=== PATIENT | female | born 1990 | race Caucasian/White ===

== ENCOUNTER 2018-02-23 01:19 | Emergency (ER) | payer BC, SELFPAY ==
[2018-02-23] VITALS (7 sets, daily range): BP systolic 128–140; BP diastolic 71–105; PULSE 86–122; RESP 16–24; TEMP 37.1; O2SAT 96–97; BMI 32.8
--- NOTE | 2018-02-23 01:57 | ED.DCSUM_ITS ---
- ER Visit Summary Date of Service: 02/23/18 Chief Complaint: suicidal ideation History of Present Illness: The patient is a 28 F Who presents for suicidal ideation after her told her tonight he is leaving her. Patient states she does have firearms in the house and does not trust herself to be alone with them. She has thought of shooting herself, and has had this thought in the past but is never acted on it. She has no one to take the guns at this time. She fell off the porch and denies any injury other than abrasions to the right lower extremity. Tetanus not up-to-date. She denies any other complaints at this time. History of anxiety disorder and depression, on trintellix. She is a smoker. Physical Examination: Vital signs: afebrile, hemodynamically stable, no hypoxia on room air General: well nourished, well developed, in no distress, crying Skin: warm, dry, no rash, no pallor, abrasions to the right lower extremity distal to the knee HEENT: normocephalic and atraumatic; PERRL, EOMI, moist mucous membranes Cardiovascular: Tachycardic rate and rhythm without murmurs, no peripheral edema , 2+ pulses all distal extremities Respiratory: No increased work of breathing, lungs are clear to auscultation bilaterally, no rales, rhonchi or wheezing Abdominal: Abdomen is soft, nontender with normoactive bowel sounds, no guarding or rebound, no masses MSK: Moves all extremities, no deformities, normal strength Neuro: Awake and alert, oriented ?4. No facial droop, sensation and motor function intact and symmetric Psych: Tearful, depressed affect, positive suicidal thoughts Test Results: Abnormal Lab Results 02/23/18 02/23/18 02/23/18 02:04 02:05 02:05 WBC 12.4 H RBC 4.59 Hgb 14.2 Hct 42.5 MCV 92.6 MCH 30.9 MCHC 33.4 RDW 12.9 RDW Differential 43.0 Plt Count 272 MPV 11.6 Immature Gran % (Auto) 0.200 Neut % (Auto) 63.9 Lymph % (Auto) 24.6 Armstrong % (Auto) 8.6 Eos % (Auto) 2.2 Baso % (Auto) 0.5 Absolute Neuts (auto) 7.9 H Absolute Lymphs (auto) 3.05 Total Counted Not Reportable Sodium 139 Potassium 3.6 Chloride 108 H Carbon Dioxide 22.0 Anion Gap 9 BUN 16 Creatinine 0.62 Estim Creat Clear Calc 122.64 Est GFR (MDRD) Af Amer 148 Est GFR (MDRD) Non-Af 123 BUN/Creatinine Ratio 25.8 H Glucose 108 H Calcium 8.7 Total Bilirubin 0.60 AST 20 ALT 33 Alkaline Phosphatase 84 Total Protein 8.1 Albumin 4.3 Globulin 3.8 Albumin/Globulin Ratio 1.1 Serum , Qual Urine Opiates Screen NEGATIVE Urine Methadone Screen NEGATIVE Ur Barbiturates Screen NEGATIVE Ur Phencyclidine Scrn NEGATIVE Ur Amphetamines Screen NEGATIVE U Methamphetamin-MDMA NEGATIVE U Benzodiazepines Scrn NEGATIVE Urine Cocaine Screen NEGATIVE U Cannabinoids Screen NEGATIVE Ur Drug Screen Comment Ethyl Alcohol 02/23/18 02/23/18 02:05 02:05 WBC RBC Hgb Hct MCV MCH MCHC RDW RDW Differential Plt Count MPV Immature Gran % (Auto) Neut % (Auto) Lymph % (Auto) Armstrong % (Auto) Eos % (Auto) Baso % (Auto) Absolute Neuts (auto) Absolute Lymphs (auto) Total Counted Sodium Potassium Chloride Carbon Dioxide Anion Gap BUN Creatinine Estim Creat Clear Calc Est GFR (MDRD) Af Amer Est GFR (MDRD) Non-Af BUN/Creatinine Ratio Glucose Calcium Total Bilirubin AST ALT Alkaline Phosphatase Total Protein Albumin Globulin Albumin/Globulin Ratio Serum , Qual NEGATIVE Urine Opiates Screen Urine Methadone Screen Ur Barbiturates Screen Ur Phencyclidine Scrn Ur Amphetamines Screen U Methamphetamin-MDMA U Benzodiazepines Scrn Urine Cocaine Screen U Cannabinoids Screen Ur Drug Screen Comment Ethyl Alcohol < 3.0 Emergency Department Course and Treatment: Medical screening was performed and patient was medically cleared for evaluation by behavioral health. Patient requested being allowed to go out to smoke but instead was prescribed a nicotine patch. She requested her dose of trintellix, however this medication is not available on the formulary. Because of her ready access to handguns and her suicidal thoughts of shooting herself, patient is most appropriate for admission to an inpatient facility. Patient's tetanus was updated due to the abrasions on her leg. She was evaluated by crisis counselor, who felt strongly that patient would benefit from inpatient admission. She is currently being placed, with [facility] accept her. Final disposition pending acceptance of patient to an inpatient psychiatric facility. Treatment Plan: [] Disposition: [] Impression: Suicidal ideation with plan This note was generated with [employer] dictation software. It may contain incorrect words, spelling, and punctuation that were not noted in review of the chart prior to signing ED Disposition - Plan for ED Patient: Chief Complaint: Suicidal Referrals: NOT,DEFINED [NON-STAFF] -
[2018-02-23 02:12] LABS: Absolute Lymphocyte Count 3.05 X10^3/ul (0.83-4.51); Absolute Neutrophil Count 7.9 X10^3/uL (2.0-7.7); Basophil# 0.06 X10^3/uL; Basophil% 0.5 % (0-1); Eosinophil# 0.27 X10^3/uL; Eosinophils% 2.2 % (0-5); Hematocrit 42.5 % (37-47); Hemoglobin 14.2 g/dl (12.0-15.0); Lymphocyte # 3.05 X10^3/ul (4.0); Lymphocyte % 24.6 % (19-41); Mean Corp Hgb Conc 33.4 g/gl (32-36); Mean Corpuscular Hgb 30.9 pg (27.0-32.0); Mean Corpuscular Volume 92.6 fL (81-99); Mean Platelet Vol. 11.6 fl (6.2-12.0); Monocyte# 1.07 X10^3/uL; Monocyte% 8.6 % (0-10); Neutrophil # 7.92 X10^3/uL (2.7-7.7); Neutrophil % 63.9 % (47-70); Platelet Count 272 K/mm3 (150-450); RBC Distribution Width CV 12.9 % (11.6-14.6); Red Blood Count 4.59 M/mm3 (4.2-5.4); White Blood Count 12.4 K/mm3 (4.4-11.0)
[2018-02-23 02:13] LABS: Differential Indicated SCAN CRITERIA MET; POSITIVE COUNT NO; POSITIVE DIFFERENTIAL NO; POSITIVE MORPHOLOGY YES
[2018-02-23 02:26] LABS: ALB/GLOB Ratio 1.1 RATIO (0.9-2.4); AST(SGOT) 20 U/L (15-37); Alanine Aminotransfer ALT/SGPT 33 U/L (13-56); Albumin, Serum 4.3 g/dL (3.2-5.0); Alkaline Phosphatase 84 U/L (45-117); Anion Gap 9 (5-15); BUN 16 mg/dL (7-18); BUN/Creat Ratio 25.8 RATIO (10-20); Calcium,Total 8.7 mg/dL (8.5-10.1); Chloride 108 mmol/L (98-107); Creatinine, Serum 0.62 mg/dL (0.55-1.02); EST Glomerular Filtration Rate 123 mL/min (>60); Est Glom Filt Rate - Afr Amer 148 mL/min (>60); Estimated Creatinine Clearance 122.64 ml/min; Globulin 3.8 g/dL (2.2-4.2); Glucose 108 mg/dL (74-106); Potassium 3.6 mmol/L (3.5-5.1); Protein, Total 8.1 g/dL (6.4-8.2); Sodium Level 139 mmol/L (136-145)
[2018-02-23 02:30] LABS: Amphetamine Urine VISTA NEGATIVE (<1000 ng/mL); Barbiturate Urine VISTA NEGATIVE (< 200 ng/mL); Benzodiazepine Urine VISTA NEGATIVE (< 200 ng/mL); Cocaine Urine VISTA NEGATIVE (< 300 ng/mL); Ecstacy Urine VISTA NEGATIVE (< 500 ng/mL); Methadone Urine VISTA NEGATIVE (< 300 ng/mL); PCP Urine VISTA NEGATIVE (< 25 ng/mL); THC Urine VISTA NEGATIVE (< 50 ng/mL); Vista UDS pH Range 6
[2018-02-23 02:32] LABS: Pregnancy, Serum, hCG Quali. NEGATIVE Negative (0-9 Nonpreg)
[2018-02-23 02:40] LABS: Alcohol, Blood (Medical)-Serum < 3.0 mg/dL
--- NOTE | 2018-02-23 02:59 | ED.RN ---
JOHN CALLED BACK @ 0300, I WILL BE IN SOON
[2018-02-23] MEDS: Ondansetron ODT 4 MG Tablet PO (05:28)
[2018-02-23] MEDS: Diphth,Pertuss(Acell),Tet Vac 0.5 ML Vial IM (06:57)
--- NOTE | 2018-02-23 08:29 | NURSING ---
SAFIA LOPEZ, CALLED ASKING IF WE HAD RECEIVED PLACEMENT FOR PATIENT. SHE WILL FOLLOWUP ON IT.
[2018-02-23] MEDS: LORazepam 1 MG Tablet PO (08:49)
--- NOTE | 2018-02-23 09:15 | NURSING ---
CALLED [facility] FOR TRANSPORT, ETA IS FROM [facility] [place]
--- NOTE | 2018-02-23 09:53 | ED.RN ---
PT REQUESTED PHONE CALL TO NOTIFYING HIM OF TRANSFER TO PSYCHIATRIC FACILITY. CALL WAS PLACED TO PERSON ON RECORD AT PHONE NUMBER LISTED. VOICE MAIL WAS LEFT TO THIS NUMBER REQUESTING CALL BACK TO ED.
== END 2018-02-23 09:53 ==
LOC: ED 02:14
PROVIDERS: Emergency Provider Emergency Medicine
DX: R45.851 Suicidal ideations (principal); F32.9 Major depressive disorder, single episode, unspecified; F17.200 Nicotine dependence, unspecified, uncomplicated; F41.9 Anxiety disorder, unspecified
CPT/HCPCS: 80053; 80307; 80320; 84703; 85025; 90715; 99285; G0480

== ENCOUNTER 2018-05-03 12:49 | Emergency (ER) | payer BC, SELFPAY ==
[2018-05-03 12:49] VITALS: BP 136/81; PULSE 102; RESP 16; TEMP 36.7; O2SAT 99; BMI 31.6
--- NOTE | 2018-05-03 13:35 | ED.VIS.GEN ---
History of Present Illness Chief Complaint: Med Refill Informant: Patient Narrative: Patient states she was on Trintellix 20 mg daily for depression, and was admitted to psychiatry in February, discharged on that medication as well as BuSpar and Seroquel. She was given a month supply, but has been unable to get refills, and has been out of these medications for 3 weeks and feels like she is having some withdrawal symptoms, feeling shaky, having severe mood swings, depressed at times but she is not suicidal. She wants to be on her medications, she called the counseling center, but they cannot give her any refills without seeing her and they do not have any availability until June. Significant other states that he got her in for a quick evaluation for medication prescriptions at the end of this month but she would like to get some medication to get her through. She is not asking for any controlled substances, only these 3 medications. - Past Medical History (1) Depression Status: Chronic Past Medical History - Allergies and Home Meds Allergies/Adverse Reactions: Allergies egg Allergy (Verified 05/03/18 12:53) Nausea/Vom/Diarrhea [facility] Allergy (Uncoded 05/03/18 12:53) NOT SURE/FELT BAD Primary Care Physician: Care Physician,No Primary [Primary Care Provider] - Lives: With Family Smoking Status: Current every day smoker Review of Systems General: Denies: Chills, Fever Cardiovascular: Denies: Chest pain, Palpitations Respiratory: Denies: Dyspnea, Cough Gastrointestinal: Denies: Abdominal pain, Nausea, Vomiting Psych: Reports: Depression, Anxiety. Denies: Suicidal thoughts, Suicidal ideations Physical Exam Vital Signs/Narrative: Vital Signs Temp Pulse Resp BP Pulse Ox 05/03/18 12:49 98.1 F 102 H 16 136/81 H 99 Inital Vital Signs reviewed: Yes General: Well nourished, Well developed, - - Well-appearing, NAD Head: Normocephalic, Atraumatic Eyes: Perrl, EOMI Skin: Normal color, No rash Neurological: Alert, Oriented x3, Cranial nerves II-XII grossly intact, Normal Strength, Normal Sensation, Normal Gait Psychological: Normal affect Diagnostic/Tx/Re-eval - Medical Decision Making I will prescribe her a 20-day supply to get her through the end of the month, which I do not have a problem with. ED Disposition - Plan for ED Patient: Disposition: Home or Assisted Living Chief Complaint: Med Refill Diagnosis: Encounter for medication refill, Depression Instructions: Med Refill Prescriptions: Quetiapine Fumarate [Seroquel] 50 mg PO QHS #20 tab Vortioxetine Hydrobromide [Trintellix] 20 mg PO . QAM #20 tab Buspirone HCl 10 mg PO TID #60 tab Referrals: Counseling,Center [GROUP OF PHYSICIANS] - Keep [facility] appointment
[2018-05-03 13:49] VITALS: RESP 16
--- NOTE | 2018-05-03 13:50 | ED.RN ---
REVIEWED D/C INSTRUCTIONS, FOLLOW UP CARE, PRESCRIPTIONS, AND S/S THAT WOULD WARRANT A RETURN TO THE ED WITH PT. PT VERBALIZED AN UNDERSTANDING AND DENIES FURTHER QUESTIONS FOR THIS RN. PT SKIN P/W/D, RESP EVEN AND UNLABORED, PT A&O X 3, NO DISTRESS NOTED. PT AMBULATED OUT OF ED, GAIT STEADY.
== END 2018-05-03 13:51 | disposition home or self-care (01) ==
PROVIDERS: Emergency Provider Emergency Medicine
DX: Z76.0 Encounter for issue of repeat prescription (principal); F32.9 Major depressive disorder, single episode, unspecified; F17.200 Nicotine dependence, unspecified, uncomplicated
CPT/HCPCS: 99282

== ENCOUNTER 2022-01-02 00:51 | Emergency (ER) | payer SELFPAY ==
[2022-01-02 00:51] VITALS: BP 145/92; PULSE 87; RESP 18; TEMP 36.2; O2SAT 98
[2022-01-02 00:52] VITALS: BP 145/92; PULSE 87; RESP 16; TEMP 36.2; O2SAT 98; BMI 30.4
--- NOTE | 2022-01-02 01:18 | EKG12_ITS ---
Test Reason : DYSRHYTHMIA Blood Pressure : / mmHG Vent. Rate : 077 BPM Atrial Rate : 077 BPM P-R Int : 156 ms QRS Dur : 082 ms QT Int : 370 ms P-R-T Axes : 059 021 027 degrees QTc Int : 418 ms Normal sinus rhythm Septal infarct , age undetermined, cannot be excluded Abnormal ECG Confirmed by AMARI WARREN, MADELYN ([id number]), avid editor JUNIOR MADDEN ([id number]) on 01/03/2022 10:46:55 AM Referred By: CODI Confirmed By:MADELYN FITZPATRICK MD
--- NOTE | 2022-01-02 02:17 | EX.ED.DYSGE1 ---
HPI History of Present Illness Chief Complaint: Chest Pain Narrative Narrative: Patient is a 31-year-old female with no significant past medical history. She states that over the past 2 to 3 weeks has been having intermittent sharp midsternal chest pain. She states that she does not have medical insurance and therefore has not been to see family doctor or to the ER secondary to it. She denies any trauma fevers chills illicit drug use or family history of cardiac disease at a young age. She also denies any recent surgery travel or history of DVT/PE. She states that this evening the pain seemed little more severe than previous and therefore she came in for evaluation. PFSH PFSH no medical history Home Medications buspirone 10 mg tablet 10 mg PO TID 05/03/18 [History Last Taken Unknown] buspirone 10 mg tablet 10 mg PO TID #60 tabs 05/03/18 [Rx Last Taken Unknown] ondansetron 4 mg disintegrating tablet 4 mg PO Q8 PRN Nausea 05/03/18 [History Last Taken Unknown] quetiapine 50 mg tablet 50 mg PO QHS #20 tabs 05/03/18 [Rx Last Taken Unknown] quetiapine 50 mg tablet (Seroquel) 50 mg PO QHS 05/03/18 [History Last Taken Unknown] vortioxetine 20 mg tablet 20 mg PO . QAM #20 tabs 05/03/18 [Rx Last Taken Unknown] vortioxetine 20 mg tablet (Trintellix) 20 mg PO DAILY 05/03/18 [History Last Taken Unknown] Allergy/AdvReac Type Severity Reaction Status Date / Time egg Allergy Nausea/Vom/ Verified 05/03/18 12:53 Diarrhea [facility] Allergy NOT Uncoded 05/03/18 12:53 SURE/FELT BAD Social History Smoking Status: Current every day smoker tobacco type: cigarettes ROS ROS ED Constitutional Constitutional ED: Denies chills or fever(s) ENT ENT ED: Denies sore throat Cardiovascular Cardiovascular: Reports chest pain; Denies palpitations or racing heartbeat Respiratory/Chest Respiratory/Chest: Denies cough or dyspnea Gastrointestinal Gastrointestinal: Denies abdominal pain, diarrhea, nausea or vomiting Genitourinary Genitourinary ED: Denies dysuria Musculoskeletal Musculoskeletal: Denies myalgias Integumentary Denies rash Neurologic Neurologic: Denies headache(s) Hematologic/Lymphatic Hematologic/Lymphatic: Denies easy bleeding or easy bruising EXAM Physical Exam Const Vital Signs: 01/02/22 00:52 01/02/22 00:51 Temperature 97.2 F L 97.2 F L Temperature Source Temporal Temporal Pulse Rate 87 87 Respiratory Rate 16 18 Blood Pressure 145/92 H 145/92 H Blood Pressure Mean 109 109 Pulse Ox 98 98 Oxygen Delivery Method Room Air Room Air Positive well nourished and well developed General Appearance ED: well developed HEENT Reports moist mucous membranes Eyes PERRL and EOMs intact bilaterally Neck supple Chest Wall Chest Narrative: Reproducible anterior chest wall with palpation that patient states is same pain she has been experiencing. There is no bony deformity or crepitance. No overlying soft tissue changes to suggest trauma or infection Resp normal respiratory effort and clear to auscultation bilaterally Cardio regular rate and regular rhythm Rate: other Other Details: Radial pulses are plus 2 out of 4 bilaterally are equal and symmetric GI non-tender and non-distended GI Narrative: No voluntary guarding or rigidity no pulsatile mass Auscultation: normoactive bowel sounds Palpation: soft Extremity normal to inspection Extremity Narrative: No asymmetric edema no pitting edema negative Homans' sign bilaterally Neuro oriented x3 and CN's II-XII intact bilaterally Sensorium / Orientation: alert Psych mental status grossly normal Skin no rashes or lesions noted MDM MDM MDM Narrative Medical decision making narrative: Patient presented to the ER mildly hypertensive but otherwise with stable vitals and in no acute distress. She is low risk for CAD as well as DVT/PE and her exam is most suggestive of a musculoskeletal chest wall pain as it is reproducible in nature. However because the pain has been present for the past 2 weeks it elected perform a basic cardiac work-up. However after arrival to the ER patient reports that her pain has resolved and she does not want to be worked up any further. Therefore she is low risk of cardiac disease I will discharge her at this time and she can return if she has any further concerns or decides upon having a work-up performed Discharge Plan Triage Chief Complaint: Chest Pain ED Provider: Hakan Tong Dx/Rx/DC Orders Clinical Impression: Acute nonspecific chest pain with low risk of coronary artery disease Instructions: ED Chest Pain, Noncardiac, ED Chest Pain, Uncertain Cause Prescriptions: No Action buspirone 10 MG tablet 10 mg PO TID ondansetron 4 MG tablet 4 mg PO Q8 PRN (Reason: Nausea) Label Comments: TAKE 1 TABLET BY MOUTH EVERY 8 HOURS NEEDED FOR NAUSEA quetiapine [Seroquel] 50 MG tablet 50 mg PO QHS vortioxetine [Trintellix] 20 MG tablet 20 mg PO DAILY vortioxetine 20 MG tablet 20 mg PO . QAM Qty: 20 0RF buspirone 10 MG tablet 10 mg PO TID Qty: 60 0RF quetiapine 50 MG tablet 50 mg PO QHS Qty: 20 0RF Primary Care Provider: Care Physician,No Primary Referrals: Carl Santos MD [STAFF PHYSICIAN] - 1 Week if not improving Care Physician,No Primary [Primary Care Provider] - Activity Restrictions/Additional Instructions: Please return to the ER for repeat evaluation if you change your mind about obtaining a work-up or have any further concerns Disposition Disposition: Home, Self Care Discharge Date/Time: 01/02/22 02:27
== END 2022-01-02 02:27 | disposition home or self-care (01) ==
PROVIDERS: Emergency Provider Emergency Medicine; Visit Provider Emergency Medicine
DX: R07.2 Precordial pain (principal); F17.210 Nicotine dependence, cigarettes, uncomplicated
CPT/HCPCS: 93005; 99285; A4216

== ENCOUNTER 2023-02-27 23:03 | Emergency (ER) | payer BC, SELFPAY ==
[2023-02-27 23:05] VITALS: BP 138/99; PULSE 115; RESP 18; TEMP 36.2; O2SAT 98; BMI 29.2
[2023-02-28 00:20] LABS: Color, Urine Yellow (Yellow); Glucose, Dipstick Normal (Normal); Ketone-Dipstick Negative (Negative); Leukocyte Esterase-Dipstick Negative /ul (Negative); Nitrite-Dipstick Negative (Negative); Occult Blood-Urine Negative /ul (Negative); Protein-Dipstick Negative (Negative); Urine Bilirubin Dipstick Negative (Negative); Urine Clarity Clear (Clear); Urine Urobilinogen Normal (Normal); Urine pH 6.5 (5.0 - 8.0)
[2023-02-28 00:21] LABS: Absolute Lymphocyte Count 3.27 X10^3/uL (0.83-4.51); Absolute Neutrophil Count 10.7 X10^3/uL (2.0-7.7); Basophil% 0.6 % (0-1); Eosinophil# 0.27 X10^3/uL; Eosinophils% 1.7 % (0-5); Hematocrit 46.3 % (37-47); Hemoglobin 15.3 g/dL (12.0-15.0); Lymphocyte # 3.27 X10^3/ul (0.83-4.51); Lymphocyte % 21.2 % (19-41); Mean Corpuscular Hgb 30.8 pg (27.0-32.0); Mean Corpuscular Volume 93.3 fL (81-99); Mean Platelet Vol. 12.6 fl (6.2-12.0); Monocyte# 1.06 X10^3/uL; Monocyte% 6.9 % (0-10); NRBC Flagged by Analyzer 0 % (0-5); Neutrophil # 10.66 X10^3/uL (2.7-7.7); Neutrophil % 69.1 % (47-70); Platelet Count 236 K/mm3 (150-450); RBC Distribution Width CV 12.6 % (11.6-14.6); RBC Distribution Width SD 43.1 fl (35.1-43.9); Red Blood Count 4.96 M/mm3 (4.2-5.4); White Blood Count 15.4 K/mm3 (4.4-11.0)
[2023-02-28 00:21] LABS: Bacteria 0 SEEN /hpf (None Seen); Mucous, Urine 0 SEEN /hpf (<or=2+); Red Blood Cells-Urine 0 SEEN /hpf (0-5); White Blood Cells 0 SEEN /hpf (0-5)
[2023-02-28] MEDS: 0.9% Normal Saline 1,000 ML 1000 ML IV (00:26)
[2023-02-28 00:27] LABS: Squamous Epithelial Cells - UA 0-5 SEEN /hpf (5-10)
[2023-02-28 00:35] LABS: Anion Gap 7 (5-15); BUN 14 mg/dL (7-18); Calcium,Total 9.4 mg/dL (8.5-10.1); Chloride 108 mmol/L (98-107); Creatinine, Serum 0.78 mg/dL (0.55-1.02); EST Glomerular Filtration Rate 91 mL/min (>60); Est Glom Filt Rate - Afr Amer 110 mL/min (>60); Estimated Creatinine Clearance 93.17 ml/min; Glucose 108 mg/dL (74-106); Potassium 3.7 mmol/L (3.5-5.1); Sodium Level 137 mmol/L (136-145)
--- NOTE | 2023-02-28 00:43 | EX.ED.DYSGE1 ---
HPI History of Present Illness Chief Complaint: Dizziness Informant: patient Onset/Context/Timing Onset: Today Context: Sudden Onset Timing: Intermittent Quality: Spinning Location: Head Worsened by: Head movements Relieved by: Remaining still Narrative Narrative: Patient presents with dizziness that began today. Patient states it came on rather suddenly. Patient states she got up to go to the bathroom and she felt like the room was spinning. Patient states it seems to be worse with movement of her head and better when she is able to keep her head still. Patient states she nearly passed out because of this. Patient denies any tinnitus or hearing changes. Patient admits to some nausea but denies any vomiting. Patient states she has been having some dark urine recently but denies any dysuria or hematuria. Patient denies any fevers or chills. PFSH PFS Medical History (Updated 02/28/23 @ 00:[address] Doug Carr DO) Anxiety Home Medications buspirone 10 mg tablet 10 mg PO TID 05/03/18 [History Last Taken Unknown] buspirone 10 mg tablet 10 mg PO TID #60 tabs 05/03/18 [Rx Last Taken Unknown] ondansetron 4 mg disintegrating tablet 4 mg PO Q8 PRN Nausea 05/03/18 [History Last Taken Unknown] quetiapine 50 mg tablet 50 mg PO QHS #20 tabs 05/03/18 [Rx Last Taken Unknown] quetiapine 50 mg tablet (Seroquel) 50 mg PO QHS 05/03/18 [History Last Taken Unknown] vortioxetine 20 mg tablet 20 mg PO . QAM #20 tabs 05/03/18 [Rx Last Taken Unknown] vortioxetine 20 mg tablet (Trintellix) 20 mg PO DAILY 05/03/18 [History Last Taken Unknown] Allergy/AdvReac Type Severity Reaction Status Date / Time chlorpheniramine Allergy PT UNSURE Verified 02/27/23 23:09 OF REACTION egg Allergy Nausea/Vom/ Verified 02/27/23 23:09 Diarrhea Surgical History (Updated 02/28/23 @ 00:[address] Doug Carr DO) Hx of tonsillectomy Social History Smoking Status: Current every day smoker tobacco type: cigarettes ROS ROS ED Constitutional Constitutional ED: Denies chills or fever(s) Eyes Eyes: Denies blurry vision or change in vision ENT ENT ED: Denies ear pain, rhinorrhea or sore throat Cardiovascular Cardiovascular: Denies chest pain or palpitations Respiratory/Chest Respiratory/Chest: Denies cough or dyspnea Gastrointestinal Gastrointestinal: Reports nausea; Denies vomiting Genitourinary Genitourinary ED: Denies dysuria or hematuria Musculoskeletal Musculoskeletal: Reports back pain; Denies neck pain Integumentary Reports rash; Denies abscess Neurologic Neurologic: Denies headache(s) or weakness Allergic/Immunologic Allergic/Immunologic ED: Denies mouth swelling or urticaria EXAM Physical Exam Const Vital Signs: 02/27/23 23:05 02/28/23 00:04 Temperature 97.1 F L Temperature Source Temporal Pulse Rate 115 H Respiratory Rate 18 Respiratory Effort Normal Non-Labored Respiratory Pattern Normal Blood Pressure 138/99 H Blood Pressure Mean 112 Pulse Ox 98 Oxygen Delivery Method Room Air Positive well nourished and well developed General Appearance ED: well developed and NAD HEENT Reports moist mucous membranes Eyes PERRL and EOMs intact bilaterally Eyes Narrative: There is mild nystagmus with right lateral gaze. Neck supple and no JVD Resp normal respiratory effort and clear to auscultation bilaterally Cardio regular rate, regular rhythm and no murmurs GI normal to inspection, nondistended, normoactive bowel sounds and non-tender Palpation: soft Extremity normal to inspection General Extremety ED: Negative for edema or tenderness General Extremity: Negative for edema Neuro oriented x3, CN's II-XII intact bilaterally and no sensory deficits noted Sensorium / Orientation: alert Motor Exam: strength 5/5 throughout Psych mental status grossly normal Skin no rashes or lesions noted MDM MDM MDM Narrative Medical decision making narrative: Differential diagnosis includes peripheral vertigo, diabetes, hyperglycemia, anemia, dehydration, and anxiety. CBC will be obtained to assess for leukocytosis and anemia. Basic metabolic profile will be obtained to assess for electrolyte abnormality and renal function. Urinalysis will be obtained to assess for urinary tract infection. Lab Data Attestation: I reviewed the patient's lab results. Lab results narrative: CBC was reviewed. There is a slight leukocytosis of 15.4. The remainder is within normal limits. Basic metabolic profile was reviewed and was essentially within normal limits. Urinalysis was reviewed. There is no evidence of urinary tract infection or hematuria. Labs: Laboratory Results - last 24 hr 02/28/23 02/28/23 00:00 00:12 WBC 15.4 H RBC 4.96 Hgb 15.3 H Hct 46.3 MCV 93.3 MCH 30.8 MCHC 33.0 RDW Std Deviation 43.1 RDW Coeff of Sunitha 12.6 Plt Count 236 MPV 12.6 H Immature Gran % (Auto) 0.500 Neut % (Auto) 69.1 Lymph % (Auto) 21.2 [place] % (Auto) 6.9 Eos % (Auto) 1.7 Baso % (Auto) 0.6 Absolute Neuts (auto) 10.7 H Absolute Lymphs (auto) 3.27 Nucleated RBC % 0 Sodium 137 Potassium 3.7 Chloride 108 H Carbon Dioxide 22.0 Anion Gap 7 BUN 14 Creatinine 0.78 Estim Creat Clear Calc 93.17 Est GFR (MDRD) Af Amer 110 Est GFR (MDRD) Non-Af 91 BUN/Creatinine Ratio 18.0 Glucose 108 H Calcium 9.4 Urine Color Yellow Urine Clarity Clear Urine pH 6.5 Ur Specific [place] 1.010 Urine Protein Negative Urine Glucose (UA) Normal Urine Ketones Negative Urine Occult Blood Negative Urine Nitrite Negative Urine Bilirubin Negative Urine Urobilinogen Normal Ur Leukocyte Esterase Negative Urine RBC 0 SEEN Urine WBC 0 SEEN Ur Squamous Epith Cells 0-5 SEEN Urine Bacteria 0 SEEN Urine Mucus 0 SEEN Treatment and Re-Evaluation :: Patient was given IV fluids. Patient states she does not want any medications at this point. Patient was advised that this does appear to be peripheral vertigo. Patient was advised that either Valium or meclizine would be beneficial for her. Currently, patient does not want to take any medications. Patient was advised of her findings. Patient is feeling better on reevaluation. Patient states her dizziness has almost completely resolved. Patient was instructed to drink plenty of fluids. Patient was instructed to follow-up with her primary care physician in 5 to 7 days. Patient understood and was agreeable with the plan. All questions were answered. Discharge Plan Triage Chief Complaint: Dizziness ED Provider: Doug Carr Dx/Rx/DC Orders Clinical Impression: Vertigo Instructions: ED Vertigo, Unspecified Prescriptions: No Action buspirone 10 MG tablet 10 mg PO TID ondansetron 4 MG tablet 4 mg PO Q8 PRN (Reason: Nausea) Patient Comments: TAKE 1 TABLET BY MOUTH EVERY 8 HOURS NEEDED FOR NAUSEA quetiapine [Seroquel] 50 MG tablet 50 mg PO QHS vortioxetine [Trintellix] 20 MG tablet 20 mg PO DAILY vortioxetine 20 MG tablet 20 mg PO . QAM Qty: 20 0RF buspirone 10 MG tablet 10 mg PO TID Qty: 60 0RF quetiapine 50 MG tablet 50 mg PO QHS Qty: 20 0RF Primary Care Provider: Foster Childress Referrals: Foster Childress MD [Primary Care Provider] - 3-5 Days Disposition Disposition: Home, Self Care
[2023-02-28 00:51] VITALS: BP 139/74; PULSE 74; RESP 18; O2SAT 98
== END 2023-02-28 01:04 | disposition home or self-care (01) ==
PROVIDERS: Emergency Provider Emergency Medicine; PCP Internal Medicine; Visit Provider Emergency Medicine
DX: R42 Dizziness and giddiness (principal); R11.0 Nausea; F17.210 Nicotine dependence, cigarettes, uncomplicated; F41.9 Anxiety disorder, unspecified; Z79.899 Other long term (current) drug therapy
CPT/HCPCS: 80048; 81001; 85025; 96360; 99285; J7030; A4216

== ENCOUNTER 2023-03-15 02:34 | Emergency (ER) | payer BC, SELFPAY ==
[2023-03-15 02:39] VITALS: BP 128/87; PULSE 99; RESP 18; TEMP 36.6; O2SAT 97; BMI 29.3
--- NOTE | 2023-03-15 03:10 | EKG12_ITS ---
Test Reason : ANXIETY Blood Pressure : / mmHG Vent. Rate : 075 BPM Atrial Rate : 075 BPM P-R Int : 154 ms QRS Dur : 078 ms QT Int : 362 ms P-R-T Axes : 065 025 031 degrees QTc Int : 404 ms Normal sinus rhythm Septal infarct (cited on or before 13-JAN-2017) Abnormal ECG Confirmed by JUANCARLOS WARREN, ANYA ([id number]), pictures editor MEG CHIU ([id number]) on 03/19/2023 11:36:03 AM Referred By: Confirmed By:CARMELITA BAUER MD
--- NOTE | 2023-03-15 03:11 | EDS_ITS ---
HPI History of Present Illness Chief Complaint: Anxiety Narrative Narrative: 33-year-old female past medical history of generalized anxiety disorder, presents to the [facility] hotline because she needs to be checked out. She states that all day she had been antsy, and then started having a panic attack. She was on the phone with the crisis counselor at 180 because she states she found out that it was not just for suicidal people. She was having anxiety and panic attacks, and started having a crying spell as well. She was complaining of pain in her chest, palpitations, and neck pain. The crisis counselor wanted her evaluated in the emergency department. Patient states she wanted a second opinion, so she called the nurse hotline who recommended that she be evaluated in the next 2 hours. She states she started feeling like she does when she has a blood pressure spike. States she has not taken any psychiatric medications since 2019. She presents because of the heart palpitations, chest pain, neck pain. Additionally, she states she feels mildly improved however. PFSH PFS Medical History Anxiety Home Medications lorazepam 0.5 mg tablet 0.5 mg PO Q8H PRN anxiety 03/15/23 [History Last Taken Unknown] Allergy/AdvReac Type Severity Reaction Status Date / Time lidocaine Allergy Intermediate Hives Verified 03/15/23 02:36 chlorpheniramine Allergy PT UNSURE Verified 03/15/23 02:36 OF REACTION egg Allergy Nausea/Vom/ Verified 03/15/23 02:36 Diarrhea Surgical History Hx of tonsillectomy Social History Smoking Status: Current every day smoker tobacco type: cigarettes ROS ROS ED ROS Narrative Constitutional: No fever, no chills. HEENT: No sore throat. No neck pain. No loss of vision. No rhinorrhea. Positive pain in sides of neck. Cardiovascular: Positive chest pain. Positive palpitations. No pedal edema. Respiratory: No cough, no shortness of breath. Abdominal: No abdominal pain. No nausea. No vomiting. Genitourinary: No dysuria. No hematuria. Musculoskeletal: No myalgias. No arthralgias. Neurologic: No headaches. No dizziness. No lightheadedness. Skin: No rash. No change in color. Psychiatric: No depression. Positive panic attacks/anxiety. EXAM Physical Exam Narrative Exam Narrative: Afebrile. Vital signs noted. HEENT: Normocephalic. Atraumatic. PERRL, EOMI. Neck soft and supple. No point tenderness or step off. Cardiovascular: Regular rate and rhythm. No murmurs, rubs, or gallops appreciated. Respiratory: No tachypnea. Lungs clear to auscultation bilaterally. Gastrointestinal: Abdomen soft, nontender, with normoactive bowel sounds. No rebound or guarding. Neurological: Awake. Alert. Nonfocal, nonlateralizing. Skin: No rash. Normal color. No pallor. Musculoskeletal: No pedal edema. Full range of motion extremities. Const Vital Signs: 03/15/23 02:39 03/15/23 03:25 Temperature 97.8 F Temperature Source Temporal Pulse Rate 99 Respiratory Rate 18 Blood Pressure 128/87 H Blood Pressure Mean 100 Pulse Ox 97 Oxygen Delivery Method Room Air Room Air MDM MDM MDM Narrative Medical decision making narrative: I reviewed the patient's prior records. She has been seen remotely in the past for anxiety where EKG was performed. I will do a chest pain work-up to help rule out coronary artery disease/ACS. It does sound like she had more of a panic attack. EKG obtained and interpreted by myself independently as normal sinus rhythm at 75 bpm without ectopy or acute ST changes. No STEMI. Currently she is not hypertensive with a blood pressure of 128/87. She is not having a tachycardia either. I reviewed her laboratory work from today and she has a slightly elevated white count of 13.1, which she stated is chronic for her, and additionally she has had leukocytosis in the past. Hemoglobin 14.3 and normal, platelet count normal at 254. Electrolyte panel is grossly unremarkable except for chloride of 110, anion gap low at 2. Glucose is appropriately elevated at 99. High-sensitivity troponin is less than 3. I reviewed her chest x-ray and interpreted it independently as no acute process. I reviewed the radiology report which confirms my independent interpretation. At this point in time, I do not necessarily feel that serial troponins are indicated. Additionally, she does not want a wait for them. I feel she can be discharged safely home with follow-up to the counseling center and to her primary care provider. Disposition is discharged home in stable condition. History & Record Review Discussion w/independent historian: Patient Additional record(s) reviewed:: Prior ED visit and Prior labs Lab Data Attestation: I reviewed the patient's lab results. Labs: Laboratory Results - last 24 hr 03/15/23 03:12 WBC 13.1 H RBC 4.73 Hgb 14.3 Hct 43.7 MCV 92.4 MCH 30.2 MCHC 32.7 RDW Std Deviation 41.3 RDW Coeff of Sunitha 12.1 Plt Count 254 MPV 11.5 Immature Gran % (Auto) 0.400 Neut % (Auto) 59.2 Lymph % (Auto) 30.7 Yell % (Auto) 7.0 Eos % (Auto) 1.9 Baso % (Auto) 0.8 Absolute Neuts (auto) 7.7 Absolute Lymphs (auto) 4.00 Nucleated RBC % 0 Sodium 138 Potassium 3.7 Chloride 110 H Carbon Dioxide 26.0 Anion Gap 2 L BUN 7 Creatinine 0.55 Estim Creat Clear Calc 132.14 Est GFR (MDRD) Af Amer 165 Est GFR (MDRD) Non-Af 136 BUN/Creatinine Ratio 12.8 Glucose 99 Calcium 9.0 Troponin I High Sens < 3 L Radiography Diagnostic Testing: Clinical Impression(s) from Imaging Studies Chest X-Ray 03/15/23 03:30 IMPRESSION: No radiographic evidence of acute cardiopulmonary disease. Electronically Signed: Virgilio Hernandez MD at 3:47 EDT , Discharge Plan Triage Chief Complaint: Anxiety ED Provider: Musa Islas Dx/Rx/DC Orders Clinical Impression: Palpitations, Anxiety, Panic attacks Instructions: ED Palpitations, ED Panic Attack Prescriptions: No Action lorazepam 0.5 mg tablet 0.5 mg PO Q8H PRN (Reason: anxiety) Patient Comments: take 1 tablet by mouth twice a day for 7 days if needed for anxiety Primary Care Provider: Foster Childress Referrals: Counseling,Center [Group of Physicians] - As soon as possible Foster Childress MD [Primary Care Provider] - As soon as possible Disposition Disposition: Home, Self Care
[2023-03-15 03:24] LABS: Absolute Neutrophil Count 7.7 X10^3/uL (2.0-7.7); Basophil% 0.8 % (0-1); Eosinophil# 0.25 X10^3/uL; Eosinophils% 1.9 % (0-5); Hematocrit 43.7 % (37-47); Hemoglobin 14.3 g/dL (12.0-15.0); Lymphocyte % 30.7 % (19-41); Mean Corp Hgb Conc 32.7 g/dL (32-36); Mean Corpuscular Hgb 30.2 pg (27.0-32.0); Mean Corpuscular Volume 92.4 fL (81-99); Mean Platelet Vol. 11.5 fl (6.2-12.0); Monocyte# 0.91 X10^3/uL; NRBC Flagged by Analyzer 0 % (0-5); Neutrophil # 7.74 X10^3/uL (2.7-7.7); Neutrophil % 59.2 % (47-70); Platelet Count 254 K/mm3 (150-450); RBC Distribution Width CV 12.1 % (11.6-14.6); RBC Distribution Width SD 41.3 fl (35.1-43.9); Red Blood Count 4.73 M/mm3 (4.2-5.4); White Blood Count 13.1 K/mm3 (4.4-11.0)
[2023-03-15] MEDS: Aspirin 81 MG TAB.CHEW 324 MG PO (03:24)
--- NOTE | 2023-03-15 03:30 | RAD_ITS ---
INDICATION: chest pain EXAMINATION/TECHNIQUE: X-RAY - XR Chest 1 View COMPARISON: Chest x-ray from 07/12/2017 FINDINGS: LINES/DEVICES: None. LUNGS: No pulmonary edema or focal airspace consolidation. No sizable pleural effusion. No pneumothorax detected. MEDIASTINUM AND CARDIOVASCULAR STRUCTURES: Heart size within normal limits. Mediastinal contours unremarkable. BONES AND SOFT TISSUES: No acute findings. RAD/Chest 1 View (Portable) IMPRESSION: No radiographic evidence of acute cardiopulmonary disease. Electronically Signed: Virgilio Hernandez MD at 3:47 EDT ,
[2023-03-15 03:41] LABS: Anion Gap 2 (5-15); BUN 7 mg/dL (7-18); BUN/Creat Ratio 12.8 RATIO (10-20); Chloride 110 mmol/L (98-107); Creatinine, Serum 0.55 mg/dL (0.55-1.02); EST Glomerular Filtration Rate 136 mL/min (>60); Est Glom Filt Rate - Afr Amer 165 mL/min (>60); Estimated Creatinine Clearance 132.14 ml/min; Glucose 99 mg/dL (74-106); Potassium 3.7 mmol/L (3.5-5.1); Sodium Level 138 mmol/L (136-145); Troponin-I HS (w/2H Reflex) < 3 pg/mL (3.0-54.0)
[2023-03-15 04:01] VITALS: PULSE 85; RESP 18; O2SAT 96
[2023-03-15 05:21] LABS: Reflex Troponin-HS? (from REC) Y
== END 2023-03-15 04:02 | disposition home or self-care (01) ==
PROVIDERS: Emergency Provider Emergency Medicine; PCP Internal Medicine; Visit Provider Emergency Medicine
DX: F41.0 Panic disorder [episodic paroxysmal anxiety] (principal); R07.9 Chest pain, unspecified; F17.210 Nicotine dependence, cigarettes, uncomplicated; Z79.899 Other long term (current) drug therapy
CPT/HCPCS: 71045; 80048; 84484; 85025; 93005; 99285; A4216

== ENCOUNTER 2023-03-15 09:03 | Emergency (ER) | payer BC, SELFPAY ==
[2023-03-15 09:04] VITALS: BP 137/100; PULSE 112; RESP 16; TEMP 36.2; O2SAT 100; BMI 29.0
--- NOTE | 2023-03-15 09:29 | EDS_ITS ---
HPI HPI - Psych History of Present Illness Chief Complaint: Anxiety Informant: patient Onset/Context/Timing Onset: Weeks Context: Gradual Onset Timing: Continuous Current Severity: Moderate Maximum Severity: Severe Associated Symptoms Associated Symptoms - Psych: Negative for Suicidal Thoughts Narrative Narrative: Female suffers from anxiety. Saw the counseling center in the past but does not been in care with them for some time. Said recently she lost 4 pads in the last 4 days. Her dog passed. Cat got hit by car. Another cat got mauled by another. Pet. Been having panic attacks and trouble sleeping. She is actually seen in this emergency department within the last 12 hours was experiencing elevated blood pressure and was evaluated from a cardiac standpoint and discharged home. She has Ativan at home from a recent evaluation at another emergency department in which she gave her 7-day prescription for Ativan. She is concerned to take it because she is scared she may stop breathing. Prior similar symptoms: Yes Recent Illness/Hospitalization: No PFSH PFSH Medical History Anxiety Home Medications lorazepam 0.5 mg tablet 0.5 mg PO Q8H PRN anxiety 03/15/23 [History Last Taken Unknown] Allergy/AdvReac Type Severity Reaction Status Date / Time lidocaine Allergy Intermediate Hives Verified 03/15/23 09:07 chlorpheniramine Allergy PT UNSURE Verified 03/15/23 09:07 OF REACTION egg Allergy Nausea/Vom/ Verified 03/15/23 09:07 Diarrhea Surgical History Hx of tonsillectomy Social History Smoking Status: Current every day smoker tobacco type: cigarettes ROS ROS ED ROS Narrative Denies. Anxiety. Review of Systems ROS Unobtainable: Denies due to encephalopathy Constitutional Constitutional ED: Denies chills or fever(s) Eyes Eyes: Denies blurry vision ENT ENT ED: Denies ear pain Cardiovascular Cardiovascular: Denies chest pain Respiratory/Chest Respiratory/Chest: Denies cough Gastrointestinal Gastrointestinal: Denies abdominal pain Genitourinary Genitourinary ED: Denies dysuria or hematuria Musculoskeletal Musculoskeletal: Denies arthralgias Integumentary Denies abscess Neurologic Neurologic: Denies headache(s) Psychiatric Psychiatric: Reports anxiety Endocrine Endocrinology: Denies polydipsia or polyphagia Hematologic/Lymphatic Hematologic/Lymphatic: Denies easy bleeding or easy bruising Allergic/Immunologic Allergic/Immunologic ED: Denies mouth swelling or tongue swelling EXAM Physical Exam Narrative Exam Narrative: -year-old female vital signs stable afebrile. Very anxious. H EENT exam normal. Neck nontender no lymphadenopathy. Lungs clear to auscultation bilateral. Heart regular rhythm no murmur. Chest wall nontender. Abdomen soft nontender. Moving all 4 extremities. Neurologically she is awake alert with no focal motor deficits. She makes eye contact. Carries on a normal conversation. Const Vital Signs: 03/15/23 09:04 Temperature 97.2 F L Temperature Source Temporal Pulse Rate 112 H Respiratory Rate 16 Blood Pressure 137/100 H Blood Pressure Mean 112 Pulse Ox 100 Oxygen Delivery Method Room Air Positive well nourished and well developed; Negative for cachectic, contractures or unkempt General Appearance ED: well developed and NAD; Negative for unkempt, cachectic, contractures or pallor Nutritional Appearance: Negative for cachectic HEENT Reports moist mucous membranes normocephalic and atraumatic; Negative for trauma or tenderness Eyes PERRL and EOMs intact bilaterally General Eye ED: Negative for pale conjunctiva, scleral icterus or other Neck no lymphadenopathy, supple and no JVD General: Negative for tenderness Resp normal respiratory effort and clear to auscultation bilaterally Effort and Inspection: Negative for retractions Auscultation: Negative for rales, rhonchi or wheezes Cardio S1 normal heart sound, S2 normal heart sound and no murmurs Palpation: Negative for other Rate: tachycardic Rhythm: regular rhythm GI Negative for non-tender, non-distended or no masses Inspection: Negative for abdominal distention Auscultation: normoactive bowel sounds Palpation: soft; Negative for tender or guarding Bladder / Kidney Exam: No other Back/Spine General Back: Negative for CVA tenderness Cervical Spine: Negative for cervical spine tenderness Thoracic Spine / Upper Back: Negative for thoracic spinal tenderness Lumbar Spine / Lower Back: Negative for lumbar spinal tenderness Coccyx: Negative for other Extremity normal to inspection General Extremety ED: Negative for edema or tenderness General Extremity: Negative for edema Neuro oriented x3 and CN's II-XII intact bilaterally Sensorium / Orientation: alert, oriented to person, oriented to place and oriented to time; Negative for orientation impaired, confused, lethargic or stuporous Motor Exam: strength 5/5 throughout Psych mental status grossly normal, thought process normal, cooperative, speech normal, denies hallucinations, denies homicidal ideation and denies suicidal ideation Appearance: Negative for unkempt Attitude: No withdrawn, No bizarre, No uncooperative, No evasive, No guarded, No belligerent, No agitated, No aggressive and No hostile Activity / Motor Behavior: appropriate eye contact Speech: normal speech Mood & Affect: euthymic mood Thought Process: normal thought process Thought Content: normal thought content Attention / Concentration: attention grossly intact Memory / Cognition: memory grossly intact Insight: insight good Judgement: judgement good Skin General Skin Exam: Negative for jaundice or pallor Lesions: no lesions Rashes: no rashes Trauma: Negative for abrasion Wounds: Negative for amputation MDM MDM MDM Narrative Medical decision making narrative: 3-year-old female with acute on chronic anxiety. She will be given a dose of Ativan. I will have her evaluated by our social work faculty member when they arrive at 10 AM. Doing well at 11:43 AM. She was evaluated by our social work faculty member who is referring her to the IOP program. Both myself and patient are comfortable with the plan. She does have Ativan at home as needed for anxiety. Discharge Plan Triage Chief Complaint: Anxiety ED Provider: Kamaljit Ngo Dx/Rx/DC Orders Clinical Impression: Anxiety, Panic attacks Instructions: ED Anxiety Reaction Prescriptions: No Action lorazepam 0.5 mg tablet 0.5 mg PO Q8H PRN (Reason: anxiety) Patient Comments: take 1 tablet by mouth twice a day for 7 days if needed for anxiety Primary Care Provider: Foster Childress Referrals: Foster hCildress MD [Primary Care Provider] - As Needed Activity Restrictions/Additional Instructions: Follow-up with the counseling center and the IOP program. Use your Ativan as needed. Disposition Disposition: Home, Self Care
[2023-03-15] MEDS: LORazepam 1 MG Tablet PO (09:33)
--- NOTE | 2023-03-15 10:20 | ED.RN ---
Social work in to see patient.
--- NOTE | 2023-03-15 11:17 | CM.ED ---
Social Work Patient here x2 this date. Patient struggling with anxiety and SW asked to speak with and provide resources. SW introduced self and role to patient. Pt reports difficulty with anxiety, especially this month. Pt reports they used to see Mala Barrientos at [facility] but stopped seeing her after doing well for approx 2 years. Pt has scheduled an appt. for intake for [facility] but could not get in until April 18 for intake and then will have to be referred for psych services. Pt reports an appt with [facility] for an Autism eval March 25. Pt reports a psychiatrist previously considered ADHD but then ruled it out and suggested ASD evaluation. Pt reports a history of trauma and loss and recent of 3 pets. Pt indicated concerns with waiting until April 18 for intake, as that is not a psychiatry appt. Pt reports not wanting to have repeat ED visits and wanting a long-term solution for her mental health. SW discussed coping skills, warning signs, and anxiety management techniques. Pt reports nothing typically helps in the moment. SW provided handouts on anxiety and coping techniques and a list of local providers. SW discussed [facility] IOP program with patient. Pt expressed interest and agreed to referral to the program. Pt also reports her is allowed to be involved in her care and talk on the phone on her behalf because sometimes places won't talk to him about appts. SW will make [facility] IOP referral. Pt reports feeling better currently due to medication given. SW provided emotional support and patient thanked SW for resources and support. Eryn Santiago [employer], COMMUNITY HEALTH DIRECTOR
== END 2023-03-15 11:49 | disposition home or self-care (01) ==
PROVIDERS: Emergency Provider Emergency Medicine; PCP Internal Medicine; Visit Provider Emergency Medicine
DX: F41.0 Panic disorder [episodic paroxysmal anxiety] (principal); F17.210 Nicotine dependence, cigarettes, uncomplicated
CPT/HCPCS: 99282

== ENCOUNTER 2023-03-21 08:47 | Emergency (ER) | payer BC, SELFPAY ==
[2023-03-21 08:48] VITALS: BP 124/84; PULSE 96; RESP 16; TEMP 35.9; O2SAT 98; BMI 28.6
--- NOTE | 2023-03-21 09:13 | CT_ITS ---
STUDY: CT ABDOMEN AND PELVIS WITHOUT CONTRAST REASON FOR EXAM: Female, 33 years old. rlq pain, nausea RADIATION DOSAGE (If Supplied By Facility): CTDIvol = ( 7.29 ) mGy, DLP = ( 371.52 ) mGycm TECHNIQUE: Transaxial images were obtained from the dome of the diaphragm to the symphysis pubis without oral contrast, and without intravenous contrast. Sagittal and coronal images were reconstructed. Individualized dose optimization techniques were used for this CT. COMPARISON: None. FINDINGS: The visualized lung bases are unremarkable. The visualized portions of the heart are within normal limits. Normal liver. Normal gallbladder and extrahepatic biliary system. Normal spleen. Normal pancreas. Normal bilateral adrenal glands. Normal right kidney. Normal left kidney. No visualized radiopaque stones or hydronephrosis or hydroureter. No visualized bladder stones. No free air or free fluid or bowel dilatation is seen. No inflammation is seen around the bowel loops. Mild gaseous distention of the proximal and right side of the rectosigmoid colon noted. Normal visualized stomach. Normal small intestine. Normal colon. The appendix is visualized and appears normal. Normal abdominal aorta. Normal inferior vena cava. Normal retroperitoneum. Normal urinary bladder. Unremarkable uterus and adnexa. A small amount of ascites is present in the pelvis/cul-de-sac. No visualized ovarian cyst. Normal abdominal wall. Normal osseous structures. CT/Abdomen/Pelvis without Cont IMPRESSION: 1. No visualized radiopaque stones or hydronephrosis or hydroureter. No visualized bladder stones. No free air or free fluid or bowel dilatation is seen. No inflammation is seen around the bowel loops. Mild gaseous distention of the proximal and right side of the rectosigmoid colon noted. Electronically Signed: Andrew Mccoy MD at 11:39 EDT ,
[2023-03-21] MEDS: Ondansetron 4 MG/2 ML Vial IV (09:22)
[2023-03-21] MEDS: 0.9% Normal Saline (1000mL) 1,000 ML 150 ML IV (09:22)
--- NOTE | 2023-03-21 09:24 | EX.ED.DYSGE1 ---
HPI History of Present Illness Chief Complaint: Abd Pain Informant: patient Onset/Context/Timing Onset: Today Narrative Narrative: Patient presents with right lower quadrant abdominal pain that started around 2 AM this morning. Patient states she was awoken from sleep with pain just around the umbilicus. She felt as if she needed to have a bowel movement. She did in fact have a mucousy loose stool, but this did not resolve the pain. Pain has persisted and moved down to the right lower quadrant. She denies urinary symptoms. She does also have a history of ovarian cyst and last menstrual cycle was 2 weeks ago. PFSH PFS Medical History Anxiety Home Medications lorazepam 0.5 mg tablet 0.5 mg PO Q8H PRN anxiety 03/15/23 [History Last Taken Unknown] Allergy/AdvReac Type Severity Reaction Status Date / Time lidocaine Allergy Intermediate Hives Verified 03/21/23 08:48 chlorpheniramine Allergy PT UNSURE Verified 03/21/23 08:48 OF REACTION egg Allergy Nausea/Vom/ Verified 03/21/23 08:48 Diarrhea Surgical History Hx of tonsillectomy Social History Smoking Status: Current every day smoker tobacco type: cigarettes ROS ROS ED Constitutional Constitutional ED: Denies chills or fever(s) Eyes Eyes: Denies change in vision or discharge from eye(s) ENT ENT ED: Denies discharge from eye(s), rhinorrhea or sore throat Cardiovascular Cardiovascular: Denies chest pain or palpitations Respiratory/Chest Respiratory/Chest: Denies cough or dyspnea Gastrointestinal Gastrointestinal: Reports abdominal pain and diarrhea; Denies nausea or vomiting Genitourinary Genitourinary ED: Denies difficulty urinating, dysuria or hematuria Musculoskeletal Musculoskeletal: Denies back pain or extremity pain Integumentary Denies Abrasions or rash Neurologic Neurologic: Denies headache(s) or weakness Psychiatric Psychiatric: Reports anxiety; Denies depression Allergic/Immunologic Allergic/Immunologic ED: Denies lip swelling or urticaria EXAM Physical Exam Const Vital Signs: 03/21/23 08:48 Temperature 96.6 F L Temperature Source Temporal Pulse Rate 96 Respiratory Rate 16 Blood Pressure 124/84 H Blood Pressure Mean 97 Pulse Ox 98 Oxygen Delivery Method Room Air Positive well nourished and well developed General Appearance ED: well developed HEENT Reports moist mucous membranes Eyes EOMs intact bilaterally Chest Wall inspection of chest normal and palpation of chest normal Resp normal respiratory effort and clear to auscultation bilaterally Cardio regular rate and regular rhythm GI GI Narrative: Tenderness to the inferior aspect of the right lower quadrant. No guarding or rebound. Auscultation: hypoactive bowel sounds Palpation: soft Back/Spine no CVA tenderness Extremity normal to inspection Neuro oriented x3 and no sensory deficits noted Motor Exam: strength 5/5 throughout Psych Mood & Affect: anxious Skin no rashes or lesions noted MDM MDM MDM Narrative Medical decision making narrative: Patient is given IV fluids along with Zofran for nausea. She declined morphine and Toradol given her anxiety. Labwork obtained to evaluate for leukocytosis, anemia, and electrolyte derangement. Urinalysis obtained to evaluate for infection/hematuria. CT flank obtained to evaluate for kidney stone versus appendicitis versus ovarian cyst. Lab Data Attestation: I reviewed the patient's lab results. Labs: Laboratory Results - last 24 hr 03/21/23 03/21/23 08:59 10:06 WBC 14.8 H RBC 4.94 Hgb 15.1 H Hct 46.3 MCV 93.7 MCH 30.6 MCHC 32.6 RDW Std Deviation 42.1 RDW Coeff of Sunitha 12.1 Plt Count 264 MPV 12.7 H Immature Gran % (Auto) 0.500 Neut % (Auto) 59.7 Lymph % (Auto) 30.4 [place] % (Auto) 6.8 Eos % (Auto) 2.0 Baso % (Auto) 0.6 Absolute Neuts (auto) 8.8 H Absolute Lymphs (auto) 4.48 Nucleated RBC % 0 Sodium 139 Potassium 3.5 Chloride 110 H Carbon Dioxide 24.0 Anion Gap 5 BUN 8 Creatinine 0.63 Estim Creat Clear Calc 115.36 Est GFR (MDRD) Af Amer 141 Est GFR (MDRD) Non-Af 117 BUN/Creatinine Ratio 12.7 Glucose 104 Calcium 9.4 Urine Color Yellow Urine Clarity Clear Urine pH 6.0 Ur Specific [place] 1.010 Urine Protein 15 H Urine Glucose (UA) Normal Urine Ketones Negative Urine Occult Blood Negative Urine Nitrite Negative Urine Bilirubin Negative Urine Urobilinogen Normal Ur Leukocyte Esterase Negative Urine RBC 0 SEEN Urine WBC 0 SEEN Ur Squamous Epith Cells 0-5 SEEN Urine Bacteria 0 SEEN Urine Mucus 0 SEEN Urine Test Negative Radiography Diagnostic Testing: Clinical Impression(s) from Imaging Studies Abdomen/Pelvis CT 03/21/23 09:13 IMPRESSION: 1. No visualized radiopaque stones or hydronephrosis or hydroureter. No visualized bladder stones. No free air or free fluid or bowel dilatation is seen. No inflammation is seen around the bowel loops. Mild gaseous distention of the proximal and right side of the rectosigmoid colon noted. Electronically Signed: Andrew Mccoy MD at 11:39 EDT , Treatment and Re-Evaluation :: CBC was an elevated white count at 14.8. Patient tends to run chronically elevated white count around 13. Hemoglobin slightly concentrated at 15.1. Differential is unremarkable. Chemistry studies are unremarkable. Urinalysis reveals no evidence of infection. No hematuria. CT scan of the flank reveals no radiopaque stones or hydronephrosis. Appendix is visualized and appears normal. There is a small moderate free fluid noted in the pelvis. There is also mild gaseous distention of the proximal and right sided rectosigmoid colon. Patient declined morphine and Toradol. She did take Zofran. At this time patient states she does feel improved. She states when she urinated she did have pain, however on 2 subsequent urinations she has not had any pain. She may have passed a small kidney stone. We also discussed the possibility of a small ruptured ovarian cyst as there is free fluid noted in the pelvis. Patient be given a dose of Ativan prior to discharge secondary to her anxiety. Discharge Plan Triage Chief Complaint: Abd Pain ED Provider: Martha Garner Dx/Rx/DC Orders Clinical Impression: Abdominal pain Instructions: ED Abdominal Pain Unkn Cause Fem Prescriptions: No Action lorazepam 0.5 mg tablet 0.5 mg PO Q8H PRN (Reason: anxiety) Patient Comments: take 1 tablet by mouth twice a day for 7 days if needed for anxiety Primary Care Provider: Foster Childress Referrals: Foster Childress MD [Primary Care Provider] - 3-5 Days if not improving Disposition Disposition: Home, Self Care
[2023-03-21 09:34] LABS: Absolute Lymphocyte Count 4.48 X10^3/uL (0.83-4.51); Absolute Neutrophil Count 8.8 X10^3/uL (2.0-7.7); Basophil# 0.09 X10^3/uL; Basophil% 0.6 % (0-1); Hematocrit 46.3 % (37-47); Hemoglobin 15.1 g/dL (12.0-15.0); Lymphocyte # 4.48 X10^3/ul (0.83-4.51); Lymphocyte % 30.4 % (19-41); Mean Corp Hgb Conc 32.6 g/dL (32-36); Mean Corpuscular Hgb 30.6 pg (27.0-32.0); Mean Corpuscular Volume 93.7 fL (81-99); Mean Platelet Vol. 12.7 fl (6.2-12.0); Monocyte# 1.01 X10^3/uL; Monocyte% 6.8 % (0-10); NRBC Flagged by Analyzer 0 % (0-5); Neutrophil % 59.7 % (47-70); Platelet Count 264 K/mm3 (150-450); RBC Distribution Width CV 12.1 % (11.6-14.6); RBC Distribution Width SD 42.1 fl (35.1-43.9); Red Blood Count 4.94 M/mm3 (4.2-5.4); White Blood Count 14.8 K/mm3 (4.4-11.0)
[2023-03-21 09:38] LABS: Anion Gap 5 (5-15); BUN 8 mg/dL (7-18); BUN/Creat Ratio 12.7 RATIO (10-20); Calcium,Total 9.4 mg/dL (8.5-10.1); Chloride 110 mmol/L (98-107); Creatinine, Serum 0.63 mg/dL (0.55-1.02); EST Glomerular Filtration Rate 117 mL/min (>60); Est Glom Filt Rate - Afr Amer 141 mL/min (>60); Estimated Creatinine Clearance 115.36 ml/min; Glucose 104 mg/dL (74-106); Potassium 3.5 mmol/L (3.5-5.1); Sodium Level 139 mmol/L (136-145)
[2023-03-21 10:17] LABS: Bacteria 0 SEEN /hpf (None Seen); Mucous, Urine 0 SEEN /hpf (<or=2+); Red Blood Cells-Urine 0 SEEN /hpf (0-5); White Blood Cells 0 SEEN /hpf (0-5)
[2023-03-21 10:20] LABS: Color, Urine Yellow (Yellow); Glucose, Dipstick Normal (Normal); Ketone-Dipstick Negative (Negative); Leukocyte Esterase-Dipstick Negative /ul (Negative); Nitrite-Dipstick Negative (Negative); Occult Blood-Urine Negative /ul (Negative); Protein-Dipstick 15 mg/dl (Negative); Urine Bilirubin Dipstick Negative (Negative); Urine Clarity Clear (Clear); Urine Urobilinogen Normal (Normal)
[2023-03-21 10:27] LABS: Squamous Epithelial Cells - UA 0-5 SEEN /hpf (5-10)
[2023-03-21 10:43] LABS: Internal QC Validated? YES +Cl - CLEAR BKGD; Pregnancy, Urine Negative Negative
[2023-03-21] MEDS: LORazepam 1 MG Tablet PO (12:49)
== END 2023-03-21 12:57 | disposition home or self-care (01) ==
PROVIDERS: Emergency Provider Emergency Medicine; PCP Internal Medicine; Visit Provider Emergency Medicine
DX: R10.9 Unspecified abdominal pain (principal); F41.9 Anxiety disorder, unspecified; R11.0 Nausea; F17.210 Nicotine dependence, cigarettes, uncomplicated; R19.7 Diarrhea, unspecified; Z79.899 Other long term (current) drug therapy
CPT/HCPCS: 74176; 80048; 81001; 81025; 85025; 96361; 96374; 99282; J7030; J2405

== ENCOUNTER 2023-05-08 20:57 | Emergency (ER) | payer BC, SELFPAY ==
[2023-05-08 20:58] VITALS: BP 130/93; PULSE 103; RESP 15; TEMP 36.6; O2SAT 97; BMI 27.6
--- NOTE | 2023-05-08 21:27 | ED.RN ---
checked pt's blood sugar per request. BGT= 108. pt decided she is feeling better and decided to leave. registration notified.
[2023-05-08 21:43] LABS: Bedside Glucose 108 mg/dL (74-106)
== END 2023-05-08 21:26 | disposition left against medical advice (07) ==
LOC: ED 21:34
PROVIDERS: PCP Internal Medicine
DX: Z53.21 Procedure and treatment not carried out due to patient leaving prior to being seen by health care provider (principal)
CPT/HCPCS: 82962; 99281

== ENCOUNTER 2023-05-09 02:53 | Emergency (ER) | payer BC, SELFPAY ==
[2023-05-09 02:55] VITALS: BP 140/88; PULSE 104; RESP 18; TEMP 36.4; O2SAT 99; BMI 27.1
--- NOTE | 2023-05-09 03:11 | EX.ED.VIS.PS ---
HPI HPI - Psych History of Present Illness Chief Complaint: Anxiety Informant: patient Onset/Context/Timing Onset: Month(s) Narrative Narrative: Patient present secondary to anxiety and panic attacks. She states her anxiety has been getting worse for the past couple of months. She is been having more frequent panic attacks. She took an Ativan around noon yesterday and was able to take a nap. She states anytime she tries to eat the past couple days she feels nauseous and anxious. She presented to the emergency room earlier tonight but due to long wait decided to leave. She called the crisis hotline and spoke with the counseling center for about 45 minutes. They recommended she take another dose of her Ativan and try to get some sleep and they would check in with her in the morning. Patient states she did take another dose of Ativan but was not able to sleep. She then called the nurse loss control consultant for her doctor who recommended she come in for evaluation. She denies suicidal or homicidal ideation. [facility] Medical History Anxiety Home Medications lorazepam 0.5 mg tablet 0.5 mg PO Q12H PRN anxiety 03/15/23 [History Last Taken Unknown] clindamycin phosphate 1 % topical gel 1 applic topical BID 05/09/23 [History Last Taken Unknown] ondansetron 4 mg disintegrating tablet 4 mg PO Q8H PRN PRN Nausea #10 tabs 05/09/23 [Rx Last Taken Unknown] ondansetron 4 mg disintegrating tablet 4 mg PO Q8H PRN nausea and vomiting 05/09/23 [History Last Taken Unknown] Allergy/AdvReac Type Severity Reaction Status Date / Time lidocaine Allergy Intermediate Hives Verified 05/09/23 02:54 chlorpheniramine Allergy PT UNSURE Verified 05/09/23 02:54 OF REACTION egg Allergy Nausea/Vom/ Verified 05/09/23 02:54 Diarrhea Surgical History Hx of tonsillectomy Social History Smoking Status: Current every day smoker tobacco type: cigarettes ROS ROS ED Constitutional Constitutional ED: Denies chills or fever(s) Eyes Eyes: Denies discharge from eye(s) ENT ENT ED: Denies discharge from eye(s), rhinorrhea or sore throat Cardiovascular Cardiovascular: Denies chest pain or palpitations Respiratory/Chest Respiratory/Chest: Denies cough or dyspnea Gastrointestinal Gastrointestinal: Denies abdominal pain, nausea or vomiting Musculoskeletal Musculoskeletal: Denies extremity pain Integumentary Denies Abrasions or rash Neurologic Neurologic: Denies headache(s) or weakness Psychiatric Psychiatric: Reports anxiety; Denies depression or suicidal ideation Allergic/Immunologic Allergic/Immunologic ED: Denies lip swelling or urticaria EXAM Physical Exam Const Vital Signs: 05/09/23 02:55 Temperature 97.5 F L Temperature Source Temporal Pulse Rate 104 H Respiratory Rate 18 Blood Pressure 140/88 H Blood Pressure Mean 105 Pulse Ox 99 Positive well nourished and well developed General Appearance ED: well developed HEENT Reports moist mucous membranes Eyes EOMs intact bilaterally Resp normal respiratory effort and clear to auscultation bilaterally Cardio Rate: regular rate Rhythm: regular rhythm GI non-tender Palpation: soft Extremity normal to inspection Neuro oriented x3 and no sensory deficits noted Motor Exam: strength 5/5 throughout Psych cooperative Attitude: calm Activity / Motor Behavior: appropriate eye contact Speech: normal speech Mood & Affect: anxious Thought Process: normal thought process Memory / Cognition: memory grossly intact MDM MDM MDM Narrative Medical decision making narrative: Patient given dose of 0.5mg Ativan and dose of Zofran. Patient is able to tolerate p.o. diet at this time. I will send a prescription for Zofran to the pharmacy for her. She has Ativan at home that she will use. She will follow-up with counseling center later today as planned. Discharge Plan Triage Chief Complaint: Anxiety ED Provider: Martha Garner Dx/Rx/DC Orders Clinical Impression: Anxiety Instructions: ED Anxiety Reaction, ED Panic Attack Prescriptions: New ondansetron 4 mg tablet,disintegrating 4 mg PO Q8H PRN PRN (Reason: Nausea) Qty: 10 0RF No Action lorazepam 0.5 mg tablet 0.5 mg PO Q12H PRN (Reason: anxiety) Patient Comments: take 1 tablet by mouth twice a day for 7 days if needed for anxiety clindamycin phosphate 1 % gel 1 applic TOPICAL BID Patient Comments: Apply to affected area twice daily. ondansetron 4 mg tablet,disintegrating 4 mg PO Q8H PRN (Reason: nausea and vomiting) Patient Comments: Dissolve 1 tablet on the tongue every 8 hours as needed for nausea/vomiting. Primary Care Provider: Foster Childress Referrals: Counseling,Center [Group of Physicians] - 1 Day Foster Childress MD [Primary Care Provider] - Disposition Disposition: Home, Self Care
[2023-05-09] MEDS: Ondansetron ODT 4 MG Tablet PO (03:15)
[2023-05-09] MEDS: LORazepam 0.5 MG Tablet PO (03:15)
[2023-05-09 04:36] VITALS: BP 124/66; PULSE 72; RESP 15; O2SAT 99
== END 2023-05-09 04:37 | disposition home or self-care (01) ==
PROVIDERS: Emergency Provider Emergency Medicine; PCP Internal Medicine; Visit Provider Emergency Medicine
DX: F41.0 Panic disorder [episodic paroxysmal anxiety] (principal); F17.210 Nicotine dependence, cigarettes, uncomplicated
CPT/HCPCS: 99285

== ENCOUNTER 2023-05-23 02:24 | Emergency (ER) | payer BC, SELFPAY ==
[2023-05-23 02:25] VITALS: BP 124/100; PULSE 117; RESP 16; TEMP 36.6; O2SAT 98; BMI 28.1
--- NOTE | 2023-05-23 02:50 | EKG12_ITS ---
Test Reason : Blood Pressure : / mmHG Vent. Rate : 084 BPM Atrial Rate : 084 BPM P-R Int : 144 ms QRS Dur : 082 ms QT Int : 342 ms P-R-T Axes : 074 026 037 degrees QTc Int : 404 ms Normal sinus rhythm Septal infarct , age undetermined Abnormal ECG Confirmed by RENU WARREN, DONNIE ([id number]), writer editor JUNIOR MADDEN ([id number]) on 05/23/2023 10:53:49 AM Referred By: Confirmed By:DONNIE SEARS MD
--- NOTE | 2023-05-23 02:50 | EX.ED.DYSGE1 ---
HPI History of Present Illness Chief Complaint: Anxiety Informant: patient and EMS Narrative Narrative: 33-year-old female presenting to the emergency room with anxiety. Patient states that since January she has been having increased amounts of anxiety attacks. She states that she has been seen by psychiatry and is prescribed half milligram tablets of Ativan. She states that over the past couple days she has had a lot of the physical features of a panic attack but not any of the mental features meaning that she has felt mentally clear and not necessarily worried. She notes shaking fast heart rate poor sleep decreased appetite. She states that she has had hypothyroidism in the past and was on Synthroid but stopped it because it was making her sick. She states that she has had symptoms of Fuentes's but has not been tested for it. She states that she has been trying to get her thyroid checked but nobody will check it. She states that her psychiatrist told her not to take any more Ativan than what is prescribed on the bottle. So tonight after half milligram trying to take a shower and get calm down she decided to come to emergency. Patient was seen earlier this month for same. She notes that she has had lumps in her right axilla that drained pus at times. She has been using a clindamycin topical cream but now its weeping again and wonders if there is something else that could be effective against it. She has not had had to have any I&D. She has not seen a surgeon. She notes that sometimes she gets this similar lumps in her inguinal region. Patient states that she is found tender lump(s) in the left breast. She has follow-up with gynecology in just a few days and a scheduled mammogram. [facility] Medical History Anxiety Home Medications lorazepam 0.5 mg tablet 0.5 mg PO Q12H PRN anxiety 03/15/23 [History Last Taken Unknown] clindamycin phosphate 1 % topical gel 1 applic topical BID 05/09/23 [History Last Taken Unknown] ondansetron 4 mg disintegrating tablet 4 mg PO Q8H PRN PRN Nausea #10 tabs 05/09/23 [Rx Last Taken Unknown] ondansetron 4 mg disintegrating tablet 4 mg PO Q8H PRN nausea and vomiting 05/09/23 [History Last Taken Unknown] sulfamethoxazole 800 mg-trimethoprim 160 mg tablet 1 tab PO BID #14 TABLETS 05/23/23 [Rx Last Taken Unknown] Allergy/AdvReac Type Severity Reaction Status Date / Time lidocaine Allergy Intermediate Hives Verified 05/23/23 02:25 chlorpheniramine Allergy PT UNSURE Verified 05/23/23 02:25 OF REACTION egg Allergy Nausea/Vom/ Verified 05/23/23 02:25 Diarrhea Surgical History Hx of tonsillectomy Social History Smoking Status: Current every day smoker tobacco type: cigarettes ROS ROS ED Constitutional Constitutional ED: Denies chills, fever(s) or weight loss Eyes Eyes: Denies change in vision or diplopia ENT ENT ED: Denies ear pain, rhinorrhea or sore throat Cardiovascular Cardiovascular: Reports palpitations and racing heartbeat; Denies chest pain or orthopnea Respiratory/Chest Respiratory/Chest: Denies cough, dyspnea or orthopnea Gastrointestinal Gastrointestinal: Reports other Details: Anorexia ; Denies abdominal pain, diarrhea, nausea or vomiting Genitourinary Genitourinary ED: Denies dysuria, hematuria or urinary frequency Musculoskeletal Musculoskeletal: Denies arthralgias or myalgias Integumentary Reports abscess; Denies rash Neurologic Neurologic: Reports other Details: Tremor ; Denies headache(s) or weakness Psychiatric Psychiatric: Reports other Details: Insomnia ; Denies anxiety, depression, suicidal ideation or suicidal thoughts Endocrine Endocrinology: Denies polydipsia, polyphagia or polyuria Allergic/Immunologic Allergic/Immunologic ED: Denies mouth swelling, tongue swelling or urticaria EXAM Physical Exam Const Vital Signs: 05/23/23 02:25 Temperature 98 F Temperature Source Temporal Pulse Rate 117 H Respiratory Rate 16 Blood Pressure 124/100 H Blood Pressure Mean 108 Pulse Ox 98 Oxygen Delivery Method Room Air Positive well nourished and well developed General Appearance ED: well developed HEENT Reports normocephalic, head/scalp atraumatic and moist mucous membranes Eyes PERRL and EOMs intact bilaterally Neck no lymphadenopathy, supple and no JVD Resp normal respiratory effort and clear to auscultation bilaterally Cardio regular rate, regular rhythm and no murmurs Rate: tachycardic GI normal to inspection, nondistended, normoactive bowel sounds and non-tender Palpation: soft Back/Spine no CVA tenderness and normal ROM Extremity Extremity Narrative: Right axilla palpates several firm nodules and slight erythema over the inferior axillary ones. These palpate like hidradenitis. General Extremety ED: Negative for edema General Extremity: Negative for edema Neuro oriented x3 and CN's II-XII intact bilaterally Neuro Narrative: Patient has a tremor in the hands. Sensorium / Orientation: alert Motor Exam: strength 5/5 throughout Psych mental status grossly normal Psych Narrative: Patient with slightly pressured speech. She has linear thinking. She is engaged in the conversation. Mood & Affect: anxious; Negative for depressed or tearful Skin no rashes or lesions noted and no wounds MDM MDM MDM Narrative Medical decision making narrative: Basic blood work showed a normal CBC hemoglobin 15.4 platelet count 223 white count 9.6. CMP was normal. TSH 1.97. EKG shows a normal sinus rhythm with a ventricular rate of 84 bpm. Down substantially from the 117 in triage. Patient has follow-up with gynecology. She follows up with primary care. She needs to see her psychiatrist. As far as the axillary abscesses and we will place her on Bactrim and she may wish to follow-up with plastic surgery regarding possible operative treatments. At this point they do not appear that they need to be drained with I&D. She was advised that this may need to happen. She states that usually they open up and drain on their own. History & Record Review Discussion w/independent historian: Patient Lab Data Attestation: I reviewed the patient's lab results. Labs: Laboratory Results - last 24 hr 05/23/23 03:00 WBC 9.6 RBC 5.03 Hgb 15.4 H Hct 46.3 MCV 92.0 MCH 30.6 MCHC 33.3 RDW Std Deviation 42.1 RDW Coeff of Sunitha 12.4 Plt Count 223 MPV 11.7 Immature Gran % (Auto) 0.200 Neut % (Auto) 65.7 Lymph % (Auto) 23.9 [place] % (Auto) 7.0 Eos % (Auto) 2.7 Baso % (Auto) 0.5 Absolute Neuts (auto) 6.3 Absolute Lymphs (auto) 2.29 Nucleated RBC % 0 Sodium 138 Potassium 4.0 Chloride 108 H Carbon Dioxide 25.0 Anion Gap 5 BUN 10 Creatinine 0.60 Estim Creat Clear Calc 121.13 Est GFR (MDRD) Af Amer 149 Est GFR (MDRD) Non-Af 123 BUN/Creatinine Ratio 16.7 Glucose 97 Calcium 9.1 Total Bilirubin 0.90 AST 6 L ALT 19 Alkaline Phosphatase 65 Total Protein 8.2 Albumin 4.4 Globulin 3.8 Albumin/Globulin Ratio 1.2 TSH 1.97 EKG Initial EKG: Attestation: I personally reviewed and interpreted this EKG as follows: Comments: Normal sinus rhythm with a ventricular rate of 84 bpm. Prior EKG tracings: available for review Prior: Unchanged Discharge Plan Triage Chief Complaint: Anxiety ED Provider: Dez Gutierrez Dx/Rx/DC Orders Clinical Impression: Anxiety, Abscess of axilla, right Instructions: Anxiety Disorders Tx, ED Hidradenitis Suppurativa, Abx Prescriptions: New sulfamethoxazole-trimethoprim [sulfamethoxazole-trimethoprim] 800-160 mg tablet 1 tab PO BID Qty: 14 0RF No Action lorazepam 0.5 mg tablet 0.5 mg PO Q12H PRN (Reason: anxiety) Patient Comments: take 1 tablet by mouth twice a day for 7 days if needed for anxiety clindamycin phosphate 1 % gel 1 applic TOPICAL BID Patient Comments: Apply to affected area twice daily. ondansetron 4 mg tablet,disintegrating 4 mg PO Q8H PRN (Reason: nausea and vomiting) Patient Comments: Dissolve 1 tablet on the tongue every 8 hours as needed for nausea/vomiting. ondansetron 4 mg tablet,disintegrating 4 mg PO Q8H PRN PRN (Reason: Nausea) Qty: 10 0RF Primary Care Provider: Foster Childress Referrals: Foster Childress MD [Primary Care Provider] - Keep [facility] appointment Activity Restrictions/Additional Instructions: Please keep your appointments with gynecology, primary care, and psychiatry. You may wish to visit with a plastic surgeon regarding operative treatment for the axillary abscesses. Disposition Disposition: Home, Self Care
[2023-05-23] MEDS: LORazepam 2 MG/ML Syringe 1 MG IV (03:00)
[2023-05-23 03:06] LABS: Absolute Lymphocyte Count 2.29 X10^3/uL (0.83-4.51); Absolute Neutrophil Count 6.3 X10^3/uL (2.0-7.7); Basophil# 0.05 X10^3/uL; Basophil% 0.5 % (0-1); Eosinophil# 0.26 X10^3/uL; Eosinophils% 2.7 % (0-5); Hematocrit 46.3 % (37-47); Hemoglobin 15.4 g/dL (12.0-15.0); Lymphocyte # 2.29 X10^3/ul (0.83-4.51); Lymphocyte % 23.9 % (19-41); Mean Corp Hgb Conc 33.3 g/dL (32-36); Mean Corpuscular Hgb 30.6 pg (27.0-32.0); Mean Platelet Vol. 11.7 fl (6.2-12.0); Monocyte# 0.67 X10^3/uL; NRBC Flagged by Analyzer 0 % (0-5); Neutrophil # 6.28 X10^3/uL (2.7-7.7); Neutrophil % 65.7 % (47-70); Platelet Count 223 K/mm3 (150-450); RBC Distribution Width CV 12.4 % (11.6-14.6); RBC Distribution Width SD 42.1 fl (35.1-43.9); Red Blood Count 5.03 M/mm3 (4.2-5.4); White Blood Count 9.6 K/mm3 (4.4-11.0)
[2023-05-23 03:09] LABS: POSITIVE COUNT NO; POSITIVE DIFFERENTIAL NO; POSITIVE MORPHOLOGY NO
[2023-05-23 03:31] LABS: ALB/GLOB Ratio 1.2 RATIO (0.9-2.4); AST(SGOT) 6 U/L (15-37); Alanine Aminotransfer ALT/SGPT 19 U/L (13-56); Albumin, Serum 4.4 g/dL (3.2-5.0); Alkaline Phosphatase 65 U/L (45-117); Anion Gap 5 (5-15); BUN 10 mg/dL (7-18); BUN/Creat Ratio 16.7 RATIO (10-20); Calcium,Total 9.1 mg/dL (8.5-10.1); Chloride 108 mmol/L (98-107); EST Glomerular Filtration Rate 123 mL/min (>60); Est Glom Filt Rate - Afr Amer 149 mL/min (>60); Estimated Creatinine Clearance 121.13 ml/min; Globulin 3.8 g/dL (2.2-4.2); Glucose 97 mg/dL (74-106); Protein, Total 8.2 g/dL (6.4-8.2); Sodium Level 138 mmol/L (136-145); Thyroid Stim Hormone (TSH) 1.97 uIU/mL (0.358-3.74)
[2023-05-23 04:32] VITALS: PULSE 93; RESP 16; O2SAT 96
== END 2023-05-23 04:35 | disposition home or self-care (01) ==
PROVIDERS: Emergency Provider Emergency Medicine; PCP Internal Medicine; Visit Provider Emergency Medicine
DX: F41.9 Anxiety disorder, unspecified (principal); L02.411 Cutaneous abscess of right axilla; F17.210 Nicotine dependence, cigarettes, uncomplicated; E03.9 Hypothyroidism, unspecified; Z79.899 Other long term (current) drug therapy
CPT/HCPCS: 80053; 84443; 85025; 93005; 96374; 99284; A4216

== ENCOUNTER 2023-06-17 19:46 | Emergency (ER) | payer BC, SELFPAY ==
[2023-06-17 19:47] VITALS: BP 130/88; PULSE 97; RESP 17; TEMP 36.6; O2SAT 100; BMI 27.1
--- NOTE | 2023-06-17 19:55 | EKG12_ITS ---
Test Reason : CP Blood Pressure : / mmHG Vent. Rate : 103 BPM Atrial Rate : 103 BPM P-R Int : 146 ms QRS Dur : 070 ms QT Int : 342 ms P-R-T Axes : 066 043 039 degrees QTc Int : 448 ms Sinus tachycardia Septal infarct (cited on or before 13-JAN-2017) Abnormal ECG Confirmed by RENU WARREN, DONNIE ([id number]), order editor MEG CHIU ([id number]) on 06/25/2023 9:26:24 AM Referred By: ALISON Confirmed By:DONNEI SEARS MD
--- NOTE | 2023-06-17 19:57 | EDS_ITS ---
HPI HPI - GI History of Present Illness Chief Complaint: Abd Pain Detail of Chief Complaint: Abdominal pain Informant: patient and spouse/S.O. Narrative Narrative: Patient presents with abdominal pain that started around 6:30 PM. Patient states that she just finished eating and had eaten some ham and sweet potatoes and some stuffing. Patient felt like there was a rock in the center of her stomach. About 20 minutes later started having pain that can radiate towards her right shoulder into her chest. She started to panic a little bit. She has had similar discomfort before a few weeks ago but then resolved with little bit of time. She had no nausea or vomiting. [facility] Medical History Anxiety Home Medications lorazepam 0.5 mg tablet 0.5 mg PO Q12H PRN anxiety 03/15/23 [History Last Taken Unknown] Allergy/AdvReac Type Severity Reaction Status Date / Time lidocaine Allergy Intermediate Hives Verified 06/17/23 19:47 chlorpheniramine Allergy PT UNSURE Verified 06/17/23 19:47 OF REACTION egg Allergy Nausea/Vom/ Verified 06/17/23 19:47 Diarrhea Surgical History Hx of tonsillectomy Social History Smoking Status: Current every day smoker tobacco type: cigarettes ROS ROS ED Review of Systems ROS Unobtainable: other Constitutional Constitutional ED: Reports lethargy; Denies chills, fever(s), sweats or weight loss Eyes Eyes: Denies blurry vision, change in vision or diplopia ENT ENT ED: Denies rhinorrhea or sore throat Cardiovascular Cardiovascular: Reports chest pain; Denies orthopnea or racing heartbeat Respiratory/Chest Respiratory/Chest: Denies cough, dyspnea, dyspnea on exertion, orthopnea or sputum Gastrointestinal Gastrointestinal: Reports abdominal pain; Denies diarrhea, nausea or vomiting Genitourinary Genitourinary ED: Denies dysuria, hematuria or urinary frequency Musculoskeletal Musculoskeletal: Denies arthralgias, back pain, myalgias or neck pain Integumentary Denies abscess, Abrasions or rash Neurologic Neurologic: Denies headache(s) or weakness Psychiatric Psychiatric: Denies anxiety, depression or suicidal thoughts Endocrine Endocrinology: Denies polydipsia, polyphagia or polyuria Hematologic/Lymphatic Hematologic/Lymphatic: Denies easy bleeding, easy bruising or lymphadenopathy Allergic/Immunologic Allergic/Immunologic ED: Denies mouth swelling, tongue swelling or urticaria EXAM Physical Exam Const Vital Signs: 06/17/23 19:47 Temperature 98 F Temperature Source Temporal Pulse Rate 97 Respiratory Rate 17 Blood Pressure 130/88 H Blood Pressure Mean 102 Pulse Ox 100 Positive well nourished and well developed General Appearance ED: well developed and NAD HEENT Reports TM's clear and moist mucous membranes normocephalic and atraumatic; Negative for trauma or tenderness Tympanic Membrane ED: Yes TM's clear Eyes PERRL and EOMs intact bilaterally General Eye ED: Negative for pale conjunctiva or scleral icterus Neck no lymphadenopathy, supple and no JVD General: Negative for tenderness Chest Wall inspection of chest normal and palpation of chest normal Chest: Negative for tenderness Resp normal respiratory effort and clear to auscultation bilaterally Effort and Inspection: Negative for respiratory distress or pain with movement Auscultation: Negative for rhonchi, wheezes or diminished lung sounds Cardio regular rate, regular rhythm, S1 normal heart sound, S2 normal heart sound and no murmurs Peripheral Pulses: pulses 2+ throughout GI normal to inspection, nondistended, normoactive bowel sounds, soft to palpation, non-distended and no masses GI Narrative: Diffuse tenderness to palpation. Negative Manjarrez sign. There is no rebound, rigidity, or renal signs. No masses palpated. Back/Spine no CVA tenderness and no thoracic nor lumbar tenderness Extremity normal to inspection General Extremety ED: Negative for edema General Extremity: Negative for edema Neuro oriented x3, CN's II-XII intact bilaterally, no sensory deficits noted and gait normal Sensorium / Orientation: awake, alert, oriented to person, oriented to place and oriented to time Motor Exam: strength 5/5 throughout and strength abnormal Psych mental status grossly normal Skin no rashes or lesions noted and no wounds MDM MDM MDM Narrative Medical decision making narrative: Patient with rapid onset of upper abdomen pain after eating. She has had some improvement in her discomfort on arrival to the emergency department. She had similar episode a few weeks ago. No history of gallbladder disease or ulcer. She states when she was younger she used to have GI issues that she cannot outgrew but used to take Bentyl on a regular basis. IV established. She was given Maalox p.o. Within 20 minutes she had significant resolution of her pain. CBC with differential obtained showed a white count of 10.5 with hemoglobin 13.7 and platelet count of 189. Chemistries unremarkable. LFTs were normal. Lipase normal. hCG was negative. On repeat examination at 2109 she is comfortable on mostly back to her baseline. At this point given normal labs and unremarkable abdominal exam I do not feel any imaging is indicated and she is comfortable with this. She will follow-up with her primary care physician. She is advised to return if worsening pain, fever, vomiting, or condition should worsen anyway. She is advised to avoid spicy and greasy foods until she follows up. She did not want a prescription for Bentyl. Lab Data Attestation: I reviewed the patient's lab results. Labs: Laboratory Results - last 24 hr 06/17/23 20:17 WBC 10.5 RBC 4.47 Hgb 13.7 Hct 41.7 MCV 93.3 MCH 30.6 MCHC 32.9 RDW Std Deviation 44.2 H RDW Coeff of Sunitha 12.8 Plt Count 189 MPV 11.8 Immature Gran % (Auto) 0.300 Neut % (Auto) 65.2 Lymph % (Auto) 25.9 [place] % (Auto) 5.8 Eos % (Auto) 2.2 Baso % (Auto) 0.6 Absolute Neuts (auto) 6.8 Absolute Lymphs (auto) 2.71 Nucleated RBC % 0 Sodium 138 Potassium 3.7 Chloride 110 H Carbon Dioxide 25.0 Anion Gap 3 L BUN 9 Creatinine 0.56 Estim Creat Clear Calc 129.78 Est GFR (MDRD) Af Amer 162 Est GFR (MDRD) Non-Af 134 BUN/Creatinine Ratio 16.1 Glucose 126 H Calcium 9.1 Total Bilirubin 0.70 AST 16 ALT 20 Alkaline Phosphatase 62 Total Protein 7.4 Albumin 4.0 Globulin 3.4 Albumin/Globulin Ratio 1.2 Lipase 30 Serum , Qual NEGATIVE Radiography Diagnostic Testing: Clinical Impression(s) from Imaging Studies Chest X-Ray 06/17/23 20:20 IMPRESSION: Normal x-ray examination of the chest. Electronically Signed: Felisha Bhandari MD at 20:39 EST , 1 view chest x-ray obtained interpreted by myself as no evidence of infiltrate or pneumothorax or acute disease process. Radiology in agreement. EKG Initial EKG: Attestation: I personally reviewed and interpreted this EKG as follows: Comments: Sinus rhythm with a rate of 103 bpm with question old septal infarct. Prior EKG tracings: not available for review Discharge Plan Triage Chief Complaint: Abd Pain ED Provider: Shima Meek Dx/Rx/DC Orders Clinical Impression: Abdominal pain Instructions: ED Abdominal Pain Unkn Cause Fem Prescriptions: No Action lorazepam 0.5 mg tablet 0.5 mg PO Q12H PRN (Reason: anxiety) Patient Comments: take 1 tablet by mouth twice a day for 7 days if needed for anxiety Primary Care Provider: Foster Childress Referrals: Foster Childress MD [Primary Care Provider] - 3-5 Days Disposition Disposition: Home, Self Care Discharge Date/Time: 06/17/23 21:23
[2023-06-17] MEDS: 0.9% Normal Saline (1000mL) 1,000 ML 125 ML IV (20:15)
[2023-06-17] MEDS: Mag Hydrox/Al Hydrox/Simeth 30 ML UDC PO (20:15)
--- NOTE | 2023-06-17 20:20 | RAD_ITS ---
STUDY: X-RAY CHEST REASON FOR EXAM: Female, 33 years old. chest pain TECHNIQUE: Single AP portable view of the chest. COMPARISON: 03/15/2023. FINDINGS: The lungs are clear and expanded. There is no demonstrated pleural abnormality. Normal size heart. Normal mediastinum and lyudmila. Normal visualized pulmonary arteries. Normal visualized aortic arch and descending thoracic aorta. Normal visualized thoracic spine. Normal visualized ribs, clavicles, and shoulders. There is no demonstrated abnormality of the visualized soft tissue structures of the upper abdomen. RAD/Chest 1 View (Portable) IMPRESSION: Normal x-ray examination of the chest. Electronically Signed: Felisha Bhandari MD at 20:39 EST ,
[2023-06-17 20:27] LABS: Absolute Lymphocyte Count 2.71 X10^3/uL (0.83-4.51); Absolute Neutrophil Count 6.8 X10^3/uL (2.0-7.7); Basophil# 0.06 X10^3/uL; Basophil% 0.6 % (0-1); Eosinophil# 0.23 X10^3/uL; Eosinophils% 2.2 % (0-5); Hematocrit 41.7 % (37-47); Hemoglobin 13.7 g/dL (12.0-15.0); Lymphocyte # 2.71 X10^3/ul (0.83-4.51); Lymphocyte % 25.9 % (19-41); Mean Corp Hgb Conc 32.9 g/dL (32-36); Mean Corpuscular Hgb 30.6 pg (27.0-32.0); Mean Corpuscular Volume 93.3 fL (81-99); Mean Platelet Vol. 11.8 fl (6.2-12.0); Monocyte# 0.61 X10^3/uL; Monocyte% 5.8 % (0-10); NRBC Flagged by Analyzer 0 % (0-5); Neutrophil # 6.82 X10^3/uL (2.7-7.7); Neutrophil % 65.2 % (47-70); Platelet Count 189 K/mm3 (150-450); RBC Distribution Width CV 12.8 % (11.6-14.6); RBC Distribution Width SD 44.2 fl (35.1-43.9); Red Blood Count 4.47 M/mm3 (4.2-5.4); White Blood Count 10.5 K/mm3 (4.4-11.0)
[2023-06-17 20:34] LABS: Internal QC Validated? YES +Cl - CLEAR BKGD; Pregnancy, Serum, hCG Quali. NEGATIVE Negative; Record Kit Lot#, Serum Preg. HCG0000667200
[2023-06-17 20:43] LABS: ALB/GLOB Ratio 1.2 RATIO (0.9-2.4); AST(SGOT) 16 U/L (15-37); Alanine Aminotransfer ALT/SGPT 20 U/L (13-56); Alkaline Phosphatase 62 U/L (45-117); Anion Gap 3 (5-15); BUN 9 mg/dL (7-18); BUN/Creat Ratio 16.1 RATIO (10-20); Calcium,Total 9.1 mg/dL (8.5-10.1); Chloride 110 mmol/L (98-107); Creatinine, Serum 0.56 mg/dL (0.55-1.02); EST Glomerular Filtration Rate 134 mL/min (>60); Est Glom Filt Rate - Afr Amer 162 mL/min (>60); Estimated Creatinine Clearance 129.78 ml/min; Globulin 3.4 g/dL (2.2-4.2); Glucose 126 mg/dL (74-106); Lipase 30 U/L (13-75); Potassium 3.7 mmol/L (3.5-5.1); Protein, Total 7.4 g/dL (6.4-8.2); Sodium Level 138 mmol/L (136-145)
== END 2023-06-17 21:23 | disposition home or self-care (01) ==
PROVIDERS: Emergency Provider Emergency Medicine; PCP Internal Medicine; Visit Provider Emergency Medicine
DX: R10.9 Unspecified abdominal pain (principal); M25.511 Pain in right shoulder; F17.210 Nicotine dependence, cigarettes, uncomplicated
CPT/HCPCS: 71045; 80053; 83690; 84703; 85025; 93005; 96360; 99283; J7030

== ENCOUNTER 2023-07-06 14:40 | Emergency (ER) | payer BC, SELFPAY ==
[2023-07-06 14:41] VITALS: BP 127/81; PULSE 98; RESP 16; TEMP 36.3; O2SAT 97; BMI 26.3
--- NOTE | 2023-07-06 15:22 | ED.VIS.GI ---
HPI HPI - GI History of Present Illness Chief Complaint: Abd Pain Informant: patient Abdominal Pain/Flank Pain Onset: Today Context: Sudden Onset Timing: Intermittent and Lasts (60-90 minutes) Quality: Cramping Location: Epigastric, RUQ and LUQ Worsened by: Food and - (Burping, passing gas) Relieved by: Nothing Nausea/Vomiting/Emesis GI Symptom: Negative for Nausea or Vomiting Diarrhea/Melena/Hematochezia GI Symptom: Negative for Diarrhea, Melena or Hematochezia Associated Symptoms Associated Symptoms: Negative for Dysuria, Frequency or Hematuria Narrative Narrative: Patient presents with abdominal pain that began today. Patient states it began rather suddenly. Patient states it started in her epigastric area and upper abdomen. Patient states it radiated into her chest and into her back. Patient states it became worse after eating. Patient states it also was worse when she would try to burp and pass gas. Patient describes her pain as cramping. Patient states it lasted approximately 60 to 90 minutes and then resolved spontaneously. Patient denies any nausea or vomiting. Patient denies any diarrhea, melena, or hematochezia. Patient denies any dysuria, frequency, or hematuria. Patient states that when she was having the pain she did feel like she could not take a deep breath because of the pain. Patient denies any other shortness of breath. Patient states that her pain resolved shortly after arriving here to the emergency department. Currently, patient denies any complaints. [facility] Medical History Anxiety Home Medications lorazepam 0.5 mg tablet 0.5 mg PO Q12H PRN anxiety 03/15/23 [History Last Taken Unknown] omeprazole 20 mg capsule,delayed release 20 mg PO DAILY #30 CAPSULES 07/06/23 [Rx Last Taken Unknown] Allergy/AdvReac Type Severity Reaction Status Date / Time lidocaine Allergy Intermediate Hives Verified 07/06/23 14:41 chlorpheniramine Allergy PT UNSURE Verified 07/06/23 14:41 OF REACTION egg Allergy Nausea/Vom/ Verified 07/06/23 14:41 Diarrhea Surgical History Hx of tonsillectomy Social History Smoking Status: Current every day smoker tobacco type: cigarettes ROS ROS ED Constitutional Constitutional ED: Denies chills or fever(s) Eyes Eyes: Denies blurry vision or change in vision ENT ENT ED: Denies rhinorrhea or sore throat Cardiovascular Cardiovascular: Reports chest pain; Denies palpitations Respiratory/Chest Respiratory/Chest: Reports dyspnea; Denies cough Gastrointestinal Gastrointestinal: Reports abdominal pain; Denies nausea or vomiting Genitourinary Genitourinary ED: Denies dysuria or hematuria Musculoskeletal Musculoskeletal: Reports back pain; Denies neck pain Integumentary Denies abscess or rash Neurologic Neurologic: Denies headache(s) or weakness Allergic/Immunologic Allergic/Immunologic ED: Denies mouth swelling or urticaria EXAM Physical Exam Const Vital Signs: 07/06/23 14:41 Temperature 97.4 F L Temperature Source Temporal Pulse Rate 98 Respiratory Rate 16 Blood Pressure 127/81 H Blood Pressure Mean 96 Pulse Ox 97 Oxygen Delivery Method Room Air Positive well nourished and well developed General Appearance ED: well developed and NAD HEENT Reports moist mucous membranes Neck supple and no JVD Resp normal respiratory effort and clear to auscultation bilaterally Cardio regular rate and regular rhythm GI non-tender and non-distended Palpation: soft Neuro CN's II-XII intact bilaterally, moves all extremities and no sensory deficits noted Sensorium / Orientation: alert Motor Exam: strength 5/5 throughout Psych mental status grossly normal MDM MDM MDM Narrative Medical decision making narrative: Differential diagnosis includes gastritis, pancreatitis, peptic ulcer disease, duodenal ulcer, bowel obstruction, perforation, cholecystitis, cholelithiasis, urinary tract infection, and pyelonephritis. CBC will be obtained to assess for leukocytosis and anemia. Comprehensive metabolic profile will be obtained to assess for hepatic function, renal function, and electrolyte abnormality. Lipase will be obtained to assess for pancreatitis. Urinalysis will be obtained to assess for urinary tract infection. Lab Data Attestation: I reviewed the patient's lab results. Lab results narrative: CBC was reviewed. There is a mild leukocytosis of 14.9. The remainder is within normal limits. Comprehensive metabolic profile was reviewed and was essentially within normal limits. Lipase was reviewed and was normal at 32. Urinalysis was reviewed. There are positive nitrites and 1+ bacteria. Leukocyte Estrace is 25. There are 0-5 white blood cells. Labs: Laboratory Results - last 24 hr 07/06/23 15:42 WBC 14.9 H RBC 4.82 Hgb 14.6 Hct 44.9 MCV 93.2 MCH 30.3 MCHC 32.5 RDW Std Deviation 43.3 RDW Coeff of Sunitha 12.5 Plt Count 212 MPV 12.6 H Immature Gran % (Auto) 0.400 Neut % (Auto) 69.7 Lymph % (Auto) 21.1 [place] % (Auto) 6.2 Eos % (Auto) 2.1 Baso % (Auto) 0.5 Absolute Neuts (auto) 10.4 H Absolute Lymphs (auto) 3.15 Nucleated RBC % 0 Sodium 140 Potassium 3.5 Chloride 107 Carbon Dioxide 27.0 Anion Gap 6 BUN 10 Creatinine 0.67 Estim Creat Clear Calc 119.74 Est GFR (MDRD) Af Amer 132 Est GFR (MDRD) Non-Af 109 BUN/Creatinine Ratio 15.0 Glucose 88 Calcium 9.5 Total Bilirubin 0.50 AST 13 L ALT 18 Alkaline Phosphatase 70 Total Protein 8.5 H Albumin 4.7 Globulin 3.8 Albumin/Globulin Ratio 1.2 Lipase 32 Urine Color Yellow Urine Clarity Clear Urine pH 6.5 Ur Specific [place] 1.025 Urine Protein 30 H Urine Glucose (UA) Normal Urine Ketones Negative Urine Occult Blood 10 H Urine Nitrite Positive H Urine Bilirubin Negative Urine Urobilinogen Normal Ur Leukocyte Esterase 25 H Urine RBC 0-5 SEEN Urine WBC 0-5 SEEN Ur Squamous Epith Cells 0-5 SEEN Urine Bacteria 1+ Urine Mucus 0 SEEN Additional Tests and Interventions Additional Tests or Interventions: Urine culture was ordered. Treatment and Re-Evaluation :: Patient was advised of her findings. Since the patient's pain has resolved, and she has normal hepatic function, I do not feel that any imaging is necessary at this time. Patient was given a prescription for omeprazole. Patient was instructed to follow-up with her primary care physician in 5 to 7 days. Patient was instructed to return if worse in any way. Patient understood and was agreeable with the plan. All questions were answered. Discharge Plan Triage Chief Complaint: Abd Pain ED Provider: Doug Carr Dx/Rx/DC Orders Clinical Impression: Abdominal pain, Depression Instructions: ED Abdominal Pain Unkn Cause Fem Prescriptions: New omeprazole [omeprazole] 20 mg capsule,delayed release(DR/EC) 20 mg PO DAILY Qty: 30 0RF No Action lorazepam 0.5 mg tablet 0.5 mg PO Q12H PRN (Reason: anxiety) Patient Comments: take 1 tablet by mouth twice a day for 7 days if needed for anxiety Primary Care Provider: Foster Childress Referrals: Foster Childress MD [Primary Care Provider] - 5-7 Days Disposition Disposition: Home, Self Care
--- OUTSIDE RECORDS SUMMARY | 2023-07-06 15:41 | XMS RPT_ITS | CCD ---
Author Name Unknown Address [id number] [place] [address] Organization [facility] Care Team Providers Care Sample Case Porter Name Role Phone CASIMIRO BAILEY Primary Care Physician [phone] Angela WARREN, Sharifa Primary Care Provider Monroe WARREN, Foster Mcnair Primary Care Provider [phone] Monroe WARREN, Foster Mcnair Primary Care Provider [phone] CASIMIRO BAILEY Primary Care Physician [phone] MONROE WARREN, DR FAUSTIN Primary Care Physician FOSTER DECKER Primary Care Unavailable MARY BARONE Attending Unavailable FOSTER DECKER Primary Care Unavailable FOSTER DECKER Primary Care Unavailable MARY BARONE Attending Unavailable FOSTER DECKER Primary Care Unavailable FOSTER DECKER Primary Care Unavailable FOSTER DECKER Attending Unavailable FOSTER DECKER Primary Care Unavailable MARY BARONE Referring Unavailable MARY BARONE Attending Unavailable FOSTER DECKER Primary Care Unavailable MARY BARONE Referring Unavailable DANIEL FERNÁNDEZ Attending Unavailable FOSTER DECKER Primary Care Unavailable MARY BARONE Attending Unavailable FOSTER DECKER Primary Care Unavailable FOSTER DECKER Primary Care Unavailable MARTHA ALVAREZ Attending Unavailable FOSTER DECKER Primary Care Unavailable FOSTER DECKER Primary Care Unavailable KIARA WARREN, DR FU Attending Unavailcelia DECKER MD, DR FAUSTIN Primary Care UnavailJINA Lopez Attending Kylie DECKER MD, DR FAUSTIN Primary Care Unavailjignesh HOWARD MD, NICOLE Harmon Attending Unavail edward DECKER MD, DR FAUSTIN Primary Care Unavailjignesh GUDINO MD, CONCHA Rosado Attending Unavailable CASIMIRO BAILEY Primary Care Unavailable RACHEL JORDAN DO Attending Kylie DECKER MD, DR FAUSTIN Primary Care Unavailjignesh DECKER MD, DR FAUSTIN Primary Care Unavaila genevieve HOWARD MD, NICOLE Harmon Attending Unavail edward HOWARD MD, NICOLE Harmon Attending Unavail edward DECKER MD, DR FAUSTIN Primary Care Unavaila ble Allergies Allergy Classification Reported Allergen(s) Allergy Type Date of Onset Reaction(s) Facility (20 sources) Chlorpheniramine / Pseudoephedrine; Translations: [chlorpheniramine-p seudoephedrine] Drug Allergy 08-01-19 10 Other: See Comments [facility] (6 sources) Egg Propensity to adverse reactions to food [facility] (20 sources) Seasonal allergy; Translations: [SEASONAL ALLERGIES] Allergy to substance 07-29-19 13 Cough [facility] (20 sources) Tetracaine; Translations: [tetracaine] Drug Allergy 04-12-20 21 Other: See Comments [facility] Work Phone: (4 sources) allerex [Other] Propensity to adverse reactions 08-01-19 10 Itching [facility] (20 sources) egg extract; Translations: [EGG] Drug Allergy 08-01-19 10 GI Upset [facility] Work Phone: (20 sources) fredo allergenic extract; Translations: [RFEDO] Drug Allergy 01-17-20 22 Swelling [facility] Work Phone: (5 sources) Acetaminophen / Chlorpheniramine / Pseudoephedrine; Translations: [APAP/chlorpheniram ine/pseudoephedrine ] Drug Allergy [facility] (20 sources) Articaine; Translations: [articaine] Drug Allergy 03-04-20 23 Swelling [facility] (20 sources) Bupivacaine; Translations: [bupivacaine] Drug Allergy 03-04-20 Swelling [facility] (5 sources) Cashew nut Food allergy [facility] (20 sources) Lidocaine; Translations: [lidocaine] Drug Allergy 03-04-20 Swelling [facility] (20 sources) Mepivacaine; Translations: [mepivacaine] Drug Allergy 03-04-20 Swelling [facility] (20 sources) Prilocaine; Translations: [prilocaine] Drug Allergy 03-04-20 Swelling [facility] (1 source) CHLORPHENIRAMINE-PS EUDOEPHED; Translations: [CHLORPHENIRAMINE-P SEUDOEPHED] Propensity to adverse reactions to drug (disorder) 08-01-19 [facility] Repository Medications Current Medications Medication Drug Class(es) Dates Sig (Normalized) Sig (Original) amoxicillin 875 mg oral tablet (7 sources) Penicillin-class Antibacterial Start: 12-08-2022 End: 12-15-2022 take 1 tablet by mouth twice daily amoxicillin (AMOXIL) 875 mg tablet Indications: Acute otitis media, right Take 1 tablet by mouth twice daily for 7 days. 14 tablet 0 12/08/2022 12/15/2022 Active Completed/Discontinued Medications Medication Drug Class(es) Dates Sig (Normalized) Sig (Original) bisacodyl 10 mg rectal suppository (1 source) Stimulant Laxative Start: 03-25-2023 End: 03-28-2023 Dulcolax Laxative 10 mg rectal suppository Dose : 10 mg = 1 supp, Rectal, Daily, X 3 day(s), # 3 supp, 0 Refill(s), 03/28/23 12:32:00 AM EDT Start Date: 03/25/23 Stop Date: 03/28/23 Status: Ordered clindamycin 0.01 mg/mg topical gel (20 sources) Lincosamide Antibacterial Start: 06-03-2023 clindamycin (CLEOCIN-T) 1 % gel Indications: Hidradenitis suppurativa Apply to affected area two times a day. 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 Conditions associated with dizziness or vertigo (2 sources) Lightheadedness; Translations: [Dizziness and giddiness] Episodic Deficiency and other anemia (6 sources) Anemia 04-20-2013 Episodic Disorders of teeth and jaw (1 source) Periapical abscess; Translations: [Periapical abscess without sinus] Onset: 1 Episodic Disorders usually diagnosed in infancy, childhood, or adolescence (1 source) Autism spectrum disorder; Translations: [Autistic disorder] Chronic Epilepsy; convulsions (6 sources) Seizure 04-20-2013 Episodic Esophageal disorders (20 sources) Gastroesophageal reflux disease; Translations: [Gastroesophageal reflux disease without esophagitis] Onset: 2 04-20-2013 Chronic Headache; including migraine (6 sources) Headache 04-20-2013 Episodic Immunizations and screening for infectious disease (2 sources) Patient encounter status; Translations: [Encounter for screening for other viral diseases] Episodic Intracranial injury (6 sources) Concussion 04-20-2013 Episodic Malaise and fatigue (1 source) Fatigue; Translations: [Chronic fatigue, unspecified] Chronic Meningitis (except that caused by tuberculosis or sexually transmitted disease) (6 sources) Meningitis 04-20-2013 Episodic Miscellaneous mental health disorders (1 source) Insomnia disorder related to another mental disorder; Translations: [Insomnia due to other mental disorder] 03-06-2023 Chronic Mood disorders (7 sources) Depressive disorder; Translations: [Depressive disorder] 04-20-2013 Chronic Mood disorders (1 source) Disturbance in mood; Translations: [Emotional lability] 03-07-2023 Episodic Other ear and sense organ disorders (6 sources) Tinnitus 04-20-2013 Episodic Other female genital disorders (20 sources) Pain in female genitalia on intercourse; Translations: [Unspecified dyspareunia] Onset: 2 Chronic Other female genital disorders (2 sources) Abnormal uterine bleeding; Translations: [Abnormal uterine and vaginal bleeding, unspecified] Onset: 3 Chronic Other gastrointestinal disorders (10 sources) Irritable bowel syndrome; Translations: [Mixed irritable bowel syndrome] Onset: 8 04-20-2013 Chronic Other gastrointestinal disorders (6 sources) Constipation 04-20-2013 Episodic Other gastrointestinal disorders (1 source) Constipation, unspecified; Translations: [Constipation, unspecified] Onset: 3 Episodic Other injuries and conditions due to external causes (6 sources) Injury of back 04-20-2013 Episodic Other liver diseases (6 sources) Jaundice 04-20-2013 Episodic Other nervous system disorders (1 source) Impaired cognition; Translations: [Other symptoms and signs involving cognitive functions and awareness] Episodic Other non-traumatic joint disorders (1 source) Multiple joint pain; Translations: [Pain in unspecified joint] Episodic Other nutritional; endocrine; and metabolic disorders (20 sources) Obese class I; Translations: [Obesity, unspecified] Onset: 2 02-12-2022 Chronic Other upper respiratory disease (6 sources) Seasonal allergy 04-20-2013 Chronic Otitis media and related conditions (2 sources) Acute right otitis media; Translations: [Otitis media, unspecified, right ear] Episodic Ovarian cyst (1 source) Cyst of ovary; Translations: [Unspecified ovarian cyst, unspecified side] Onset: 3 Episodic Residual codes; unclassified (1 source) Multiple somatic complaints; Translations: [Other general symptoms and signs] 05-27-2023 Episodic Thyroid disorders (20 sources) Hypothyroidism; Translations: [Hypothyroidism, unspecified] Onset: 1 11-04-2020 Chronic Unclassified (6 sources) Hyaline body (morphologic abnormality) 04-21-2013 Past or Other Problems Problem Classification Problem Date Documented Da te Episodic/Chronic Syncope (4 sources) Syncope; Translations: [Syncope and collapse] Onset: 09-02-2012 09-02-2012 Episodic Results Test Name Value Interpretation Reference Range Facil ity Vital Signs Date Time Vital Sign Value Performing Clinician Grant [facility]ledo 05-27-2023 12:44-0500 Body weight 73.94 kg Mary Barone APRN.CNP Work Phone: [facility] 05-27-2023 12:44-0500 Diastolic blood pressure 78 mm[Hg] Mary Lizabeth 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 Work Phone: [facility] 05-27-2023 12:44-0500 Heart rate 108 /[facility] 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 Work Phone: [facility] 05-27-2023 12:44-0500 Res[facility] rate 16 /[facility] 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 Work Phone: [facility] 05-27-2023 12:44-0500 SaO2% (BldA) [Mass fraction] 97 % [facility] Lizabeth 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 Work Phone: [facility] 05-27-2023 12:44-0500 Systolic blood pressure 126 mm[Hg] [facility] 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 Work Phone: [facility] 05-27-2023 09:56-0500 Body weight 73.94 kg Daniel Loomis MD Work Phone: [facility] 05-27-2023 09:56-0500 Diastolic blood pressure 80 mm[Hg] Daniel Loomis MD Work Phone: [facility] 05-27-2023 09:56-0500 Systolic blood pressure 122 mm[Hg] Daniel Loomis MD Work Phone: [facility] 05-19-2023 00:59-0500 Body height 165.1 cm NICOLE HOWARD MD [facility] 05-19-2023 00:59-0500 Body temperature 97.16 [degF] NICOLE HOWARD MD [facility] 05-19-2023 00:59-0500 Body weight 75 kg NICOLE HOWARD MD [facility] 05-19-2023 00:59-0500 Diastolic Blood Pressure Non-Invasive 82 mm[Hg] NICOLE HOWARD MD [facility] 05-19-2023 00:59-0500 Heart rate 103 /min NICOLE HOWARD MD [facility] 05-19-2023 00:59-0500 Respiratory rate 18 /min NICOLE HOWARD MD [facility] 05-19-2023 00:59-0500 Systolic Blood Pressure Non-Invasive 138 mm[Hg] NICOLE HOWARD MD [facility] 05-12-2023 18:15-0500 Body temperature 98.42 [degF] JINA RING MD [facility] 05-12-2023 18:15-0500 Diastolic Blood Pressure Non-Invasive 85 mm[Hg] JINA RING MD [facility] 05-12-2023 18:15-0500 Heart rate 96 /min JINA RING MD [facility] 05-12-2023 18:15-0500 Respiratory rate 12 /min JINA RING MD [facility] 05-12-2023 18:15-0500 Systolic Blood Pressure Non-Invasive 122 mm[Hg] JINA RING MD [facility] 05-05-2023 14:37-0500 Body temperature 97.81 [degF] Malick White 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 Work Phone: [facility] 05-05-2023 14:37-0500 Body weight 76.11 kg Malick White APRN.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 Work Phone: [facility] 05-05-2023 14:37-0500 Diastolic blood pressure 74 mm[Hg] Malick White APRN.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 Work Phone: [facility] 05-05-2023 14:37-0500 Heart rate 103 /min [facility] 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 Work Phone: [facility] 05-05-2023 14:37-0500 Respiratory rate 21 /min [facility] 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 Work Phone: [facility] 05-05-2023 14:37-0500 SaO2% (BldA) [Mass fraction] 98 % [facility] 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 Work Phone: [facility] 05-05-2023 14:37-0500 Systolic blood pressure 120 mm[Hg] [facility] 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 Work Phone: [facility] 03-24-2023 23:09-0400 Body temperature 98.6 [degF] DR TANK CRAIG MD [facility] 03-24-2023 23:09-0400 Diastolic Blood Pressure Non-Invasive [address] TANK CRAIG MD [facility] 03-24-2023 23:09-0400 Heart rate 95 /min DR TANK CRAIG MD [facility] 03-24-2023 23:09-0400 Respiratory rate 18 /min DR TANK CRAIG MD [facility] 03-24-2023 23:09-0400 Systolic Blood Pressure Non-Invasive [address] TANK CRAIG MD [facility] 03-12-2023 02:03-0400 Body height 165.1 cm NICOLE HOWARD MD [facility] 03-12-2023 02:03-0400 Body temperature 97.7 [degF] NICOLE HOWARD MD [facility] 03-12-2023 02:03-0400 Body weight 77.4 kg NICOLE HOWARD MD [facility] 03-12-2023 02:03-0400 Diastolic Blood Pressure Non-Invasive 76 1 NICOLE HOWARD MD [facility] 03-12-2023 02:03-0400 Heart rate 108 /min NICOLE HOWARD MD [facility] 03-12-2023 02:03-0400 Respiratory rate 20 /min NICOLE HOWARD MD [facility] 03-12-2023 02:03-0400 Systolic Blood Pressure Non-Invasive 138 1 NICOLE HOWARD MD [facility] 03-06-2023 11:07-0400 Body weight 78.02 kg Mary Older 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 Work Phone: [facility] 03-06-2023 11:07-0400 Diastolic blood pressure 84 mm[Hg] Mary Older 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 Work Phone: [facility] 03-06-2023 11:07-0400 Heart rate 94 /min Mary Older 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 Work Phone: [facility] 03-06-2023 11:07-0400 Respiratory rate 18 /min Mary Older 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 Work Phone: [facility] 03-06-2023 11:07-0400 SaO2% (BldA) [Mass fraction] 100 % Mary Older 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 Work Phone: [facility] 03-06-2023 11:07-0400 Systolic blood pressure 116 mm[Hg] Mary Older 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 Work Phone: [facility] 03-04-2023 09:11-0400 Body weight 79.83 kg Mary Older 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 Work Phone: [facility] 03-04-2023 09:11-0400 Diastolic blood pressure 77 mm[Hg] Mary Older 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 Work Phone: [facility] 03-04-2023 09:11-0400 Heart rate 89 /min Mary Older 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 Work Phone: [facility] 03-04-2023 09:11-0400 Respiratory rate 16 /min Mary Older 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 Work Phone: [facility] 03-04-2023 09:11-0400 Systolic blood pressure 120 mm[Hg] Mary Older 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 Work Phone: [facility] 12-08-2022 12:14-0400 Body temperature 98.2 [degF] Sheila Guadalupe APRN.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 Work Phone: [facility] 12-08-2022 12:14-0400 Body weight 84.82 kg Sheila Guadalupe APRN.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 Work Phone: [facility] 12-08-2022 12:14-0400 Diastolic blood pressure 70 mm[Hg] Sheila Guadalupe APRN.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 Work Phone: [facility] 12-08-2022 12:14-0400 Heart rate 106 /min Sheila Guadalupe APRN.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 Work Phone: [facility] 12-08-2022 12:14-0400 Respiratory rate 16 /min Sheila Guadalupe APRN.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 Work Phone: [facility] 12-08-2022 12:14-0400 SaO2% (BldA) [Mass fraction] 96 % Sheila Guadalupe APRN.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 Work Phone: [facility] 12-08-2022 12:14-0400 Systolic blood pressure 128 mm[Hg] Sheila Guadalupe APRN.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 Work Phone: [facility] 09-30-2022 12:43-0400 Body temperature 97.52 [degF] CONCHA GUDINO MD [facility] 09-30-2022 12:43-0400 Diastolic Blood Pressure Non-Invasive 85 1 CONCHA GUDINO MD [facility] 09-30-2022 12:43-0400 Heart rate 97 /min CONCHA GUDINO MD [facility] 09-30-2022 12:43-0400 Respiratory rate 14 /min CONCHA GUDINO MD [facility] 09-30-2022 12:43-0400 Systolic Blood Pressure Non-Invasive 126 1 CONCHA GUDINO MD [facility] 01-16-2022 11:51-0400 Diastolic blood pressure 81 mm[Hg] Foster Decker MD Work Phone: [facility] 01-16-2022 11:51-0400 Heart rate 88 /min Foster Decker MD Work Phone: [facility] 01-16-2022 11:51-0400 Systolic blood pressure 122 mm[Hg] Foster Decker MD Work Phone: [facility] 01-16-2022 11:46-0400 Body height 163.2 cm Foster Decker MD Work Phone: [facility] 01-16-2022 11:46-0400 Body temperature 97.5 [degF] Foster Decker MD Work Phone: [facility] 01-16-2022 11:46-0400 Body weight 80.38 kg Foster Decker MD Work Phone: [facility] 01-16-2022 11:46-0400 Respiratory rate 20 /min Foster Decker MD Work Phone: [facility] 09-28-2021 10:05-0400 Body weight 83.01 kg Leni Older 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 Work Phone: [facility] 09-28-2021 10:05-0400 Diastolic blood pressure 76 mm[Hg] Leni Older 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 Work Phone: [facility] 09-28-2021 10:05-0400 Heart rate 86 /min Leni Older 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 Work Phone: [facility] 09-28-2021 10:05-0400 Respiratory rate 16 /min Leni Older 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 Work Phone: [facility] 09-28-2021 10:05-0400 Systolic blood pressure 108 mm[Hg] Leni Older 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 Work Phone: [facility] 04-21-2021 17:10-0400 Body temperature 98.6 [degF] CONCHA GUDINO MD [facility] 04-21-2021 17:10-0400 Diastolic blood pressure 83 mm[Hg] CONCHA GUDINO MD [facility] 04-21-2021 17:10-0400 Heart rate 94 /min CONCHA GUDINO MD [facility] 04-21-2021 17:10-0400 Mean blood pressure 99 mm[Hg] CONCHA GUDINO MD [facility] 04-21-2021 17:10-0400 Respiratory rate 16 /min CONCHA GUDINO MD [facility] 04-21-2021 17:10-0400 Systolic blood pressure 130 mm[Hg] CONCHA GUDINO MD [facility] Encounters Encounter Date Encounter Type Care Provider Facility Start: 06-07-2023 End: 06-07-2023 [facility] Start: 06-04-2023 Telephone encounter Foster sandhu MD Work Phone: [facility] [place] Procedures Date Procedure Procedure Detail Performing Clinician Start: 01-12-2022 Adult depression scr eening assessment Foster Decker MD Work Phone: Start: 10-28-2020 Adult depression scr eening assessment Leni Barragan 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 Work Phone: Tonsillectomy and adenoidectomy CONCHA GUDINO MD Tonsillectomy and adenoidectomy CONCHA GUDINO MD Tooth extraction CONCHA CHAVEZ SA, MD Plan of Treatment Date Care Activity Detail Author Start: 02-24-2028 Urine microalbumin profile DTa P,Tdap,Td Vaccine (8 - Td or Tdap) [facility] Start: 06-03-2024 Annual PCP Team Cath Lab fe Disease Visit Annual PCP Team Chronic Disease Visit [facility] Start: 06-03-2024 Covid-19 Vaccine (#1) Covid-19 Vacci ne (#1) [facility] Payers Date Payer Category Payer Unknown [id number] 2022 Unknown [id number] 2022 Self-pay 2022 Unknown [id number] 2021 Unknown [employer] PPO OOS [id number] 2021-Present [phone] [address] [place] [address] PPO [id number] 1991 Unknown [id number] 1991 Unknown [id number] 1991 Unknown [id number] 1991 Unknown [id number] 1991 Unknown [id number] 1991 Unknown [id number] 1991 Unknown [id number] Social History Date Type Detail Facility Start: 02-12-2018 End: 02-03-2022 Smokes tobacco daily (finding) [facility] Start: 1990 Sex Assigned At Female [facility] History of tobacco use Cigarette Smoker [facility] Start: 02-12-2018 End: 02-01-2023 Cigarettes smoked current (pack per day) - Reported 1 [facility] Start: 02-12-2018 End: 02-03-2022 Tobacco use and exposure Smokeless tobacco non-user [facility] Start: 08-04-2021 End: 06-04-2023 Alcohol intake Current non-drinker of alcohol (finding) [facility] Start: 10-28-2020 End: 05-29-2022 History SDOH Alcohol Frequency 1 [facility] Start: 10-28-2020 History SDOH Alcohol Std Drinks 98 [facility] Start: 10-28-2020 End: 05-29-2022 History SDOH Social Connections Phone 5 [facility] Start: 10-28-2020 End: 05-29-2022 History SDOH Social Connections Living 3 [facility] Start: 10-28-2020 End: 05-29-2022 History SDOH Stress 2 [facility] Start: 10-28-2020 Education 15 [facility] Start: 09-18-2021 End: 01-16-2022 Exposure to SARS-CoV-2 (event) Not sure [facility] Start: 01-16-2022 End: 02-03-2022 Tobacco Comment 2015. Tried to quit several times. [facility] Start: 05-29-2022 History SDOH Alcohol Std Drinks 0 [facility] Start: 05-29-2022 History SDOH Physical Activity DPW 4 [facility] Start: 09-30-2022 Tobacco smoking status Smoker (finding) [facility] Start: 05-29-2022 End: 02-01-2023 Social connection and isolation panel [facility] Do you belong to any clubs or organizations such as jehovah's witness groups, unions, fraternal or athletic groups, or school groups? Yes [facility] Are you now , , , , never or living with a partner? [facility] How often to you hav e a drink containing alcohol? Never [facility] How many standard dr inks containing alcohol do you have on a typical day? Patient does not drink [facility] How hard is it for y ou to pay for the very basics like food, housing, medical care, and heating Hard [facility] (I/We) worried john er (my/our) food would run out before (I/we) got money to buy more. Often true [facility] At any time in the p ast 12 months, were you homeless or living in long term [including now]? No [facility] Start: 01-22-2021 Gender identity Identifies as female gender (finding) [facility] Start: 01-22-2021 Sexual orientation Heterosexual (finding) [facility] Start: 03-11-2023 Tobacco smoking status Heavy tobacco smoker (finding) [facility] Functional Status Date Assessment Result Facility 05-19-2023 Functional Status Independent [facility] 05-12-2023 Functional Status Ambulation in [facility] 03-25-2023 Functional Status Independent [facility] 03-12-2023 Functional Status Independent [facility] 09-30-2022 Functional Status Up ad helio [facility] 09-30-2022 Functional Status Standard Safet y ID band on, Call device within reach, Bed in low position, Wheels locked, Visitor at bedside, Safety level maintained [facility] Mental Status Date Assessment Result Facility 05-19-2023 Mental Status Orientation Oriented x 4 [facility] 05-19-2023 Mental Status [facility] 05-12-2023 Mental Status Orientation Oriented x 4 [facility] 03-25-2023 Mental Status Orientation Oriented x 4 [facility] 03-12-2023 Mental Status Orientation Oriented x 4 [facility] 09-30-2022 Mental Status Orientation Oriented x 4 [facility] 09-30-2022 Mental Status [facility] Clinical Notes 02-12-2018 to 06-05-2023 Telephone Encounter - Javier Frank Ma - 06/05/2023 1:21 PM ESTTelephone Encounter - Suzanne Patel LPN - 06/04/2023 1:11 PM Mary Hamilton APRN.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 - 05/27/2023 12:46 PM EST Note Date & Type Note Facility 06-05-2023 Miscellaneous Notes Referral and appropriate patient information faxed to [facility] @ [phone] # [phone] Left message, needing fax number for [facility]. Dr. Decker has put in a referral, will fax referral info for review to see if they Patient. Suzanne Patel LPN documented in this encounter [facility] 06-03-2023 Note HNO ID: [id number] Author: Foster Decker MD Service: ? Author Type: Physician Type: Progress Notes Filed: 06/04/2023 7:16 AM Note Text: This note was created using NoteWriter. Subjective Megan Leung is a 33 year old female here with spouse. [facility]. She's had recurring multiple somatic and cognitive complaints since age 17, and repeated work up for a medical cause in the clinic and in ER visits have been negative. The closest benefit perceived by patient was a transient benefit of treatment for hypothyroidism that quickly lost efficacy, and has not been duplicated or confirmed in repeated testing. She also developed palpitations on thyroid hormone, which was another reason this was discontinued. Thyroid panel last week was again normal. What they are really interested in is an evaluation for autism spectrum disorder. She had difficulty holding jobs, hyperfocusing and unable to multi task, social awkwardness, difficulty handling stress or change and seemed to lack executive function. They were frustrated about obstacles to referrals or evaluation for this. In fact, our RETAIL SALESMAN here referred her to [facility] but was not scheduled since only pediatric referrals were accepted. They indicated she had an appointment in [place] in September 2023, and a center for autism in [facility] could see her with a referral. She also had recurring issues with hidradenitis, and referrals to dermatology last year were not carried out. Review of Systems No change. Multi sytemic symptoms. ACTIVE PROBLEM LIST Chronic Anxiety Hypothyroidism Dyspareunia in Female Obesity, Class I, Bmi 30-34.9 Gastroesophageal Reflux Disease Without Esophagitis Social History Tobacco Use Smoking status: Every Day Packs/day: 1 Types: Cigarettes Smokeless tobacco: Never Tobacco comments: 2014. Tried to quit several times. Vaping Use Vaping Use: Never used Substance Use Topics Alcohol use: No Drug use: Not Currently Types: Marijuana Comment: [id number] Current Outpatient Medications Medication Sig LORazepam (ATIVAN) 0.5 mg Take 1 tablets By Oral Route 2 times per day as needed Multivitamin capsule Take 1 capsule by mouth once daily. ondansetron orally disintegrating (ZOFRAN ODT) 4 mg disintegrating tablet Take 1 tablet by mouth every 8 hours as needed for nausea/vomiting. clindamycin (CLEOCIN-T) 1 % gel Apply to affected area two times a day. No current facility-administered medications for this visit. Objective BP 116/76 (BP Site: Left Arm, BP Position: Sitting, BP Cuff Size: Large Adult) Pulse 88 Resp 16 Wt 73.9 kg (163 lb) LMP 05/09/2023 (Exact Date) BMI 27.76 kg/m? Physical Exam Constitutional: Appearance: Normal appearance. Neurological: Mental Status: She is alert. Psychiatric: Mood and Affect: Affect is not flat. Speech: Speech normal. Behavior: Behavior normal. Assessment and Plan 1. Executive function deficit - ICD9: 799.55, ICD10: R41.844 (primary diagnosis) Refer to [facility], rule out Autism Spectrum Disorder. - CONSULT TO NON-[facility] FACILITY 2. Brain fog - ICD9: 799.59, ICD10: R41.89 - CONSULT TO NON-[facility] FACILITY 3. Social discord - ICD9: V62.89, ICD10: Z65.8 - CONSULT TO NON-[facility] FACILITY 4. Hidradenitis suppurativa - ICD9: 705.83, ICD10: L73.2 - CLINDAMYCIN 1 % TOPICAL GEL - CONSULT TO DERMATOLOGY Foster Decker MD [facility] 05-27-2023 Note HNO ID: [id number] Author: Mary Barone APRN.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 Service: ? Author Type: Nurse Practitioner Type: Progress Notes Filed: 05/27/2023 1:43 PM Note Text: CC: Patient presents with: Thyroid Problem HPI Megan Leung is a 33 year old female who presents today for above. Patient reports concerns today about possible thyroid problem. She has multiple symptoms present for 10 or more years including brain fog, fatigue, mood swings, depression, anxiety, palpitations, and dizziness/lightheadedness. She was diagnosed with hypothyroidism in 2020 and started on levothyroxine. Patient recalls all of her symptoms completely resolved and she was feeling better than she had in years. Unfortunately this only lasted a few months so the decision was made to stop levothyroxine. TSH rechecked a couple months later and were normal, symptoms returned to baseline. Thyroid levels have not been checked since the discontinuation in January 2022. Symptoms have varied over the past year but most persistent is the fatigue, brain fog, anxiety and mood swings. She also reports hair loss, dry skin and weight loss currently. According to patient she has been seen several times by psychiatry and told she does not have depression, her symptoms are due to a medical reason. Last appointment with psychiatrist Dr. Rodriguez was a few months ago. She has also been to the ER multiple times in the past few months for anxiety. Review of Systems Constitutional: Positive for fatigue and unexpected weight change. HENT: Negative for trouble swallowing. Endocrine: Positive for cold intolerance. 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 esophageal stricture on UGIS, normal EGD Syncope 09/02/2012 neg. extensive testing (tilt table, EEG) PAST SURGICAL HISTORY Procedure Laterality Date DENTAL SURGERY HX 03/2021 wisdom teeth removed ESOPHAGOSCOPY FLEXIBLE TRANSORAL DIAGNOSTIC 08/01/2009 normal TONSILLECTOMY HX ALLERGIES Articaine, Bupivacaine, Lidocaine, Mepivacaine, Prilocaine, Chlorpheniramine-Pseudoephed, Eggs [Egg], [place], Seasonal Allergies, and Tetracaine MEDICATIONS LORazepam (ATIVAN) 0.5 mg Take 1 tablets By Oral Route 2 times per day as needed loratadine (CLARITIN) 10 mg tablet Take 1 tablet by mouth once daily. fluticasone (FLONASE) 50 mcg/actuation nasal spray Use 2 Sprays in each nostril once daily. Rinse mouth after use. QUEtiapine (SEROQUEL) 25 mg tablet Take 0.5-1 tablets by mouth daily at bedtime. (Patient not taking: Reported on 05/05/2023) Multivitamin capsule Take 1 capsule by mouth once daily. ondansetron orally disintegrating (ZOFRAN ODT) 4 mg disintegrating tablet Take 1 tablet by mouth every 8 hours as needed for nausea/vomiting. meclizine (ANTIVERT) 12.5 mg tab Take 1-2 tablets by mouth every 6 hours as needed (dizziness). (Patient not taking: Reported on 05/05/2023) clindamycin (CLEOCIN-T) 1 % gel Apply to affected area twice daily. FAMILY HISTORY Problem Relation Age of Onset COPD Mother Asthma Mother Psoriasis Mother Psychiatry Father Bord.Personality Disorder Lymphoma Brother 1/2 brother COPD Maternal Grandfather Social History Tobacco Use Smoking status: Every Day Packs/day: 1 Types: Cigarettes Smokeless tobacco: Never Tobacco comments: 2014. Tried to quit several times. Vaping Use Vaping Use: Never used Substance Use Topics Alcohol use: No Drug use: Not Currently Types: Marijuana Comment: BP 126/78 Pulse 108 Resp 16 Wt 73.9 kg (163 lb) LMP 05/09/2023 (Exact Date) SpO2 97% BMI 27.76 kg/m? Physical Exam Vitals reviewed. Constitutional: Appearance: She is not ill-appearing or toxic-appearing. Neck: Thyroid: No thyroid mass, thyromegaly or thyroid tenderness. Musculoskeletal: Cervical back: Neck supple. Skin: General: Skin is warm and dry. Neurological: Mental Status: She is alert. Psychiatric: Attention and Perception: Attention normal. Mood and Affect: Mood is anxious. Affect is tearful. Speech: Speech is rapid and pressured. Behavior: Behavior is hyperactive. Thought Content: Thought content normal. Judgment: Judgment normal. DATA REVIEWED: Most recent labs ASSESSMENT/PLAN: 1. Hypothyroidism, unspecified type - ICD9: 244.9, ICD10: E03.9 (primary diagnosis) Patient is certain her symptoms are due to hypothyroidism. Last TSH checked in ER a few days a (more content not included)... [facility] 05-27-2023 History of Present illness Narrative CC: Patient presents with: Thyroid Problem HPI Megan Leung is a 33 year old female who presents today for above. Patient reports concerns today about possible thyroid problem. She has multiple symptoms present for 10 or more years including brain fog, fatigue, mood swings, depression, anxiety, palpitations, and dizziness/lightheadedness. She was diagnosed with hypothyroidism in 2020 and started on levothyroxine. Patient recalls all of her symptoms completely resolved and she was feeling better than she had in years. Unfortunately this only lasted a few months so the decision was made to stop levothyroxine. TSH rechecked a couple months later and were normal, symptoms returned to baseline. Thyroid levels have not been checked since the discontinuation in January 2022. Symptoms have varied over the past year but most persistent is the fatigue, brain fog, anxiety and mood swings. She also reports hair loss, dry skin and weight loss currently. According to patient she has been seen several times by psychiatry and told she does not have depression, her symptoms are due to a medical reason. Last appointment with psychiatrist Dr. Rodriguez was a few months ago. She has also been to the ER multiple times in the past few months for anxiety. Review of Systems Constitutional: Positive for fatigue and unexpected weight change. HENT: Negative for trouble swallowing. Endocrine: Positive for cold intolerance. 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 esophageal stricture on UGIS, normal EGD Syncope 09/02/2012 neg. extensive testing (tilt table, EEG) PAST SURGICAL HISTORY Procedure Laterality Date DENTAL SURGERY HX 03/2021 wisdom teeth removed ESOPHAGOSCOPY FLEXIBLE TRANSORAL DIAGNOSTIC 08/01/2009 normal TONSILLECTOMY HX ALLERGIES Articaine, Bupivacaine, Lidocaine, Mepivacaine, Prilocaine, Chlorpheniramine-Pseudoephed, Eggs [Egg], [place], Seasonal Allergies, and Tetracaine MEDICATIONS LORazepam (ATIVAN) 0.5 mg Take 1 tablets By Oral Route 2 times per day as needed loratadine (CLARITIN) 10 mg tablet Take 1 tablet by mouth once daily. fluticasone (FLONASE) 50 mcg/actuation nasal spray Use 2 Sprays in each nostril once daily. Rinse mouth after use. QUEtiapine (SEROQUEL) 25 mg tablet Take 0.5-1 tablets by mouth daily at bedtime. (Patient not taking: Reported on 05/05/2023) Multivitamin capsule Take 1 capsule by mouth once daily. ondansetron orally disintegrating (ZOFRAN ODT) 4 mg disintegrating tablet Take 1 tablet by mouth every 8 hours as needed for nausea/vomiting. meclizine (ANTIVERT) 12.5 mg tab Take 1-2 tablets by mouth every 6 hours as needed (dizziness). (Patient not taking: Reported on 05/05/2023) clindamycin (CLEOCIN-T) 1 % gel Apply to affected area twice daily. FAMILY HISTORY Problem Relation Age of Onset COPD Mother Asthma Mother Psoriasis Mother Psychiatry Father Nick.Personality Disorder Lymphoma Brother 1/2 brother COPD Maternal Grandfather Social History Tobacco Use Smoking status: Every Day Packs/day: 1 Types: Cigarettes Smokeless tobacco: Never Tobacco comments: 2014. Tried to quit several times. Vaping Use Vaping Use: Never used Substance Use Topics Alcohol use: No Drug use: Not Currently Types: Marijuana Comment: [id number] BP 126/78 Pulse 108 Resp 16 Wt 73.9 kg (163 lb) LMP 05/09/2023 (Exact Date) SpO2 97% BMI 27.76 kg/m Physical Exam Vitals reviewed. Constitutional: Appearance: She is not ill-appearing or toxic-appearing. Neck: Thyroid: No thyroid mass, thyromegaly or thyroid tenderness. Musculoskeletal: Cervical back: Neck supple. Skin: General: Skin is warm and dry. Neurological: Mental Status: She is alert. Psychiatric: Attention and Perception: Attention normal. Mood and Affect: Mood is anxious. Affect is tearful. Speech: Speech is rapid and pressured. Behavior: Behavior is hyperactive. Thought Content: Thought content normal. Judgment: Judgment normal. DATA REVIEWED: Most recent labs ASSESSMENT/PLAN: 1. Hypothyroidism, unspecified type - ICD9: 244.9, ICD10: E03.9 (primary diagnosis) Patient is certain her symptoms are due to hypothyroidism. Last TSH checked in ER a few days ago was normal. She is requesting full panel. Check labs: - TSH BLD - T4 FREE/FREE THYROX - T3 BLD She is looking for answers to the cause of her symptoms if it is not her thyroid. She is adamant issues are not from depression or anxiety. Reportedly psychiatry is in agreement with this. [facility]. Schedule follow-up with her PCP Dr. Decker for further evaluation 2. Somatic complaints, multiple - ICD9: 780.99, ICD10: R68.89 As above Prescription instructions reviewed with patient as applicable. Potential red flag symptoms discussed with the patient. Reviewed appropriate action plan to take if red flag symptoms occur. Patient agreeable to treatment plan. During this patient visit I have spent approximately 35 minutes in counseling regarding medications, test results, and coordinating care. Mary Barone APRN.CNP documented in this encounter [facility] 05-27-2023 Note HNO ID: [id number] Author: Daniel Fernández MD Service: ? Author Type: Physician Type: Progress Notes Filed: 05/27/2023 12:54 PM Note Text: Office visit Consultation requested by Mary Barone APRN.CNP. My final recommendations will be communicated back to the requesting physician by way of shared Medical record or letter to requesting physician via US mail. Megan Leung is a 33 year old old female who c/o pelvic pain. HPI: Patient stated she is having pelvic pain, stated started around a year ago. Around that time it was thought she had an abnormal thyroid, she also started having increased anxiety which preceded the pelvic pain, increased symptoms of possible IBS with alternating constipation and diarrhea. Complain of dyspareunia, patient stated is mainly due to spasm, symptoms started also around the same time. Denies urinary symptoms. Complains of alternating constipation and diarrhea on a regular basis. Chemical Librarian History LMP: 05/09/2023 (Exact Date), Having periods Age at Menarche: Age at First : Age at Menopause: Chemical Librarian History Comments: Sexual Activity: Yes; Male Contraception: None OB History T0 L0 SAB0 IAB0 Ectopic0 Multiple0 Live Births0 PAST MEDICAL HISTORY Diagnosis Date Acute kidney failure (HCC) temporary liver and kindey failure due to reaction to antibiotic (unsure name) (was hospitalized) Anxiety 07/29/2012 Chronic anxiety 02/12/2018 Cognitive complaints 07/29/2012 MRI,MRA,MRV Concussion 2011 multiple Depression 07/29/2012 Drusen of both optic discs 07/29/2012 History of suicidal ideation 03/21/2018 inpatient Hypothyroidism 11/04/2020 Irritable bowel syndrome with both constipation and diarrhea 02/12/2018 Obesity Orthostatic dizziness 09/01/2012 Other dysphagia 08/11/2009 ? esophageal stricture on UGIS, normal EGD Syncope 09/02/2012 neg. extensive testing (tilt table, EEG) PAST SURGICAL HISTORY Procedure Laterality Date DENTAL SURGERY HX 03/2021 wisdom teeth removed ESOPHAGOSCOPY FLEXIBLE TRANSORAL DIAGNOSTIC 08/01/2009 normal TONSILLECTOMY HX FAMILY HISTORY Problem Relation Age of Onset COPD Mother Asthma Mother Psoriasis Mother Psychiatry Father Bord.Personality Disorder Lymphoma Brother 1/2 brother COPD Maternal Grandfather Social History Tobacco Use Smoking status: Every Day Packs/day: 1 Types: Cigarettes Smokeless tobacco: Never Tobacco comments: 2014. Tried to quit several times. Vaping Use Vaping Use: Never used Substance Use Topics Alcohol use: No Drug use: Not Currently Types: Marijuana Comment: Current Outpatient Medications Medication Sig LORazepam (ATIVAN) 0.5 mg Take 1 tablets By Oral Route 2 times per day as needed loratadine (CLARITIN) 10 mg tablet Take 1 tablet by mouth once daily. fluticasone (FLONASE) 50 mcg/actuation nasal spray Use 2 Sprays in each nostril once daily. Rinse mouth after use. QUEtiapine (SEROQUEL) 25 mg tablet Take 0.5-1 tablets by mouth daily at bedtime. (Patient not taking: Reported on 05/05/2023) Multivitamin capsule Take 1 capsule by mouth once daily. ondansetron orally disintegrating (ZOFRAN ODT) 4 mg disintegrating tablet Take 1 tablet by mouth every 8 hours as needed for nausea/vomiting. meclizine (ANTIVERT) 12.5 mg tab Take 1-2 tablets by mouth every 6 hours as needed (dizziness). (Patient not taking: Reported on 05/05/2023) clindamycin (CLEOCIN-T) 1 % gel Apply to affected area twice daily. No current facility-administered medications for this visit. Allergies As of Date: 05/27/2023 Allergen Noted Reaction ARTICAINE 03/04/2023 Swelling BUPIVACAINE 03/04/2023 Swelling LIDOCAINE 03/04/2023 Swelling MEPIVACAINE 03/04/2023 Swelling PRILOCAINE 03/04/2023 Swelling CHLORPHENIRAMINE-PSEUDOEPHED 08/01/2009 Other: See Comments EGGS [EGG] 08/01/2009 GI Upset FREDO 01/16/2022 Swelling SEASONAL ALLERGIES 07/29/2012 Cough TETRACAINE 04/12/2021 Other: See Comments Fully Assessed 05/27/2023 REVIEW OF SYSTEMS Expanded ROS: N/A Allergies and current medication updated:Yes EXAM: BP 122/80 Wt 163 lb (73.9kg) LMP 05/09/2023 GENERAL: pleasant, female in no apparent distress. HEENT: Normocephalic and atraumatic NECK: Supple CHEST: Normal inspiratory effort NEURO: alert and oriented x3 ABDOMEN: soft, non-tender, no masses BREAST: deferred PELVIC: Patient declined pelvic exam today, and declined Pap smear today. CT abdomen pelvis: Normal uterus and/ovaries, no ovarian cyst seen. ASSESSMENT/PLAN: 1. Pelvic pain - ICD9: [id number], ICD10: R10.2 Differential Diagnosis includes ovulation pain, IBS, and anxiety. -Patient counseled extensively about her symptoms, patient offered combined oral contraceptive pills to stop ovulation as her pain increased around ovulation time. After extensive discussion patient preferred to follow-up first with her primary care for proper managem (more content not included)... [facility] 05-27-2023 Note HNO ID: [id number] Author: Angi Land MA Service: ? Author Type: Environmental Engineering Assistant Type: Progress Notes Filed: 05/27/2023 12:54 PM Note Text: Cnc Router Operator offered: Patient accepts, visit chaperoned by angi land. [facility] 05-27-2023 History of Present illness Narrative Office visit Consultation requested by Mary Barone APRN.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. My final recommendations will be communicated back to the requesting physician by way of shared Medical record or letter to requesting physician via [place] mail. Megan Leung is a 33 year old old female who c/o pelvic pain. HPI: Patient stated she is having pelvic pain, stated started around a year ago. Around that time it was thought she had an abnormal thyroid, she also started having increased anxiety which preceded the pelvic pain, increased symptoms of possible IBS with alternating constipation and diarrhea. Complain of dyspareunia, patient stated is mainly due to spasm, symptoms started also around the same time. Denies urinary symptoms. Complains of alternating constipation and diarrhea on a regular basis. Chemical Librarian History LMP: 05/09/2023 (Exact Date), Having periods Age at Menarche: Age at First : Age at Menopause: Chemical Librarian History Comments: Sexual Activity: Yes; Male Contraception: None OB History T0 L0 SAB0 IAB0 Ectopic0 Multiple0 Live Births0 PAST MEDICAL HISTORY Diagnosis Date Acute kidney failure (HCC) temporary liver and kindey failure due to reaction to antibiotic (unsure name) (was hospitalized) Anxiety 07/29/2012 Chronic anxiety 02/12/2018 Cognitive complaints 07/29/2012 MRI,MRA,MRV Concussion 2011 multiple Depression 07/29/2012 Drusen of both optic discs 07/29/2012 History of suicidal ideation 03/21/2018 inpatient Hypothyroidism 11/04/2020 Irritable bowel syndrome with both constipation and diarrhea 02/12/2018 Obesity Orthostatic dizziness 09/01/2012 Other dysphagia 08/11/2009 ? esophageal stricture on UGIS, normal EGD Syncope 09/02/2012 neg. extensive testing (tilt table, EEG) PAST SURGICAL HISTORY Procedure Laterality Date DENTAL SURGERY HX 03/2021 wisdom teeth removed ESOPHAGOSCOPY FLEXIBLE TRANSORAL DIAGNOSTIC 08/01/2009 normal TONSILLECTOMY HX FAMILY HISTORY Problem Relation Age of Onset COPD Mother Asthma Mother Psoriasis Mother Psychiatry Father Bord.Personality Disorder Lymphoma Brother 1/2 brother COPD Maternal Grandfather Social History Tobacco Use Smoking status: Every Day Packs/day: 1 Types: Cigarettes Smokeless tobacco: Never Tobacco comments: 2014. Tried to quit several times. Vaping Use Vaping Use: Never used Substance Use Topics Alcohol use: No Drug use: Not Currently Types: Marijuana Comment: [phone] Current Outpatient Medications Medication Sig LORazepam (ATIVAN) 0.5 mg Take 1 tablets By Oral Route 2 times per day as needed loratadine (CLARITIN) 10 mg tablet Take 1 tablet by mouth once daily. fluticasone (FLONASE) 50 mcg/actuation nasal spray Use 2 Sprays in each nostril once daily. Rinse mouth after use. QUEtiapine (SEROQUEL) 25 mg tablet Take 0.5-1 tablets by mouth daily at bedtime. (Patient not taking: Reported on 05/05/2023) Multivitamin capsule Take 1 capsule by mouth once daily. ondansetron orally disintegrating (ZOFRAN ODT) 4 mg disintegrating tablet Take 1 tablet by mouth every 8 hours as needed for nausea/vomiting. meclizine (ANTIVERT) 12.5 mg tab Take 1-2 tablets by mouth every 6 hours as needed (dizziness). (Patient not taking: Reported on 05/05/2023) clindamycin (CLEOCIN-T) 1 % gel Apply to affected area twice daily. No current facility-administered medications for this visit. Allergies As of Date: 05/27/2023 Allergen Noted Reaction ARTICAINE 03/04/2023 Swelling BUPIVACAINE 03/04/2023 Swelling LIDOCAINE 03/04/2023 Swelling MEPIVACAINE 03/04/2023 Swelling PRILOCAINE 03/04/2023 Swelling CHLORPHENIRAMINE-PSEUDOEPHED 08/01/2009 Other: See Comments EGGS [EGG] 08/01/2009 GI Upset FREDO 01/16/2022 Swelling SEASONAL ALLERGIES 07/29/2012 Cough TETRACAINE 04/12/2021 Other: See Comments Fully Assessed 05/27/2023 REVIEW OF SYSTEMS Expanded ROS: N/A Allergies and current medication updated:Yes EXAM: BP 122/80 Wt 163 lb (73.9kg) LMP 05/09/2023 GENERAL: pleasant, female in no apparent distress. HEENT: Normocephalic and atraumatic NECK: Supple CHEST: Normal inspiratory effort NEURO: alert and oriented x3 ABDOMEN: soft, non-tender, no masses BREAST: deferred PELVIC: Patient declined pelvic exam today, and declined Pap smear today. CT abdomen pelvis: Normal uterus and/ovaries, no ovarian cyst seen. ASSESSMENT/PLAN: 1. Pelvic pain - ICD9: [id number], ICD10: R10.2 Differential Diagnosis includes ovulation pain, IBS, and anxiety. -Patient counseled extensively about her symptoms, patient offered combined oral contraceptive pills to stop ovulation as her pain increased around ovulation time. After extensive discussion patient preferred to follow-up first with her primary care for proper management of her increased anxiety, IBS, possible thyroid abnormality. Patient will return to clinic for further management and for Pap smear. All patient questions and concerns were answered to her satisfaction. Daniel Loomis MD I spent a total of 40 minutes on the date of the service which included preparing to see the patient, [id number] patient care, completing clinical documentation, performing a medically appropriate examination, counseling and educating the patient/family/caregiver, and communicating results to the patient/family/caregiver Cnc Router Operator offered: Patient accepts, visit chaperoned by angi land. documented in this encounter [facility] 05-20-2023 Note HNO ID: [id number] Author: Mary Barragan APRN.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 Service: ? Author Type: Nurse Practitioner Type: Progress Notes Filed: 05/20/2023 9:55 AM Note Text: CC: Patient presents with: painful spot on left breast since January HPI Megan Leung is a 33 year old female who presents today for above. Patient reports small lump in the top of her left breast that is tender and painful. First noticed in January of 2022, intermittent since then. Denies redness, swelling, increased warmth, nipple discharge, skin texture changes, rashes. Review of Systems See HPI PAST MEDICAL HISTORY Diagnosis Date Acute kidney failure (HCC) temporary liver and kindey failure due to reaction to antibiotic (unsure name) (was hospitalized) Anxiety 07/29/2012 Chronic anxiety 02/12/2018 Cognitive complaints 07/29/2012 MRI,MRA,MRV Concussion 2011 multiple Depression 07/29/2012 [place] of both optic discs 07/29/2012 History of suicidal ideation 03/21/2018 inpatient Hypothyroidism 11/04/2020 Irritable bowel syndrome with both constipation and diarrhea 02/12/2018 Obesity Orthostatic dizziness 09/01/2012 Other dysphagia 08/11/2009 ? esophageal stricture on UGIS, normal EGD Syncope 09/02/2012 neg. extensive testing (tilt table, EEG) PAST SURGICAL HISTORY Procedure Laterality Date DENTAL SURGERY HX 03/2021 wisdom teeth removed ESOPHAGOSCOPY FLEXIBLE TRANSORAL DIAGNOSTIC 08/01/2009 normal TONSILLECTOMY HX ALLERGIES Articaine, Bupivacaine, Lidocaine, Mepivacaine, Prilocaine, Chlorpheniramine-Pseudoephed, Eggs [Egg], [place], Seasonal Allergies, and Tetracaine MEDICATIONS LORazepam (ATIVAN) 0.5 mg Take 1 tablets By Oral Route 2 times per day as needed loratadine (CLARITIN) 10 mg tablet Take 1 tablet by mouth once daily. fluticasone (FLONASE) 50 mcg/actuation nasal spray Use 2 Sprays in each nostril once daily. Rinse mouth after use. QUEtiapine (SEROQUEL) 25 mg tablet Take 0.5-1 tablets by mouth daily at bedtime. (Patient not taking: Reported on 05/05/2023) Multivitamin capsule Take 1 capsule by mouth once daily. ondansetron orally disintegrating (ZOFRAN ODT) 4 mg disintegrating tablet Take 1 tablet by mouth every 8 hours as needed for nausea/vomiting. meclizine (ANTIVERT) 12.5 mg tab Take 1-2 tablets by mouth every 6 hours as needed (dizziness). (Patient not taking: Reported on 05/05/2023) clindamycin (CLEOCIN-T) 1 % gel Apply to affected area twice daily. FAMILY HISTORY Problem Relation Age of Onset COPD Mother Asthma Mother Psoriasis Mother Psychiatry Father Bord.Personality Disorder Lymphoma Brother 1/2 brother COPD Maternal Grandfather Social History Tobacco Use Smoking status: Every Day Packs/day: 1 Types: Cigarettes Smokeless tobacco: Never Tobacco comments: 2014. Tried to quit several times. Vaping Use Vaping Use: Never used Substance Use Topics Alcohol use: No Drug use: Not Currently Types: Marijuana Comment: [id number] BP 122/82 Pulse 105 Resp 14 Wt 74.4 kg (164 lb) LMP 07/05/2020 (Exact Date) SpO2 98% BMI 27.93 kg/m? Physical Exam Vitals reviewed. Constitutional: Appearance: Normal appearance. Chest: ASSESSMENT/PLAN: 1. Breast pain, left - ICD9: 611.71, ICD10: N64.4 (primary diagnosis) Evaluate further with: - [facility] LEFT - US BREAST LTD LEFT Follow-up pending results 2. Pelvic pain - ICD9: [id number], ICD10: R10.2 Patient needs referral to gynecology for pelvic pain - CONSULT TO GYNECOLOGY Prescription instructions reviewed with patient as applicable. Potential red flag symptoms discussed with the patient. Reviewed appropriate action plan to take if red flag symptoms occur. Patient agreeable to treatment plan. Mary Barragan APRN.GABRIELA [facility] 05-19-2023 Hospital Discharge instructions Patient Education 05/19/2023 02:06:41 Ovarian Cysts Ovarian Cysts A cyst is usually a fluid-filled sac, like a small water balloon. Cysts are almost always harmless, and many go away on their own. Usually they grow slowly. They can vary in size from as small as a pea to larger than a grapefruit. Many cause no symptoms at all. Often they are felt only during a pelvic exam. Ovarian cysts are usually not cancer. Functional cyst A functional cyst is the most common kind of cyst. It forms when a follicle does not release a mature egg or continues to grow after releasing the egg. Functional cysts usually occur on only one ovary at a time. They usually shrink on their own in 1 to 3 months. In rare cases, a cyst will burst (rupture), causing pain. Pain might also be caused by the twisting of an ovary that is enlarged because of the cyst growing on it. Dermoid cyst Sometimes cells that are present from will start to grow into different kinds of tissue such as skin, fat, hair, and teeth. This kind of cyst is called a dermoid cyst. Dermoid cysts can grow on one or both ovaries. Usually they cause no symptoms. But if they leak or the ovary becomes twisted, they can cause severe pain. Endometrioma Sometimes tissue similar to the lining of the uterus (endometrium) grows and becomes part of the ovary. This kind of cyst is often called a chocolate cyst because of its dark-brown color. These cysts can grow on one or both ovaries. They often cause pain, especially around menstruation or during sex. Benign cystadenoma If the capsule that surrounds the ovary grows, it can form a cystadenoma. These cysts can grow on one or both ovaries. Usually they cause no symptoms if they are small. But if they become large, they can press on organs near the ovaries, causing pain. They can also cause pain by stretching the ovarian capsule. A cyst that pushes on the bladder can cause frequent urination. Sometimes these cysts rupture and bleed. Malignant cysts These cysts can invade other tissues or spread to other parts of the body. [id number] [employer]. [address] [place] [address], [place] [address]. All rights reserved. This information is not intended as a substitute for professional medical care. Always follow your healthcare professional's instructions. Follow Up Care 05/19/2023 00:54:17 With:FOSTER DECKER MD Address: [address] [place] [phone]- When:2-4 days [facility] 05-19-2023 Note Discharge Instructions Thank you for allowing [facility] to assist you with your healthcare needs. The following is important discharge information regarding your hospital visit. Diagnosis from Today's Visit Abdominal pain Cyclic pelvic pain What to Do Next Instructions from Your Care Team No qualifying data available. Post Acute Orders No qualifying data available. You Need to Schedule the Following Appointments Follow Up with FOSTER DECKER MD When Within 2-4 days Where: [address] [place] [address]- Allergies Allerest Maximum Strength Allerest Sinus BUPivacaine Cashews Eggs Fredo articaine lidocaine mepivacaine prilocaine tetracaine Medications Please ask your primary doctor or pharmacist before taking any other medication not listed, including over the counter drugs, herbal medications, vitamins and or supplements as they may interact with your home medications. What How Much When Why Instructions Last Dose Unchanged amoxicillin (amoxicillin 500 mg oral tablet) 1 tab(s) by mouth Three (3) times a day Duration: 7 Days Unchanged clindamycin (clindamycin 150 mg oral capsule) 1 cap by mouth Every 6 hours Dental abscess Duration: 7 Days Unchanged ibuprofen (ibuprofen 600 mg oral tablet) 1 tab(s) by mouth Every 6 hours as needed for for pain Dental abscess Take with food or milk. Unchanged meclizine (Antivert 25 mg oral tablet) 1 tab(s) by mouth Three (3) times a day as needed for for dizziness Unchanged naproxen (Anaprox-DS 550 mg oral tablet) 1 tab(s) by mouth Two (2) times a day Duration: 10 Days Unchanged naproxen (naproxen 500 mg oral tablet) 1 tab(s) by mouth Two (2) times a day as needed for as needed for pain Dysfunctional uterine bleeding Please take this list to your next doctor s visit. Bring all medications you take, including over the counter medications, herbals and other supplements with you to your doctor s visit. Patients and families are reminded to discard old lists and to update any records with all medication providers or retail pharmacies. Education Materials Ovarian Cysts A cyst is usually a fluid-filled sac, like a small water balloon. Cysts are almost always harmless, and many go away on their own. Usually they grow slowly. They can vary in size from as small as a pea to larger than a grapefruit. Many cause no symptoms at all. Often they are felt only during a pelvic exam. Ovarian cysts are usually not cancer. Functional cyst A functional cyst is the most common kind of cyst. It forms when a follicle does not release a mature egg or continues to grow after releasing the egg. Functional cysts usually occur on only one ovary at a time. They usually shrink on their own in 1 to 3 months. In rare cases, a cyst will burst (rupture), causing pain. Pain might also be caused by the twisting of an ovary that is enlarged because of the cyst growing on it. Dermoid cyst Sometimes cells that are present from will start to grow into different kinds of tissue such as skin, fat, hair, and teeth. This kind of cyst is called a dermoid cyst. Dermoid cysts can grow on one or both ovaries. Usually they cause no symptoms. But if they leak or the ovary becomes twisted, they can cause severe pain. Endometrioma Sometimes tissue similar to the lining of the uterus (endometrium) grows and becomes part of the ovary. This kind of cyst is often called a chocolate cyst because of its dark-brown color. These cysts can grow on one or both ovaries. They often cause pain, especially around menstruation or during sex. Benign cystadenoma If the capsule that surrounds the ovary grows, it can form a cystadenoma. These cysts can grow on one or both ovaries. Usually they cause no symptoms if they are small. But if they become large, they can press on organs near the ovaries, causing pain. They can also cause pain by stretching the ovarian capsule. A cyst that pushes on the bladder can cause frequent urination. Sometimes these cysts rupture and bleed. Malignant cysts These cysts can invade other tissues or spread to other parts of the body. [phone] [employer]. [address] [place] [address]. All rights reserved. This information is not intended as a substitute for professional medical care. Always follow your healthcare professional's instructions. Additional Information VACCINATE! IT SAVES LIVES! Members of the community who have not yet received the COVID-19 vaccine and would like to receive it can visit one of [facility] vaccine clinics. There are many vaccine clinic locations within the [facility]. For locations and available times, please visit [email or web address].g [email or web address] It is important to note that some COVID mobile vaccine clinics are held outdoors and may be canceled in rainy or stormy conditions. To learn more about pediatric vaccinations (ages 5-11), we invite you to visit the [facility] webpage. [email or web address]-[email or web address] [email or web address] To learn more about the COVID-19 vaccine, we invite you to visit the CDC website for a list of frequently asked questions. https://www.cdc.gov/coronavirus/2 019-ncov/vaccines/faq.html [facility] Patient Portal Access Instructions: Stay connected with your healthcare team and access your personal medical information anytime with the [facility] Patient Portal. If you would like a full copy of your medical records please contact the [facility] Medical Records Department Saturday through Saturday between 8a.m. and 4:30p.m. Please follow the directions below to access the portal: 1.Access the email account you provided upon registration to the [facility].2.Look for an invitation email from [facility].3.Open the email and access the invitation link: Accept Invitation to [facility]4.Fill in the required spicer to create your account. Sign into www.[employer] with your username and password that you created in the above steps to stay up to date. You can then view a summary of results, a summary of your visits, and the ability to download your summaries to your computer or send the information securely to a physician. Remember that your healthcare information is confidential, so carefully consider who you will allow to register on the [facility] Patient Portal for access to your information. You can also access the [facility] Patient Portal on the Bundle nancy. Simply click on Health Records under Health Data and then click on the [facility] logo. HOW TO SAFELY DISPOSE OF PRESCRIPTION MEDICATIONS Please use one of the following methods to safely dispose of your unused medications. 1.Use a drug disposal kit: the drug disposal pouch allows you to safely discard your old and unused drugs. Ask your nurse to give you one when you are discharged.2.Visit a local take-back location: Many local pharmacies and police departments have programs that collect old and unwanted prescription drugs. Call your local pharmacy or go to http://M.Setek.Diavibe/9K0Zu7o to find one close to you.3.Make use of household items: Use cat litter or old coffee grounds to dispose medications if other options are not available. Mix your drugs with these household products, seal them in an airtight container and throw it into the garbage. Call [facility]: [phone] to be sure your drugs can be disposed of in this way. Some medicines may require a different approach.4.Never flush your medications down the toilet. IF YOU HAVE BEEN PRESCRIBED AN OPIOIDS FOR PAIN If you have been prescribed an opioid (such as hydrocodone, oxycodone or morphine), it is critical to understand the possible side effects and risks of opioid pain medications. Even when taken as directed, opioids can have several side effects including: Tolerance, meaning you might need to take more of a medication for the same pain relief. Nausea, vomiting and/or constipation. Sleepiness, dizziness, dry mouth, confusion, depression or itching. Physical dependence, meaning you have withdrawal symptoms when a medication is stopped ? this can develop within a few days. KNOW YOUR RESPONSIBILITIES It is important to know exactly how much and how often to take the opioid pain medications you are prescribed. Never take opioids in higher amounts or more often than prescribed. Do not combine opioids with alcohol or other drugs that cause drowsiness, such as benzodiazepines, also known as benzos, including diazepam and alprazolam, muscle relaxants or sleep aids. Never sell or share prescription opioids. This is illegal. Store opioids in a secure place and out of reach of others (including children, family, friends and visitors). The last page(s) of this document has been signed and retained as a CHART COPY Signatures Patient Education Materials Ovarian Cysts Medication Leaflets My discharge plan and instructions have been reviewed and explained to me and I,MEGAN LEUNG understand my current condition and have read and understand these discharge instructions. I have received a written copy of the plan/instructions. If I have questions, I am aware that I should contact my doctor. 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 Multiplanar reformatted images are provided for review. Automated exposure control, iterative reconstruction, and/or weight based adjustment of the mA/kV was utilized to reduce the radiation dose to as low as reasonably achievable. COMPARISON: Abdomen x-ray on 08/28/2016 HISTORY: ORDERING SYSTEM PROVIDED HISTORY: Reason for Exam: abdominal pain FINDINGS: Lower Chest: No acute findings. Organs: The liver is normal in size. There is faint density in the gallbladder that may be sludge or gallstones. Gallbladder wall is not thickened. Bile ducts are not dilated. The pancreas, spleen, adrenal glands, kidneys, and ureters show no sign of abnormality. GI/Bowel: There is no intestinal obstruction or inflammation. The appendix is normal. No abnormal fluid or gas collection is present in the abdomen. Pelvis: Urinary bladder is partly distended and contains no stones. Uterus and adnexal structures are unremarkable. There is a small amount of free fluid in the pelvic cul-de-sac that is within normal limits. There is no lymph node enlargement. Peritoneum/Retroperitoneum: There is no retroperitoneal lymph node enlargement. Abdominal aorta and inferior vena cava are normal. Bones/Soft Tissues: No acute findings. IMPRESSION: Faint density in the gallbladder suspicious for gallstones. Follow-up ultrasound of right upper quadrant is recommended if symptoms are referable to the gallbladder. Small amount of free fluid in the pelvis is within normal limits. No sign of adnexal abnormality. Interpreted by: Lalito Bauman MD Preliminary Report By: Lalito Bauman MD Electronically signed By Lalito Bauman MD Dictated Date: 05/19/2023 1:45:39 AM Prelim Date: 05/19/2023 1:49:08 AM Sign Date: 05/19/2023 1:49:08 AM Ordering Provider: NICOLE HOWARD [facility] 05-12-2023 Hospital Discharge instructions Patient Education 05/12/2023 18:35:24 Ovarian Cyst Ovarian Cysts The ovaries are two small organs located on each side of a woman s uterus (womb). They are part of the female reproductive system. Ovarian cysts are sacs filled with fluid or tissue that form on or inside the ovaries. Ovarian cysts are common in women, especially during childbearing years. There are different types of cysts. Most are harmless (benign) and go away on their own. They often cause no symptoms. If symptoms do occur, they can include mild pain or pressure in the lower belly (abdomen). Cysts that are large or break (rupture) may cause more severe pain and symptoms. In these cases, you may need hospital care or treatment such as surgery. You may need more extensive treatment if a cyst causes an ovary to twist (called torsion) or if your doctor suspects your cyst is cancerous. Keep in mind that most cysts are not cancerous, however. General care To help relieve pain, your healthcare provider may recommend using yhwz-nyf-mzuyiqk pain medicine. If needed, your provide may prescribe stronger pain medicine. Depending on the type of cyst you have, your healthcare provider may advise taking control pills. These help shrink cysts in certain cases. They may also help prevent new cysts from forming. Be sure to take these medicines as directed if they are prescribed. Your healthcare provider may advise you to watch your symptoms over time to see if they go away or worsen. Regular ultrasound tests may also be advised. These can help check if a cyst goes away or grows in size. Follow-up care Follow up with your healthcare provider, or as advised. When to seek medical advice Call your healthcare provider right away if any of these occur: Pain worsens or fails to get better with home treatment Fever of 100.4 F (38 C) or higher (or other fever amount directed by your healthcare provider) Nausea and vomiting Weakness, dizziness, or fainting Abnormal vaginal bleeding [id number] [employer]. [address] [place] [address], [place] [address]. All rights reserved. This information is not intended as a substitute for professional medical care. Always follow your healthcare professional's instructions. Follow Up Care 05/12/2023 18:12:21 With:DIVINA GUZMAN Address: [address] [place] [address] [address] [place] [phone] Business (1) When:2-4 days Comments:Schedule appointment as soon as possibleReturn to ED if symptoms worsenClear liquid diet i.e. Pedialyte till tomorrow morning if better can increase as tolerated to get pain is getting progressively worse no matter what you do or you get fever vomiting you need to return to the emergency room With:FOSTER DECKER Address: [address] [place] [address]- Business (1) When:2-4 days Comments:Schedule appointment as soon as possibleReturn to ED if symptoms worsenReturn for symptoms as described [facility] 05-12-2023 Note Discharge Instructions Thank you for allowing [facility] to assist you with your healthcare needs. The following is important discharge information regarding your hospital visit. Diagnosis from Today's Visit Abdominal pain Ovarian cyst What to Do Next Instructions from Your Care Team No qualifying data available. Post Acute Orders No qualifying data available. You Need to Schedule the Following Appointments Follow Up with DIVINA GUZMAN When Within 2-4 days Why: Schedule appointment as soon as possible Return to ED if symptoms worsen Clear liquid diet i.e. Pedialyte till tomorrow morning if better can increase as tolerated to get pain is getting progressively worse no matter what you do or you get fever vomiting you need to return to the emergency room Where: [address] [place] [address] [address] [place] [phone] Business (1) Follow Up with FOSTER DECKER When Within 2-4 days Why: Schedule appointment as soon as possible Return to ED if symptoms worsen Return for symptoms as described Where: [address], [place] [phone] Business (1) Allergies Allerest Maximum Strength Allerest Sinus BUPivacaine Cashews Eggs Fredo articaine lidocaine mepivacaine prilocaine tetracaine Medications Please ask your primary doctor or pharmacist before taking any other medication not listed, including over the counter drugs, herbal medications, vitamins and or supplements as they may interact with your home medications. What How Much When Why Instructions Last Dose Changed naproxen (Anaprox-DS 550 mg oral tablet) 1 tab(s) by mouth Two (2) times a day Duration: 10 Days Printed Prescription Changed naproxen (naproxen 500 mg oral tablet) 1 tab(s) by mouth Two (2) times a day as needed for as needed for pain Dysfunctional uterine bleeding Unchanged amoxicillin (amoxicillin 500 mg oral tablet) 1 tab(s) by mouth Three (3) times a day Duration: 7 Days Unchanged clindamycin (clindamycin 150 mg oral capsule) 1 cap by mouth Every 6 hours Dental abscess Duration: 7 Days Unchanged ibuprofen (ibuprofen 600 mg oral tablet) 1 tab(s) by mouth Every 6 hours as needed for for pain Dental abscess Take with food or milk. Unchanged meclizine (Antivert 25 mg oral tablet) 1 tab(s) by mouth Three (3) times a day as needed for for dizziness Please take this list to your next doctor s visit. Bring all medications you take, including over the counter medications, herbals and other supplements with you to your doctor s visit. Patients and families are reminded to discard old lists and to update any records with all medication providers or retail pharmacies. Medication Leaflets naproxen (na PROX en) Aleve, Aleve Back and Muscle Pain, Aleve Easy Open Arthritis, Aleve Liquid Gels, Anaprox-DS, EC-Naprosyn, Naprelan, Naprosyn What is the most important information I should know about naproxen? Naproxen can increase your risk of fatal heart attack or stroke. Do not use this medicine just before or after heart bypass surgery (coronary artery bypass graft, or CABG). Naproxen may also cause stomach or intestinal bleeding, which can be fatal. What is naproxen? Naproxen is a nonsteroidal anti-inflammatory drug (NSAID). Naproxen is used to treat pain or inflammation caused by conditions such as arthritis, ankylosing spondylitis, tendinitis, bursitis, gout, or menstrual cramps. The delayed-release or extended-release tablets are slower-acting forms of naproxen that are used only for treating chronic conditions such as arthritis or ankylosing spondylitis. These forms of naproxen will not work fast enough to treat acute pain. Naproxen may also be used for purposes not listed in this medication guide. What should I discuss with my healthcare provider before taking naproxen? Naproxen can increase your risk of fatal heart attack or stroke, even if you don't have any risk factors. Do not use this medicine just before or after heart bypass surgery (coronary artery bypass graft, or CABG). Naproxen may also cause stomach or intestinal bleeding, which can be fatal. These conditions can occur without warning while you are using naproxen, especially in older adults. You should not use naproxen if you are allergic to it, or if you have ever had an asthma attack or severe allergic reaction after taking aspirin or an NSAID. Ask a doctor before giving naproxen to a child younger than 12 years old. Ask a doctor or pharmacist if this medicine is safe to use if you have: heart disease, high blood pressure, high cholesterol, diabetes, or if you smoke; a heart attack, stroke, or blood clot; stomach ulcers or bleeding; asthma; liver or kidney disease; fluid retention; or if you take aspirin to prevent heart attack or stroke. If you are , you should not take naproxen unless your doctor tells you to. Taking an NSAID during the last 20 weeks of can cause serious heart or kidney problems in the unborn baby and possible complications with your . It may not be safe to breastfeed while using this medicine. Ask your doctor about any risk. How should I take naproxen? Use exactly as directed on the label, or as prescribed by your doctor. Use the lowest dose that is effective in treating your condition. Shake the oral suspension (liquid) before you measure a dose. Measure a dose with the supplied measuring device (not a kitchen spoon). Take this medicine with food or milk if it upsets your stomach. Always follow directions on the medicine label about giving this medicine to a child. Naproxen doses are based on weight in children. Your child's dose needs may change if the child gains or loses weight. If you use naproxen long-term, you may need frequent medical tests. This medicine can affect the results of certain medical tests. Tell any doctor who treats you that you are using naproxen. Store at room temperature away from moisture, heat, and light. Keep the bottle tightly closed when not in use. What happens if I miss a dose? Since naproxen is used when needed, you may not be on a dosing schedule. Skip any missed dose if it's almost time for your next dose. Do not use two doses at one time. What happens if I overdose? Seek emergency medical attention or call the Poison Help line at . What should I avoid while taking naproxen? Avoid drinking alcohol. It may increase your risk of stomach bleeding. Avoid taking aspirin or other NSAIDs unless your doctor tells you to. Ask a doctor or pharmacist before using other medicines for pain, fever, swelling, or cold/flu symptoms. They may contain ingredients similar to naproxen (such as aspirin, ibuprofen, or ketoprofen). Ask your doctor before using an antacid, and use only the type your doctor recommends. Some antacids can make it harder for your body to absorb naproxen. What are the possible side effects of naproxen? Get emergency medical help if you have signs of an allergic reaction (runny or stuffy nose, wheezing or trouble breathing, hives, swelling in your face or throat) or a severe skin reaction (fever, sore throat, burning eyes, skin pain, red or purple skin rash with blistering and peeling). Stop using naproxen and seek medical treatment if you have a serious drug reaction that can affect many parts of your body. Symptoms may include skin rash, fever, swollen glands, muscle aches, severe weakness, unusual bruising, or yellowing of your skin or eyes. Get emergency medical help if you have signs of a heart attack or stroke: chest pain spreading to your jaw or shoulder, sudden numbness or weakness on one side of the body, slurred speech, leg swelling, feeling short of breath. Stop using naproxen and call your doctor at once if you have: shortness of breath (even with mild exertion); swelling or rapid weight gain; the first sign of any skin rash or blister, no matter how mild; signs of stomach bleeding--bloody or tarry stools, coughing up blood or vomit that looks like coffee grounds; liver problems--nausea, upper stomach pain, loss of appetite, dark urine, destiny-colored stools, jaundice (yellowing of the skin or eyes); kidney problems--little or no urination, painful urination, swelling in your feet or ankles; or low red blood cells (anemia)--pale skin, unusual tiredness, feeling light-headed or short of breath, cold hands and feet. Common side effects may include: headache; indigestion, heartburn, stomach pain; or flu symptoms; This is not a complete list of side effects and others may occur. Call your doctor for medical advice about side effects. You may report side effects to FDA at 5-547-KXM-7915. What other drugs will affect naproxen? Ask your doctor before using naproxen if you take an antidepressant. Taking certain antidepressants with an NSAID may cause you to bruise or bleed easily. Ask a doctor or pharmacist before using naproxen with any other medications, especially: other NSAIDs or salicylates (diflunisal, salsalate); antacids and sucralfate; cholestyramine; cyclosporine; digoxin; lithium; methotrexate; pemetrexed; probenecid; warfarin (Coumadin, Jantoven) or similar blood thinners; a diuretic or 'water pill'; or heart or blood pressure medication. This list is not complete. Other drugs may affect naproxen, including prescription and upbl-nkt-nxanaei medicines, vitamins, and herbal products. Not all possible drug interactions are listed here. Where can I get more information? Your pharmacist can provide more information about naproxen. Remember, keep this and all other medicines out of the reach of children, never share your medicines with others, and use this medication only for the indication prescribed. Every effort has been made to ensure that the information provided by [employer]. ('[employer]') is accurate, up-to-date, and complete, but no guarantee is made to that effect. Drug information contained herein may be time sensitive. [employer] information has been compiled for use by healthcare practitioners and consumers in the [place] and therefore [employer] does not warrant that uses outside of the [place] are appropriate, unless specifically indicated otherwise. [employer] drug information does not endorse drugs, diagnose patients or recommend therapy. [employer] drug information is an informational resource designed to assist licensed healthcare practitioners in caring for their patients and/or to serve consumers viewing this service as a supplement to, and not a substitute for, the expertise, skill, knowledge and judgment of healthcare practitioners. The absence of a warning for a given drug or drug combination in no way should be construed to indicate that the drug or drug combination is safe, effective or appropriate for any given patient. [employer] does not assume any responsibility for any aspect of healthcare administered with the aid of information [employer] provides. The information contained herein is not intended to cover all possible uses, directions, precautions, warnings, drug interactions, allergic reactions, or adverse effects. If you have questions about the drugs you are taking, check with your doctor, nurse or pharmacist. Copyright 5590-3048 [employer]. Version: 22.01. Revision Date: 01/24/2023. Education Materials Ovarian Cysts The ovaries are two small organs located on each side of a woman s uterus (womb). They are part of the female reproductive system. Ovarian cysts are sacs filled with fluid or tissue that form on or inside the ovaries. Ovarian cysts are common in women, especially during childbearing years. There are different types of cysts. Most are harmless (benign) and go away on their own. They often cause no symptoms. If symptoms do occur, they can include mild pain or pressure in the lower belly (abdomen). Cysts that are large or break (rupture) may cause more severe pain and symptoms. In these cases, you may need hospital care or treatment such as surgery. You may need more extensive treatment if a cyst causes an ovary to twist (called torsion) or if your doctor suspects your cyst is cancerous. Keep in mind that most cysts are not cancerous, however. General care To help relieve pain, your healthcare provider may recommend using zksb-vsr-dtlwvfu pain medicine. If needed, your provide may prescribe stronger pain medicine. Depending on the type of cyst you have, your healthcare provider may advise taking control pills. These help shrink cysts in certain cases. They may also help prevent new cysts from forming. Be sure to take these medicines as directed if they are prescribed. Your healthcare provider may advise you to watch your symptoms over time to see if they go away or worsen. Regular ultrasound tests may also be advised. These can help check if a cyst goes away or grows in size. Follow-up care Follow up with your healthcare provider, or as advised. When to seek medical advice Call your healthcare provider right away if any of these occur: Pain worsens or fails to get better with home treatment Fever of 100.4 F (38 C) or higher (or other fever amount directed by your healthcare provider) Nausea and vomiting Weakness, dizziness, or fainting Abnormal vaginal bleeding [id number] [employer]. [address] [place] [address]. All rights reserved. This information is not intended as a substitute for professional medical care. Always follow your healthcare professional's instructions. Additional Information VACCINATE! IT SAVES LIVES! Members of the community who have not yet received the COVID-19 vaccine and would like to receive it can visit one of [facility] vaccine clinics. There are many vaccine clinic locations within the [facility]. For locations and available times, please visit [email or web address] [email or web address] It is important to note that some COVID mobile vaccine clinics are held outdoors and may be canceled in rainy or stormy conditions. To learn more about pediatric vaccinations (ages 5-11), we invite you to visit the [employer] webpage. https://www.[employer].org/pa ges/2075-Ojirm-Kvrgynhwcmh-Freque lrqo-Zbzli-Ilmgvzcrc.html To learn more about the COVID-19 vaccine, we invite you to visit the CDC website for a list of frequently asked questions. https://www.cdc.gov/coronavirus/2 019-ncov/vaccines/faq.html [employer] Patient Portal Access Instructions: Stay connected with your healthcare team and access your personal medical information anytime with the [employer] Patient Portal. If you would like a full copy of your medical records please contact the [facility] Medical Records Department Saturday through Saturday between 8a.m. and 4:30p.m. Please follow the directions below to access the portal: 1.Access the email account you provided upon registration to the [facility].2.Look for an invitation email from [facility].3.Open the email and access the invitation link: Accept Invitation to [facility]4.Fill in the required spicer to create your account. Sign into www.[employer] with your username and password that you created in the above steps to stay up to date. You can then view a summary of results, a summary of your visits, and the ability to download your summaries to your computer or send the information securely to a physician. Remember that your healthcare information is confidential, so carefully consider who you will allow to register on the [facility] Patient Portal for access to your information. You can also access the [employer] Patient Portal on the Bundle nancy. Simply click on Health Records under Health Data and then click on the [employer] logo. HOW TO SAFELY DISPOSE OF PRESCRIPTION MEDICATIONS Please use one of the following methods to safely dispose of your unused medications. 1.Use a drug disposal kit: the drug disposal pouch allows you to safely discard your old and unused drugs. Ask your nurse to give you one when you are discharged.2.Visit a local take-back location: Many local pharmacies and police departments have programs that collect old and unwanted prescription drugs. Call your local pharmacy or go to http://M.Setek.Diavibe/7H4Ea5d to find one close to you.3.Make use of household items: Use cat litter or old coffee grounds to dispose medications if other options are not available. Mix your drugs with these household products, seal them in an airtight container and throw it into the garbage. Call [facility]: [phone] to be sure your drugs can be disposed of in this way. Some medicines may require a different approach.4.Never flush your medications down the toilet. IF YOU HAVE BEEN PRESCRIBED AN OPIOIDS FOR PAIN If you have been prescribed an opioid (such as hydrocodone, oxycodone or morphine), it is critical to understand the possible side effects and risks of opioid pain medications. Even when taken as directed, opioids can have several side effects including: Tolerance, meaning you might need to take more of a medication for the same pain relief. Nausea, vomiting and/or constipation. Sleepiness, dizziness, dry mouth, confusion, depression or itching. Physical dependence, meaning you have withdrawal symptoms when a medication is stopped ? this can develop within a few days. KNOW YOUR RESPONSIBILITIES It is important to know exactly how much and how often to take the opioid pain medications you are prescribed. Never take opioids in higher amounts or more often than prescribed. Do not combine opioids with alcohol or other drugs that cause drowsiness, such as benzodiazepines, also known as benzos, including diazepam and alprazolam, muscle relaxants or sleep aids. Never sell or share prescription opioids. This is illegal. Store opioids in a secure place and out of reach of others (including children, family, friends and visitors). The last page(s) of this document has been signed and retained as a CHART COPY Signatures Patient Education Materials Ovarian Cyst Medication Leaflets naproxen My discharge plan and instructions have been reviewed and explained to me and I,LEUNG, MEGAN Jignesh understand my current condition and have read and understand these discharge instructions. I have received a written copy of the plan/instructions. If I have questions, I am aware that I should contact my doctor. 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 Completed ED visit. States anxiety symptoms have improved, feels calmer. Calling with questions regarding cause of her symptoms; has not discussed with her non-[facility] psychology or PCP providers. Denies new or worsening symptoms since ED visit. Has a previously scheduled appointments with both above providers. Outcome: Advised to call her psychology provider office when opens today. She agreed. GO TO THE EMERGENCY ROOM OR CALL 911 IF: * You develop any new symptoms * Your condition worsens * You are concerned or anxious about your condition for any other reason. If you have any questions, you can call Nurse insulation and flooring assembler back. documented in this encounter [facility] 05-09-2023 Miscellaneous Notes Reason for Call: extreme anxiety Outcome: nurse called 911 at patient's request for transport to ER. Reason for Disposition [1] SEVERE anxiety (e.g., extremely anxious with intense emotional symptoms such as feeling of unreality, urge to flee, unable to calm down; unable to cope or function) AND [2] not better after 10 minutes of reassurance and Care Advice Answer Assessment - Initial Assessment Questions 1. CONCERN: worked my self to the point that a 0.5 mg of ativan is not working 2. ANXIETY SYMPTOMS: tightness in neck, pressure in chest, ears ringing, fluttering sensation in chest, lightheaded from deep breathing, tingling in face. Have not been able to eat much in the last 2-3 days. Heart wants to beat out of my chest (typical symptoms of her anxiety) Has been seen in ER 4-5 times in the last few months 3. ONSET:has been having issues since Mid January. 4. SEVERITY: 8.5-9/10 symptoms have been worsening through the day. Unable to calm down. 5. FUNCTIONAL IMPAIRMENT: unable to sleep, heart rate and blood pressure go up. 8:30 pm 130/84. HR 112. Unable to hold a job since 2015 Having irrational intrusive thoughts- catastrophe- hyper paranoid that something bad is going to happen. 6. HISTORY:anxiety and panic attack 7. RISK OF HARM - SUICIDAL IDEATION: denies 8. TREATMENT: ativan, spoke to a crisis counselor, bilateral tapping below eyes, grounding technique, deep breathing, watch TV as a distraction 9. TREATMENT - THERAPIST: counseling center 10. POTENTIAL TRIGGERS: no caffeine, since january, smoking less cigarettes than usual. Denies drugs 11. 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 Currently home alone 12. OTHER SYMPTOMS: burning sensation in nose, headache- above right ear on side of head. 2/10 more annoying similar to cluster headache. Persistent but the pain level is not persistent. Has only taken ativan today. 12 pm and 1:30 am. Drinking fluids and urinating per usual. When tries to eat gets a couple bites and feels nausea, like she is going to vomit. Has had 250 calories in the last 24 hours. Blood sugar 108 at 8:30 pm. Diarrhea. Has lost 3-4 pounds since Saturday. 13. : LMP: about 1 week ago Protocols used: Anxiety and Panic [id number] documented in this encounter [facility] 05-05-2023 Note HNO ID: [id number] Author: Malick White APRN.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 Service: ? Author Type: Nurse Practitioner Type: Progress Notes Filed: 05/05/2023 2:58 PM Note Text: Subjective HPI Nontoxic female presents urgent care chief complaint right ear clogged sensation. Duration of symptoms last few days. Associated symptoms nasal congestion cough cold-like symptoms. Patient states those symptoms have improved still has some nasal congestion. Presents today with new onset right ear muffled sensation. No ear trauma or loss of hearing. Denies any fever body aches chills productive cough chest pain shortness of breath pleuritic pain hemoptysis nausea vomiting abdominal pain change in bowel or bladder habits. Past medical history prescription medication use and allergies reviewed. 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 esophageal stricture on UGIS, normal EGD Syncope 09/02/2012 neg. extensive testing (tilt table, EEG) PAST SURGICAL HISTORY Procedure Laterality Date DENTAL SURGERY HX 03/2021 wisdom teeth removed ESOPHAGOSCOPY FLEXIBLE TRANSORAL DIAGNOSTIC 08/01/2009 normal TONSILLECTOMY HX ALLERGIES Articaine, Bupivacaine, Lidocaine, Mepivacaine, Prilocaine, Chlorpheniramine-Pseudoephed, Eggs [Egg], [place], Seasonal Allergies, and Tetracaine MEDICATIONS LORazepam (ATIVAN) 0.5 mg Take 1 tablets By Oral Route 2 times per day as needed Multivitamin capsule Take 1 capsule by mouth once daily. ondansetron orally disintegrating (ZOFRAN ODT) 4 mg disintegrating tablet Take 1 tablet by mouth every 8 hours as needed for nausea/vomiting. clindamycin (CLEOCIN-T) 1 % gel Apply to affected area twice daily. QUEtiapine (SEROQUEL) 25 mg tablet Take 0.5-1 tablets by mouth daily at bedtime. (Patient not taking: Reported on 05/05/2023) meclizine (ANTIVERT) 12.5 mg tab Take 1-2 tablets by mouth every 6 hours as needed (dizziness). (Patient not taking: Reported on 05/05/2023) FAMILY HISTORY Problem Relation Age of Onset COPD Mother Asthma Mother Psoriasis Mother Psychiatry Father Bord.Personality Disorder Lymphoma Brother 1/2 brother COPD Maternal Grandfather Social History Tobacco Use Smoking status: Every Day Packs/day: 1 Types: Cigarettes Smokeless tobacco: Never Tobacco comments: 2014. Tried to quit several times. Vaping Use Vaping Use: Never used Substance Use Topics Alcohol use: No Drug use: Not Currently Types: Marijuana Comment: BP 120/74 Pulse 103 Temp 36.6 ?C (97.8 ?F) Resp 21 Wt 76.1 kg (167 lb 12.8 oz) LMP 07/05/2020 (Exact Date) SpO2 98% BMI 28.58 kg/m? Hr 90 Review of Systems Constitutional: Negative for chills, fever and malaise/fatigue. HENT: Positive for ear pain. Negative for congestion, ear discharge, sinus pain and sore throat. Eyes: Negative for blurred vision, pain, discharge and redness. Respiratory: Negative for cough, hemoptysis, sputum production, shortness of breath, wheezing and stridor. Cardiovascular: Negative for chest pain. Gastrointestinal: Negative for abdominal pain, diarrhea, nausea and vomiting. Musculoskeletal: Negative for myalgias. Skin: Negative for itching and rash. Neurological: Negative for dizziness and headaches. Objective Physical Exam Constitutional: General: She is not in acute distress. Appearance: She is not diaphoretic. HENT: Head: Normocephalic. Jaw: No trismus, tenderness, swelling or pain on movement. Right Ear: Tympanic membrane, ear canal and external ear normal. No drainage, swelling or tenderness. No mastoid tenderness. Left Ear: Tympanic membrane, ear canal and external ear normal. No drainage, swelling or tenderness. No mastoid tenderness. Ears: Comments: Fluid noted behind bilateral TMs. Right greater than left. Nose: Congestion present. Mouth/Throat: Mouth: Mucous membranes are moist. Pharynx: Oropharynx is clear. Uvula midline. No pharyngeal swelling, oropharyngeal exudate, posterior oropharyngeal erythema or uvula swelling. Eyes: Conjunctiva/sclera: Conjunctivae normal. Pupils: Pupils are equal, round, and reactive to light. Cardiovascular: Rate and Rhythm: Normal rate and regular rhythm. Heart sounds: Normal heart sounds. Pulmonary: Effort: Pulmonary effort is normal. No tachypnea, accessory mus (more content not included)... [facility] 05-05-2023 History of Present illness Narrative Subjective HPI Nontoxic female presents urgent care chief complaint right ear clogged sensation. Duration of symptoms last few days. Associated symptoms nasal congestion cough cold-like symptoms. Patient states those symptoms have improved still has some nasal congestion. Presents today with new onset right ear muffled sensation. No ear trauma or loss of hearing. Denies any fever body aches chills productive cough chest pain shortness of breath pleuritic pain hemoptysis nausea vomiting abdominal pain change in bowel or bladder habits. Past medical history prescription medication use and allergies reviewed. 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 esophageal stricture on UGIS, normal EGD Syncope 09/02/2012 neg. extensive testing (tilt table, EEG) PAST SURGICAL HISTORY Procedure Laterality Date DENTAL SURGERY HX 03/2021 wisdom teeth removed ESOPHAGOSCOPY FLEXIBLE TRANSORAL DIAGNOSTIC 08/01/2009 normal TONSILLECTOMY HX ALLERGIES Articaine, Bupivacaine, Lidocaine, Mepivacaine, Prilocaine, Chlorpheniramine-Pseudoephed, Eggs [Egg], Fredo, Seasonal Allergies, and Tetracaine MEDICATIONS LORazepam (ATIVAN) 0.5 mg Take 1 tablets By Oral Route 2 times per day as needed Multivitamin capsule Take 1 capsule by mouth once daily. ondansetron orally disintegrating (ZOFRAN ODT) 4 mg disintegrating tablet Take 1 tablet by mouth every 8 hours as needed for nausea/vomiting. clindamycin (CLEOCIN-T) 1 % gel Apply to affected area twice daily. QUEtiapine (SEROQUEL) 25 mg tablet Take 0.5-1 tablets by mouth daily at bedtime. (Patient not taking: Reported on 05/05/2023) meclizine (ANTIVERT) 12.5 mg tab Take 1-2 tablets by mouth every 6 hours as needed (dizziness). (Patient not taking: Reported on 05/05/2023) FAMILY HISTORY Problem Relation Age of Onset COPD Mother Asthma Mother Psoriasis Mother Psychiatry Father Bord.Personality Disorder Lymphoma Brother 1/2 brother COPD Maternal Grandfather Social History Tobacco Use Smoking status: Every Day Packs/day: 1 Types: Cigarettes Smokeless tobacco: Never Tobacco comments: 2014. Tried to quit several times. Vaping Use Vaping Use: Never used Substance Use Topics Alcohol use: No Drug use: Not Currently Types: Marijuana Comment: [id number] BP 120/74 Pulse 103 Temp 36.6 C (97.8 F) Resp 21 Wt 76.1 kg (167 lb 12.8 oz) LMP 07/05/2020 (Exact Date) SpO2 98% BMI 28.58 kg/m Hr 90 Review of Systems Constitutional: Negative for chills, fever and malaise/fatigue. HENT: Positive for ear pain. Negative for congestion, ear discharge, sinus pain and sore throat. Eyes: Negative for blurred vision, pain, discharge and redness. Respiratory: Negative for cough, hemoptysis, sputum production, shortness of breath, wheezing and stridor. Cardiovascular: Negative for chest pain. Gastrointestinal: Negative for abdominal pain, diarrhea, nausea and vomiting. Musculoskeletal: Negative for myalgias. Skin: Negative for itching and rash. Neurological: Negative for dizziness and headaches. Objective Physical Exam Constitutional: General: She is not in acute distress. Appearance: She is not diaphoretic. HENT: Head: Normocephalic. Jaw: No trismus, tenderness, swelling or pain on movement. Right Ear: Tympanic membrane, ear canal and external ear normal. No drainage, swelling or tenderness. No mastoid tenderness. Left Ear: Tympanic membrane, ear canal and external ear normal. No drainage, swelling or tenderness. No mastoid tenderness. Ears: Comments: Fluid noted behind bilateral TMs. Right greater than left. Nose: Congestion present. Mouth/Throat: Mouth: Mucous membranes are moist. Pharynx: Oropharynx is clear. Uvula midline. No pharyngeal swelling, oropharyngeal exudate, posterior oropharyngeal erythema or uvula swelling. Eyes: Conjunctiva/sclera: Conjunctivae normal. Pupils: Pupils are equal, round, and reactive to light. Cardiovascular: Rate and Rhythm: Normal rate and regular rhythm. Heart sounds: Normal heart sounds. Pulmonary: Effort: Pulmonary effort is normal. No tachypnea, accessory muscle usage or respiratory distress. Breath sounds: Normal breath sounds. No stridor. No wheezing, rhonchi or rales. Abdominal: General: There is no distension. Palpations: Abdomen is soft. Tenderness: There is no abdominal tenderness. There is no guarding or rebound. Musculoskeletal: Cervical back: Normal range of motion and neck supple. No edema, erythema, rigidity or tenderness. No pain with movement. Normal range of motion. Lymphadenopathy: Cervical: No cervical adenopathy. Skin: General: Skin is warm and dry. Neurological: Mental Status: She is alert and oriented to person, place, and time. ASSESSMENT/PLAN: 1. Eustachian tube dysfunction, right - ICD9: 381.81, ICD10: H69.91 Diagnosed with eustachian tube dysfunction. No evidence of otitis externa or otitis media. Treat conservative at this time. Patient was educated on supportive therapies. Patient will follow up with primary care provider as needed. Patient was instructed to immediately proceed to emergency room for any new, worsening, or symptoms lasting longer than anticipated. The patient's clinical presentation is otherwise unremarkable at this time. Based on exam and clinical finding, the patient is stable for discharge. Plan of care was discussed with patient. Patient verbalizes understanding and agrees to plan of care. This note was generated using Green [employer] software. It may contain errors in wording, punctuation, or spelling. Malick White APRN.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 documented in this encounter [facility] 05-03-2023 Miscellaneous Notes Reason for Call: Concerned about drug interactions Pt took Ativan around 10-11 pm and Day Quil Head at 3 am. Pt is the Ativan for Anxiety and feels she has not felt right since she took the Day Quil. Pt feels she may be having a bit of a panic attack. Pt wants to know if taking the 2 medication is causing a problem. Patient Outcome: Pt was given a recommendation to call Poison Control Now and she was connected. Reason for Disposition Triager unable to answer question Protocols used: [id number]-HK documented in this encounter [facility] 03-25-2023 Note HNO ID: [id number] Author: Martha Alvarez [facility] Service: ? Author Type: Therapist Type: Progress Notes Filed: 03/25/2023 3:47 PM Note Text: GENERAL PSYCHOLOGY Patient was seen for an initial evaluation. All information is from Patient report except when noted. This evaluation is NOT intended for forensic, disability or child custody purposes. Visit Type:In person Informed consent was discussed and signed by the patient. PRESENT: Self, Spouse AGE: [age] year old RACE: White MARITAL STATUS: CHILDREN: 2 Stepchildren. Ages 18 and 15. She and have no contact with them. OCCUPATION: I have not been able to hold a job for more than 5 weeks since 2011. Last job [employer] in 2018. 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 esophageal stricture on UGIS, normal EGD Syncope 09/02/2012 neg. extensive testing (tilt table, EEG) PAST SURGICAL HISTORY Procedure Laterality Date DENTAL SURGERY HX 03/2021 wisdom teeth removed ESOPHAGOSCOPY FLEXIBLE TRANSORAL DIAGNOSTIC 08/01/2009 normal TONSILLECTOMY HX Current Outpatient Medications Medication Sig QUEtiapine (SEROQUEL) 25 mg tablet Take 0.5-1 tablets by mouth daily at bedtime. Multivitamin capsule Take 1 capsule by mouth once daily. ondansetron orally disintegrating (ZOFRAN ODT) 4 mg disintegrating tablet Take 1 tablet by mouth every 8 hours as needed for nausea/vomiting. meclizine (ANTIVERT) 12.5 mg tab Take 1-2 tablets by mouth every 6 hours as needed (dizziness). clindamycin (CLEOCIN-T) 1 % gel Apply to affected area twice daily. No current facility-administered medications for this visit. ALLERGIES Allergen Reactions Articaine Swelling Bupivacaine Swelling Lidocaine Swelling Mepivacaine Swelling Prilocaine Swelling Chlorpheniramine-Ps* Other: See Comments Allerest. felt bad Eggs [Egg] GI Upset nausea/vomitting Fredo Swelling Seasonal Allergies Cough Tetracaine Other: See Comments Mildly positive allergy skin test to tetracaine on April 12, 2021. Allergy skin tests were negative to bupivacaine, mepivacaine and lidocaine. History of contact irritation with use of topical lidocaine. Recommend use of mepivacaine or bupivacaine for future procedures. REFERRAL SOURCE: [facility] Physician - CHIEF COMPLAINT: There are several things I have not grown out of, specifically with peer. 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 Really sensitive to being overstimulated, some textures and sounds. . Patient is a 33 year old SMF. Patient reports that she lives with her . She does not have any children and is not employed at this time. Patient reports that she is seeking services due to her level of anxiety. Patient reports that it has been an ongoing issue, but has increased recently. Patient describes being overwhelmed, feeling anxious most of the time. Patient was visibly restless throughout the assessment. Patient reports that she cannot hold a job for more than 3 months. She states that she was given Ativan in the ED and that it's the only thing that works for her. Patient reports that she plays video games to cope. Sleep: Patient either sleeps very little or no enough. She states that she will play xbox for up to 14 hours. Interest: I am bored all the time. Guilt: quite a bit I can be a lot for my to deal with. Energy: good Concentration: depends on what I am doing. Appetite: I love food. 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 Psychomotor activity: patient was very restless. Suicide: None Phobias: empty swimming pools, snakes, spiders, heights, airplanes, bears, large wildcats, dying in her sleep, scared that she is going to pass out Memory: Good Anxiety: 4 0 (none) to 10 (worst) She states that she took Ativan 12 hours ago. I have been taking it 2x per day. Obsessions: Dungeons and Dragons Compulsions: rubs her head- started at age 11 Self mutilation: Denies PSYCHIATRIC HISTORY: Prior Diagnosis: Generalized Anxiety Disorder Prior Psychiatrist: Yes, but cannot recall ([facility]- November 2020) Therapist: No prior therapist Current Utilization Reviewer: None Last Hospitalization: 2 weeks inpatient at [facility] provided follow up. 2018- admitted for statements of SI. SUICIDE RISK ASSESSMENT: Suicide At (more content not included)... [facility] 03-25-2023 Hospital Discharge instructions Patient Education 03/25/2023 00:33:54 Constipation (Adult) Constipation (Adult) Constipation means that you have bowel movements that are less frequent than usual. Stools often become very hard and difficult to pass. Constipation is very common. At some point in life, it affects almost everyone. Since everyone's bowel habits are different, what is constipation to one person may not be to another. Your healthcare provider may do tests to diagnose constipation. It depends on what he or she finds when evaluating you. Symptoms of constipation include: Abdominal pain Bloating Vomiting Painful bowel movements Itching, swelling, bleeding, or pain around the anus Causes Constipation can have many causes. These include: Diet low in fiber Too much dairy Not drinking enough liquids Lack of exercise or physical activity (especially true for older adults) Changes in lifestyle or daily routine, including , aging, work, and travel Frequent use or misuse of laxatives Ignoring the urge to have a bowel movement or delaying it until later Medicines, such as certain prescription pain medicines, iron supplements, antacids, certain antidepressants, and calcium supplements Diseases like irritable bowel syndrome, bowel obstructions, stroke, diabetes, thyroid disease, Parkinson disease, hemorrhoids, and colon cancer Complications Potential complications of constipation can include: Hemorrhoids Rectal bleeding from hemorrhoids or anal fissures (skin tears) Hernias Dependency on laxatives Chronic constipation Fecal impaction, a severe form of constipation in which a large amount of hard stool is in your rectum that you can't pass Bowel obstruction or perforation Home care All treatment should be done after talking with your healthcare provider. This is especially true if you have another medical problems, are taking prescription medicines, or are an older adult. Treatment most often involves lifestyle changes. You may also need medicines. Your healthcare provider will tell you which will work best for you. Follow the advice below to help avoid this problem in the future. Lifestyle changes These lifestyle changes can help prevent constipation: Diet. Eat a high-fiber diet, with fresh fruit and vegetables, and reduce dairy intake, meats, and processed foods Fluids. It's important to get enough fluids each day. Drink plenty of water when you eat more fiber. If you are on diet that limits the amount of fluid you can have, talk about this with your healthcare provider. Regular exercise. Check with your healthcare provider first. Medicines Take any medicines as directed. Some laxatives are safe to use only every now and then. Others can be taken on a regular basis. While laxatives don't cause bowel dependence, they are treating the symptoms. So your constipation may return if you don't make other changes. Talk with your healthcare provider or pharmacist if you have questions. Prescription pain medicines can cause constipation. If you are taking this kind of medicine, ask your healthcare provider if you should also take a stool softener. Medicines you may take to treat constipation include: Fiber supplements Stool softeners Laxatives Enemas Rectal suppositories Follow-up care Follow up with your healthcare provider if symptoms don't get better in the next few days. You may need to have more tests or see a specialist. Call 911 Call 911 if any of these occur: Trouble breathing Stiff, rigid abdomen that is severely painful to touch Confusion Fainting or loss of consciousness Rapid heart rate Chest pain When to seek medical advice Call your healthcare provider right away if any of these occur: Fever of 100.4 F (38 C) or higher, or as directed by your healthcare provider Failure to resume normal bowel movements Pain in your abdomen or back gets worse Nausea or vomiting Swelling in your abdomen Blood in the stool Black, tarry stool Involuntary weight loss Weakness [id number] [employer]. [address] [place], [place] [id number]. All rights reserved. This information is not intended as a substitute for professional medical care. Always follow your healthcare professional's instructions. Follow Up Care 03/24/2023 22:52:08 With:FOSTER DECKER Address: [address] [place], [place] [address] [address] [employer] (1) When:2-4 days Comments:Drink Plenty of fluids, use suppositories daily until BM, use MiraLAX daily for the next 5 to 7 days. [facility] 03-25-2023 Note Discharge Instructions Thank you for allowing [facility] to assist you with your healthcare needs. The following is important discharge information regarding your hospital visit. Diagnosis from Today's Visit Constipation Constipation What to Do Next Instructions from Your Care Team No qualifying data available. Post Acute Orders No qualifying data available. You Need to Schedule the Following Appointments Follow Up with FOSTER DECKER When Within 2-4 days Why: Drink Plenty of fluids, use suppositories daily until BM, use MiraLAX daily for the next 5 to 7 days. Where: [facility] [place] [address] [employer] (5) Allergies Allerest Maximum Strength Allerest Sinus BUPivacaine Cashews Eggs Fredo articaine lidocaine mepivacaine prilocaine tetracaine Medications Please ask your primary doctor or pharmacist before taking any other medication not listed, including over the counter drugs, herbal medications, vitamins and or supplements as they may interact with your home medications. What How Much When Why Instructions Last Dose New bisacodyl (Dulcolax Laxative 10 mg rectal suppository) 1 suppository(ies) in the rectum Every day Duration: 3 Days Printed Prescription New polyethylene glycol 3350 (Miralax Powder Packet) 17 gram(s) by mouth Once a day Duration: 7 Days Printed Prescription Unchanged amoxicillin (amoxicillin 500 mg oral tablet) 1 tab(s) by mouth Three (3) times a day Duration: 7 Days Unchanged clindamycin (clindamycin 150 mg oral capsule) 1 cap by mouth Every 6 hours Dental abscess Duration: 7 Days Unchanged ibuprofen (ibuprofen 600 mg oral tablet) 1 tab(s) by mouth Every 6 hours as needed for for pain Dental abscess Take with food or milk. Unchanged meclizine (Antivert 25 mg oral tablet) 1 tab(s) by mouth Three (3) times a day as needed for for dizziness Unchanged naproxen (naproxen 500 mg oral tablet) 1 tab(s) by mouth Two (2) times a day as needed for as needed for pain Dysfunctional uterine bleeding Please take this list to your next doctor s visit. Bring all medications you take, including over the counter medications, herbals and other supplements with you to your doctor s visit. Patients and families are reminded to discard old lists and to update any records with all medication providers or retail pharmacies. Education Materials Constipation (Adult) Constipation means that you have bowel movements that are less frequent than usual. Stools often become very hard and difficult to pass. Constipation is very common. At some point in life, it affects almost everyone. Since everyone's bowel habits are different, what is constipation to one person may not be to another. Your healthcare provider may do tests to diagnose constipation. It depends on what he or she finds when evaluating you. Symptoms of constipation include: Abdominal pain Bloating Vomiting Painful bowel movements Itching, swelling, bleeding, or pain around the anus Causes Constipation can have many causes. These include: Diet low in fiber Too much dairy Not drinking enough liquids Lack of exercise or physical activity (especially true for older adults) Changes in lifestyle or daily routine, including , aging, work, and travel Frequent use or misuse of laxatives Ignoring the urge to have a bowel movement or delaying it until later Medicines, such as certain prescription pain medicines, iron supplements, antacids, certain antidepressants, and calcium supplements Diseases like irritable bowel syndrome, bowel obstructions, stroke, diabetes, thyroid disease, Parkinson disease, hemorrhoids, and colon cancer Complications Potential complications of constipation can include: Hemorrhoids Rectal bleeding from hemorrhoids or anal fissures (skin tears) Hernias Dependency on laxatives Chronic constipation Fecal impaction, a severe form of constipation in which a large amount of hard stool is in your rectum that you can't pass Bowel obstruction or perforation Home care All treatment should be done after talking with your healthcare provider. This is especially true if you have another medical problems, are taking prescription medicines, or are an older adult. Treatment most often involves lifestyle changes. You may also need medicines. Your healthcare provider will tell you which will work best for you. Follow the advice below to help avoid this problem in the future. Lifestyle changes These lifestyle changes can help prevent constipation: Diet. Eat a high-fiber diet, with fresh fruit and vegetables, and reduce dairy intake, meats, and processed foods Fluids. It's important to get enough fluids each day. Drink plenty of water when you eat more fiber. If you are on diet that limits the amount of fluid you can have, talk about this with your healthcare provider. Regular exercise. Check with your healthcare provider first. Medicines Take any medicines as directed. Some laxatives are safe to use only every now and then. Others can be taken on a regular basis. While laxatives don't cause bowel dependence, they are treating the symptoms. So your constipation may return if you don't make other changes. Talk with your healthcare provider or pharmacist if you have questions. Prescription pain medicines can cause constipation. If you are taking this kind of medicine, ask your healthcare provider if you should also take a stool softener. Medicines you may take to treat constipation include: Fiber supplements Stool softeners Laxatives Enemas Rectal suppositories Follow-up care Follow up with your healthcare provider if symptoms don't get better in the next few days. You may need to have more tests or see a specialist. Call 911 Call 911 if any of these occur: Trouble breathing Stiff, rigid abdomen that is severely painful to touch Confusion Fainting or loss of consciousness Rapid heart rate Chest pain When to seek medical advice Call your healthcare provider right away if any of these occur: Fever of 100.4 F (38 C) or higher, or as directed by your healthcare provider Failure to resume normal bowel movements Pain in your abdomen or back gets worse Nausea or vomiting Swelling in your abdomen Blood in the stool Black, tarry stool Involuntary weight loss Weakness [id number] [employer]. [address] [place] [address], [place] [address]. All rights reserved. This information is not intended as a substitute for professional medical care. Always follow your healthcare professional's instructions. Additional Information VACCINATE! IT SAVES LIVES! Members of the community who have not yet received the COVID-19 vaccine and would like to receive it can visit one of [facility] vaccine clinics. There are many vaccine clinic locations within the [facility]. For locations and available times, please visit [email or web address] It is important to note that some COVID mobile vaccine clinics are held outdoors and may be canceled in rainy or stormy conditions. To learn more about pediatric vaccinations (ages 5-11), we invite you to visit the [facility] webpage. [email or web address] To learn more about the COVID-19 vaccine, we invite you to visit the CDC website for a list of frequently asked questions. https://www.cdc.gov/coronavirus/2 019-ncov/vaccines/faq.html [facility] Patient Portal Access Instructions: Stay connected with your healthcare team and access your personal medical information anytime with the [facility] Patient Portal. If you would like a full copy of your medical records please contact the [facility] Medical Records Department Saturday through Saturday between 8a.m. and 4:30p.m. Please follow the directions below to access the portal: 1.Access the email account you provided upon registration to the hospital.2.Look for an invitation email from [facility].3.Open the email and access the invitation link: Accept Invitation to [facility]4.Fill in the required spicer to create your account. Sign into www.[employer] with your username and password that you created in the above steps to stay up to date. You can then view a summary of results, a summary of your visits, and the ability to download your summaries to your computer or send the information securely to a physician. Remember that your healthcare information is confidential, so carefully consider who you will allow to register on the [facility] Patient Portal for access to your information. You can also access the [facility] Patient Portal on the Bundle nancy. Simply click on Health Records under Health Data and then click on the [employer] logo. HOW TO SAFELY DISPOSE OF PRESCRIPTION MEDICATIONS Please use one of the following methods to safely dispose of your unused medications. 1.Use a drug disposal kit: the drug disposal pouch allows you to safely discard your old and unused drugs. Ask your nurse to give you one when you are discharged.2.Visit a local take-back location: Many local pharmacies and police departments have programs that collect old and unwanted prescription drugs. Call your local pharmacy or go to http://M.Setek.Diavibe/3D7Nq8p to find one close to you.3.Make use of household items: Use cat litter or old coffee grounds to dispose medications if other options are not available. Mix your drugs with these household products, seal them in an airtight container and throw it into the garbage. Call [facility]: [phone] to be sure your drugs can be disposed of in this way. Some medicines may require a different approach.4.Never flush your medications down the toilet. IF YOU HAVE BEEN PRESCRIBED AN OPIOIDS FOR PAIN If you have been prescribed an opioid (such as hydrocodone, oxycodone or morphine), it is critical to understand the possible side effects and risks of opioid pain medications. Even when taken as directed, opioids can have several side effects including: Tolerance, meaning you might need to take more of a medication for the same pain relief. Nausea, vomiting and/or constipation. Sleepiness, dizziness, dry mouth, confusion, depression or itching. Physical dependence, meaning you have withdrawal symptoms when a medication is stopped ? this can develop within a few days. KNOW YOUR RESPONSIBILITIES It is important to know exactly how much and how often to take the opioid pain medications you are prescribed. Never take opioids in higher amounts or more often than prescribed. Do not combine opioids with alcohol or other drugs that cause drowsiness, such as benzodiazepines, also known as benzos, including diazepam and alprazolam, muscle relaxants or sleep aids. Never sell or share prescription opioids. This is illegal. Store opioids in a secure place and out of reach of others (including children, family, friends and visitors). The last page(s) of this document has been signed and retained as a CHART COPY Signatures Patient Education Materials Constipation (Adult) Medication Leaflets My discharge plan and instructions have been reviewed and explained to me and I,MEGAN LEUNG understand my current condition and have read and understand these discharge instructions. I have received a written copy of the plan/instructions. If I have questions, I am aware that I should contact my doctor. Patient/[employer] Signature: Date/Time: Relationship to Patient: ____ Witness Name/Signature: Date/Time: [facility] Carriselvin Ceja 03-24-2023 Miscellaneous Notes Reason for Call: Rectal Pain Patient Outcome: Pt was given a 24 Hour recommendation. Pt has appt's all day tomorrow and will seek care at her local ER. Reason for Disposition Last bowel movement (BM) > 4 days ago Nurses Judgement- Fecal Impaction/Patient Concern Rectal pain or itching is main symptom Answer Assessment - Initial Assessment Questions Pt was seen in the ER for Abd Pain and her BM in the last few weeks has been liquid to soft stools 1. SYMPTOM: Rectal pain which is described as sharp/pressure , pain is sharp when she tried to move her bowels 2. ONSET: Pt was not able to pass any stool last night, last Bm was 4 days ago, pt feels hard stool in the rectum, pt tried to disimpact and only a small piece broke off 3. RECTAL PAIN: 2-3/10 - MILD (1-3): doesn't interfere with normal activities - MODERATE (4-7): interferes with normal activities or awakens from sleep, limping - SEVERE (8-10): excruciating pain, unable to have a bowel movement 4. RECTAL ITCHING: No 5. CONSTIPATION: See above, Pt is feeling a hard stool in her rectum that she can not passed 6. CAUSE: Pt is taking Ativan bid, Zofran in the ER which caused bowel irregularities before 7. OTHER SYMPTOMS: Pt has a hemorrhoid the size 1-2 cm 8. : No Pt has an enema at home but she afraid she may cause an injury if she does it herself. Protocols used: Rectal Ilqtlknw-FOAPG-YG, Ugokjhoojbhu-ULMKL-IE documented in this encounter [facility] 03-15-2023 Miscellaneous Notes Reason for Call: Pt states she called 911 3 1/2 to 4 hrs ago and was txed per [place] ED for feeling lightheaded with pressure in throat, discomfort in her carotids, heartburn for days and anxious. Pt states her BP was elevated possibly 158/over something with a HR of 110 or 112. Pt states she was txed with 4 baby aspirin while in the ED, but was not given anything to relax. Pt states she feels worse since ED d/c. Pt c/o mild sob, core feels warm, but hands and feet feel cold/clammy. Pt c/o a little pressure per her sternal area and rates anxiety as a 5-7/10. Pt also c/o heartburn and nausea. Pt states she feels worse when tries to lay down to sleep. Pt also c/o R sided neck discomfort when turns her neck to the left. Pt states hx of insomnia for 2 weeks and has only slept 6 hours in last 2 days. Pt states EKG, CXR and enzymes were fine per the ED today. Pt thinks she is having an anxiety attack. Pt reports her dog and cat recently and has felt anxious since Feb 15. Outcome- Pt advised to call 911 now. Pt refuses and requests to know if she can take either zofran or ativan 0.5 mg- take one pill by mouth twice daily for 7 days that was prescribed per the [facility] ED on Saturday since she took 4 baby aspirin per the ED today. Pt states she had been prescribed seroquel on 03/06 and felt face was tingly, felt like a zombie and that she was doped up when took it so stopped taking it. . Pt also thinks she is allergic to cashews as her shipping lead person told her is she is allergic to Mangos she is allergic to cashews. Pt reports no previous reaction to cashews. Dr Luna notified of sx.'s and concerns above. She advises that pt may take ativan as prescribed for anxiety. Pt can also cut an ativan tablet in half to try it first if she wants. Pt may take OTC prilosec 20 mg- take one pill by mouth once daily in morning or evening. Pt should call office at 8am if she needs a prescription for it. Pt may take tumms or another antacid per package directions for immediate relief of heartburn. Pt should also schedule an appt for follow up today and should also schedule an appt with a psychiatrist. If pt pt does not feel better, then should go to an ED. Dr Luna advises pt to avoid cashews for now, but does not need to add to allergy list. If shipping lead person told her to avoid cashews, then should avoid them. Pt notified of Dr Luna's instructions above. Pt states advises she has no ride to an appt. today and refuses to schedule an appt. Pt is not sure if her insurance will cover a virtual appt. Pt reports she has an appt with an autism assessment on March 25 and plans to call counseling center for a sooner appt with a psychiatrist before Apr 18. Pt states she is focusing per her breathing to stay calm and her body is tingling all over when lays down to relax, like a floating sensation or cold sensation . Pt states she had this tingling about 3-4 years ago when she was told tingling was a fear response. She feels very ,very fatigued. Pt reports no numbness or weakness. Pt states she has an appt with Dr Decker on 03/22. Pt states the ED provider advised her she had anxiety on Saturday. Pt states Dr cabrera ED today advised she was having a panic attack and does not want to go to an ED. Pt also states she told ED providers she had a little bit of tingle while in the ED earlier. Dr Luna notified pt refuses to schedule appt today and concerns above. She advises if pt is still tingling and hyperventilating, then should try breathing exercises to slow it down or take her ativan. Pt should take normal breathes at a slower rate. Sometimes breathing too deeply will not relieve hyperventilating. She advises pt can try a calm nancy to use to slow her breathing down. Pt can also check with her insurance company to see if a virtual appt is covered and can call back for appt. if it is. Pt notified of Dr Luna's instruictions. Pt states she is freaked out the ativan may cause her to in her sleep. Pt states she is afraid to go to sleep which she discussed with her ED Dr earlier today. Pt thinks her anxiety makes her feel irrational Pt advised to she can speak with a pharmacist about her concerns before she takes ativan. Pt states she took ativan a couple nights ago and it worked in 15 minutes and felt drowsy while in ED. Pt states she felt she had another panic attack about 45 minutes after she took it and does not know if this was adverse reaction. Pt states she felt lightheaded 10-15 minutes after she took it in the hospital. I attempted to forward pt.'s call PCP office nurse, Edyta, and notified her of pt's concerns above for further instruction on taking ativan, but pt call disconnected. Edyta states she will call pt back for further instruction. Reason for Disposition Chest pain Shock suspected (e.g., cold/pale/clammy skin, too weak to stand, low BP, rapid pulse) Protocols used: Anxiety and Panic Tfnxkk-ZBOJI-TW, Chest Hcyy-INSOD-DF documented in this encounter [facility] 03-12-2023 Hospital Discharge instructions Patient Education 03/12/2023 02:13:03 Anxiety Reaction Anxiety Reaction Anxiety is the feeling we all get when we think something bad might happen. It is a normal response to stress and usually causes only a mild reaction. When anxiety becomes more severe, it can interfere with daily life. In some cases, you may not even be aware of what it is you re anxious about. There may also be a genetic link or it may be a learned behavior in the home. Both psychological and physical triggers cause stress reaction. It's often a response to fear or emotional stress, real or imagined. This stress may come from home, family, work, or social relationships. During an anxiety reaction, you may feel: Helpless Nervous Depressed Irritable Your body may show signs of anxiety in many ways. You may experience: Dry mouth Shakiness Dizziness Weakness Trouble breathing Breathing fast (hyperventilating) Chest pressure Sweating Headache Nausea Diarrhea Tiredness Inability to sleep Sexual problems Home care Try to locate the sources of stress in your life. They may not be obvious. These may include: oDaily hassles of life (such as traffic jams, missed appointments, or car troubles) oMajor life changes, both good (new baby or job promotion) and bad (loss of job or loss of loved one) oOverload: feeling that you have too many responsibilities and can't take care of all of them at once oFeeling helpless or feeling that your problems are beyond what you re able to solve Notice how your body reacts to stress. Learn to listen to your body signals. This will help you take action before the stress becomes severe. When you can, do something about the source of your stress. (Avoid hassles, limit the amount of change that happens in your life at one time and take a break when you feel overloaded). Unfortunately, many stressful situations can't be avoided. It is necessary to learn how to better manage stress. There are many proven methods that will reduce your anxiety. These include simple things like exercise, good nutrition, and adequate rest. Also, there are certain techniques that are helpful: oRelaxation oBreathing exercises oVisualization oBiofeedback oMeditation For more information about this, consult your healthcare provider or go to a local bookstore and review the many books and tapes available on this subject. Follow-up care If you feel that your anxiety is not responding to self-help measures, contact your healthcare provider or make an appointment with a counselor. You may need short-term psychological counseling and temporary medicine to help you manage stress. Call 911 Call 911 if any of these happen: Trouble breathing Confusion Drowsiness or trouble wakening Fainting or loss of consciousness Rapid heart rate Seizure New chest pain that becomes more severe, lasts longer, or spreads into your shoulder, arm, neck, jaw, or back When to seek medical advice Call your healthcare provider right away if any of these happen: Your symptoms get worse Severe headache not relieved by rest and mild pain reliever [id number] [employer]. [address] [facility], [place] [address]. All rights reserved. This information is not intended as a substitute for professional medical care. Always follow your healthcare professional's instructions. Follow Up Care 03/12/2023 02:02:54 With:[facility] Address: When:2-4 days [facility] 03-12-2023 Note Discharge Instructions Thank you for allowing [facility] to assist you with your healthcare needs. The following is important discharge information regarding your hospital visit. Diagnosis from Today's Visit Anxiety Anxiety What to Do Next Instructions from Your Care Team 24 hour pharmacy: [facility] [address] [place], [place] ; [facility] [address] [facility] ; [facility] [address] [facility] [phone] No qualifying data available. Post Acute Orders No qualifying data available. You Need to Schedule the Following Appointments Follow Up with [facility] When Within 2-4 days Where: Allergies Allerest Maximum Strength Allerest Sinus BUPivacaine Cashews Eggs Fredo articaine lidocaine mepivacaine prilocaine tetracaine Medications Please ask your primary doctor or pharmacist before taking any other medication not listed, including over the counter drugs, herbal medications, vitamins and or supplements as they may interact with your home medications. What How Much When Why Instructions Last Dose Unchanged amoxicillin (amoxicillin 500 mg oral tablet) 1 tab(s) by mouth Three (3) times a day Duration: 7 Days Unchanged clindamycin (clindamycin 150 mg oral capsule) 1 cap by mouth Every 6 hours Dental abscess Duration: 7 Days Unchanged ibuprofen (ibuprofen 600 mg oral tablet) 1 tab(s) by mouth Every 6 hours as needed for for pain Dental abscess Take with food or milk. Unchanged LORazepam (LORazepam 0.5 mg oral tablet) 1 tab(s) by mouth Two (2) times a day as needed for as needed for anxiety Anxiety Duration: 7 Days Unchanged meclizine (Antivert 25 mg oral tablet) 1 tab(s) by mouth Three (3) times a day as needed for for dizziness Unchanged naproxen (naproxen 500 mg oral tablet) 1 tab(s) by mouth Two (2) times a day as needed for as needed for pain Dysfunctional uterine bleeding Please take this list to your next doctor s visit. Bring all medications you take, including over the counter medications, herbals and other supplements with you to your doctor s visit. Patients and families are reminded to discard old lists and to update any records with all medication providers or retail pharmacies. Education Materials Anxiety Reaction Anxiety is the feeling we all get when we think something bad might happen. It is a normal response to stress and usually causes only a mild reaction. When anxiety becomes more severe, it can interfere with daily life. In some cases, you may not even be aware of what it is you re anxious about. There may also be a genetic link or it may be a learned behavior in the home. Both psychological and physical triggers cause stress reaction. It's often a response to fear or emotional stress, real or imagined. This stress may come from home, family, work, or social relationships. During an anxiety reaction, you may feel: Helpless Nervous Depressed Irritable Your body may show signs of anxiety in many ways. You may experience: Dry mouth Shakiness Dizziness Weakness Trouble breathing Breathing fast (hyperventilating) Chest pressure Sweating Headache Nausea Diarrhea Tiredness Inability to sleep Sexual problems Home care Try to locate the sources of stress in your life. They may not be obvious. These may include: oDaily hassles of life (such as traffic jams, missed appointments, or car troubles) oMajor life changes, both good (new baby or job promotion) and bad (loss of job or loss of loved one) oOverload: feeling that you have too many responsibilities and can't take care of all of them at once oFeeling helpless or feeling that your problems are beyond what you re able to solve Notice how your body reacts to stress. Learn to listen to your body signals. This will help you take action before the stress becomes severe. When you can, do something about the source of your stress. (Avoid hassles, limit the amount of change that happens in your life at one time and take a break when you feel overloaded). Unfortunately, many stressful situations can't be avoided. It is necessary to learn how to better manage stress. There are many proven methods that will reduce your anxiety. These include simple things like exercise, good nutrition, and adequate rest. Also, there are certain techniques that are helpful: oRelaxation oBreathing exercises oVisualization oBiofeedback oMeditation For more information about this, consult your healthcare provider or go to a local bookstore and review the many books and tapes available on this subject. Follow-up care If you feel that your anxiety is not responding to self-help measures, contact your healthcare provider or make an appointment with a counselor. You may need short-term psychological counseling and temporary medicine to help you manage stress. Call 911 Call 911 if any of these happen: Trouble breathing Confusion Drowsiness or trouble wakening Fainting or loss of consciousness Rapid heart rate Seizure New chest pain that becomes more severe, lasts longer, or spreads into your shoulder, arm, neck, jaw, or back When to seek medical advice Call your healthcare provider right away if any of these happen: Your symptoms get worse Severe headache not relieved by rest and mild pain reliever [phone] [employer]. [address] [place] [address], [place] [address]. All rights reserved. This information is not intended as a substitute for professional medical care. Always follow your healthcare professional's instructions. Additional Information VACCINATE! IT SAVES LIVES! Members of the community who have not yet received the COVID-19 vaccine and would like to receive it can visit one of [facility] vaccine clinics. There are many vaccine clinic locations within the [facility]. For locations and available times, please visit [email or web address] It is important to note that some COVID mobile vaccine clinics are held outdoors and may be canceled in rainy or stormy conditions. To learn more about pediatric vaccinations (ages 5-11), we invite you to visit the [facility] webpage. [email or web address] [email or web address] To learn more about the COVID-19 vaccine, we invite you to visit the CDC website for a list of frequently asked questions. https://www.cdc.gov/coronavirus/2 019-ncov/vaccines/faq.html [facility] Patient Portal Access Instructions: Stay connected with your healthcare team and access your personal medical information anytime with the [facility] Patient Portal. If you would like a full copy of your medical records please contact the [facility] Medical Records Department Saturday through Saturday between 8a.m. and 4:30p.m. Please follow the directions below to access the portal: 1.Access the email account you provided upon registration to the [facility].2.Look for an invitation email from [facility].3.Open the email and access the invitation link: Accept Invitation to [facility]4.Fill in the required spicer to create your account. Sign into [email or web address] with your username and password that you created in the above steps to stay up to date. You can then view a summary of results, a summary of your visits, and the ability to download your summaries to your computer or send the information securely to a physician. Remember that your healthcare information is confidential, so carefully consider who you will allow to register on the [facility] Patient Portal for access to your information. You can also access the [facility] Patient Portal on the Bundle nancy. Simply click on Health Records under Health Data and then click on the [facility] logo. HOW TO SAFELY DISPOSE OF PRESCRIPTION MEDICATIONS Please use one of the following methods to safely dispose of your unused medications. 1.Use a drug disposal kit: the drug disposal pouch allows you to safely discard your old and unused drugs. Ask your nurse to give you one when you are discharged.2.Visit a local take-back location: Many local pharmacies and police departments have programs that collect old and unwanted prescription drugs. Call your local pharmacy or go to http://M.Setek.Diavibe/5Y3Qc8z to find one close to you.3.Make use of household items: Use cat litter or old coffee grounds to dispose medications if other options are not available. Mix your drugs with these household products, seal them in an airtight container and throw it into the garbage. Call [facility]: [phone] to be sure your drugs can be disposed of in this way. Some medicines may require a different approach.4.Never flush your medications down the toilet. IF YOU HAVE BEEN PRESCRIBED AN OPIOIDS FOR PAIN If you have been prescribed an opioid (such as hydrocodone, oxycodone or morphine), it is critical to understand the possible side effects and risks of opioid pain medications. Even when taken as directed, opioids can have several side effects including: Tolerance, meaning you might need to take more of a medication for the same pain relief. Nausea, vomiting and/or constipation. Sleepiness, dizziness, dry mouth, confusion, depression or itching. Physical dependence, meaning you have withdrawal symptoms when a medication is stopped ? this can develop within a few days. KNOW YOUR RESPONSIBILITIES It is important to know exactly how much and how often to take the opioid pain medications you are prescribed. Never take opioids in higher amounts or more often than prescribed. Do not combine opioids with alcohol or other drugs that cause drowsiness, such as benzodiazepines, also known as benzos, including diazepam and alprazolam, muscle relaxants or sleep aids. Never sell or share prescription opioids. This is illegal. Store opioids in a secure place and out of reach of others (including children, family, friends and visitors). The last page(s) of this document has been signed and retained as a CHART COPY Signatures Patient Education Materials Anxiety Reaction Medication Leaflets My discharge plan and instructions have been reviewed and explained to me and I,MEGAN LEUNG understand my current condition and have read and understand these discharge instructions. I have received a written copy of the plan/instructions. If I have questions, I am aware that I should contact my doctor. Patient/[employer] Signature: Date/Time: Relationship to Patient: ____ Witness Name/Signature: Date/Time: [facility] [place] 03-11-2023 Miscellaneous Notes Behavioral Health Social Work Progress Note Patient identified for [facility] from: PCP Reason for referral: [facility] Assessment [facility] encounter type: Telephone Encounter Attempts to Outreach: 3 attempts Referral made: Psychiatry - Internal Psychiatry-Internal referral type: Medication Management Final Disposition: Care established with Patient Discharged?: No Patient reported that caregiver was able to meet their needs today?: N/A Spoke with patient's , [facility] assessment is scheduled in person on March 25 at 1:00 pm. ANNETTE Burch March 11, 2023 documented in this encounter [facility] 03-11-2023 Note HNO ID: [id number] Author: Sheila Guadalupe APRN.CNP Service: ? Author Type: Nurse Practitioner Type: Progress Notes Filed: 03/11/2023 8:19 AM Note Text: She came in with complaints of extreme fatigue and not being able to sleep. Patient says she did see primary care that did prescribe her something that had worked in the past. Patient said the medication is not working currently. Patient does appear upset. At this time patient is being referred back to primary care. [facility] 03-11-2023 Miscellaneous Notes TC to Megan, given below recommendation, she verbalized understanding. Per Patient, Problem is I'm stating doped up from the Seroquel and I can't go to sleep Patient instructed to go to ER. Suzanne Patel LPN Patient is on my schedule today for anxiety/difficulty sleeping. She was seen for this last week and prescribed Seroquel. She was instructed to go to the ER if her symptoms are worsening, [facility] and they scheduled her again with me. Please call patient, if her symptoms are worse she needs to go to the ER Mary Barragan APRN.GABRIELA documented in this encounter [facility] 03-08-2023 Miscellaneous Notes Behavioral Health Social Work Progress Note Patient identified for [facility] from: PCP Reason for referral: Resources Behavioral Health Resources: Psychiatry med management [facility] encounter type: Telephone Encounter Attempts to Outreach: 1 attempt Referral made: Psychiatry - External, Psychiatry - Internal Psychiatry-Internal referral type: Medication Management Psychiatry-External referral type: Medication Management Patient Discharged?: No Patient reported that caregiver was able to meet their needs today?: N/A Phone call placed today, voicemail box is not yet set up. Initial outreach also completed via [employer] sending list of in network providers with insurance. PRAVEEN Burch-S March 08, 2023 documented in this encounter [facility] 03-08-2023 Miscellaneous Notes Patient request has been addressed by behavioral health manager social, closing encounter Mary Barragan APRN.CNP She does not need a behavioral health social work referral to a non [facility] psychiatric provider. I will place the psychiatry referral and it can be faxed as requested. The Seroquel is to be given at bedtime only, she should not take so early in the afternoon as this can interfere with her sleep-wake cycle. She was on this medication for years so it is doubtful this was an allergic reaction Mary Barragan APRN.CNP Pt called & gave permission to speak to her spouse Adilson who has questions. Pt was seen yesterday & was instructed to see psychiatry, spouse states pt is unable to see who she was seeing & is requesting a referral to be placed for behavioral health & pt will be seeing Megan - he doesn't know her last name or title. He will call back with fax #. Also reports pt took 1st dose of seroquel yesterday around 2pm, states she developed mouth & nose tingling that lasted the rest of the day, gone now. Denies itching, swelling, difficulty breathing or swallowing. Also reports pt felt better after taking it, felt calm & slept well last pm. Please advise. Edyta Anthony LPN documented in this encounter [facility] 03-06-2023 Note HNO ID: [id number] Author: Mary Barragan APRN.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 Service: ? Author Type: Nurse Practitioner Type: Progress Notes Filed: 03/06/2023 2:34 PM Note Text: CC: Patient presents with: Anxiety: Sleep concerns HPI Megan Leung is a 33 year old female who presents today for above. She has been experiencing increasing anxiety, now for the past few days has not been able to sleep more than a few minutes at a time. She has not slept more than 5 hours in the past three days. She has a history of anxiety, depression, and mood disorder along with one voluntary admission to psychiatric floor. Not currently treated but was previously on numerous antidepressants, anxiolytics and mood stabilizers which have included: Ablify, Celexa, Seroquel, and Trintellex. None of these medications were effective except Seroquel did help with sleep and had no side effects. She is requesting a temporary prescription for Seroquel until she can get in with psychiatry. Panic attacks: yes Alcohol use: No Drug use: No Appetite: poor Stresses: Denies any major stressor. Suicidal Thoughts: No suicidal ideation, intent or plan Support: Counseling: not currently Mood: Decrease need for sleep, distractible, irritable mood, racing thoughts. CP PHQ9 01/16/2022 03/06/2023 Little interest or pleasure 3 - Nearly every day 3 - Nearly every day Feeling down, depressed, hopeless 2 - More than half the days 2 - More than half the days Trouble falling or staying asleep, sleeping too much 3 - nearly every day 3 - nearly every day Feeling tired, having little energy 3 - Nearly every day 3 - Nearly every day Poor appetite or overeating 3 - Nearly every day 3 - Nearly every day Feeling bad about yourself, failure or you have let yourself/family down 0 - Not at all 0 - Not at all Trouble concentrating on things 0 - Not at all 3 - Nearly every day Moving or speaking so slowly, or fidgety or restless 2 - More than half the days 3 - Nearly every day Thoughts that you would be better off , or of hurting yourself in some way 0 - Not at all 0 - Not at all How difficult have these problems made things Extremely difficult Somewhat difficult Interpretation of Total Score 15-19 Moderately severe depression 20-27 Severe depression PARVEEN-7 ANXIETY SCALE 01/16/2022 03/06/2023 FEELING NERVOUS,ANXIOUS,OR ON EDGE 2 Over half the days 3 Nearly every day NOT BEING ABLE TO STOP OR CONTROL WORRYING 0 Not at all sure 3 Nearly every day WORRYING TOO MUCH ABOUT DIFFERENT THINGS 0 Not at all sure 3 Nearly every day TROUBLE RELAXING 1 Several days 3 Nearly every day BEING SO RESTLESS THAT IT'S HARD TO SIT STILL 1 Several days 3 Nearly every day BEING EASILY ANNOYED OR IRRITABLE 0 Not at all sure 2 Over half the days FEELING AFRAID IF SOMETHING AWFUL MIGHT HAPPEN 1 Several days 2 Over half the days GAD7 SCORE 5 20 IF YOU CHECKED OFF ANY PROBLEMS Not difficult at all Extremely difficult REVIEW OF SYSTEMS See HPI PAST MEDICAL HISTORY Diagnosis Date Acute kidney failure (HCC) temporary liver and kindey failure due to reaction to antibiotic (unsure name) (was hospitalized) Anxiety 07/29/2012 Chronic anxiety 02/12/2018 Cognitive complaints 07/29/2012 MRI,MRA,MRV Concussion 2011 multiple Depression 07/29/2012 Drusen of both optic discs 07/29/2012 History of suicidal ideation 03/21/2018 inpatient Hypothyroidism 11/04/2020 Irritable bowel syndrome with both constipation and diarrhea 02/12/2018 Obesity Orthostatic dizziness 09/01/2012 Other dysphagia 08/11/2009 ? esophageal stricture on UGIS, normal EGD Syncope 09/02/2012 neg. extensive testing (tilt table, EEG) PAST SURGICAL HISTORY Procedure Laterality Date DENTAL SURGERY HX 03/2021 wisdom teeth removed ESOPHAGOSCOPY FLEXIBLE TRANSORAL DIAGNOSTIC 08/01/2009 normal TONSILLECTOMY HX ALLERGIES Articaine, Bupivacaine, Lidocaine, Mepivacaine, Prilocaine, Chlorpheniramine-Pseudoephed, Eggs [Egg], Fredo, Seasonal Allergies, and Tetracaine MEDICATIONS Multivitamin capsule Take 1 capsule by mouth once daily. ondansetron orally disintegrating (ZOFRAN ODT) 4 mg disintegrating tablet Take 1 tablet by mouth every 8 hours as needed for nausea/vomiting. meclizine (ANTIVERT) 12.5 mg tab Take 1-2 tablets by mouth every 6 hours as needed (dizziness). clindamycin (CLEOCIN-T) 1 % gel Apply to affected area twice daily. FAMILY HISTORY Problem Relation Age of Onset COPD Mother Asthma Mother Psoriasis Mother Psychiatry Father Bord.Personality Disorder Lymphoma Brother 1/2 brother COPD Maternal Grandfather Social History Tobacco Use Smoking status: Every Day Packs/day: 1 Types: Cigarettes Smokeless tobacco: Never Tobacco comments: 2015. Tried to quit several times. Vaping Use Vaping Use: Never used Substance Use Topics Alcohol use: No Drug use: Not Currently Types: Marijuana Comment: [id number] BP 116/ (more content not included)... [facility] 03-06-2023 Note HNO ID: [id number] Author: Mee Vail PA-C Service: ? Author Type: Physician Motivational Speaker Type: Progress Notes Filed: 03/06/2023 11:04 AM Note Text: [facility] with a chief complaint of trouble sleeping and anxiety. She states she last a dog and 3 cats recently and does not process grief well. She is requesting Seroquel to help her sleep. Discussed with her I would recommend a primary care appointment and was able to get her in today. [facility] 03-06-2023 History of Present illness Narrative CC: Patient presents with: Anxiety: Sleep concerns HPI Megan Leung is a 33 year old female who presents today for above. She has been experiencing increasing anxiety, now for the past few days has not been able to sleep more than a few minutes at a time. She has not slept more than 5 hours in the past three days. She has a history of anxiety, depression, and mood disorder along with one voluntary admission to psychiatric floor. Not currently treated but was previously on numerous antidepressants, anxiolytics and mood stabilizers which have included: Ablify, Celexa, Seroquel, and Trintellex. None of these medications were effective except Seroquel did help with sleep and had no side effects. She is requesting a temporary prescription for Seroquel until she can get in with psychiatry. Panic attacks: yes Alcohol use: No Drug use: No Appetite: poor Stresses: Denies any major stressor. Suicidal Thoughts: No suicidal ideation, intent or plan Support: Counseling: not currently Mood: Decrease need for sleep, distractible, irritable mood, racing thoughts. CP PHQ9 01/16/2022 03/06/2023 Little interest or pleasure 3 - Nearly every day 3 - Nearly every day Feeling down, depressed, hopeless 2 - More than half the days 2 - More than half the days Trouble falling or staying asleep, sleeping too much 3 - nearly every day 3 - nearly every day Feeling tired, having little energy 3 - Nearly every day 3 - Nearly every day Poor appetite or overeating 3 - Nearly every day 3 - Nearly every day Feeling bad about yourself, failure or you have let yourself/family down 0 - Not at all 0 - Not at all Trouble concentrating on things 0 - Not at all 3 - Nearly every day Moving or speaking so slowly, or fidgety or restless 2 - More than half the days 3 - Nearly every day Thoughts that you would be better off , or of hurting yourself in some way 0 - Not at all 0 - Not at all How difficult have these problems made things Extremely difficult Somewhat difficult Interpretation of Total Score 15-19 Moderately severe depression 20-27 Severe depression PARVEEN-7 ANXIETY SCALE 01/16/2022 03/06/2023 FEELING NERVOUS,ANXIOUS,OR ON EDGE 2 Over half the days 3 Nearly every day NOT BEING ABLE TO STOP OR CONTROL WORRYING 0 Not at all sure 3 Nearly every day WORRYING TOO MUCH ABOUT DIFFERENT THINGS 0 Not at all sure 3 Nearly every day TROUBLE RELAXING 1 Several days 3 Nearly every day BEING SO RESTLESS THAT IT'S HARD TO SIT STILL 1 Several days 3 Nearly every day BEING EASILY ANNOYED OR IRRITABLE 0 Not at all sure 2 Over half the days FEELING AFRAID IF SOMETHING AWFUL MIGHT HAPPEN 1 Several days 2 Over half the days GAD7 SCORE 5 20 IF YOU CHECKED OFF ANY PROBLEMS Not difficult at all Extremely difficult REVIEW OF SYSTEMS See HPI PAST MEDICAL HISTORY Diagnosis Date Acute kidney failure (HCC) temporary liver and kindey failure due to reaction to antibiotic (unsure name) (was hospitalized) Anxiety 07/29/2012 Chronic anxiety 02/12/2018 Cognitive complaints 07/29/2012 MRI,MRA,MRV Concussion 2011 multiple Depression 07/29/2012 Drusen of both optic discs 07/29/2012 History of suicidal ideation 03/21/2018 inpatient Hypothyroidism 11/04/2020 Irritable bowel syndrome with both constipation and diarrhea 02/12/2018 Obesity Orthostatic dizziness 09/01/2012 Other dysphagia 08/11/2009 ? esophageal stricture on UGIS, normal EGD Syncope 09/02/2012 neg. extensive testing (tilt table, EEG) PAST SURGICAL HISTORY Procedure Laterality Date DENTAL SURGERY HX 03/2021 wisdom teeth removed ESOPHAGOSCOPY FLEXIBLE TRANSORAL DIAGNOSTIC 08/01/2009 normal TONSILLECTOMY HX ALLERGIES Articaine, Bupivacaine, Lidocaine, Mepivacaine, Prilocaine, Chlorpheniramine-Pseudoephed, Eggs [Egg], [place], Seasonal Allergies, and Tetracaine MEDICATIONS Multivitamin capsule Take 1 capsule by mouth once daily. ondansetron orally disintegrating (ZOFRAN ODT) 4 mg disintegrating tablet Take 1 tablet by mouth every 8 hours as needed for nausea/vomiting. meclizine (ANTIVERT) 12.5 mg tab Take 1-2 tablets by mouth every 6 hours as needed (dizziness). clindamycin (CLEOCIN-T) 1 % gel Apply to affected area twice daily. FAMILY HISTORY Problem Relation Age of Onset COPD Mother Asthma Mother Psoriasis Mother Psychiatry Father Bord.Personality Disorder Lymphoma Brother 1/2 brother COPD Maternal Grandfather Social History Tobacco Use Smoking status: Every Day Packs/day: 1 Types: Cigarettes Smokeless tobacco: Never Tobacco comments: 2014. Tried to quit several times. Vaping Use Vaping Use: Never used Substance Use Topics Alcohol use: No Drug use: Not Currently Types: Marijuana Comment: BP 116/84 Pulse 94 Resp 18 Wt 78 kg (172 lb) LMP 07/05/2020 (Exact Date) SpO2 100% BMI 29.29 kg/m Physical Exam Constitutional: General: She is not in acute distress. Neurological: Mental Status: She is alert. Psychiatric: Mood and Affect: Mood is anxious. Affect is tearful. Speech: Speech normal. Behavior: Behavior is cooperative. Thought Content: Thought content normal. Cognition and Memory: Cognition normal. Judgment: Judgment normal. ASSESSMENT/PLAN: 1. 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 I am okay with prescribing Seroquel for a short amount of time with the understanding that she will establish care with psychiatry KRISTIN and they will take over medication management. She declined need for crisis intervention, her boyfriend is here with her and is very supportive. She also declined need for assistance finding a psychiatrist/counselor. She will follow-up in two weeks or sooner if needed. 2. Chronic anxiety - ICD9: 300.00, ICD10: F41.9 As above 3. Depressive disorder - ICD9: 311, ICD10: F32.A As above Prescription instructions reviewed with patient as applicable. Potential red flag symptoms discussed with the patient. Reviewed appropriate action plan to take if red flag symptoms occur. Patient agreeable to treatment plan. During this patient visit I have spent approximately 30 minutes in counseling regarding treatment options, medications, and coordinating care. Mary Barragan APRN.GABRIELA documented in this encounter [facility] 03-06-2023 History of Present illness Narrative Patient presents to [facility] triage with a chief complaint of trouble sleeping and anxiety. She states she last a dog and 3 cats recently and does not process grief well. She is requesting Seroquel to help her sleep. Discussed with her I would recommend a primary care appointment and was able to get her in today. documented in this encounter [facility] 03-04-2023 Note HNO ID: [id number] Author: Mary Barragan APRN.CNP Service: ? Author Type: Nurse Practitioner Type: Progress Notes Filed: 03/04/2023 9:46 AM Note Text: CC: Patient presents with: [facility] F/U [facility] Megan Leung is a 33 year old female who presents today for ER follow-up. Patient presented to [facility] on 02/28 with sudden onset dizziness that day. CBC, BMP and urinalysis were normal except for slight elevation of WBC's. Dizziness was attributed to peripheral vertigo. Patient declined medication to treat. She denies any new or worsening symptoms except for light and sound sensitivity. Still quite nauseated. She has a mild headache that has been present for a couple weeks. Vertigo is described as a spinning sensation that is occurring with position changes and turning her head too quickly. Otherwise has a constant feeling of lightheadedness. Denies visual disturbances, confusion, disorientation, difficulty walking, problems with balance/coordination, tremors, syncope, weakness. No alcohol or illicit drug use. She was not drinking enough water or eating enough, once she increased her water and calorie intake symptoms did improve. She is feeling very anxious because of the vertigo and this in turn causes her muscles to ache all over which is not unusual with her anxiety. REVIEW OF SYSTEMS GENERAL: Negative for malaise, significant weight loss, fever, chills, night sweats RESPIRATORY: Negative for cough, wheezing and shortness of breath CARDIOVASCULAR: Negative for chest pain, leg swelling, palpitations, claudication, orthopnea, and paroxysmal nocturnal dyspnea GI: Negative for blood in stools or black stools, vomiting, diarrhea PAST MEDICAL HISTORY Diagnosis Date Acute kidney failure (HCC) temporary liver and kindey failure due to reaction to antibiotic (unsure name) (was hospitalized) Anxiety 07/29/2012 Chronic anxiety 02/12/2018 Cognitive complaints 07/29/2012 MRI,MRA,MRV Concussion 2011 multiple Depression 07/29/2012 Drusen of both optic discs 07/29/2012 History of suicidal ideation 03/21/2018 inpatient Hypothyroidism 11/04/2020 Irritable bowel syndrome with both constipation and diarrhea 02/12/2018 Obesity Orthostatic dizziness 09/01/2012 Other dysphagia 08/11/2009 ? esophageal stricture on UGIS, normal EGD Syncope 09/02/2012 neg. extensive testing (tilt table, EEG) PAST SURGICAL HISTORY Procedure Laterality Date DENTAL SURGERY HX 03/2021 wisdom teeth removed ESOPHAGOSCOPY FLEXIBLE TRANSORAL DIAGNOSTIC 08/01/2009 normal TONSILLECTOMY HX ALLERGIES Articaine, Bupivacaine, Lidocaine, Mepivacaine, Prilocaine, Chlorpheniramine-Pseudoephed, Eggs [Egg], Fredo, Seasonal Allergies, and Tetracaine MEDICATIONS Multivitamin capsule Take 1 capsule by mouth once daily. clindamycin (CLEOCIN-T) 1 % gel Apply to affected area twice daily. ondansetron orally disintegrating (ZOFRAN ODT) 4 mg disintegrating tablet Take 1 tablet by mouth every 8 hours as needed for nausea/vomiting. omeprazole (PRILOSEC) 40 mg capsule Take 1 capsule by mouth once daily. ibuprofen (IBU-200 ORAL) Take by mouth. FAMILY HISTORY Problem Relation Age of Onset COPD Mother Asthma Mother Psoriasis Mother Psychiatry Father Bord.Personality Disorder Lymphoma Brother 1/2 brother COPD Maternal Grandfather Social History Tobacco Use Smoking status: Every Day Packs/day: 1 Types: Cigarettes Smokeless tobacco: Never Tobacco comments: 2014. Tried to quit several times. Vaping Use Vaping Use: Never used Substance Use Topics Alcohol use: No Drug use: Not Currently Types: Marijuana Comment: BP 120/77 Pulse 89 Resp 16 Wt 79.8 kg (176 lb) LMP 07/05/2020 (Exact Date) BMI 29.98 kg/m? Physical Exam Constitutional: General: She is awake. She is not in acute distress. Appearance: She is not ill-appearing or toxic-appearing. HENT: Head: Normocephalic and atraumatic. Eyes: Extraocular Movements: Extraocular movements intact. Conjunctiva/sclera: Conjunctivae normal. Pupils: Pupils are equal, round, and reactive to light. Neck: Vascular: No carotid bruit. Cardiovascular: Rate and Rhythm: Normal rate and regular rhythm. Pulses: Normal pulses. Heart sounds: Normal heart sounds. No murmur heard. Pulmonary: Effort: Pulmonary effort is normal. Breath sounds: Normal breath sounds. No wheezing, rhonchi or rales. Musculoskeletal: Cervical back: Pain with movement and muscular tenderness present. No spinous process tenderness. Right lower leg: No edema. Left lower leg: No edema. Lymphadenopathy: Cervical: No cervical adenopathy. Skin: General: Skin is warm. Coloration: Skin is not pale. Neurological: General: No focal deficit present. Mental Status: She is alert and oriented to person, place, and time. Cranial Nerves: Cranial nerves 2-12 are intact. Sensory: Sensation is intact. Motor: Motor function is intac (more content not included)... [facility] 03-04-2023 Instructions Mary Barragan APRN.CNP - 03/04/2023 9:27 AM EDT Follow-up in two weeks if no improvement in symptoms documented in this encounter [facility] 03-04-2023 History of Present illness Narrative CC: Patient presents with: [facility] F/[facility] Megan Leung is a 33 year old female who presents today for ER follow-up. Patient presented to [facility] on 02/28 with sudden onset dizziness that day. CBC, BMP and urinalysis were normal except for slight elevation of WBC's. Dizziness was attributed to peripheral vertigo. Patient declined medication to treat. She denies any new or worsening symptoms except for light and sound sensitivity. Still quite nauseated. She has a mild headache that has been present for a couple weeks. Vertigo is described as a spinning sensation that is occurring with position changes and turning her head too quickly. Otherwise has a constant feeling of lightheadedness. Denies visual disturbances, confusion, disorientation, difficulty walking, problems with balance/coordination, tremors, syncope, weakness. No alcohol or illicit drug use. She was not drinking enough water or eating enough, once she increased her water and calorie intake symptoms did improve. She is feeling very anxious because of the vertigo and this in turn causes her muscles to ache all over which is not unusual with her anxiety. REVIEW OF SYSTEMS GENERAL: Negative for malaise, significant weight loss, fever, chills, night sweats RESPIRATORY: Negative for cough, wheezing and shortness of breath CARDIOVASCULAR: Negative for chest pain, leg swelling, palpitations, claudication, orthopnea, and paroxysmal nocturnal dyspnea GI: Negative for blood in stools or black stools, vomiting, diarrhea PAST MEDICAL HISTORY Diagnosis Date Acute kidney failure (HCC) temporary liver and kindey failure due to reaction to antibiotic (unsure name) (was hospitalized) Anxiety 07/29/2012 Chronic anxiety 02/12/2018 Cognitive complaints 07/29/2012 MRI,MRA,MRV Concussion 2011 multiple Depression 07/29/2012 Drusen of both optic discs 07/29/2012 History of suicidal ideation 03/21/2018 inpatient Hypothyroidism 11/04/2020 Irritable bowel syndrome with both constipation and diarrhea 02/12/2018 Obesity Orthostatic dizziness 09/01/2012 Other dysphagia 08/11/2009 ? esophageal stricture on UGIS, normal EGD Syncope 09/02/2012 neg. extensive testing (tilt table, EEG) PAST SURGICAL HISTORY Procedure Laterality Date DENTAL SURGERY HX 03/2021 wisdom teeth removed ESOPHAGOSCOPY FLEXIBLE TRANSORAL DIAGNOSTIC 08/01/2009 normal TONSILLECTOMY HX ALLERGIES Articaine, Bupivacaine, Lidocaine, Mepivacaine, Prilocaine, Chlorpheniramine-Pseudoephed, Eggs [Egg], Fredo, Seasonal Allergies, and Tetracaine MEDICATIONS Multivitamin capsule Take 1 capsule by mouth once daily. clindamycin (CLEOCIN-T) 1 % gel Apply to affected area twice daily. ondansetron orally disintegrating (ZOFRAN ODT) 4 mg disintegrating tablet Take 1 tablet by mouth every 8 hours as needed for nausea/vomiting. omeprazole (PRILOSEC) 40 mg capsule Take 1 capsule by mouth once daily. ibuprofen (IBU-200 ORAL) Take by mouth. FAMILY HISTORY Problem Relation Age of Onset COPD Mother Asthma Mother Psoriasis Mother Psychiatry Father Bord.Personality Disorder Lymphoma Brother 1/2 brother COPD Maternal Grandfather Social History Tobacco Use Smoking status: Every Day Packs/day: 1 Types: Cigarettes Smokeless tobacco: Never Tobacco comments: 2014. Tried to quit several times. Vaping Use Vaping Use: Never used Substance Use Topics Alcohol use: No Drug use: Not Currently Types: Marijuana Comment: BP 120/77 Pulse 89 Resp 16 Wt 79.8 kg (176 lb) LMP 07/05/2020 (Exact Date) BMI 29.98 kg/m Physical Exam Constitutional: General: She is awake. She is not in acute distress. Appearance: She is not ill-appearing or toxic-appearing. HENT: Head: Normocephalic and atraumatic. Eyes: Extraocular Movements: Extraocular movements intact. Conjunctiva/sclera: Conjunctivae normal. Pupils: Pupils are equal, round, and reactive to light. Neck: Vascular: No carotid bruit. Cardiovascular: Rate and Rhythm: Normal rate and regular rhythm. Pulses: Normal pulses. Heart sounds: Normal heart sounds. No murmur heard. Pulmonary: Effort: Pulmonary effort is normal. Breath sounds: Normal breath sounds. No wheezing, rhonchi or rales. Musculoskeletal: Cervical back: Pain with movement and muscular tenderness present. No spinous process tenderness. Right lower leg: No edema. Left lower leg: No edema. Lymphadenopathy: Cervical: No cervical adenopathy. Skin: General: Skin is warm. Coloration: Skin is not pale. Neurological: General: No focal deficit present. Mental Status: She is alert and oriented to person, place, and time. Cranial Nerves: Cranial nerves 2-12 are intact. Sensory: Sensation is intact. Motor: Motor function is intact. Coordination: Coordination is intact. Gait: Gait is intact. Deep Tendon Reflexes: Reflexes are normal and symmetric. Psychiatric: Mood and Affect: Mood is anxious. DATA REVIEWED: Outside chart from [facility] ER reviewed. ASSESSMENT/PLAN: 1. Vertigo - ICD9: 780.4, ICD10: R42 Suspect BPPV. With light and sound sensitivity it is possible this could be an atypical migraine. No alarm symptoms or exam findings. Neuro exam is benign. No new or worsening symptoms since ER. - discussed etiology and treatment of BPPV - start home Uriah partical repositioning maneuvers - stay hydrated and don't skip meals - follow-up in two weeks if no improvement or sooner if worsening Prescription instructions reviewed with patient as applicable. Potential red flag symptoms discussed with the patient. Reviewed appropriate action plan to take if red flag symptoms occur. Patient agreeable to treatment plan. Mary Barragan APRN.GABRIELA documented in this encounter [facility] 12-08-2022 Note HNO ID: [id number] Author: Sheila Guadalupe APRN.GABRIELA Service: ? Author Type: Nurse Practitioner Type: Progress Notes Filed: 12/08/2022 12:21 PM Note Text: CC: Patient presents with: Ear Pain: right ear itching and now pain x this am HPI: Megan Leung is a 32 year old female who presents to the office with complaint of sinus symptoms and ear symptoms for a week. Symptoms are worsening Associated symptoms includes ear pain. Denies fever, nausea, vomiting , and diarrhea. Treatments tried include nothing so far. with no relief of symptoms. Sick contacts: unknown. History of asthma, frequent episodes of bronchitis, chronic bronchitis, bronchiectasis or COPD: No Smoker: No Seasonal/environmental allergies: No The ROS is otherwise negative. The patient's pmh, medications, allergies, and past visits are reviewed. PHYSICAL EXAM: BP 128/70 Pulse 106 Temp 36.8 ?C (98.2 ?F) Resp 16 Wt 84.8 kg (187 lb) LMP 07/05/2020 (Exact Date) SpO2 96% BMI 31.85 kg/m? General appearance: alert, cooperative, pleasant, in no acute distress Head: Normocephalic Eyes: EOM's intact, conjunctiva pink and moist, no icterus, sclera white, non-injected Ears: Right ear: External ear/canal- Normal, TM - erythematous, bulging. Left ear: External ear/canal- Normal, TM - clear with good landmarks Oropharynx:moist without lesions, No erythema, exudates or tonsillar hypertrophy. Heart: Negative. RRR without obvious murmur, gallop, or rubs. No ectopy. 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 esophageal stricture on UGIS, normal EGD Syncope 09/02/2012 neg. extensive testing (tilt table, EEG) PAST SURGICAL HISTORY Procedure Laterality Date DENTAL SURGERY HX 03/2021 wisdom teeth removed ESOPHAGOSCOPY FLEXIBLE TRANSORAL DIAGNOSTIC 08/01/2009 normal TONSILLECTOMY HX ALLERGIES Chlorpheniramine-Pseudoephed, Eggs [Egg], Fredo, Seasonal Allergies, and Tetracaine MEDICATIONS clindamycin (CLEOCIN-T) 1 % gel Apply to affected area twice daily. ibuprofen (IBU-200 ORAL) Take by mouth. ondansetron orally disintegrating (ZOFRAN ODT) 4 mg disintegrating tablet Take 1 tablet by mouth every 8 hours as needed for nausea/vomiting. amoxicillin (AMOXIL) 875 mg tablet Take 1 tablet by mouth twice daily for 7 days. omeprazole (PRILOSEC) 40 mg capsule Take 1 capsule by mouth once daily. FAMILY HISTORY Problem Relation Age of Onset COPD Mother Asthma Mother Psoriasis Mother Psychiatry Father Bord.Personality Disorder Lymphoma Brother 1/2 brother COPD Maternal Grandfather Social History Tobacco Use Smoking status: Every Day Packs/day: 1.00 Types: Cigarettes Smokeless tobacco: Never Tobacco comments: 2014. Tried to quit several times. Vaping Use Vaping Use: Never used Substance Use Topics Alcohol use: No Drug use: Not Currently Types: Marijuana Comment: ASSESSMENT/PLAN: 1. Acute otitis media, right - ICD9: 382.9, ICD10: H66.91 - AMOXICILLIN 875 MG TABLET Prescription instructions reviewed with patient as applicable. Potential red flag symptoms discussed with the patient. Reviewed appropriate action plan to take if red flag symptoms occur. Patient agreeable to treatment plan. Sheila Guadalupe APRN.[facility] 12-08-2022 History of Present illness Narrative CC: Patient presents with: Ear Pain: right ear itching and now pain x this am HPI: Megan Leung is a 32 year old female who presents to the office with complaint of sinus symptoms and ear symptoms for a week. Symptoms are worsening Associated symptoms includes ear pain. Denies fever, nausea, vomiting , and diarrhea. Treatments tried include nothing so far. with no relief of symptoms. Sick contacts: unknown. History of asthma, frequent episodes of bronchitis, chronic bronchitis, bronchiectasis or COPD: No Smoker: No Seasonal/environmental allergies: No The ROS is otherwise negative. The patient's pmh, medications, allergies, and past visits are reviewed. PHYSICAL EXAM: BP 128/70 Pulse 106 Temp 36.8 C (98.2 F) Resp 16 Wt 84.8 kg (187 lb) LMP 07/05/2020 (Exact Date) SpO2 96% BMI 31.85 kg/m General appearance: alert, cooperative, pleasant, in no acute distress Head: Normocephalic Eyes: EOM's intact, conjunctiva pink and moist, no icterus, sclera white, non-injected Ears: Right ear: External ear/canal- Normal, TM - erythematous, bulging. Left ear: External ear/canal- Normal, TM - clear with good landmarks Oropharynx:moist without lesions, No erythema, exudates or tonsillar hypertrophy. Heart: Negative. RRR without obvious murmur, gallop, or rubs. No ectopy. 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 esophageal stricture on UGIS, normal EGD Syncope 09/02/2012 neg. extensive testing (tilt table, EEG) PAST SURGICAL HISTORY Procedure Laterality Date DENTAL SURGERY HX 03/2021 wisdom teeth removed ESOPHAGOSCOPY FLEXIBLE TRANSORAL DIAGNOSTIC 08/01/2009 normal TONSILLECTOMY HX ALLERGIES Chlorpheniramine-Pseudoephed, Eggs [Egg], Fredo, Seasonal Allergies, and Tetracaine MEDICATIONS clindamycin (CLEOCIN-T) 1 % gel Apply to affected area twice daily. ibuprofen (IBU-200 ORAL) Take by mouth. ondansetron orally disintegrating (ZOFRAN ODT) 4 mg disintegrating tablet Take 1 tablet by mouth every 8 hours as needed for nausea/vomiting. amoxicillin (AMOXIL) 875 mg tablet Take 1 tablet by mouth twice daily for 7 days. omeprazole (PRILOSEC) 40 mg capsule Take 1 capsule by mouth once daily. FAMILY HISTORY Problem Relation Age of Onset COPD Mother Asthma Mother Psoriasis Mother Psychiatry Father Bord.Personality Disorder Lymphoma Brother 1/2 brother COPD Maternal Grandfather Social History Tobacco Use Smoking status: Every Day Packs/day: 1.00 Types: Cigarettes Smokeless tobacco: Never Tobacco comments: 2014. Tried to quit several times. Vaping Use Vaping Use: Never used Substance Use Topics Alcohol use: No Drug use: Not Currently Types: Marijuana Comment: [id number] ASSESSMENT/PLAN: 1. Acute otitis media, right - ICD9: 382.9, ICD10: H66.91 - AMOXICILLIN 875 MG TABLET Prescription instructions reviewed with patient as applicable. Potential red flag symptoms discussed with the patient. Reviewed appropriate action plan to take if red flag symptoms occur. Patient agreeable to treatment plan. Sheila Guadalupe APRN.GABRIELA documented in this encounter [facility] 10-02-2022 Miscellaneous Notes Pt transferred to [facility] to schedule with Women's Health. Maryellen Zavaleta LPN Please contact patient to schedule with Gynecology. Patient calls to ask if provider would place a referral to denture contour wire specialist for abnormal uterine bleeding (reports that she was off her menses for 8 days and started bleeding again on 09/29 moderate amount no clots). Nurse triage completed on 09/29/2022 with recommendation to be seen in 4 hours. Patient went to ER last night and they ruled out , UTI, and anemia. Pended referral. Estelita Acuña RN documented in this encounter [facility] 09-30-2022 Hospital Discharge instructions Patient Education 09/30/2022 14:12:43 Understanding Uterine Bleeding Understanding Uterine Bleeding Your uterine bleeding may be heavy. Or you may have bleeding between periods. These problems may be caused by hormonal imbalance. Or they can be caused by uterine growths, an intrauterine device (IUD), bleeding disorder, or . Hormonal imbalance Your menstrual cycle is controlled by hormones. The hormones include estrogen and progesterone. Sometimes there is too much or too little of one or both of these hormones, causing an imbalance. This can cause heavy periods. Or it can cause bleeding between periods. Causes of hormonal imbalance can include: Hormonal changes in teens and in women nearing menopause Diabetes, thyroid disease, or other medical problems Obesity Stress Strenuous exercise Anorexia, an eating disorder Uterine growths There are different kinds of uterine growths. These include: Fibroids. These are round knots of noncancer (benign) muscle tissue in the uterus. Polyps. These are soft tissue growths in the uterine lining. They often extend into the uterus. Adenomyosis. This is when the uterine lining grows into the muscle wall. Hyperplasia. This is when the uterine lining gets too thick or grows too much. Endometrial cancer. This is uncontrolled growth of part of the uterine lining. Other causes of uterine bleeding There are other causes of uterine bleeding. These include: IUD (intrauterine device). This is a method of control. Some IUDs contain hormones. Bleeding disorders. This is when the blood can't clot properly. Treatment Your healthcare provider can help diagnose the cause of your bleeding problem. He or she will work with you to plan treatment as needed. [id number] The [employer]. [address] [place] [address], [place] [address]. All rights reserved. This information is not intended as a substitute for professional medical care. Always follow your healthcare professional's instructions. Follow Up Care 09/30/2022 12:33:24 With:CASIMIRO STARR Address: [address] [place] [phone] When:2-4 days [facility] 09-30-2022 Note Discharge Instructions Thank you for allowing [facility] to assist you with your healthcare needs. The following is important discharge information regarding your hospital visit. Diagnosis from Today's Visit Dysfunctional uterine bleeding Abdominal pain Vaginal bleeding Weakness or fatigue What to Do Next Instructions from Your Care Team No qualifying data available. Post Acute Orders No qualifying data available. You Need to Schedule the Following Appointments Follow Up with CASIMIRO STARR When Within 2-4 days Where: [address] [place] [phone] Allergies Allerest Maximum Strength Allerest Sinus BUPivacaine Cashews Eggs Fredo articaine lidocaine mepivacaine prilocaine tetracaine Medications Please ask your primary doctor or pharmacist before taking any other medication not listed, including over the counter drugs, herbal medications, vitamins and or supplements as they may interact with your home medications. What How Much When Why Instructions Last Dose New naproxen (naproxen 500 mg oral tablet) 1 tab(s) by mouth Two (2) times a day as needed for as needed for pain Dysfunctional uterine bleeding Printed Prescription Unchanged amoxicillin (amoxicillin 500 mg oral tablet) 1 tab(s) by mouth Three (3) times a day Duration: 7 Days Unchanged clindamycin (clindamycin 150 mg oral capsule) 1 cap by mouth Every 6 hours Dental abscess Duration: 7 Days Unchanged ibuprofen (ibuprofen 600 mg oral tablet) 1 tab(s) by mouth Every 6 hours as needed for for pain Dental abscess Take with food or milk. Unchanged meclizine (Antivert 25 mg oral tablet) 1 tab(s) by mouth Three (3) times a day as needed for for dizziness Please take this list to your next doctor s visit. Bring all medications you take, including over the counter medications, herbals and other supplements with you to your doctor s visit. Patients and families are reminded to discard old lists and to update any records with all medication providers or retail pharmacies. Medication Leaflets naproxen (na PROX en) Aleve, Anaprox-DS, Midol Extended Relief, Naprelan 500, Naprosyn What is the most important information I should know about naproxen? Naproxen can increase your risk of fatal heart attack or stroke. Do not use this medicine just before or after heart bypass surgery (coronary artery bypass graft, or CABG). Naproxen may also cause stomach or intestinal bleeding, which can be fatal. What is naproxen? Naproxen is a nonsteroidal anti-inflammatory drug (NSAID). Naproxen is used to treat pain or inflammation caused by conditions such as arthritis, ankylosing spondylitis, tendinitis, bursitis, gout, or menstrual cramps. The delayed-release or extended-release tablets are slower-acting forms of naproxen that are used only for treating chronic conditions such as arthritis or ankylosing spondylitis. These forms of naproxen will not work fast enough to treat acute pain. Naproxen may also be used for purposes not listed in this medication guide. What should I discuss with my healthcare provider before taking naproxen? Naproxen can increase your risk of fatal heart attack or stroke, even if you don't have any risk factors. Do not use this medicine just before or after heart bypass surgery (coronary artery bypass graft, or CABG). Naproxen may also cause stomach or intestinal bleeding, which can be fatal. These conditions can occur without warning while you are using naproxen, especially in older adults. You should not use naproxen if you are allergic to it, or if you have ever had an asthma attack or severe allergic reaction after taking aspirin or an NSAID. Ask a doctor before giving naproxen to a child younger than 12 years old. Ask a doctor or pharmacist if this medicine is safe to use if you have: heart disease, high blood pressure, high cholesterol, diabetes, or if you smoke; a heart attack, stroke, or blood clot; stomach ulcers or bleeding; asthma; liver or kidney disease; fluid retention; or if you take aspirin to prevent heart attack or stroke. If you are , you should not take naproxen unless your doctor tells you to. Taking an NSAID during the last 20 weeks of can cause serious heart or kidney problems in the unborn baby and possible complications with your . It may not be safe to breastfeed while using this medicine. Ask your doctor about any risk. How should I take naproxen? Use exactly as directed on the label, or as prescribed by your doctor. Use the lowest dose that is effective in treating your condition. Shake the oral suspension (liquid) before you measure a dose. Measure a dose with the supplied measuring device (not a kitchen spoon). Take this medicine with food or milk if it upsets your stomach. Always follow directions on the medicine label about giving this medicine to a child. Naproxen doses are based on weight in children. Your child's dose needs may change if the child gains or loses weight. If you use naproxen long-term, you may need frequent medical tests. This medicine can affect the results of certain medical tests. Tell any doctor who treats you that you are using naproxen. Store at room temperature away from moisture, heat, and light. Keep the bottle tightly closed when not in use. What happens if I miss a dose? Since naproxen is used when needed, you may not be on a dosing schedule. Skip any missed dose if it's almost time for your next dose. Do not use two doses at one time. What happens if I overdose? Seek emergency medical attention or call the Poison Help line at . What should I avoid while taking naproxen? Avoid drinking alcohol. It may increase your risk of stomach bleeding. Avoid taking aspirin or other NSAIDs unless your doctor tells you to. Ask a doctor or pharmacist before using other medicines for pain, fever, swelling, or cold/flu symptoms. They may contain ingredients similar to naproxen (such as aspirin, ibuprofen, or ketoprofen). Ask your doctor before using an antacid, and use only the type your doctor recommends. Some antacids can make it harder for your body to absorb naproxen. What are the possible side effects of naproxen? Get emergency medical help if you have signs of an allergic reaction (runny or stuffy nose, wheezing or trouble breathing, hives, swelling in your face or throat) or a severe skin reaction (fever, sore throat, burning eyes, skin pain, red or purple skin rash with blistering and peeling). Stop using naproxen and seek medical treatment if you have a serious drug reaction that can affect many parts of your body. Symptoms may include skin rash, fever, swollen glands, muscle aches, severe weakness, unusual bruising, or yellowing of your skin or eyes. Get emergency medical help if you have signs of a heart attack or stroke: chest pain spreading to your jaw or shoulder, sudden numbness or weakness on one side of the body, slurred speech, leg swelling, feeling short of breath. Stop using naproxen and call your doctor at once if you have: shortness of breath (even with mild exertion); swelling or rapid weight gain; the first sign of any skin rash or blister, no matter how mild; signs of stomach bleeding--bloody or tarry stools, coughing up blood or vomit that looks like coffee grounds; liver problems--nausea, upper stomach pain, loss of appetite, dark urine, destiny-colored stools, jaundice (yellowing of the skin or eyes); kidney problems--little or no urination, painful urination, swelling in your feet or ankles; or low red blood cells (anemia)--pale skin, unusual tiredness, feeling light-headed or short of breath, cold hands and feet. Common side effects may include: headache; indigestion, heartburn, stomach pain; or flu symptoms; This is not a complete list of side effects and others may occur. Call your doctor for medical advice about side effects. You may report side effects to FDA at 1-816-WHU-4066. What other drugs will affect naproxen? Ask your doctor before using naproxen if you take an antidepressant. Taking certain antidepressants with an NSAID may cause you to bruise or bleed easily. Ask a doctor or pharmacist before using naproxen with any other medications, especially: other NSAIDs or salicylates (diflunisal, salsalate); antacids and sucralfate; cholestyramine; cyclosporine; digoxin; lithium; methotrexate; pemetrexed; probenecid; warfarin (Coumadin, Jantoven) or similar blood thinners; a diuretic or 'water pill'; or heart or blood pressure medication. This list is not complete. Other drugs may affect naproxen, including prescription and [id number] medicines, vitamins, and herbal products. Not all possible drug interactions are listed here. Where can I get more information? Your pharmacist can provide more information about naproxen. Remember, keep this and all other medicines out of the reach of children, never share your medicines with others, and use this medication only for the indication prescribed. Every effort has been made to ensure that the information provided by [employer]. ('[employer] is accurate, up-to-date, and complete, but no guarantee is made to that effect. Drug information contained herein may be time sensitive. [employer] information has been compiled for use by healthcare practitioners and consumers in the [place] and therefore [employer] does not warrant that uses outside of the [place] are appropriate, unless specifically indicated otherwise. [employer] drug information does not endorse drugs, diagnose patients or recommend therapy. [employer] drug information is an informational resource designed to assist licensed healthcare practitioners in caring for their patients and/or to serve consumers viewing this service as a supplement to, and not a substitute for, the expertise, skill, knowledge and judgment of healthcare practitioners. The absence of a warning for a given drug or drug combination in no way should be construed to indicate that the drug or drug combination is safe, effective or appropriate for any given patient. [employer] does not assume any responsibility for any aspect of healthcare administered with the aid of information [employer] provides. The information contained herein is not intended to cover all possible uses, directions, precautions, warnings, drug interactions, allergic reactions, or adverse effects. If you have questions about the drugs you are taking, check with your doctor, nurse or pharmacist. Copyright 9975-5020 [employer]. Version: 20.. Revision Date: 10/31/2021. Education Materials Understanding Uterine Bleeding Your uterine bleeding may be heavy. Or you may have bleeding between periods. These problems may be caused by hormonal imbalance. Or they can be caused by uterine growths, an intrauterine device (IUD), bleeding disorder, or . Hormonal imbalance Your menstrual cycle is controlled by hormones. The hormones include estrogen and progesterone. Sometimes there is too much or too little of one or both of these hormones, causing an imbalance. This can cause heavy periods. Or it can cause bleeding between periods. Causes of hormonal imbalance can include: Hormonal changes in teens and in women nearing menopause Diabetes, thyroid disease, or other medical problems Obesity Stress Strenuous exercise Anorexia, an eating disorder Uterine growths There are different kinds of uterine growths. These include: Fibroids. These are round knots of noncancer (benign) muscle tissue in the uterus. Polyps. These are soft tissue growths in the uterine lining. They often extend into the uterus. Adenomyosis. This is when the uterine lining grows into the muscle wall. Hyperplasia. This is when the uterine lining gets too thick or grows too much. Endometrial cancer. This is uncontrolled growth of part of the uterine lining. Other causes of uterine bleeding There are other causes of uterine bleeding. These include: IUD (intrauterine device). This is a method of control. Some IUDs contain hormones. Bleeding disorders. This is when the blood can't clot properly. Treatment Your healthcare provider can help diagnose the cause of your bleeding problem. He or she will work with you to plan treatment as needed. 2205-4151 [employer]. [address] [place] [address]. All rights reserved. This information is not intended as a substitute for professional medical care. Always follow your healthcare professional's instructions. Additional Information VACCINATE! IT SAVES LIVES! Members of the community who have not yet received the COVID-19 vaccine and would like to receive it can visit one of [facility] vaccine clinics. There are many vaccine clinic locations within the [facility]. For locations and available times, please visit [email or web address] It is important to note that some COVID mobile vaccine clinics are held outdoors and may be canceled in rainy or stormy conditions. To learn more about pediatric vaccinations (ages 5-11), we invite you to visit the [facility] webpage. [email or web address] [email or web address] To learn more about the COVID-19 vaccine, we invite you to visit the CDC website for a list of frequently asked questions. https://www.cdc.gov/coronavirus/2 019-ncov/vaccines/faq.html [facility] [employer] Patient Portal Access Instructions: Stay connected with your healthcare team and access your personal medical information anytime with the [employer] [employer] Patient Portal. If you would like a full copy of your medical records please contact the [facility] Medical Records Department Saturday through Saturday between 8a.m. and 4:30p.m. Please follow the directions below to access the portal: 1.Access the email account you provided upon registration to the [facility].2.Look for an invitation email from [facility].3.Open the email and access the invitation link: Accept Invitation to [facility] [employer]4.Fill in the required spicer to create your account. Sign into [email or web address] with your username and password that you created in the above steps to stay up to date. You can then view a summary of results, a summary of your visits, and the ability to download your summaries to your computer or send the information securely to a physician. Remember that your healthcare information is confidential, so carefully consider who you will allow to register on the [facility] Patient Portal for access to your information. You can also access the [facility] Patient Portal on the [email or web address]. Simply click on Health Records under Health Data and then click on the [employer] logo. HOW TO SAFELY DISPOSE OF PRESCRIPTION MEDICATIONS Please use one of the following methods to safely dispose of your unused medications. 1.Use a drug disposal kit: the drug disposal pouch allows you to safely discard your old and unused drugs. Ask your nurse to give you one when you are discharged.2.Visit a local take-back location: Many local pharmacies and police departments have programs that collect old and unwanted prescription drugs. Call your local pharmacy or go to http://M.Setek.Diavibe/0L7Xa8i to find one close to you.3.Make use of household items: Use cat litter or old coffee grounds to dispose medications if other options are not available. Mix your drugs with these household products, seal them in an airtight container and throw it into the garbage. Call [facility]: [phone] to be sure your drugs can be disposed of in this way. Some medicines may require a different approach.4.Never flush your medications down the toilet. IF YOU HAVE BEEN PRESCRIBED AN OPIOIDS FOR PAIN If you have been prescribed an opioid (such as hydrocodone, oxycodone or morphine), it is critical to understand the possible side effects and risks of opioid pain medications. Even when taken as directed, opioids can have several side effects including: Tolerance, meaning you might need to take more of a medication for the same pain relief. Nausea, vomiting and/or constipation. Sleepiness, dizziness, dry mouth, confusion, depression or itching. Physical dependence, meaning you have withdrawal symptoms when a medication is stopped ? this can develop within a few days. KNOW YOUR RESPONSIBILITIES It is important to know exactly how much and how often to take the opioid pain medications you are prescribed. Never take opioids in higher amounts or more often than prescribed. Do not combine opioids with alcohol or other drugs that cause drowsiness, such as benzodiazepines, also known as benzos, including diazepam and alprazolam, muscle relaxants or sleep aids. Never sell or share prescription opioids. This is illegal. Store opioids in a secure place and out of reach of others (including children, family, friends and visitors). The last page(s) of this document has been signed and retained as a CHART COPY Signatures Patient Education Materials Understanding Uterine Bleeding Medication Leaflets naproxen My discharge plan and instructions have been reviewed and explained to me and I,MEGAN LEUNG understand my current condition and have read and understand these discharge instructions. I have received a written copy of the plan/instructions. If I have questions, I am aware that I should contact my doctor. Patient/[employer] Signature: Date/Time: Relationship to Patient: ____ Witness Name/Signature: Date/Time: [facility] 09-29-2022 Miscellaneous Notes Reason for Call: Patient is very concerned about abnormal vaginal bleeding. Is also experiencing symptoms consistent with UTI. Outcome: Be seen within 4 hours. Reason for Disposition [1] Constant abdominal pain AND [2] present > 2 hours Answer Assessment - Initial Assessment Questions 1. AMOUNT: Placed one overnight size pad in underwear 2 hours ago, now with streaks of blood. No blood clots. 2. ONSET: Today, 2 hours ago. 3. MENSTRUAL PERIOD: LMP 09/14 - 09/20/22. 4. REGULARITY: Once a month for 3-4 months in a row, and then 2 weeks late the next month. 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 States she has seen her Family Medicine provider in [facility]. 5. ABDOMINAL PAIN: Onset lower abdominal pain, onset 1400, constant, rates 2/10. No pain medication use. 6. : Does not suspect she is . LMP see above. Has not taken a test. 7. : I've never been . 8. HORMONES: No. 9. BLOOD THINNERS: No. 10. CAUSE: Does not know. 11. OTHER SYMPTOMS: e cramps) Woke this morning with bilateral lower back pain, resolved this afternoon and has not returned. Denies urination pain, cloudy urine, odorous urine, fever. Temperature 98.5 oral 30 minutes ago. Urinating every 90 - 120 minutes. Protocols used: Vaginal Bleeding - [id number] documented in this encounter [facility] 07-30-2022 Miscellaneous Notes e Patient has been identified by name and date of : Yes Requested Prescriptions Pending Prescriptions Disp Refills clindamycin (CLEOCIN-T) 1 % gel 60 g 5 Sig: Apply to affected area twice daily. RX INSTRUCTIONS: Patient is out of the gel. Asking approval as soon as possible, she has a lot of discomfort Patient aware RX will be sent to pharmacy. No need to notify patient. Jinny Neal documented in this encounter [facility] 06-26-2022 Note HNO ID: [id number] Author: Tank Mann, Therapist Service: ? Author Type: Therapist Type: Progress Notes Filed: 06/26/2022 12:09 PM Note Text: Behavioral Health Social Work Progress Note Patient identified for [facility] from: PCP Reason for referral: Resources Behavioral Health Resources: Psychiatry med management [facility] encounter type: MyChart Message Attempts to Outreach: 2 attempts Referral made: Psychiatry - External Psychiatry-External referral type: Medication Management Reason for external referral: Other Final Disposition: Resources given Patient Discharged?: No Patient reported that caregiver was able to meet their needs today?: N/A SW sent follow up Dali [employer] message to Pt with name and contact information of external provider for psychiatry services. Tank Mann Therapist June 26, 2022 [facility] 06-26-2022 History of Present illness Narrative Behavioral Health Social Work Progress Note Patient identified for [facility] from: PCP Reason for referral: [facility] Behavioral Health Resources: Psychiatry med management [facility] encounter type: MyChart Message Attempts to Outreach: 2 attempts Referral made: Psychiatry - External Psychiatry-External referral type: Medication Management Reason for external referral: Other Final Disposition: Resources given Patient Discharged?: No Patient reported that caregiver was able to meet their needs today?: N/A SW sent follow up [employer] message to Pt with name and contact information of external provider for psychiatry services. Daija Larkin June 26, 2022 documented in this encounter [facility] 06-22-2022 Miscellaneous Notes Behavioral Health Social Work Progress Note Patient identified for [facility] from: PCP Reason for referral: [facility] Behavioral Health Resources: Psychiatry med management;Psychology - talk therapy [facility] encounter type: Telephone Encounter Attempts to Outreach: 1 attempt Final Disposition: Other Patient Discharged?: No Patient reported that caregiver was able to meet their needs today?: N/A SW spoke to Pt to update Pt on insurance status of appointment and explore potential financial options. Tank Mann Therapist June 22, 2022 documented in this encounter [facility] 06-13-2022 Miscellaneous Notes Behavioral Health Social Work Progress Note Patient identified for [facility] from: PCP Reason for referral: [facility] Behavioral Health Resources: Psychiatry med management;Psychology - talk therapy [facility] encounter type: Telephone Encounter Attempts to Outreach: 3 attempts Patient Discharged?: No Patient reported that caregiver was able to meet their needs today?: N/A SW spoke to Pt after Pt called. Pt requested mental health assessment to being internal mental health services with 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. Assessment scheduled for July 04 at 2 PM. Tank Mann Therapist June 13, 2022 documented in this encounter [facility] 06-13-2022 Miscellaneous Notes Behavioral Health Social Work Progress Note Patient identified for [facility] from: PCP Reason for referral: [facility] Behavioral Health Resources: Psychiatry med management;Psychology - talk therapy [facility] encounter type: Telephone Encounter Attempts to Outreach: 1 attempt Final Disposition: Unable to reach Patient Discharged?: No Patient reported that caregiver was able to meet their needs today?: N/A SW attempted to call Pt to schedule mental health assessment, but no voicemail box was set up. Outreach also to be completed through [employer] for assessment scheduling. Tank Mann Therapist June 13, 2022 documented in this encounter [facility] 06-13-2022 Miscellaneous Notes Behavioral Health Social Work Progress Note Patient identified for [facility] from: PCP Reason for referral: [facility] Behavioral Health Resources: Psychology - talk therapy;Psychiatry med management [facility] encounter type: Telephone Encounter Attempts to Outreach: 3 attempts Referral made: Psychiatry - Internal;Psychiatry - External;Psychology - Internal;Psychology - External Psychiatry-Internal referral type: Medication Management Psychology-Internal referral type: Therapy Psychology-External referral type: Therapy Psychiatry-External referral type: Medication Management Reason for external referral: Wait times at [facility] too long Final Disposition: Resources given Patient Discharged?: Yes Patient reported that caregiver was able to meet their needs today?: Yes SW made a second attempt at reaching patient by phone, as she did not return the first phone call or read her [employer] message. Patient answered and discussed her current mental health concerns. She states she's currently miserable and her symptoms are impacting her quality of life. Struggles with sleep, which also has been affecting her daily. Discussed possible anxiety, bipolar, borderline personality disorder as diagnosis - states she's taken multiple online assessments. Patient also reports she's seen several doctors and gotten a different diagnosis every time. Patient denies SI/HI/AVS, states she has made claims of SI in the past and even spent 2 weeks on a voluntary psych hold in an attempt to get help and so people would take me seriously . Discussed with Venita Gonzalez APRN.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 at [facility]. Will need assessment completed before an appointment is made with this provider. Patient also has community resources for [facility]. [facility] assessment will be completed by EDUARDA Larkin who will contact patient and schedule accordingly. Per Venita, after [facility] deems that the patient is appropriate, they can route their chart to her and her nurse, Bernie Phillips LPN who can assist with patient scheduling. No needs further from this SW at this time. CORETTA Meyers June 13, 2022 documented in this encounter [facility] 01-16-2022 History of Present illness Narrative This note was created using [employer]. Subjective Patient presents with: Establish Care: from Dr. Miller Thyroid Problem Multiple Concerns Megan Leung is a 31 year old female. She's had chronic longstanding symptoms of fatigue, mood swings, depression, anxiety, dizziness, joint pains, headache (head felt inflated), and brain fog (memory and concentration difficulties). Other symptoms were chest pains, palpitations, and migrating muscle and joint pains. Most symptoms became disabling after one of her syncopal episodes, head injury, and concussion in 2011. Her primary physicians then referred her to [facility] in 2012, where extensive evaluation by neurology, cardiology, yielded negative results. Neuropsychological testing in 2013 was done documenting her mood and cognitive difficulties baseline. She continued on treatments for depression and anxiety with less than satisfactory results, [facility]. She started coming here for care last year, and was diagnosed with hypothyroidism. She was started on a low dose of thyroid hormone which was by her description marvelous. She felt normal after decades of not feeling well. She stopped going for mental health care and stopped her medications. Unfortunately, the effect did not last more than a few months. She hoped to have control of her symptoms, to get motivated and get active again. She used to enjoy outdoor activities. She had not felt well enough to work for many years, due to fatigue, dizziness, and pains. She did not exercise, and spent lots of time on the internet. She applied for service in the [employer] in 2016, but did not make it beyond her MEPS. She still wished she could re enlist. We reviewed her mood questionnaires, but she did not want to address them at this time. She was interested in getting her thyroid condition well managed. She was in the ER 2 weeks ago for chest pain. She declined labs, and her EKG was unchanged. She was advised to hold her thyroid medication due to palpitations, so she did and was feeling better heart godfrey. Review of Systems Constitutional: Positive for fatigue. Negative for activity change, appetite change, fever and unexpected weight change. HENT: Negative. Eyes: Negative. Respiratory: Negative for cough, shortness of breath and wheezing. Cardiovascular: Positive for chest pain and palpitations. Negative for leg swelling. Gastrointestinal: Negative for abdominal pain, diarrhea, nausea and vomiting. Genitourinary: Positive for dyspareunia. Negative for difficulty urinating, dysuria and flank pain. Musculoskeletal: Positive for arthralgias and myalgias. Negative for joint swelling. Skin: Negative. Neurological: Positive for dizziness, speech difficulty and light-headedness. Negative for tremors, seizures, syncope, facial asymmetry, weakness and numbness. Psychiatric/Behavioral: Positive for decreased concentration, dysphoric mood and sleep disturbance. Negative for self-injury and suicidal ideas. The patient is nervous/anxious. 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 esophageal stricture on UGIS, normal EGD Syncope 09/02/2012 neg. extensive testing (tilt table, EEG) PAST SURGICAL HISTORY Procedure Laterality Date DENTAL SURGERY HX 03/2021 wisdom teeth removed ESOPHAGOSCOPY FLEXIBLE TRANSORAL DIAGNOSTIC 08/01/2009 normal TONSILLECTOMY HX FAMILY HISTORY Problem Relation Age of Onset COPD Mother Asthma Mother Psoriasis Mother Psychiatry Father Bord.Personality Disorder Lymphoma Brother 1/2 brother COPD Maternal Grandfather Social History Tobacco Use Smoking status: Current Every Day Smoker Packs/day: 1.00 Types: Cigarettes Smokeless tobacco: Never Used Tobacco comment: 2014. Tried to quit several times. Vaping Use Vaping Use: Never used Substance Use Topics Alcohol use: No Drug use: Not Currently Types: Marijuana Comment: [id number] ALLERGIES Allergen Reactions Chlorpheniramine-Ps* Other: See Comments Allerest. felt bad Eggs [Egg] GI Upset nausea/vomitting [place] Swelling Seasonal Allergies Cough Tetracaine Other: See Comments Mildly positive allergy skin test to tetracaine on April 12, 2021. Allergy skin tests were negative to bupivacaine, mepivacaine and lidocaine. History of contact irritation with use of topical lidocaine. Recommend use of mepivacaine or bupivacaine for future procedures. Current Outpatient Medications Medication Sig ibuprofen (IBU-200 ORAL) Take by mouth. ondansetron orally disintegrating (ZOFRAN ODT) 4 mg disintegrating tablet Take 1 tablet by mouth every 8 hours as needed for nausea/vomiting. levothyroxine (LEVOXYL) 25 mcg tablet Take 1 tablet by mouth once daily. Take on empty stomach. For Thyroid (Patient not taking: Reported on 01/16/2022 ) No current facility-administered medications for this visit. Objective BP 122/81 (BP Site: Left Arm, BP Position: Supine, BP Cuff Size: Large Adult) Pulse 88 Temp 36.4 C (97.5 F) (Temporal Artery) Resp 20 Ht 163.2 cm (5' 4.25 ) Wt 80.4 kg (177 lb 3.2 oz) LMP 07/05/2020 (Exact Date) BMI 30.18 kg/m Physical Exam Constitutional: Appearance: She is not ill-appearing. HENT: Head: Normocephalic. Eyes: Extraocular Movements: Extraocular movements intact. Pupils: Pupils are equal, round, and reactive to light. Cardiovascular: Rate and Rhythm: Normal rate and regular rhythm. Heart sounds: No murmur heard. No gallop. Pulmonary: Effort: Pulmonary effort is normal. Breath sounds: Normal breath sounds. Abdominal: Palpations: Abdomen is soft. Tenderness: There is no abdominal tenderness. Musculoskeletal: General: No swelling, tenderness or deformity. Normal range of motion. Cervical back: Neck supple. Right lower leg: No edema. Left lower leg: No edema. Lymphadenopathy: Cervical: No cervical adenopathy. Skin: General: Skin is warm and dry. Neurological: General: No focal deficit present. Mental Status: She is alert and oriented to person, place, and time. Cranial Nerves: No cranial nerve deficit. Sensory: No sensory deficit. Motor: No weakness. Coordination: Coordination normal. Gait: Gait normal. Deep Tendon Reflexes: Reflexes normal. Psychiatric: Attention and Perception: Attention normal. Mood and Affect: Mood normal. Speech: Speech normal. Behavior: Behavior normal. Thought Content: Thought content normal. Cognition and Memory: Cognition normal. CP PHQ9 01/16/2022 Little interest or pleasure 3 - Nearly every day Feeling down, depressed, hopeless 2 - More than half the days Trouble falling or staying asleep, sleeping too much 3 - nearly every day Feeling tired, having little energy 3 - Nearly every day Poor appetite or overeating 3 - Nearly every day Feeling bad about yourself, failure or you have let yourself/family down 0 - Not at all Trouble concentrating on things 0 - Not at all Moving or speaking so slowly, or fidgety or restless 2 - More than half the days Thoughts that you would be better off , or of hurting yourself in some way 0 - Not at all How difficult have these problems made things Extremely difficult Interpretation of Total Score 15-19 Moderately severe depression PARVEEN-7 ANXIETY SCALE 01/16/2022 FEELING NERVOUS,ANXIOUS,OR ON EDGE 2 Over half the days NOT BEING ABLE TO STOP OR CONTROL WORRYING 0 Not at all sure WORRYING TOO MUCH ABOUT DIFFERENT THINGS 0 Not at all sure TROUBLE RELAXING 1 Several days BEING SO RESTLESS THAT IT'S HARD TO SIT STILL 1 Several days BEING EASILY ANNOYED OR IRRITABLE 0 Not at all sure FEELING AFRAID IF SOMETHING AWFUL MIGHT HAPPEN 1 Several days GAD7 SCORE 5 IF YOU CHECKED OFF ANY PROBLEMS Not difficult at all Assessment and Plan 1. Hypothyroidism, unspecified type - ICD9: 244.9, ICD10: E03.9 (primary diagnosis) Continue holding Synthroid to reestablish baseline. I downplayed expectation that this is the solution to all her symptoms. Questions about Fuentes's which she read on the internet were discussed. - TSH BLD - T4 FREE/FREE THYROX - THYROID PEROXIDASE ANTIBODY BLOOD 2. Chronic fatigue - ICD9: 780.79, ICD10: R53.82 - COMP METABOLIC PANEL - CBC 3. Lightheadedness - ICD9: 780.4, ICD10: R42 Chronic. 4. Brain fog - ICD9: 799.59, ICD10: R41.89 Chronic. 5. Encounter for hepatitis C screening test for low risk patient - ICD9: V73.89, ICD10: Z11.59 - HEP C AB IA W/CONF SCRN 6. Screening for HIV without presence of risk factors - ICD9: V73.89, ICD10: Z11.4 - HIV 1 2 COMBO(AG/AB),WITH REFLEX TO DIFFERENTIATION 7. Multiple joint pain - ICD9: 719.49, ICD10: M25.50 - SED RATE WESTERGREN - C-REACTIVE PROTEIN (CRP) 8. Dyspareunia in female - ICD9: 625.0, ICD10: N94.10 Referral to GYNECOLOGY was declined. Foster Decker MD documented in this encounter [facility] 01-02-2022 Miscellaneous Notes Reason for call: Patient complains of 7/10 moderate chest pain for the last hour. States it is constant, radiates to her posterior inner shoulder blades. Describes the pain as burning/sharp in her chest to her throat area. States she is having difficulty breathing, is able to speak in complete sentences. Patient does state she has a hx of anxiety but feels this is different than her anxiety attacks. States she feels her heart is racing. Had patient count her heart rate - 120 BPM Outcome: Recommendation for ED now. Patient verbally understands and agrees. Patient will call her mother to take her to the ED; advised patient is transportation is not immediate, call 911 for immediate medical evaluation and transportation. Reason for Disposition Difficulty breathing Protocols used: CHEST [id number] documented in this encounter [facility] 10-03-2021 Miscellaneous Notes Behavioral Health Social Work Progress Note Patient identified for [facility] from: PCP Reason for referral: Resources Behavioral Health Resources: Psychology - talk therapy [facility] encounter type: Telephone Encounter Attempts to Outreach: 2 attempts Final Disposition: Unable to reach Patient Discharged?: No Received pt referral to assess pt well-being and provide referrals to out patient behavioral health support services. Per chart pt is seeking neuro-psych testing resources. Attempted to reach pt on mobile number listed, there was no answer, however a voicemail was left with instructions to call this keno writer/runner at her convenience to further discuss her symptoms and determine an appropriate level of care. A [employer] message was sent with contact information for neuro-psych testing at . She was advised to call at her leisure to schedule. EDUARDA Field October 03, 2021 documented in this encounter [facility] 09-29-2021 Miscellaneous Notes ab documented in this encounter [facility] 09-28-2021 Miscellaneous Notes Addended by: LENI BARRAGAN on: 09/28/2021 11:48 AM Modules accepted: Orders documented in this encounter [facility] 09-28-2021 History of Present illness Narrative CC: Patient presents with: Recheck: Would like referral for ASD assesment HPI Megan Leung is a 31 year old female who presents today for autism evaluation. is with patient to help explain issues. Has been thought of awkward all of her life. Has never been evaluated for autism, but has done an online assessment that showed her high on the scale. Did go to counseling center for years for anxiety and situational depression and was put on a med for aspbergers but unsure what it was. States this was helpful. Has difficulty handling change which will cause her intense anxiety, to shake, and trouble leaving the house. Per patient she has no social skills, has difficulty with being around people, gets over stimulated easily which causes her shake, get extremely anxious and she will have to quit if she is at work. Has difficulty keeping jobs and getting new jobs. She finds that she hyper focuses on tasks and unable to multi task. Has difficulty talking with coworkers which causes work related issues. Has a friend that has aspbergers that she found she could communicate well with. With her difficulty with relationships, keeping a job, and handling life, she wants to be evaluated and if there are any possibly treatments that will help her. History of anxiety: Sleep: is described as normal Alcohol use: does not drink any alcohol Drug use: No Appetite: good Stresses: Major stressor: Keeping a job Suicidal Thoughts: No suicidal ideation, intent or plan Support: Comes from multiple sources including family Counseling: No REVIEW OF SYSTEMS See HPI PAST MEDICAL HISTORY Diagnosis Date Concussion multiple Kidney failure temporary liver and kindey failure due to reaction to antibiotic (unsure name) (was hospitalized) Obesity Stricture and stenosis of esophagus difficulty swallowing with thyroid swelling PAST SURGICAL HISTORY Procedure Laterality Date ADENOIDECTOMY HX DENTAL SURGERY HX wisdom teeth removed ESOPHAGOSCOPY FLEXIBLE TRANSORAL DIAGNOSTIC 08/01/09 TONSILLECTOMY HX ALLERGIES Allerex [Other], Seasonal Allergies, and Tetracaine MEDICATIONS levothyroxine (LEVOXYL) 25 mcg tablet Take 1 tablet by mouth once daily. Take on empty stomach. For Thyroid ibuprofen (IBU-200 ORAL) Take by mouth. ondansetron orally disintegrating (ZOFRAN ODT) 4 mg disintegrating tablet Take 1 tablet by mouth every 8 hours as needed for nausea/vomiting. No family history on file. Social History Tobacco Use Smoking status: Current Every Day Smoker Packs/day: 1.00 Types: Cigarettes Smokeless tobacco: Never Used Substance Use Topics Alcohol use: No Drug use: No PHYSICAL EXAM BP 108/76 Pulse 86 Resp 16 Wt 83 kg (183 lb) LMP 07/05/2020 (Exact Date) BMI 30.45 kg/m General Appearance: well appearing, in no acute distress, alert Pysch: Patient nervous constantly shaking one of her legs and rubbing her fingers. Poor eye contact when talking, does make eye contract short term when being spoken to. Eyes: conjunctiva pink and moist, no icterus, sclera white, non-injected Lungs: Lungs clear to auscultation. No wheezing, rhonchi, rales. Heart: RRR without murmur, gallop, or rubs. No ectopy Health maintenance reviewed with patient: HEPATITIS C SCREENING Never done HIV SCREENING Never done DTAP,TDAP,TD(1 - Tdap) Never done ONE PNEUMOVAX PRIOR TO AGE 65 Never done PAP TESTING Never done HPV TESTING Never done COVID-19 VACCINE(1) due on 09/28/2022 DEPRESSION SCREENING due on 10/28/2021 INFLUENZA(Season Ended) due on 02/22/2022 ANNUAL PCP TEAM CHRONIC DISEASE VISIT due on 08/04/2022 MENINGOCOCCAL CONJUGATE Aged Out DATA REVIEWED: No new labs ASSESSMENT/PLAN: 1. Autism spectrum disorder - ICD9: 299.00, ICD10: F84.0 - symptoms and behavior indicate patient is on the spectrum. Needs assessed to diagnose and hopefully be able to be treated so she can maintain a job and friendships - CONSULT TO [facility] ADULT - Patient requesting to establish with new PCP, sees Dr. Decker and she would like to see him as well. Prescription instructions reviewed with patient as applicable. Potential red flag symptoms discussed with the patient. Reviewed appropriate action plan to take if red flag symptoms occur. Patient agreeable to treatment plan. Leni Barragan APRN.CNP documented in this encounter [facility] 04-21-2021 Hospital Discharge instructions Patient Education 04/21/2021 17:25:31 Dental Abscess Dental Abscess An abscess is a sac of pus. A dental abscess forms when a tooth or the tissue around it becomes infected with bacteria. The bacteria can enter through a cavity or a crack in a tooth. It can also infect the gum tissue or bone around a tooth. An untreated abscess can cause the loss of the tooth. It can even spread to other parts of the body and become life-threatening. Symptoms of a dental abscess Signs of a dental abscess include: Toothache, often severe Tooth pain with hot, cold, or pressure Pain in the gums, cheek, or jaw Bad breath or bitter taste in the mouth Trouble swallowing or opening the mouth Fever Swollen or enlarged glands in the neck Diagnosing a dental abscess An abscess is diagnosed by looking at your teeth and gums. You will be told if any tests are needed, such as dental X-rays. Treating a dental abscess Treatments for a dental abscess may include the following: Antibiotic medicines. These treat the underlying infection. Pain relievers. These help you feel more comfortable. Your healthcare provider may prescribe a medicine for you. Or you may use uicj-vgm-qkneeia pain relievers, such as acetaminophen or ibuprofen. Warm saltwater rinses. These can soothe discomfort and help clear away pus. Root canal surgery. This may be done if needed to save the tooth. With a root canal, the infected part of the tooth is removed. A special substance is then used to fill the empty space in the tooth. Draining the abscess. This may be doneif needed. Incisions are made to allow the infected material to drain from the tooth. Removing the tooth. This is done in cases of severe infection that can t be treated another way. You may need to be admitted to a hospital if the infection is severe, has spread, or doesn t respond to treatment. When to call the dentist Call your dentist right away if you have any of the following: Fever of 100.4 F (38 C) or higher Increased pain, redness, drainage, or swelling in the treated area Swelling of the face or jawbone Pain that can't be controlled with medicines Preventing dental abscess To prevent another abscess in the future, keep your teeth clean and healthy. [place] twice a day and floss at least once daily. See your dentist for regular tooth cleanings. And stay away from sugary foods and drinks that can lead to tooth decay. [phone] [employer]. [address] [place] [address], [place] [address]. All rights reserved. This information is not intended as a substitute for professional medical care. Always follow your healthcare professional's instructions. Follow Up Care 04/21/2021 17:04:43 With:Dental Sheet Address: When: Unknown Comments:Call for follow-up. [facility] documented as of this encounter (statuses as of 06/06/2023) [facility] History of Past illness Narrative* Problem Noted Date Resolved Date Irritable bowel syndrome with both constipation and diarrhea 02/12/2018 01/16/2022 Syncope 09/02/2012 01/16/2022 documented as of this encounter (statuses as of 01/17/2022) [facility] History of Past illness Narrative* Problem Noted Date Resolved Date Irritable bowel syndrome with both constipation and diarrhea 02/12/2018 01/16/2022 Syncope 09/02/2012 01/16/2022 documented as of this encounter (statuses as of 06/13/2022) [facility] History of Past illness Narrative* Problem Noted Date Resolved Date Irritable bowel syndrome with both constipation and diarrhea 02/12/2018 01/16/2022 Syncope 09/02/2012 01/16/2022 documented as of this encounter (statuses as of 06/27/2022) [facility] History of Past illness Narrative* Problem Noted Date Resolved Date Irritable bowel syndrome with both constipation and diarrhea 02/12/2018 01/16/2022 Syncope 09/02/2012 01/16/2022 documented as of this encounter (statuses as of 06/28/2022) [facility] History of Past illness Narrative* Problem Noted Date Resolved Date Irritable bowel syndrome with both constipation and diarrhea 02/12/2018 01/16/2022 Syncope 09/02/2012 01/16/2022 documented as of this encounter (statuses as of 07/31/2022) [place] [address]-22-2018 History of Past illness Narrative* Problem Noted Date Resolved Date Irritable bowel syndrome with both constipation and diarrhea 02/12/2018 01/16/2022 Syncope 09/02/2012 01/16/2022 documented as of this encounter (statuses as of 09/30/2022) [facility] History of Past illness Narrative* Problem Noted Date Resolved Date Irritable bowel syndrome with both constipation and diarrhea 02/12/2018 01/16/2022 Syncope 09/02/2012 01/16/2022 documented as of this encounter (statuses as of 10/03/2022) [address]22-2018 History of Past illness Narrative* Problem Noted Date Resolved Date Irritable bowel syndrome with both constipation and diarrhea 02/12/2018 01/16/2022 Syncope 09/02/2012 01/16/2022 documented as of this encounter (statuses as of 12/08/2022) [facility] History of Past illness Narrative* Problem Noted Date Diagnosed Date Resolved Date Irritable bowel syndrome wit h both constipation and diarrhea 02/12/2018 01/16/2022 Syncope 09/02/2012 01/16/2022 documented as of this encounter (statuses as of 03/04/2023) [facility] History of Past illness Narrative* Problem Noted Date Diagnosed Date Resolved Date Irritable bowel syndrome wit h both constipation and diarrhea 02/12/2018 01/16/2022 Syncope 09/02/2012 01/16/2022 documented as of this encounter (statuses as of 03/06/2023) [facility] History of Past illness Narrative* Problem Noted Date Diagnosed Date Resolved Date Irritable bowel syndrome wit h both constipation and diarrhea 02/12/2018 01/16/2022 Syncope 09/02/2012 01/16/2022 documented as of this encounter (statuses as of 03/06/2023) [facility] History of Past illness Narrative* Problem Noted Date Diagnosed Date Resolved Date Irritable bowel syndrome wit h both constipation and diarrhea 02/12/2018 01/16/2022 Syncope 09/02/2012 01/16/2022 documented as of this encounter (statuses as of 03/08/2023) [facility] History of Past illness Narrative* Problem Noted Date Diagnosed Date Resolved Date Irritable bowel syndrome wit h both constipation and diarrhea 02/12/2018 01/16/2022 Syncope 09/02/2012 01/16/2022 documented as of this encounter (statuses as of 03/08/2023) [facility] History of Past illness Narrative* Problem Noted Date Diagnosed Date Resolved Date Irritable bowel syndrome wit h both constipation and diarrhea 02/12/2018 01/16/2022 Syncope 09/02/2012 01/16/2022 documented as of this encounter (statuses as of 03/08/2023) [facility] of Past illness Narrative* Problem Noted Date Diagnosed Date Resolved Date Irritable bowel syndrome wit h both constipation and diarrhea 02/12/2018 01/16/2022 Syncope 09/02/2012 01/16/2022 documented as of this encounter (statuses as of 03/11/2023) [facility] of Past illness Narrative* Problem Noted Date Diagnosed Date Resolved Date Irritable bowel syndrome wit h both constipation and diarrhea 02/12/2018 01/16/2022 Syncope 09/02/2012 01/16/2022 documented as of this encounter (statuses as of 03/11/2023) [facility] History of Past illness Narrative* Problem Noted Date Diagnosed Date Resolved Date Irritable bowel syndrome wit h both constipation and diarrhea 02/12/2018 01/16/2022 Syncope 09/02/2012 01/16/2022 documented as of this encounter (statuses as of 03/15/2023) [facility] History of Past illness Narrative* Problem Noted Date Diagnosed Date Resolved Date Irritable bowel syndrome wit h both constipation and diarrhea 02/12/2018 01/16/2022 Syncope 09/02/2012 01/16/2022 documented as of this encounter (statuses as of 03/25/2023) [facility] History of Past illness Narrative* Problem Noted Date Diagnosed Date Resolved Date Irritable bowel syndrome wit h both constipation and diarrhea 02/12/2018 01/16/2022 Syncope 09/02/2012 01/16/2022 documented as of this encounter (statuses as of 05/03/2023) [facility] History of Past illness Narrative* Problem Noted Date Diagnosed Date Resolved Date Irritable bowel syndrome wit h both constipation and diarrhea 02/12/2018 01/16/2022 Syncope 09/02/2012 01/16/2022 documented as of this encounter (statuses as of 05/05/2023) [place] [address]-22-2018 History of Past illness Narrative* Problem Noted Date Diagnosed Date Resolved Date Irritable bowel syndrome wit h both constipation and diarrhea 02/12/2018 01/16/2022 Syncope 09/02/2012 01/16/2022 documented as of this encounter (statuses as of 05/09/2023) [facility] of Past illness Narrative* Problem Noted Date Diagnosed Date Resolved Date Irritable bowel syndrome wit h both constipation and diarrhea 02/12/2018 01/16/2022 Syncope 09/02/2012 01/16/2022 documented as of this encounter (statuses as of 05/10/2023) [facility] History of Past illness Narrative* Problem Noted Date Diagnosed Date Resolved Date Irritable bowel syndrome wit h both constipation and diarrhea 02/12/2018 01/16/2022 Syncope 09/02/2012 01/16/2022 documented as of this encounter (statuses as of 05/27/2023) [facility] History of Past illness Narrative* Problem Noted Date Diagnosed Date Resolved Date Irritable bowel syndrome wit h both constipation and diarrhea 02/12/2018 01/16/2022 Syncope 09/02/2012 01/16/2022 documented as of this encounter (statuses as of 05/28/2023) [facility] + Plan note No data available for this section [facility] Evaluation note* Diagnosis Autism spectrum disorder- Primary Autistic disorder, current or active state [facility] Diagnosis Hypothyroidism, unspecified type- Primary Chronic fatigue Other malaise and fatigue Lightheadedness Dizziness and giddiness Brain fog Encounter for hepatitis C screening test for low risk patient Screening for HIV without presence of risk factors Special screening examination for other specified viral diseases Multiple joint pain Pain in joint, multiple sites Dyspareunia in female [facility] Diagnosis Abnormal uterine bleeding- Primary Unspecified disorder of menstruation and other abnormal bleeding from female genital tract [facility] Diagnosis Acute otitis media, right- Primary Unspecified otitis media [facility] Diagnosis Vertigo- Primary Dizziness and giddiness [facility] Diagnosis APPOINTMENT CANCELLED- Primary [facility] Diagnosis 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 Chronic anxiety Anxiety state, unspecified Depressive disorder Depressive disorder, not elsewhere classified [facility] Diagnosis Chronic anxiety- Primary Anxiety state, unspecified Mood disturbance [facility] Diagnosis Eustachian tube dysfunction, right- Primary [facility] Diagnosis Pelvic pain documented in this encounter [facility] note* Diagnosis Hypothyroidism, unspecified type- Primary Somatic complaints, multiple Other general symptoms documented in this encounter [facility] note* JOI France: PERFORM Event Display: Patient Summary Documents Authored Date: [id number] [facility] Morenita Nayak: PERFORM Event Display: Patient Summary Documents Authored Date: [id number] [facility] Summary Purpose Family History No Family History Records Found No data available for this section No data available for this section No data available for this section No data available for this section No Family History Records FoundNo Family History Records Found Advance Directives No Advanced Directives Records FoundDocuments on File Type Date Recorded Patient [employer] Expl anation Advance Directive(s) 04/01/2021 4:09 PM Reason for Referral Specialty Diagnoses / Procedures Referred By Contac t Referred To Contact Diagnoses Chronic anxiety Mood disturbance Procedures CONSULT TO PSYCHIATRY OFFICE/OUTPATIENT [facility] 60-74 MINUTES 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, 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, [employer]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 [address] [place] [address] Referral ID Status Reason Start Date Expiration Date Visits Requested Visits Authorized [id number] Pending Review PCP Requested Referral 03/07/2023 03/06/2024 1 1 Specialty Diagnoses / Procedures Referred By Contac t Referred To Contact Gynecology / CALL CENTER COORDINATOR Diagnoses Abnormal uterine bleeding Procedures CONSULT TO GYNECOLOGY OFFICE/OUTPATIENT [facility] 60-74 MINUTES 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, 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, [employer]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 [address] [place] [address] 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 [employer] [address] [place] [address] Referral ID Status Reason Start Date Expiration Date Visits Requested Visits Authorized [id number] Pending Review PCP Requested Referral Auto-Generate d Referral OON/Self Pay Override 10/01/2022 10/01/2023 1 1 Additional Source Comments INFORMATION SOURCE (unrecogn ized section and content) DATE CREATED AUTHOR AUTHOR'S ORGANIZ ATION 06/08/2023 [facility] DATE CREATED AUTHOR AUTHOR'S ORGANIZ ATION 06/11/2023 [facility] Source Comments (unrecognize d section and content) In the event this informatio n is protected by the Federal Confidentiality of Alcohol and Drug Abuse Patient Records regulations: The Federal rules restrict any use of the information to criminally investigate or prosecute any alcohol or drug abuse patient.[facility] the event this information is protected by the Federal Confidentiality of Alcohol and Drug Abuse Patient Records regulations: The Federal rules restrict any use of the information to criminally investigate or prosecute any alcohol or drug abuse patient.[facility] the event this information is protected by the Federal Confidentiality of Alcohol and Drug Abuse Patient Records regulations: The Federal rules restrict any use of the information to criminally investigate or prosecute any alcohol or drug abuse patient.[facility] the event this information is protected by the Federal Confidentiality of Alcohol and Drug Abuse Patient Records regulations: The Federal rules restrict any use of the information to criminally investigate or prosecute any alcohol or drug abuse patient.[facility] the event this information is protected by the Federal Confidentiality of Alcohol and Drug Abuse Patient Records regulations: The Federal rules restrict any use of the information to criminally investigate or prosecute any alcohol or drug abuse patient.[facility] the event this information is protected by the Federal Confidentiality of Alcohol and Drug Abuse Patient Records regulations: The Federal rules restrict any use of the information to criminally investigate or prosecute any alcohol or drug abuse patient.[facility] the event this information is protected by the Federal Confidentiality of Alcohol and Drug Abuse Patient Records regulations: The Federal rules restrict any use of the information to criminally investigate or prosecute any alcohol or drug abuse patient.[facility] the event this information is protected by the Federal Confidentiality of Alcohol and Drug Abuse Patient Records regulations: The Federal rules restrict any use of the information to criminally investigate or prosecute any alcohol or drug abuse patient.[facility] the event this information is protected by the Federal Confidentiality of Alcohol and Drug Abuse Patient Records regulations: The Federal rules restrict any use of the information to criminally investigate or prosecute any alcohol or drug abuse patient.[facility] HospitalIn the event this information is protected by the Federal Confidentiality of Alcohol and Drug Abuse Patient Records regulations: The Federal rules restrict any use of the information to criminally investigate or prosecute any alcohol or drug abuse patient.[facility] HospitalIn the event this information is protected by the Federal Confidentiality of Alcohol and Drug Abuse Patient Records regulations: The Federal rules restrict any use of the information to criminally investigate or prosecute any alcohol or drug abuse patient.[facility] HospitalIn the event this information is protected by the Federal Confidentiality of Alcohol and Drug Abuse Patient Records regulations: The Federal rules restrict any use of the information to criminally investigate or prosecute any alcohol or drug abuse patient.[facility] HospitalIn the event this information is protected by the Federal Confidentiality of Alcohol and Drug Abuse Patient Records regulations: The Federal rules restrict any use of the information to criminally investigate or prosecute any alcohol or drug abuse patient.[facility] HospitalIn the event this information is protected by the Federal Confidentiality of Alcohol and Drug Abuse Patient Records regulations: The Federal rules restrict any use of the information to criminally investigate or prosecute any alcohol or drug abuse patient.[facility] HospitalIn the event this information is protected by the Federal Confidentiality of Alcohol and Drug Abuse Patient Records regulations: The Federal rules restrict any use of the information to criminally investigate or prosecute any alcohol or drug abuse patient.[facility] HospitalIn the event this information is protected by the Federal Confidentiality of Alcohol and Drug Abuse Patient Records regulations: The Federal rules restrict any use of the information to criminally investigate or prosecute any alcohol or drug abuse patient.[facility] HospitalIn the event this information is protected by the Federal Confidentiality of Alcohol and Drug Abuse Patient Records regulations: The Federal rules restrict any use of the information to criminally investigate or prosecute any alcohol or drug abuse patient.[facility] HospitalIn the event this information is protected by the Federal Confidentiality of Alcohol and Drug Abuse Patient Records regulations: The Federal rules restrict any use of the information to criminally investigate or prosecute any alcohol or drug abuse patient.[facility] HospitalIn the event this information is protected by the Federal Confidentiality of Alcohol and Drug Abuse Patient Records regulations: The Federal rules restrict any use of the information to criminally investigate or prosecute any alcohol or drug abuse patient.[facility] HospitalIn the event this information is protected by the Federal Confidentiality of Alcohol and Drug Abuse Patient Records regulations: The Federal rules restrict any use of the information to criminally investigate or prosecute any alcohol or drug abuse patient.[facility] HospitalIn the event this information is protected by the Federal Confidentiality of Alcohol and Drug Abuse Patient Records regulations: The Federal rules restrict any use of the information to criminally investigate or prosecute any alcohol or drug abuse patient.[facility] HospitalIn the event this information is protected by the Federal Confidentiality of Alcohol and Drug Abuse Patient Records regulations: The Federal rules restrict any use of the information to criminally investigate or prosecute any alcohol or drug abuse patient.[facility] HospitalIn the event this information is protected by the Federal Confidentiality of Alcohol and Drug Abuse Patient Records regulations: The Federal rules restrict any use of the information to criminally investigate or prosecute any alcohol or drug abuse patient.[facility] HospitalIn the event this information is protected by the Federal Confidentiality of Alcohol and Drug Abuse Patient Records regulations: The Federal rules restrict any use of the information to criminally investigate or prosecute any alcohol or drug abuse patient.[facility] HospitalIn the event this information is protected by the Federal Confidentiality of Alcohol and Drug Abuse Patient Records regulations: The Federal rules restrict any use of the information to criminally investigate or prosecute any alcohol or drug abuse patient.[facility] HospitalIn the event this information is protected by the Federal Confidentiality of Alcohol and Drug Abuse Patient Records regulations: The Federal rules restrict any use of the information to criminally investigate or prosecute any alcohol or drug abuse patient.[facility] HospitalIn the event this information is protected by the Federal Confidentiality of Alcohol and Drug Abuse Patient Records regulations: The Federal rules restrict any use of the information to criminally investigate or prosecute any alcohol or drug abuse patient.[facility] HospitalIn the event this information is protected by the Federal Confidentiality of Alcohol and Drug Abuse Patient Records regulations: The Federal rules restrict any use of the information to criminally investigate or prosecute any alcohol or drug abuse patient.[facility] HospitalIn the event this information is protected by the Federal Confidentiality of Alcohol and Drug Abuse Patient Records regulations: The Federal rules restrict any use of the information to criminally investigate or prosecute any alcohol or drug abuse patient.[facility] HospitalIn the event this information is protected by the Federal Confidentiality of Alcohol and Drug Abuse Patient Records regulations: The Federal rules restrict any use of the information to criminally investigate or prosecute any alcohol or drug abuse patient.[facility] HospitalIn the event this information is protected by the Federal Confidentiality of Alcohol and Drug Abuse Patient Records regulations: The Federal rules restrict any use of the information to criminally investigate or prosecute any alcohol or drug abuse patient.[facility] Reason for Visit (unrecogniz ed section and content) Reason Comments Abstract Reason Comments Patient Outreach (BHSW) Reason Comments Chest Pain Reason Comments Establish Care from Dr. Miller Thyroid Problem Multiple Concerns Reason Comments Behavioral Health Social Work Reason Onset Date Comments Refill Request 07/30/2022 Reason Comments Vaginal Bleeding Reason Comments Consult Reason Comments Ear Pain right ear itching an d now pain x this am Reason Comments Hospital F/U Reason Comments Anxiety Sleep concerns Reason Comments Consult Medication Question Reason Comments bh consult Reason Comments Anxiety Reason Comments Constipation Rectal Pain Reason Comments Medication Problem Reason Comments Ear Problem Right ear feels like it has fluid in it, sinus issues x 1 week Reason Comments Information Reason Comments Pelvic Pain Specialty Diagnoses / Procedures Referred By Contlexi t Referred To Contact Gynecology Diagnoses Pelvic pain Procedures CONSULT TO GYNECOLOGY OFFICE/OUTPATIENT [facility] MDM 60-74 MINUTES Mary Barone, 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 [address] [place] [address] Referral ID Status Reason Start Date Expiration Date V isits Requested Visits Authorized [id number] Closed PCP Requested Referral Auto-Generated Referral 05/20/2023 05/19/2024 1 1 Reason Comments Thyroid Problem Reason Comments Consult Care Teams (unrecognized sec tion and content) Sample Case Porter Relationship Specialty Start Date End Date Sharifa Miller MD [address], [place] [id number] PCP - General Internal Medicine 10/19/20 Sample Case Porter Relationship Specialty Start Date End Date Sharifa Miller MD [address], [place] [id number] PCP - General Internal Medicine 10/19/20 Sample Case Porter Relationship Specialty Start Date End Date Foster Decker MD [address] [place] [address] PCP - General Internal Medicine 01/16/22 Sample Case Porter Relationship Specialty Start Date End Date Foster Decker MD [address] [facility] [place] [address] PCP - General Internal Medicine 01/16/22 Sample Case Porter Relationship Specialty Start Date End Date Foster Decker MD [address] [place] [address] PCP - General Internal Medicine 01/16/22 Sample Case Porter Relationship Specialty Start Date End Date Foster Decker MD [address] [place] [address] PCP - General Internal Medicine 01/16/22 Sample Case Porter Relationship Specialty Start Date End Date Foster Decker MD [address] [place] [address] PCP - General Internal Medicine 01/16/22 Sample Case Porter Relationship Specialty Start Date End Date Foster Decker MD [address] [place] [address] PCP - General Internal Medicine 01/16/22 Sample Case Porter Relationship Specialty Start Date End Date Foster Decker MD [address] [place] [address] PCP - General Internal Medicine 01/16/22 Sample Case Porter Relationship Specialty Start Date End Date Foster Decker MD [address] [place] [address] PCP - General Internal Medicine 01/16/22 Sample Case Porter Relationship Specialty Start Date End Date Foster Decker MD [address] [place] [address] PCP - General Internal Medicine 01/16/22 Sample Case Porter Relationship Specialty Start Date End Date Foster Decker MD [address] [facility] [place] [address] PCP - General Internal Medicine 01/16/22 Sample Case Porter Relationship Specialty Start Date End Date Foster Decker MD [address] [facility] [place] [address] PCP - General Internal Medicine 01/16/22 Sample Case Porter Relationship Specialty Start Date End Date Foster Decker MD [address] [facility] [place] [address] PCP - General Internal Medicine 01/16/22 Sample Case Porter Relationship Specialty Start Date End Date Foster Decker MD [address] [facility] [place] [address] PCP - General Internal Medicine 01/16/22 Sample Case Porter Relationship Specialty Start Date End Date Foster Decker MD [address] [facility] [place] [address] PCP - General Internal Medicine 01/16/22 Sample Case Porter Relationship Specialty Start Date End Date Foster Decker MD [address] [facility] [place] [address] PCP - General Internal Medicine 01/16/22 Sample Case Porter Relationship Specialty Start Date End Date Foster Decker MD [address] [facility] [place] [address] PCP - General Internal Medicine 01/16/22 Sample Case Porter Relationship Specialty Start Date End Date Foster Decker MD [address] [place] [address] PCP - General Internal Medicine 01/16/22 FOR RECORDS PERTAINING TO PATIENTS WHO ARE OR HAVE BEEN ENROLLED IN A CHEMICAL DEPENDENCY/SUBSTANCEABUSE PROGRAM, SOME INFORMATION MAY BE OMITTED. This clinical summary was aggregated from multiple sources. Caution should be exercised in using it in the provision of clinical care. This summary normalizes information from multiple sources, and as a consequence, information in this document may materially change the coding, format and clinical context of patient data. In addition, data may be omitted in some cases. CLINICAL DECISIONS SHOULD BE BASED ON THE PRIMARY CLINICAL RECORDS. [employer] provides no warranty or guarantee of the accuracy or completeness of information in this document.
[2023-07-06 15:45] LABS: Mucous, Urine 0 SEEN /hpf (<or=2+)
[2023-07-06 15:52] LABS: Color, Urine Yellow (Yellow); Glucose, Dipstick Normal (Normal); Ketone-Dipstick Negative (Negative); Leukocyte Esterase-Dipstick 25 /ul (Negative); Nitrite-Dipstick Positive (Negative); Occult Blood-Urine 10 /ul (Negative); Protein-Dipstick 30 mg/dl (Negative); Specific Gravity, Urine 1.025 (1.002-1.030); Urine Bilirubin Dipstick Negative (Negative); Urine Clarity Clear (Clear); Urine Urobilinogen Normal (Normal); Urine pH 6.5 (5.0 - 8.0)
[2023-07-06 16:00] LABS: Bacteria 1+ /hpf (None Seen); Red Blood Cells-Urine 0-5 SEEN /hpf (0-5); Squamous Epithelial Cells - UA 0-5 SEEN /hpf (5-10); White Blood Cells 0-5 SEEN /hpf (0-5)
[2023-07-06 16:12] LABS: Absolute Lymphocyte Count 3.15 X10^3/uL (0.83-4.51); Absolute Neutrophil Count 10.4 X10^3/uL (2.0-7.7); Basophil# 0.08 X10^3/uL; Basophil% 0.5 % (0-1); Eosinophil# 0.32 X10^3/uL; Eosinophils% 2.1 % (0-5); Hematocrit 44.9 % (37-47); Hemoglobin 14.6 g/dL (12.0-15.0); Lymphocyte # 3.15 X10^3/ul (0.83-4.51); Lymphocyte % 21.1 % (19-41); Mean Corp Hgb Conc 32.5 g/dL (32-36); Mean Corpuscular Hgb 30.3 pg (27.0-32.0); Mean Corpuscular Volume 93.2 fL (81-99); Mean Platelet Vol. 12.6 fl (6.2-12.0); Monocyte# 0.92 X10^3/uL; Monocyte% 6.2 % (0-10); NRBC Flagged by Analyzer 0 % (0-5); Neutrophil # 10.39 X10^3/uL (2.7-7.7); Neutrophil % 69.7 % (47-70); Platelet Count 212 K/mm3 (150-450); RBC Distribution Width CV 12.5 % (11.6-14.6); RBC Distribution Width SD 43.3 fl (35.1-43.9); Red Blood Count 4.82 M/mm3 (4.2-5.4); White Blood Count 14.9 K/mm3 (4.4-11.0)
[2023-07-06 16:17] LABS: ALB/GLOB Ratio 1.2 RATIO (0.9-2.4); AST(SGOT) 13 U/L (15-37); Alanine Aminotransfer ALT/SGPT 18 U/L (13-56); Albumin, Serum 4.7 g/dL (3.2-5.0); Alkaline Phosphatase 70 U/L (45-117); Anion Gap 6 (5-15); BUN 10 mg/dL (7-18); Calcium,Total 9.5 mg/dL (8.5-10.1); Chloride 107 mmol/L (98-107); Creatinine, Serum 0.67 mg/dL (0.55-1.02); EST Glomerular Filtration Rate 109 mL/min (>60); Est Glom Filt Rate - Afr Amer 132 mL/min (>60); Estimated Creatinine Clearance 119.74 ml/min; Globulin 3.8 g/dL (2.2-4.2); Glucose 88 mg/dL (74-106); Lipase 32 U/L (13-75); Potassium 3.5 mmol/L (3.5-5.1); Protein, Total 8.5 g/dL (6.4-8.2); Sodium Level 140 mmol/L (136-145)
== END 2023-07-06 16:38 | disposition home or self-care (01) ==
PROVIDERS: Emergency Provider Emergency Medicine; PCP Internal Medicine; Visit Provider Emergency Medicine
DX: R10.9 Unspecified abdominal pain (principal); F17.210 Nicotine dependence, cigarettes, uncomplicated; F32.A Depression, unspecified; R07.9 Chest pain, unspecified; R06.00 Dyspnea, unspecified
CPT/HCPCS: 80053; 81001; 83690; 85025; 99283; A4216

== ENCOUNTER 2023-08-06 07:44 | Emergency (ER) | payer BC, SELFPAY ==
[2023-08-06 07:45] VITALS: BP 121/79; PULSE 88; RESP 16; TEMP 36.4; O2SAT 98; BMI 34.1
--- NOTE | 2023-08-06 08:20 | CT_ITS ---
STUDY: CT ABDOMEN AND PELVIS WITH CONTRAST REASON FOR EXAM: Female, 33 years old. Pain, Diarrhea RADIATION DOSAGE (If Supplied By Facility): CTDIvol = ( 9.89 ) mGy, DLP = ( 503.03 ) mGycm TECHNIQUE: Transaxial images were obtained from the dome of the diaphragm to the symphysis pubis without oral contrast. IV 100mL Isovue-300 was administered. Sagittal and coronal images were reconstructed. Individualized dose optimization techniques were used for this CT. COMPARISON: Comparison is made with prior study dated March 21, 2023. FINDINGS: The visualized lung bases are unremarkable. The visualized portions of the heart are within normal limits. Normal liver. Normal gallbladder and extrahepatic biliary system. Normal spleen. Normal pancreas. Normal bilateral adrenal glands. Normal right kidney. Normal left kidney. Normal visualized stomach. Normal small intestine. Normal colon. The appendix is visualized and appears normal. Normal abdominal aorta. Normal inferior vena cava. Normal retroperitoneum. Normal urinary bladder. Small follicles are seen in the right ovary. Tiny amount of free fluid is seen in the cul-de-sac. This may be related to the patient''s menstrual cycle. Normal abdominal wall. Normal osseous structures. CT/Abdomen/Pelvis W IV Cont ONLY IMPRESSION: Follicles are seen in the right ovary. Small amount of free fluid is seen in the cul-de-sac. Electronically Signed: Babatunde Friend MD at 10:05 [facility] ,
--- NOTE | 2023-08-06 08:21 | EDS_ITS ---
HPI HPI - GI History of Present Illness Chief Complaint: Abd Pain Narrative Narrative: 33-year-old female past medical history of anxiety for which she takes lorazepam, IBS which is currently not treated, presents with abdominal pain that she has had since Saturday. This was approximately 5 days ago. While she states over the last few months her IBS has been acting up, its over the last 5 days where she is getting abdominal pain. Is mainly in the epigastrium and goes along her left colon. However, she mentions that she has right upper quadrant and right lower quadrant pain at times. Yesterday she had 5 episodes at least of watery diarrhea. She states this feels different than her usual IBS. Sometimes the pain is dull and achy like touching a bruise, other times it becomes sharp and stabbing especially with standing and walking. She denies any fevers or chills. No nausea or vomiting. Last menstrual period was 2 weeks ago. She presents because of the abdominal pain in multiple places. She also states that when she urinates she has pain in her bladder near her bellybutton. PFSH PFS Medical History Anxiety Home Medications lorazepam 0.5 mg tablet 0.5 mg PO Q12H PRN anxiety 03/15/23 [History Last Taken Unknown] omeprazole 20 mg capsule,delayed release 20 mg PO DAILY #30 CAPSULES 07/06/23 [Rx Last Taken Unknown] dicyclomine 20 mg tablet 20 mg PO TID #20 tabs 08/06/23 [Rx Last Taken Unknown] Allergy/AdvReac Type Severity Reaction Status Date / Time lidocaine Allergy Intermediate Hives Verified 08/06/23 07:45 chlorpheniramine Allergy PT UNSURE Verified 08/06/23 07:45 OF REACTION egg Allergy Nausea/Vom/ Verified 08/06/23 07:45 Diarrhea Surgical History Hx of tonsillectomy Social History Smoking Status: Current every day smoker tobacco type: cigarettes ROS ROS ED ROS Narrative Constitutional: No fever, no chills. HEENT: No sore throat. No neck pain. No loss of vision. No rhinorrhea. Cardiovascular: No chest pain. No palpitations. No pedal edema. Respiratory: No cough, no shortness of breath. Abdominal: Positive abdominal pain. No nausea. No vomiting. Multiple episodes of nonbloody diarrhea yesterday. Genitourinary: No dysuria. No hematuria. Musculoskeletal: No myalgias. No arthralgias. Neurologic: No headaches. No dizziness. No lightheadedness. Skin: No rash. No change in color. Psychiatric: No depression. No anxiety. EXAM Physical Exam Narrative Exam Narrative: Afebrile. Vital signs noted. HEENT: Normocephalic. Atraumatic. PERRL, EOMI. Neck soft and supple. No point tenderness or step off. Cardiovascular: Regular rate and rhythm. No murmurs, rubs, or gallops appreciated. Respiratory: No tachypnea. Lungs clear to auscultation bilaterally. Gastrointestinal: Abdomen soft, diffusely tender with normoactive to decreased bowel sounds. No rebound or guarding. Neurological: Awake. Alert. Nonfocal, nonlateralizing. Skin: No rash. Normal color. No pallor. Musculoskeletal: No pedal edema. Full range of motion extremities. Const Vital Signs: 08/06/23 07:45 08/06/23 10:27 08/06/23 10:00 Temperature 97.6 F L Temperature Source Temporal Pulse Rate 88 73 90 Respiratory Rate 16 16 18 Blood Pressure 121/79 H 111/69 111/69 Blood Pressure Mean 93 83 83 Pulse Ox 98 100 99 Oxygen Delivery Method Room Air Room Air Room Air MDM MDM MDM Narrative Medical decision making narrative: In the differential diagnosis is colitis versus IBS versus cholecystitis versus appendicitis. I have low suspicion for appendicitis based on her clinical examination. She may also be dehydrated from her reported multiple episodes of diarrhea. I do feel CT imaging is indicated. CBC, CMP, and lipase were obtained along with serum . I will also obtain a urinalysis to help rule out urinary tract infection given her pain near her umbilicus. I reviewed her laboratory work and she has slightly elevated white count of 11.4 which I think is nonspecific, hemoglobin normal at 14.0, hematocrit 43.3, normal platelet count of 221. CMP shows slight hypokalemia of 3.3 orally with 40Which was replaced equivalents, chloride slightly elevated at 110 which I think is nonspecific, BUN normal at 9, creatinine normal at 0.56. Glucose is appropriately elevated at 94. AST and ALT are low at 12 which I also think is nonspecific, lipase normal at 24. Serum is negative. Urinalysis is negative for infection. There are squamous epithelial cells but 1+ bacteria. I do not feel antibiotics are indicated and deferred to cultures which I think might be more mixed kulwinder and skin contaminant. I reviewed the CT report which shows no evidence of an acute process, no colitis, no appendicitis. At this point in time, upon repeat examination, she states she feels improved. Additionally, she requested a prescription for Bentyl for which she used to take. I feel she can be discharged to follow-up with her primary care provider. Return instructions to the emergency department were reviewed. I do not feel she requires observation or admission at this time. Disposition is discharged home in stable condition. History & Record Review Discussion w/independent historian: Patient Additional record(s) reviewed:: Prior ED visit and Prior labs Lab Data Attestation: I reviewed the patient's lab results. Labs: Laboratory Results - last 24 hr 08/06/23 08/06/23 08:30 08:40 WBC 11.4 H RBC 4.66 Hgb 14.0 Hct 43.3 MCV 92.9 MCH 30.0 MCHC 32.3 RDW Std Deviation 42.5 RDW Coeff of Sunitha 12.3 Plt Count 221 MPV 12.1 H Immature Gran % (Auto) 0.400 Neut % (Auto) 53.1 Lymph % (Auto) 37.5 [place] % (Auto) 5.8 Eos % (Auto) 2.3 Baso % (Auto) 0.9 Absolute Neuts (auto) 6.0 Absolute Lymphs (auto) 4.26 Nucleated RBC % 0 Sodium 140 Potassium 3.3 L Chloride 110 H Carbon Dioxide 26.0 Anion Gap 4 L BUN 9 Creatinine 0.56 Estim Creat Clear Calc 125.11 Est GFR (MDRD) Af Amer 160 Est GFR (MDRD) Non-Af 132 BUN/Creatinine Ratio 16.0 Glucose 94 Calcium 9.4 Total Bilirubin 0.50 AST 12 L ALT 12 L Alkaline Phosphatase 68 Total Protein 7.8 Albumin 4.2 Globulin 3.6 Albumin/Globulin Ratio 1.2 Lipase 24 Serum , Qual NEGATIVE Urine Color Yellow Urine Clarity Clear Urine pH 6.0 Ur Specific [place] 1.020 Urine Protein Negative Urine Glucose (UA) Normal Urine Ketones Negative Urine Occult Blood Negative Urine Nitrite Negative Urine Bilirubin Negative Urine Urobilinogen Normal Ur Leukocyte Esterase Negative Urine RBC 0 SEEN Urine WBC 0 SEEN Ur Squamous Epith Cells 5-10 SEEN Triple Phos Crystals 0 SEEN Urine Bacteria 1+ Waxy Casts 0 SEEN Urine Mucus 0 SEEN Radiography Diagnostic Testing: Clinical Impression(s) from Imaging Studies Abdomen/Pelvis CT 08/06/23 08:20 IMPRESSION: Follicles are seen in the right ovary. Small amount of free fluid is seen in the cul-de-sac. Electronically Signed: Babatunde Friend MD at 10:05 EST , Discharge Plan Triage Chief Complaint: Abd Pain ED Provider: Musa Islas Dx/Rx/DC Orders Clinical Impression: Diarrhea, Abdominal pain, Hypokalemia Instructions: ED Abdominal Pain Unkn Cause Fem, ED Diarrhea, Unknown Cause, ED Hypokalemia Prescriptions: New dicyclomine 20 mg tablet 20 mg PO TID Qty: 20 0RF No Action lorazepam 0.5 mg tablet 0.5 mg PO Q12H PRN (Reason: anxiety) Patient Comments: take 1 tablet by mouth twice a day for 7 days if needed for anxiety omeprazole [omeprazole] 20 mg capsule,delayed release(DR/EC) 20 mg PO DAILY Qty: 30 0RF Primary Care Provider: Foster Childress Referrals: Foster Childress MD [Primary Care Provider] - 3-5 Days if not improving Disposition Disposition: Home, Self Care
[2023-08-06 08:38] LABS: Mucous, Urine 0 SEEN /hpf (<or=2+); Red Blood Cells-Urine 0 SEEN /hpf (0-5); White Blood Cells 0 SEEN /hpf (0-5)
[2023-08-06] MEDS: Dicyclomine 20 MG/2 ML Vial IM (08:40)
[2023-08-06] MEDS: 0.9% Normal Saline (1000mL) 1,000 ML 1000 ML IV (08:40)
[2023-08-06 08:48] LABS: Color, Urine Yellow (Yellow); Glucose, Dipstick Normal (Normal); Ketone-Dipstick Negative (Negative); Leukocyte Esterase-Dipstick Negative /ul (Negative); Nitrite-Dipstick Negative (Negative); Occult Blood-Urine Negative /ul (Negative); Protein-Dipstick Negative (Negative); Urine Bilirubin Dipstick Negative (Negative); Urine Clarity Clear (Clear); Urine Urobilinogen Normal (Normal)
[2023-08-06] MEDS: Lorazepam 2 MG/ML WCH Syringe 0.5 MG IV (08:50)
[2023-08-06 08:59] LABS: Absolute Lymphocyte Count 4.26 X10^3/uL (0.83-4.51); Basophil% 0.9 % (0-1); Eosinophil# 0.26 X10^3/uL; Eosinophils% 2.3 % (0-5); Hematocrit 43.3 % (37-47); Lymphocyte # 4.26 X10^3/ul (0.83-4.51); Lymphocyte % 37.5 % (19-41); Mean Corp Hgb Conc 32.3 g/dL (32-36); Mean Corpuscular Volume 92.9 fL (81-99); Mean Platelet Vol. 12.1 fl (6.2-12.0); Monocyte# 0.66 X10^3/uL; Monocyte% 5.8 % (0-10); NRBC Flagged by Analyzer 0 % (0-5); Neutrophil # 6.03 X10^3/uL (2.7-7.7); Neutrophil % 53.1 % (47-70); Platelet Count 221 K/mm3 (150-450); RBC Distribution Width CV 12.3 % (11.6-14.6); RBC Distribution Width SD 42.5 fl (35.1-43.9); Red Blood Count 4.66 M/mm3 (4.2-5.4); White Blood Count 11.4 K/mm3 (4.4-11.0)
[2023-08-06 09:15] LABS: ALB/GLOB Ratio 1.2 RATIO (0.9-2.4); AST(SGOT) 12 U/L (15-37); Alanine Aminotransfer ALT/SGPT 12 U/L (13-56); Albumin, Serum 4.2 g/dL (3.2-5.0); Alkaline Phosphatase 68 U/L (45-117); Anion Gap 4 (5-15); BUN 9 mg/dL (7-18); Calcium,Total 9.4 mg/dL (8.5-10.1); Chloride 110 mmol/L (98-107); Creatinine, Serum 0.56 mg/dL (0.55-1.02); EST Glomerular Filtration Rate 132 mL/min (>60); Est Glom Filt Rate - Afr Amer 160 mL/min (>60); Estimated Creatinine Clearance 125.11 ml/min; Globulin 3.6 g/dL (2.2-4.2); Glucose 94 mg/dL (74-106); Lipase 24 U/L (13-75); Potassium 3.3 mmol/L (3.5-5.1); Protein, Total 7.8 g/dL (6.4-8.2); Sodium Level 140 mmol/L (136-145)
[2023-08-06 09:26] LABS: Bacteria 1+ /hpf (None Seen); Squamous Epithelial Cells - UA 5-10 SEEN /hpf (5-10)
[2023-08-06 09:27] LABS: Internal QC Validated? YES +Cl - CLEAR BKGD; Pregnancy, Serum, hCG Quali. NEGATIVE Negative
[2023-08-06 09:27] LABS: Triple Phosphate Crystals Ur 0 SEEN /hpf (<or=1+); Waxy Cast-Urine 0 SEEN /lpf (None Seen)
[2023-08-06 10:00] VITALS: BP 111/69; PULSE 90; RESP 18; O2SAT 99
[2023-08-06] MEDS: Potassium Chloride Oral Tablet 20 MEQ 40 MEQ PO (10:24)
[2023-08-06 10:27] VITALS: BP 111/69; PULSE 73; RESP 16; O2SAT 100
== END 2023-08-06 11:54 | disposition home or self-care (01) ==
PROVIDERS: Emergency Provider Emergency Medicine; PCP Internal Medicine; Visit Provider Emergency Medicine
DX: R10.11 Right upper quadrant pain (principal); R19.7 Diarrhea, unspecified; E87.6 Hypokalemia; F17.210 Nicotine dependence, cigarettes, uncomplicated; F41.9 Anxiety disorder, unspecified; K58.9 Irritable bowel syndrome, unspecified; Z79.899 Other long term (current) drug therapy; R10.31 Right lower quadrant pain
CPT/HCPCS: 74177; 80053; 81001; 83690; 84703; 85025; 87086; 87088; 96361; 96372; 96374; 99283; J7030; Q9967; A4216

== ENCOUNTER 2023-08-20 04:46 | Emergency (ER) | payer BC, SELFPAY ==
[2023-08-20 04:47] VITALS: BP 117/74; PULSE 103; RESP 19; TEMP 36.1; O2SAT 99; BMI 24.8
--- NOTE | 2023-08-20 05:25 | EX.ED.DYSGE1 ---
HPI History of Present Illness Chief Complaint: Other, Pain/Inj Informant: patient Narrative Narrative: Patient is a 33-year-old female with history of anxiety, chronic abdominal pain and hidradenitis suppurativa presenting with painful swelling of her left groin area. Patient states it has been there for a little over 24 hours. She saw her hand sizer that she has swelling of her left buttocks. Her hand sizer put her on doxycycline for this but did not think she needed an I&D at this time. Patient was told that she should have an ultrasound of this groin swelling as it could be a lymph node to make sure there is no associated malignancy. She has this scheduled for tomorrow but was concerned when she woke up and it was more painful. She called nurse on-call line who recommend she come to the ER to expedite the ultrasound. Patient has been having some night sweats. She notes that her brother has a history of lymphoma. She denies any associated skin changes or redness overlying the area of swelling. Denies any fever. No other complaints or concerns reported at this time. [facility] Medical History Anxiety Home Medications lorazepam 0.5 mg tablet 0.5 mg PO Q12H PRN anxiety 03/15/23 [History Last Taken Unknown] omeprazole 20 mg capsule,delayed release 20 mg PO DAILY #30 CAPSULES 07/06/23 [Rx Last Taken Unknown] dicyclomine 20 mg tablet 20 mg PO TID #20 tabs 08/06/23 [Rx Last Taken Unknown] Allergy/AdvReac Type Severity Reaction Status Date / Time lidocaine Allergy Intermediate Hives Verified 08/20/23 04:47 chlorpheniramine Allergy PT UNSURE Verified 08/20/23 04:47 OF REACTION egg Allergy Nausea/Vom/ Verified 08/20/23 04:47 Diarrhea Surgical History Hx of tonsillectomy Social History Smoking Status: Current every day smoker tobacco type: cigarettes ROS ROS ED Constitutional Constitutional ED: Reports sweats; Denies chills or fever(s) Cardiovascular Cardiovascular: Denies chest pain Respiratory/Chest Respiratory/Chest: Denies cough Gastrointestinal Gastrointestinal: Denies abdominal pain or vomiting Musculoskeletal Musculoskeletal: Denies arthralgias or myalgias Integumentary Reports abscess Neurologic Neurologic: Denies headache(s) or weakness Psychiatric Psychiatric: Reports anxiety Hematologic/Lymphatic Hematologic/Lymphatic: Denies easy bleeding or easy bruising EXAM Physical Exam Const Vital Signs: 08/20/23 04:47 08/20/23 04:47 08/20/23 05:43 Temperature 97 F L 97 F L Temperature Source Temporal Pulse Rate 103 H 93 Respiratory Rate 19 H 17 Respiratory Effort Normal Non-Labored Respiratory Pattern Normal Blood Pressure 117/74 117/74 Blood Pressure Mean 88 88 Pulse Ox 99 99 Oxygen Delivery Method Room Air Positive well nourished and well developed General Appearance ED: well developed and NAD HEENT Reports moist mucous membranes Neck supple Chest Wall inspection of chest normal and palpation of chest normal Resp normal respiratory effort and clear to auscultation bilaterally Cardio regular rate and regular rhythm GI normal to inspection, nondistended, normoactive bowel sounds and non-tender Extremity normal to inspection Neuro oriented x3 Sensorium / Orientation: alert Psych mental status grossly normal Skin Skin Narrative: Patient has approximately 1 cm mobile area of tenderness with no associated erythema or drainage of the left superior inguinal area. There is no associated fluctuance. This feels like a lymph node to me. There is no associated lymphangitic streaking. On her left buttocks there is approximately 3 cm x 3 cm area of erythema with central area of fluctuance that is tender to palpation. It looks like it is about to drain spontaneously. Consistent with an abscess. It does not track towards the perineum or rectum. MDM MDM MDM Narrative Medical decision making narrative: Patient is evaluated for painful swelling of her left groin. Physical exam is most consistent with a reactive lymph node. Patient is concerned about possible lymphoma or infection and wanting to expedite her outpatient ultrasound. Counseled that as it is 5 AM we do not have ultrasound readily available however I did offer to keep her here in the ER until ultrasound comes in to obtain this ultrasound. Patient states that if I do not think there is an acute infection of the area and it safe for her to wait until tomorrow she will wait till tomorrow. At this time I do not think there is any acute emergent process going on with this swelling. It does not appear acutely infected. Patient does have an abscess to her left buttocks but declines needle aspiration or further I&D. She will continue taking her doxycycline and doing warm compresses. In addition patient had a CBC 2 weeks ago that did not show any abnormal lymphocytes or other atypical cells concerning for an acute lymphoma. Patient is informed of this. She will be discharged home with instructions to take NSAIDs and perform warm compresses. She is agreeable this plan of care. Discharged home in stable condition. Given return precautions to the emergency room. Discharge Plan Triage Chief Complaint: Other, Pain/Inj ED Provider: Laura Florian Dx/Rx/DC Orders Clinical Impression: Reactive lymphadenopathy Instructions: Lymphadenopathy Prescriptions: No Action lorazepam 0.5 mg tablet 0.5 mg PO Q12H PRN (Reason: anxiety) Patient Comments: take 1 tablet by mouth twice a day for 7 days if needed for anxiety omeprazole [omeprazole] 20 mg capsule,delayed release(DR/EC) 20 mg PO DAILY Qty: 30 0RF dicyclomine 20 mg tablet 20 mg PO TID Qty: 20 0RF Primary Care Provider: Foster Childress Referrals: Foster Childress MD [Primary Care Provider] - Activity Restrictions/Additional Instructions: I suspect you have an inflamed lymph node associated with the abscess on your buttocks. Please continue to take your antibiotics as prescribed and do warm compresses to your abscess on your buttocks. You may do cool compresses to the lymph node in your groin. Please follow-up outpatient with your ultrasound. Take [id number] anti-inflammatory such as ibuprofen to help with the pain and swelling. Your white blood cell count from 2 weeks ago was largely normal and not concerning for an acute malignancy. Disposition Disposition: Home, Self Care Discharge Date/Time: 08/20/23 05:44
--- OUTSIDE RECORDS SUMMARY | 2023-08-20 05:26 | XMS RPT_ITS | CCD ---
Author Name Unknown Address [address] [place] [address] Organization [facility] Care Team Providers Care Strategy Manager Name Role Phone CASIMIRO BAILEY Primary Care Physician Angela WARREN, Sharifa Primary Care Provider Monroe WARREN, Foster Mcnair Primary Care Provider Monroe WARREN, Foster Mcnair Primary Care Provider CASIMIRO BAILEY Primary Care Physician MONROE WARREN, DR FAUSTIN Primary Care Physician RACHEL JORDAN DO Attending Kylie CHILDRESS MD, DR FAUSTIN Primary Care Isidro HOWARD MD, NICOLE Harmon Attending Janna CHILDRESS MD, DR FAUSTIN Primary Care JINA Ochoa MD Attending Kylie CHILDRESS MD, DR FAUSTIN Primary Care Isidro CARIG MD, DR FU Attending Nickie CHILDRESS MD, DR FAUSTIN Primary Care Isidro HOWARD MD, NICOLE Harmon Attending Unavail edward CHILDRESS MD, DR FAUSTIN Primary Care Isidro GUDINO MD, CONCHA Rosado Attending CASIMIRO Matos Primary Care Kylie HOWARD MD, NICOLE Harmon Attending Janan CHILDRESS MD, DR FAUSTIN Primary Care Isidro WESTFALL MD, SHRADDHA Herzog Attending Kylie CHILDRESS MD, DR FAUSTIN Primary Care FOSTER Rueda Primary Care Unavailable MARTHA ALVAREZ Attending FOSTER Dolan Primary Care Unavailable MARY ROJAS Attending Unavailable CHILDRESS, JUSTEN Primary Care Unavailable CHILDRESS, JUSTEN Primary Care Unavailable BOBMARY CLEARY Attending Unavailable MONROE, JUSTEN Primary Care Unavailable CHILDRESS, JUSTEN Primary Care Unavailable CHILDRESS, JUSTEN Primary Care Unavailable CHILDRESS, JUSTEN Attending Unavailable CHILDRESS, JUSTEN Primary Care Unavailable CHLIDRESS, JUSTEN Attending Unavailable MONROE, JUSTEN Primary Care Unavailable BOB, NAZ M Referring Unavailable MONROE, JUSTEN Primary Care Unavailable CHILDRESS, JUSTEN Primary Care Unavailable BOBMARY Attending Unavailable DANIEL ISAAC Attending Unavailable BOBMARY MORE Referring Unavailable MONROE, JUSTEN Primary Care Unavailable MONROE, JUSTEN Primary Care Unavailable BOB, NAZ M Attending Unavailable MONROE, JUSTEN Primary Care Unavailable Allergies Allergy Classification Reported Allergen(s) Allergy Type Date of Onset Reaction(s) Facility (20 sources) Chlorpheniramine / Pseudoephedrine; Translations: [chlorpheniramine-p seudoephedrine] Drug Allergy 08-01-19 10 Other: See Comments [facility] (7 sources) Egg Propensity to adverse reactions to food [facility] (20 sources) Seasonal allergy; Translations: [SEASONAL ALLERGIES] Allergy to substance 07-29-19 13 Cough [facility] (20 sources) Tetracaine; Translations: [tetracaine] Drug Allergy 04-12-20 21 Other: See Comments [facility] Work Phone: (4 sources) allerex [Other] Propensity to adverse reactions 08-01-19 10 Itching [facility] (20 sources) egg extract; Translations: [EGG] Drug Allergy 08-01-19 10 GI Upset [facility] Work Phone: (20 sources) fredo allergenic extract; Translations: [FREDO] Drug Allergy 01-17-20 22 Swelling [facility] Work Phone: (6 sources) Acetaminophen / Chlorpheniramine / Pseudoephedrine; Translations: [APAP/chlorpheniram ine/pseudoephedrine ] Drug Allergy [facility] (20 sources) Articaine; Translations: [articaine] Drug Allergy 03-04-20 Swelling [facility] (20 sources) Bupivacaine; Translations: [bupivacaine] Drug Allergy 03-04-20 Swelling [facility] (6 sources) Cashew nut Food allergy [facility] (20 sources) Lidocaine; Translations: [lidocaine] Drug Allergy 03-04-20 Swelling [facility] (20 sources) Mepivacaine; Translations: [mepivacaine] Drug Allergy 03-04-20 Swelling [facility] (20 sources) Prilocaine; Translations: [prilocaine] Drug Allergy 03-04-20 Swelling [facility] (1 source) CHLORPHENIRAMINE-PS EUDOEPHED; Translations: [CHLORPHENIRAMINE-P SEUDOEPHED] Propensity to adverse reactions to drug (disorder) 08-01-19 [facility] Repository Medications Current Medications Medication Drug Class(es) Dates Sig (Normalized) Sig (Original) amoxicillin 875 mg oral tablet (8 sources) Penicillin-class Antibacterial Start: 12-08-2022 End: 12-15-2022 [...] gel (20 sources) Lincosamide Antibacterial Start: 06-03-2023 End: 08-12-2023 clindamycin (CLEOCIN-T) 1 % gel Indications: Hidradenitis suppurativa Apply to affected area two times a day. 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 Conditions associated with dizziness or vertigo (2 sources) Lightheadedness; Translations: [Dizziness and giddiness] Episodic Deficiency and other anemia (7 sources) Anemia 04-20-2013 Episodic Disorders of teeth and jaw (1 source) Periapical abscess; Translations: [Periapical abscess without sinus] Onset: 1 Episodic Disorders usually diagnosed in infancy, childhood, or adolescence (1 source) Autism spectrum disorder; Translations: [Autistic disorder] Chronic Epilepsy; convulsions (7 sources) Seizure 04-20-2013 Episodic Esophageal disorders (20 sources) Gastroesophageal reflux disease; Translations: [Gastroesophageal reflux disease without esophagitis] Onset: 2 04-20-2013 Chronic Fluid and electrolyte disorders (1 source) Hypokalemia; Translations: [Hypokalemia] 08-12-2023 Episodic Genitourinary symptoms and ill-defined conditions (1 source) Dysuria; Translations: [Painful micturition, unspecified] 08-06-2023 Episodic Headache; including migraine (7 sources) Headache 04-20-2013 Episodic Immunizations and screening for infectious disease (2 sources) Patient encounter status; Translations: [Encounter for screening for other viral diseases] Episodic Intracranial injury (7 sources) Concussion 04-20-2013 Episodic Malaise and fatigue (1 source) Fatigue; Translations: [Chronic fatigue, unspecified] Chronic Meningitis (except that caused by tuberculosis or sexually transmitted disease) (7 sources) Meningitis 04-20-2013 Episodic Miscellaneous mental health disorders (1 source) Insomnia disorder related to another mental disorder; Translations: [Insomnia due to other mental disorder] 03-06-2023 Chronic Mood disorders (8 sources) Depressive disorder; Translations: [Depressive disorder] 04-20-2013 Chronic Mood disorders (1 source) Disturbance in mood; Translations: [Emotional lability] 03-07-2023 Episodic Other ear and sense organ disorders (7 sources) Tinnitus 04-20-2013 Episodic Other female genital disorders (20 sources) Pain in female genitalia on intercourse; Translations: [Unspecified dyspareunia] Onset: 2 Chronic Other female genital disorders (2 sources) Abnormal uterine bleeding; Translations: [Abnormal uterine and vaginal bleeding, unspecified] Onset: 3 Chronic Other gastrointestinal disorders (13 sources) Irritable bowel syndrome; Translations: [Mixed irritable bowel syndrome] Onset: 8 04-20-2013 Chronic Other gastrointestinal disorders (7 sources) Constipation 04-20-2013 Episodic Other gastrointestinal disorders (1 source) Constipation, unspecified; Translations: [Constipation, unspecified] Onset: 3 Episodic Other injuries and conditions due to external causes (7 sources) Injury of back 04-20-2013 Episodic Other liver diseases (7 sources) Jaundice 04-20-2013 Episodic Other nervous system disorders (1 source) Impaired cognition; Translations: [Other symptoms and signs involving cognitive functions and awareness] Episodic Other non-traumatic joint disorders (1 source) Multiple joint pain; Translations: [Pain in unspecified joint] Episodic Other nutritional; endocrine; and metabolic disorders (20 sources) Obese class I; Translations: [Obesity, unspecified] Onset: 2 02-12-2022 Chronic Other upper respiratory disease (7 sources) Seasonal allergy 04-20-2013 Chronic Otitis media [...] [Hypothyroidism, unspecified] Onset: 1 11-04-2020 Chronic Unclassified (7 sources) Hyaline body (morphologic abnormality) 04-21-2013 Past or Other Problems Problem Classification Problem Date Documented Da te Episodic/Chronic Syncope (4 sources) Syncope; Translations: [Syncope and collapse] Onset: 09-02-2012 09-02-2012 Episodic Results Test Name Value Interpretation Reference Range Facil ity Vital Signs Date Time Vital Sign Value Performing Clinician Grant toledo 08-12-2023 18:37-0500 Body temperature 98.71 [degF] Foster Childress MD Work Phone: [facility] 08-12-2023 18:37-0500 Body weight 68.95 kg Foster Childress MD Work Phone: [facility] 08-12-2023 18:37-0500 Diastolic blood pressure 72 mm[Hg] Foster Childress MD Work Phone: [facility] 08-12-2023 18:37-0500 Heart rate 84 /min Foster Childress MD Work Phone: [facility] 08-12-2023 18:37-0500 Respiratory rate 16 /min Foster Childress MD Work Phone: [facility] 08-12-2023 18:37-0500 Systolic blood pressure 120 mm[Hg] Foster Childress MD Work Phone: [facility] 08-06-2023 07:24-0500 Body temperature 97.59 [degF] Asha Praisler-Wood CHERRY GROWER.BINDER OPERATOR Work Phone: [facility] 08-06-2023 07:24-0500 Body weight 69.76 kg Asha Praisler-Wood CHERRY GROWER.BINDER OPERATOR Work Phone: [facility] 08-06-2023 07:24-0500 Diastolic blood pressure 72 mm[Hg] Asha Praisler-Wood CHERRY GROWER.BINDER OPERATOR Work Phone: [facility] 08-06-2023 07:24-0500 Heart rate 88 /min Asha Praisler-Wood CHERRY GROWER.BINDER OPERATOR Work Phone: [facility] 08-06-2023 07:24-0500 Respiratory rate 16 /min Asha Praisler-Romario CHERRY GROWER.BINDER OPERATOR Work Phone: [facility] 08-06-2023 07:24-0500 SaO2% (BldA) [Mass fraction] 99 % Ashadesmond Dumont-Romario CHERRY GROWER.BINDER OPERATOR Work Phone: [facility] 08-06-2023 07:24-0500 Systolic blood pressure 122 mm[Hg] Asha Dumont-Romario CHERRY GROWER.BINDER OPERATOR Work Phone: [facility] 07-18-2023 19:49-0500 Diastolic blood pressure 80 mm[Hg] SHRADDHA WESTFALL MD [facility] 07-18-2023 19:49-0500 Heart rate 90 /min SHRADDHA WESTFALL MD [facility] 07-18-2023 19:49-0500 Respiratory rate 16 /min SHRADDHA WESTFALL MD [facility] 07-18-2023 19:49-0500 Systolic blood pressure 114 mm[Hg] SHRADDHA WESTFALL MD [facility] 07-18-2023 18:50-0500 Blood Pressure Cuff Size HSRADDHA WESTFALL MD [facility] 07-18-2023 18:50-0500 Blood Pressure Location SHRADDHA WESTFALL MD [facility] 07-18-2023 18:50-0500 Blood Pressure Method SHRADDHA WESTFALL MD [facility] 07-18-2023 18:50-0500 Body height 165.1 cm SHRADDHA WESTFALL MD [facility] 07-18-2023 18:50-0500 Body temperature 98.06 [degF] SHRADDHA WESTFALL MD [facility] 07-18-2023 18:50-0500 Body weight 71 kg SHRADDHA WESTFALL MD [facility] 07-18-2023 18:50-0500 Diastolic Blood Pressure Non-Invasive 87 mm[Hg] SHRADDHA WESTFALL MD [facility] 07-18-2023 18:50-0500 Heart rate 117 /min SHRADDHA WESTFALL MD [facility] 07-18-2023 18:50-0500 Respiratory rate 16 /min SHRADDHA WESTFALL MD [facility] 07-18-2023 18:50-0500 Systolic Blood Pressure Non-Invasive 137 mm[Hg] SHRADDHA WESTFALL MD [facility] 05-27-2023 12:44-0500 Body weight 73.94 kg Mary Rojas CHERRY GROWER.BINDER OPERATOR Work Phone: [facility] 05-27-2023 12:44-0500 Diastolic blood pressure 78 mm[Hg] Mary Rojas CHERRY GROWER.BINDER OPERATOR Work Phone: [facility] 05-27-2023 12:44-0500 Heart rate 108 /min Mary Rojas CHERRY GROWER.BINDER OPERATOR Work Phone: [facility] 05-27-2023 12:44-0500 Respiratory rate 16 /min Mary Rojas CHERRY GROWER.BINDER OPERATOR Work Phone: [facility] 05-27-2023 12:44-0500 SaO2% (BldA) [Mass fraction] 97 % Mary Rojas CHERRY GROWER.BINDER OPERATOR Work Phone: [facility] 05-27-2023 12:44-0500 Systolic blood pressure 126 mm[Hg] Mary Rojas CHERRY GROWER.BINDER OPERATOR Work Phone: [facility] 05-27-2023 09:56-0500 Body weight 73.94 kg Daniel Loomis MD Work Phone: [facility] 05-27-2023 09:56-0500 Diastolic blood pressure 80 mm[Hg] Daniel Loomis MD Work Phone: [facility] 05-27-2023 09:56-0500 Systolic blood pressure 122 mm[Hg] Daniel Loomis MD Work Phone: [facility] 05-19-2023 00:59-0500 Body height 165.1 cm NICOLE HOWARD MD [facility] 05-19-2023 00:59-0500 Body temperature 97.16 [degF] NICOLE HOWARD MD [facility] 05-19-2023 00:59-0500 Body weight 75 kg NICOLE HOWARD MD [facility] 05-19-2023 00:59-0500 Diastolic Blood Pressure Non-Invasive 82 mm[Hg] NICOLE HOWARD MD [facility] 05-19-2023 00:59-0500 Heart rate 103 /min NICOLE HOWARD MD [facility] 05-19-2023 00:59-0500 Respiratory rate 18 /min NICOLE HOWARD MD [facility] 05-19-2023 00:59-0500 Systolic Blood Pressure Non-Invasive 138 mm[Hg] NICOLE HOWARD MD [facility] 05-12-2023 18:15-0500 Body temperature 98.42 [degF] JINA RING MD [facility] 05-12-2023 18:15-0500 Diastolic Blood Pressure Non-Invasive 85 mm[Hg] JINA RING MD [facility] 05-12-2023 18:15-0500 Heart rate 96 /min JINA RING MD [facility] 05-12-2023 18:15-0500 Respiratory rate 12 /min JIAN RING MD [facility] 05-12-2023 18:15-0500 Systolic Blood Pressure Non-Invasive 122 mm[Hg] JINA RING MD [facility] 05-05-2023 14:37-0500 Body temperature 97.81 [degF] [facility] CHERRY GROWER.BINDER OPERATOR Work Phone: [facility] 05-05-2023 14:37-0500 Body weight 76.11 kg [facility] CHERRY GROWER.BINDER OPERATOR Work Phone: [facility] 05-05-2023 14:37-0500 Diastolic blood pressure 74 mm[Hg] [facility] CHERRY GROWER.BINDER OPERATOR Work Phone: [facility] 05-05-2023 14:37-0500 Heart rate 103 /min [facility] CHERRY GROWER.BINDER OPERATOR Work Phone: [facility] 05-05-2023 14:37-0500 Respiratory rate 21 /min [facility] CHERRY GROWER.BINDER OPERATOR Work Phone: [facility] 05-05-2023 14:37-0500 SaO2% (BldA) [Mass fraction] 98 % [facility] CHERRY GROWER.BINDER OPERATOR Work Phone: [facility] 05-05-2023 14:37-0500 Systolic blood pressure 120 mm[Hg] [facility] CHERRY GROWER.BINDER OPERATOR Work Phone: [facility] 03-24-2023 23:09-0400 Body temperature 98.6 [degF] DR TANK CRAIG MD [facility] 03-24-2023 23:09-0400 Diastolic Blood Pressure Non-Invasive [address] TANK CRAIG MD [facility] 03-24-2023 23:09-0400 Heart rate 95 /min DR TANK CRAIG MD [facility] 03-24-2023 23:09-0400 Respiratory rate 18 /min DR TANK CRAIG MD [facility] 03-24-2023 23:09-0400 Systolic Blood Pressure Non-Invasive [address] TANK CRAIG MD [facility] 03-12-2023 02:03-0400 Body height 165.1 cm INCOLE HOWARD MD [facility] 03-12-2023 02:03-0400 Body temperature 97.7 [degF] NICOLE HOWARD MD [facility] 03-12-2023 02:03-0400 Body weight 77.4 kg NICOLE HOWARD MD [facility] 03-12-2023 02:03-0400 Diastolic Blood Pressure Non-Invasive 76 1 NICOLE HOWARD MD [facility] 03-12-2023 02:03-0400 Heart rate 108 /min NICOLE HOWARD MD [facility] 03-12-2023 02:03-0400 Respiratory rate 20 /min NICOLE HOWARD MD [facility] 03-12-2023 02:03-0400 Systolic Blood Pressure Non-Invasive 138 1 NICOLE HOWARD MD [facility] 03-06-2023 11:07-0400 Body weight 78.02 kg Mary Older CHERRY GROWER.BINDER OPERATOR Work Phone: [facility] 03-06-2023 11:07-0400 Diastolic blood pressure 84 mm[Hg] Mary Older CHERRY GROWER.BINDER OPERATOR Work Phone: [facility] 03-06-2023 11:07-0400 Heart rate 94 /min Mary Older CHERRY GROWER.BINDER OPERATOR Work Phone: [facility] 03-06-2023 11:07-0400 Respiratory rate 18 /min Mary Older CHERRY GROWER.BINDER OPERATOR Work Phone: [facility] 03-06-2023 11:07-0400 SaO2% (BldA) [Mass fraction] 100 % Mary Older CHERRY GROWER.BINDER OPERATOR Work Phone: [facility] 03-06-2023 11:07-0400 Systolic blood pressure 116 mm[Hg] Mary Older CHERRY GROWER.BINDER OPERATOR Work Phone: [facility] 03-04-2023 09:11-0400 Body weight 79.83 kg Mary Older CHERRY GROWER.BINDER OPERATOR Work Phone: [facility] 03-04-2023 09:11-0400 Diastolic blood pressure 77 mm[Hg] Mary Older CHERRY GROWER.BINDER OPERATOR Work Phone: [facility] 03-04-2023 09:11-0400 Heart rate 89 /min Mary Older CHERRY GROWER.BINDER OPERATOR Work Phone: [facility] 03-04-2023 09:11-0400 Respiratory rate 16 /min Mary Older CHERRY GROWER.BINDER OPERATOR Work Phone: [facility] 03-04-2023 09:11-0400 Systolic blood pressure 120 mm[Hg] Mary Older CHERRY GROWER.BINDER OPERATOR Work Phone: [facility] 12-08-2022 12:14-0400 Body temperature 98.2 [degF] Sheila Guadalupe CHERRY GROWER.BINDER OPERATOR Work Phone: [facility] 12-08-2022 12:14-0400 Body weight 84.82 kg Sheila Guadalupe APRN.BINDER OPERATOR Work Phone: [facility] 12-08-2022 12:14-0400 Diastolic blood pressure 70 mm[Hg] Sheila Guadalupe APRN.BINDER OPERATOR Work Phone: [facility] 12-08-2022 12:14-0400 Heart rate 106 /min Sheila Guadalupe APRN.BINDER OPERATOR Work Phone: [facility] 12-08-2022 12:14-0400 Respiratory rate 16 /min Sheila Guadalupe APRN.BINDER OPERATOR Work Phone: [facility] 12-08-2022 12:14-0400 SaO2% (BldA) [Mass fraction] 96 % Sheila Guadalupe APRN.BINDER OPERATOR Work Phone: [facility] 12-08-2022 12:14-0400 Systolic blood pressure 128 mm[Hg] Sheila Guadalupe APRN.BINDER OPERATOR Work Phone: [facility] 09-30-2022 12:43-0400 Body temperature 97.52 [degF] CONCHA GUDINO MD [facility] 09-30-2022 12:43-0400 Diastolic Blood Pressure Non-Invasive 85 1 CONCHA GUDINO MD [facility] 09-30-2022 12:43-0400 Heart rate 97 /min CONCHA GUDINO MD [facility] 09-30-2022 12:43-0400 Respiratory rate 14 /min CONCHA GUDINO MD [facility] 09-30-2022 12:43-0400 Systolic Blood Pressure Non-Invasive 126 1 CONCHA GUDINO MD [facility] 01-16-2022 11:51-0400 Diastolic blood pressure 81 mm[Hg] Foster Childress MD Work Phone: [facility] 01-16-2022 11:51-0400 Heart rate 88 /min Foster Childress MD Work Phone: [facility] 01-16-2022 11:51-0400 Systolic blood pressure 122 mm[Hg] Foster Childress MD Work Phone: [facility] 01-16-2022 11:46-0400 Body height 163.2 cm Foster Childress MD Work Phone: [facility] 01-16-2022 11:46-0400 Body temperature 97.5 [degF] Foster Childress MD Work Phone: [facility] 01-16-2022 11:46-0400 Body weight 80.38 kg Foster Childress MD Work Phone: [facility] 01-16-2022 11:46-0400 Respiratory rate 20 /min Foster Childress MD Work Phone: [facility] 09-28-2021 10:05-0400 Body weight 83.01 kg Leni Older CHERRY GROWER.BINDER OPERATOR Work Phone: [facility] 09-28-2021 10:05-0400 Diastolic blood pressure 76 mm[Hg] Leni Older CHERRY GROWER.BINDER OPERATOR Work Phone: [facility] 09-28-2021 10:05-0400 Heart rate 86 /min Leni Older CHERRY GROWER.BINDER OPERATOR Work Phone: [facility] 09-28-2021 10:05-0400 Respiratory rate 16 /min Leni Older CHERRY GROWER.BINDER OPERATOR Work Phone: [facility] 09-28-2021 10:05-0400 Systolic blood pressure 108 mm[Hg] Leni Older CHERRY GROWER.BINDER OPERATOR Work Phone: [facility] 04-21-2021 17:10-0400 Body temperature 98.6 [degF] CONCHA GUDINO MD [facility] 04-21-2021 17:10-0400 Diastolic blood pressure 83 mm[Hg] CONCHA GUDINO MD [facility] 04-21-2021 17:10-0400 Heart rate 94 /min CONCHA GUDINO MD [facility] 04-21-2021 17:10-0400 Mean blood pressure 99 mm[Hg] CONCHA GUDINO MD [facility] 04-21-2021 17:10-0400 Respiratory rate 16 /min CONCHA GUDINO MD [facility] 04-21-2021 17:10-0400 Systolic blood pressure 130 mm[Hg] CONCHA GUDINO MD [facility] Encounters Encounter Date Encounter Type Care Provider Facility Start: 08-12-2023 End: 08-12-2023 ambulatory FOSTER CHILDRESS Facility:[facility] Start: 08-12-2023 End: 08-12-2023 Patient encounter procedure Foster Childress MD Work Phone: [facility] Procedures Date Procedure Procedure Detail Performing Clinician Start: 08-06-2023 Urnls dip stick/tabl et rgnt auto w/o microscopy Asha Brock CHERRY GROWER.BINDER OPERATOR Work Phone: Start: 01-12-2022 Adult depression scr eening assessment Foster Childress MD Work Phone: Start: 10-28-2020 Adult depression scr eening assessment Leni Stout CHERRY GROWER.BINDER OPERATOR Work Phone: Tonsillectomy and adenoidectomy CONCHA GUDINO MD Tonsillectomy and adenoidectomy CONCHA GUDINO MD Tooth extraction CONCHA CHAVEZ SA, MD Plan of Treatment Date Care Activity Detail Author Start: 02-24-2028 Urine microalbumin profile DTa P,Tdap,Td Vaccine (8 - Td or Tdap) [facility] Start: 08-12-2024 Annual PCP Team Electrician Supervisor fe Disease Visit Annual PCP Team Chronic Disease Visit [facility] Start: 06-03-2024 Annual PCP Team Electrician Supervisor fe Disease Visit Annual PCP Team Chronic Disease Visit [facility] Start: 06-03-2024 Covid-19 Vaccine (#1) Covid-19 Vacci ne (#1) [facility] Payers Date Payer Category Payer Unknown [id number] 2022 Unknown [id number] 2022 Self-pay 2022 Unknown [id number] 2021 Unknown [employer] PPO OOS [id number] 2021-Present [phone] [facility] [address] [place] [address] PPO [id number] 1991 Unknown [id number] 1991 Unknown [id number] 1991 Unknown [id number] 1991 Unknown [id number] 1991 Unknown [id number] 1991 Unknown [id number] 1991 Unknown [id number] 1991 Unknown [id number] Social History Date Type Detail Facility Start: 02-12-2018 End: 02-03-2022 Smokes tobacco daily (finding) [facility] Start: 1990 Sex Assigned At Female [facility] History of tobacco use Cigarette Smoker C [facility] Start: 02-12-2018 End: 02-01-2023 Cigarettes smoked current (pack per day) - Reported 1 [facility] Start: 02-12-2018 End: 02-03-2022 Tobacco use and exposure Smokeless tobacco non-user [facility] Start: 08-04-2021 End: 06-04-2023 Alcohol intake Current non-drinker of alcohol (finding) [facility] Start: 10-28-2020 End: 05-29-2022 History SDOH Alcohol Frequency 1 [facility] Start: 10-28-2020 History SDOH Alcohol Std Drinks 98 [facility] Start: 10-28-2020 End: 05-29-2022 History SDOH Social Connections Phone 5 [facility] Start: 10-28-2020 End: 05-29-2022 History SDOH Social Connections Living 3 [facility] Start: 10-28-2020 End: 05-29-2022 History SDOH Stress 2 [facility] Start: 10-28-2020 Education 15 [facility] Start: 09-18-2021 End: 01-16-2022 Exposure to SARS-CoV-2 (event) Not sure [facility] Start: 01-16-2022 End: 02-03-2022 Tobacco Comment 2014. Tried to quit several times. [facility] Start: 05-29-2022 History SDOH Alcohol Std Drinks 0 [facility] Start: 05-29-2022 History SDOH Physical Activity DPW 4 [facility] Start: 09-30-2022 Tobacco smoking status Smoker (finding) [facility] Start: 05-29-2022 End: 02-01-2023 Social connection and isolation panel [facility] Do you belong to any clubs or organizations such as caodaism groups, unions, fraternal or athletic groups, or school groups? Yes [facility] Are you now , , , , never or living with a partner? [facility] How often to you hav e a drink containing alcohol? Never [facility] How many standard dr inks containing alcohol do you have on a typical day? Patient does not drink [facility] How hard is it for y ou to pay for the very basics like food, housing, medical care, and heating Hard [facility] (I/We) worried john er (my/our) food would run out before (I/we) got money to buy more. Often true [facility] At any time in the p ast 12 months, were you homeless or living in senior care [including now]? No [facility] Start: 01-22-2021 Gender identity Identifies as female gender (finding) [facility] Start: 01-22-2021 Sexual orientation Heterosexual (finding) [facility] Start: 03-11-2023 Tobacco smoking status Heavy tobacco smoker (finding) [facility] Functional Status Date Assessment Result Facility 07-18-2023 Functional Status ID band on, Call device within reach, Bed in low position [facility] 05-19-2023 Functional Status Independent [facility] 05-12-2023 Functional Status Ambulation in [facility] 03-25-2023 Functional Status Independent [facility] 03-12-2023 Functional Status Independent [facility] 09-30-2022 Functional Status Up ad hleio [facility] 09-30-2022 Functional Status Standard Safet y ID band on, Call device within reach, Bed in low position, Wheels locked, Visitor at bedside, Safety level maintained [facility] Mental Status Date Assessment Result Facility 07-18-2023 Mental Status Orientation Oriented x 4 [facility] 05-19-2023 Mental Status Orientation Oriented x 4 [facility] 05-19-2023 [facility] 05-12-2023 Mental Status Orientation Oriented x 4 [facility] 03-25-2023 Mental Status Orientation Oriented x 4 [facility] 03-12-2023 Mental Status Orientation Oriented x 4 [facility] 09-30-2022 Mental Status Orientation Oriented x 4 [facility] 09-30-2022 Mental Status [facility] Clinical Notes 02-12-2018 to 08-12-2023 Foster Childress MD - 08/12/2023 7:08 PM ESTPraisler-Asha Doss APRN.[employer]ER OPERATOR - 08/06/2023 7:51 AM ESTTelephone Encounter - Javier Frank Ma - 06/05/2023 1:21 PM ESTPatient Instructions Note Date & Type Note Facility 08-12-2023 Note HNO ID: [id number] Author: FOSTER CHILDRESS MD Service: ? Author Type: Physician Type: Progress Notes Filed: 08/13/2023 08:55 Note Text: This note was created using [employer]. Subjective Megan Villa is a 33 year old female. She was seen in the ER 08/06/23 for abdominal pain and diarrhea. She narrated worsening IBS symptoms for a few months with alternating constipation and diarrhea. ER work up included labs showing mild elevation of WBC, low K 3.3, HCG and UA negative. Chemistry and lipase was normal. CT of abdomen and pelvis showed no acute findings with incidental follicles in the right ovary and some fluid in the cul de sac. She was prescribed dicyclomine and she took one dose with resolution of abdominal cramps and diarrhea. She felt better overall when her potassium was supplemented. Chronic symptoms of fatigue, decreased appetite, anxiety, mood changes, abdominal pain, muscle cramps, and pains appeared to have improved after potassium was corrected. She continued to have GERD. The medication with the best effect was not covered by her plan (Dexilant). She had concerns about lack of executive function, brain fog, and social discord. She was referred to [facility] for evaluation of adult autism spectrum disorder. She informed me today that [facility] could not evaluate her until the end of summer. She found a clinic in [facility], where she will be evaluated next month. Review of Systems Constitutional: Positive for appetite change and unexpected weight change. Negative for chills and fever. HENT: Negative. Respiratory: Negative for cough and shortness of breath. Cardiovascular: Negative for chest pain, palpitations and leg swelling. Gastrointestinal: Negative. Neurological: Negative. ACTIVE PROBLEM LIST Irritable Bowel Syndrome With Both Constipation and Diarrhea Chronic Anxiety Dyspareunia in Female Obesity, Class I, Bmi 30-34.9 Gastroesophageal Reflux Disease Without Esophagitis Social History Tobacco Use Smoking status: Every Day Packs/day: 1 Types: Cigarettes Smokeless tobacco: Never Tobacco comments: 2014. Tried to quit several times. Vaping Use Vaping Use: Never used Substance Use Topics Alcohol use: No Drug use: Not Currently Types: Marijuana Comment: [id number] Current Outpatient Medications Medication Sig dicyclomine (BENTYL) 20 mg tablet Take 20 mg by mouth three times a day. Patient taking as needed. LORazepam (ATIVAN) 0.5 mg Take 1 tablets By Oral Route 2 times per day as needed Multivitamin capsule Take 1 capsule by mouth once daily. ondansetron orally disintegrating (ZOFRAN ODT) 4 mg disintegrating tablet Take 1 tablet by mouth every 8 hours as needed for nausea/vomiting. clindamycin (CLEOCIN-T) 1 % gel Apply to affected area two times a day. (Patient not taking: Reported on 08/06/2023) No current facility-administered medications for this visit. Objective BP 120/72 (BP Site: Left Arm, BP Position: Sitting, BP Cuff Size: Large Adult) Pulse 84 Temp 37.1 ?C (98.7 ?F) (Temporal) Resp 16 Wt 68.9 kg (152 lb) LMP 05/09/2023 (Exact Date) BMI 25.89 kg/m? Physical Exam Constitutional: General: She is not in acute distress. Appearance: She is not ill-appearing. Eyes: General: No scleral icterus. Conjunctiva/sclera: Conjunctivae normal. Cardiovascular: Heart sounds: Normal heart sounds. Pulmonary: Breath sounds: Normal breath sounds. Abdominal: General: Bowel sounds are normal. There is no distension. Palpations: There is no mass. Tenderness: There is abdominal tenderness in the epigastric area and left upper quadrant. There is no guarding or rebound. Musculoskeletal: Right lower leg: No edema. Left lower leg: No edema. Neurological: General: No focal deficit present. Mental Status: She is alert. Psychiatric: Mood and Affect: Mood normal. Behavior: Behavior normal. Thought Content: Thought content normal. Assessment and Plan 1. Irritable bowel syndrome with both constipation and diarrhea - ICD9: 564.1, ICD10: K58.2 (primary diagnosis) - Continue DICYCLOMINE as needed. 2. Hypokalemia - ICD9: 276.8, ICD10: E87.6 Discussed medication dosage, usage, goals of therapy, and side effects. Hyperkalemia is not expected to be a concern unless her kidney function declines. - POTASSIUM CHLORIDE ER 8 MEQ CAPSULE,EXTENDED RELEASE 3. Gastroesophageal reflux disease without esophagitis - ICD9: 530.81, ICD10: K21.9 Discussed medication dosage, usage, goals of therapy, and side effects. - LANSOPRAZOLE 30 MG CAPSULE,DELAYED RELEASE 4. Chronic anxiety - ICD9: 300.00, ICD10: F41.9 [facility] is for the question of adult autism spectrum disorder. Patient indicated they were planning to move out of state in 3-4 months. Foster Childress MD [facility] 08-12-2023 History of Present illness Narrative This note was created using [employer]. Subjective Megan Villa is a 33 year old female. She was seen in the ER 08/06/23 for abdominal pain and diarrhea. She narrated worsening IBS symptoms for a few months with alternating constipation and diarrhea. ER work up included labs showing mild elevation of WBC, low K 3.3, HCG and UA negative. Chemistry and lipase was normal. CT of abdomen and pelvis showed no acute findings with incidental follicles in the right ovary and some fluid in the cul de sac. She was prescribed dicyclomine and she took one dose with resolution of abdominal cramps and diarrhea. She felt better overall when her potassium was supplemented. Chronic symptoms of fatigue, decreased appetite, anxiety, mood changes, abdominal pain, muscle cramps, and pains appeared to have improved after potassium was corrected. She continued to have GERD. The medication with the best effect was not covered by her plan (Dexilant). She had concerns about lack of executive function, brain fog, and social discord. She was referred to [facility] for evaluation of adult autism spectrum disorder. She informed me today that [facility] could not evaluate her until the end of summer. She found a clinic in [place] [facility], where she will be evaluated next month. Review of Systems Constitutional: Positive for appetite change and unexpected weight change. Negative for chills and fever. HENT: Negative. Respiratory: Negative for cough and shortness of breath. Cardiovascular: Negative for chest pain, palpitations and leg swelling. Gastrointestinal: Negative. Neurological: Negative. ACTIVE PROBLEM LIST Irritable Bowel Syndrome With Both Constipation and Diarrhea Chronic Anxiety Dyspareunia in Female Obesity, Class I, Bmi 30-34.9 Gastroesophageal Reflux Disease Without Esophagitis Social History Tobacco Use Smoking status: Every Day Packs/day: 1 Types: Cigarettes Smokeless tobacco: Never Tobacco comments: 2014. Tried to quit several times. Vaping Use Vaping Use: Never used Substance Use Topics Alcohol use: No Drug use: Not Currently Types: Marijuana Comment: [id number] Current Outpatient Medications Medication Sig dicyclomine (BENTYL) 20 mg tablet Take 20 mg by mouth three times a day. Patient taking as needed. LORazepam (ATIVAN) 0.5 mg Take 1 tablets By Oral Route 2 times per day as needed Multivitamin capsule Take 1 capsule by mouth once daily. ondansetron orally disintegrating (ZOFRAN ODT) 4 mg disintegrating tablet Take 1 tablet by mouth every 8 hours as needed for nausea/vomiting. clindamycin (CLEOCIN-T) 1 % gel Apply to affected area two times a day. (Patient not taking: Reported on 08/06/2023) No current facility-administered medications for this visit. Objective BP 120/72 (BP Site: Left Arm, BP Position: Sitting, BP Cuff Size: Large Adult) Pulse 84 Temp 37.1 C (98.7 F) (Temporal) Resp 16 Wt 68.9 kg (152 lb) LMP 05/09/2023 (Exact Date) BMI 25.89 kg/m Physical Exam Constitutional: General: She is not in acute distress. Appearance: She is not ill-appearing. Eyes: General: No scleral icterus. Conjunctiva/sclera: Conjunctivae normal. Cardiovascular: Heart sounds: Normal heart sounds. Pulmonary: Breath sounds: Normal breath sounds. Abdominal: General: Bowel sounds are normal. There is no distension. Palpations: There is no mass. Tenderness: There is abdominal tenderness in the epigastric area and left upper quadrant. There is no guarding or rebound. Musculoskeletal: Right lower leg: No edema. Left lower leg: No edema. Neurological: General: No focal deficit present. Mental Status: She is alert. Psychiatric: Mood and Affect: Mood normal. Behavior: Behavior normal. Thought Content: Thought content normal. Assessment and Plan 1. Irritable bowel syndrome with both constipation and diarrhea - ICD9: 564.1, ICD10: K58.2 (primary diagnosis) - Continue DICYCLOMINE as needed. 2. Hypokalemia - ICD9: 276.8, ICD10: E87.6 Discussed medication dosage, usage, goals of therapy, and side effects. Hyperkalemia is not expected to be a concern unless her kidney function declines. - POTASSIUM CHLORIDE ER 8 MEQ CAPSULE,EXTENDED RELEASE 3. Gastroesophageal reflux disease without esophagitis - ICD9: 530.81, ICD10: K21.9 Discussed medication dosage, usage, goals of therapy, and side effects. - LANSOPRAZOLE 30 MG CAPSULE,DELAYED RELEASE 4. Chronic anxiety - ICD9: 300.00, ICD10: F41.9 [facility]. [facility] is for the question of adult autism spectrum disorder. Patient indicated they were planning to move out of state in 3-4 months. Foster Childress MD documented in this encounter [facility] 08-06-2023 Note HNO ID: [id number] Author: ASHA BROCK APRN.[facility] Service: ? Author Type: Nurse Practitioner Type: Progress Notes Filed: 08/06/2023 07:58 Note Text: Subjective HPI Megan Villa is a 33 year old female who presents with abdominal pain x one week, getting worse. Has had nausea and diarrhea. Has pain with urination, drinking water makes her abdominal pain worse. She has not had a fever. She has had chills. She took Zofran at home for nausea. LMP was 2 weeks ago. Review of Systems Constitutional: Positive for chills and malaise/fatigue. Negative for fever. Respiratory: Negative. Cardiovascular: Negative. Gastrointestinal: Positive for abdominal pain, diarrhea and nausea. Negative for vomiting. Genitourinary: Positive for dysuria. BP 122/72 Pulse 88 Temp 36.4 ?C (97.6 ?F) Resp 16 Wt 69.8 kg (153 lb 12.8 oz) LMP 05/09/2023 (Exact Date) SpO2 99% BMI 26.19 kg/m? PAST MEDICAL HISTORY Diagnosis Date Acute kidney failure (HCC) temporary liver and kindey failure due to reaction to antibiotic (unsure name) (was hospitalized) Anxiety 07/29/2012 Attention deficit disorder (ADD) 04/20/2013 Chronic anxiety 02/12/2018 Cognitive complaints 07/29/2012 MRI,MRA,MRV [...] Bupivacaine, Lidocaine, Mepivacaine, Prilocaine, Chlorpheniramine-Pseudoephed, Eggs [Egg], Roberts, Seasonal Allergies, and Tetracaine MEDICATIONS LORazepam (ATIVAN) [...] to affected area two times a day. (Patient not taking: Reported on 08/06/2023) FAMILY HISTORY Problem Relation Age of Onset [...] Drug use: Not Currently Types: Marijuana Comment: [id number] Objective Physical Exam Vitals and nursing note reviewed. Constitutional: Appearance: Normal appearance. She is ill-appearing. Cardiovascular: Rate and Rhythm: Normal rate and regular rhythm. Heart sounds: Normal heart sounds. Pulmonary: Effort: Pulmonary effort is normal. No respiratory distress. Breath sounds: Normal breath sounds. No wheezing or rales. Abdominal: Palpations: Abdomen is soft. Tenderness: There is abdominal tenderness in the suprapubic area. Skin: General: Skin is warm and dry. Neurological: Mental Status: She is alert. ASSESSMENT/PLAN: 1. Pain with urination - ICD9: 788.1, ICD10: R30.9 (primary diagnosis) - UA DIP, URINE (POC) Positive only for trace ketones. 2. Generalized abdominal pain - ICD9: 789.07, ICD10: R10.84 - discussed options for care. [facility] is limited in the amount of testing that can be done. We have no imaging for abdominal pain. She is offered appointment with PCP-can check for open appointment today or tomorrow, or she can go to ER. Patient elects to go to ER since her pain is worsening. Asha Brock APRN.[facility] 08-06-2023 History of Present illness Narrative Subjective HPI Megan Villa is a 33 year old female who presents with abdominal pain x one week, getting worse. Has had nausea and diarrhea. Has pain with urination, drinking water makes her abdominal pain worse. She has not had a fever. She has had chills. She took Zofran at home for nausea. LMP was 2 weeks ago. Review of Systems Constitutional: Positive for chills and malaise/fatigue. Negative for fever. Respiratory: Negative. Cardiovascular: Negative. Gastrointestinal: Positive for abdominal pain, diarrhea and nausea. Negative for vomiting. Genitourinary: Positive for dysuria. BP 122/72 Pulse 88 Temp 36.4 C (97.6 F) Resp 16 Wt 69.8 kg (153 lb 12.8 oz) LMP 05/09/2023 (Exact Date) SpO2 99% BMI 26.19 kg/m PAST MEDICAL HISTORY Diagnosis Date Acute kidney failure (HCC) temporary liver and kindey failure due to reaction to antibiotic (unsure name) (was hospitalized) Anxiety 07/29/2012 Attention deficit disorder (ADD) 04/20/2013 Chronic anxiety 02/12/2018 Cognitive complaints 07/29/2012 MRI,MRA,MRV [...] to affected area two times a day. (Patient not taking: Reported on 08/06/2023) FAMILY HISTORY Problem Relation Age of Onset [...] Drug use: Not Currently Types: Marijuana Comment: [id number] Objective Physical Exam Vitals and nursing note reviewed. Constitutional: Appearance: Normal appearance. She is ill-appearing. Cardiovascular: Rate and Rhythm: Normal rate and regular rhythm. Heart sounds: Normal heart sounds. Pulmonary: Effort: Pulmonary effort is normal. No respiratory distress. Breath sounds: Normal breath sounds. No wheezing or rales. Abdominal: Palpations: Abdomen is soft. Tenderness: There is abdominal tenderness in the suprapubic area. Skin: General: Skin is warm and dry. Neurological: Mental Status: She is alert. ASSESSMENT/PLAN: 1. Pain with urination - ICD9: 788.1, ICD10: R30.9 (primary diagnosis) - UA DIP, URINE (POC) Positive only for trace ketones. 2. Generalized abdominal pain - ICD9: 789.07, ICD10: R10.84 - discussed options for care. [facility] is limited in the amount of testing that can be done. We have no imaging for abdominal pain. She is offered appointment with PCP-can check for open appointment today or tomorrow, or she can go to ER. Patient elects to go to ER since her pain is worsening. Asha Brock APRN.BINDER OPERATOR documented in this encounter [facility] 07-18-2023 Hospital Discharge instructions Patient Education 07/18/2023 19:19:22 Irritable Bowel Syndrome Irritable Bowel Syndrome Irritable bowel syndrome (IBS) is a disorder of the intestines. It is not a disease, but a group of symptoms caused by changes in the way the intestines work including how they move, secrete, absorb, and transit pain sensations. It is fairly common, but the cause is not well understood. There are other conditions that cause IBS symptoms, so make sure to speak with your provider to make sure that further evaluation isn't needed. Symptoms of IBS include: Belly pain, discomfort, and cramping Diarrhea Constipation or dry, hard stools Mucous stool Bloating Feeling of incomplete bowel movements It usually results in one of 3 patterns of symptoms: Chronic belly pain and constipation Recurring episodes of diarrhea, with belly pain or discomfort Alternating diarrhea and constipation Home care The goal of treatment is to control and relieve your symptoms, so you can lead a full and active life. There is no cure for IBS. But it can be managed. Diet Your diet did not cause your IBS, but it can affect it. Diet and food choices may cause IBS symptoms in some people, but not everyone. No one diet works for everyone. Finding the best foods for you may take trial and error. Keep a food log to help find what foods made your symptoms worse. Below are some tips that may help you. Eat more slowly. Eat smaller amounts at a time, but more often. Remember, you can always eat more, but cannot eat less once you ve eaten too much. In general, fiber is very helpful for both constipation and diarrhea. However, insoluble fiber can worsen bloating, cramping, and gas. Insoluble fiber can be found in wheat bran, certain vegetables, and whole-grains. Soluble fiber is in such foods as oat bran, barley, nuts, seeds, rucker, lentils, peas, and some fruits and vegetables. Increase fiber slowly and choose a product that includes soluble fiber. It helps to keep a food diary and write down the symptoms you have with certain foods. Try lactose-free dairy products. many people are intolerant to lactose. Try cutting out foods that are high in fat and fatty meats. You can control bloating or passing excess gas. Be careful with gassy vegetables and fruits like beans, cabbage, broccoli, and cauliflower. Other foods called FODMAPs are a type of carbohydrate that can cause these symptoms and diarrhea. They are poorly digestible carbohydrates. Some FODMAP examples include honey, apples, pears, nectarines, wolfe beans, and cabbage. Talk with your provider about how to choose low FODMAP foods if you are sensitive to them. Be careful with carbonated beverages and fruit juices. They can make your bloating and diarrhea worse. Caffeine, alcohol, and stimulants can make symptoms worse. These include coffee, tea, sodas, energy drinks, and chocolate. IBS diet guidelines can be confusing. Ask your provider for a referral to a registered dietitian. This professional can help you make sense of IBS diet suggestions. Lifestyle Look for factors that seem to worsen your symptoms. These include stress and emotions. Although stress does not cause IBS, it may trigger flare-ups. Counseling can help you learn to handle stress. So can self-help measures like exercise, yoga, and meditation. Depression can occur along with IBS. Your healthcare provider may prescribe antidepressant medicine. This may help with diarrhea, constipation, and cramping, as well as with symptoms of depression. Smoking doesn't cause IBS, but can make the symptoms worse. Medicines Your healthcare provider may prescribe medicines. Take them as directed. For acute flare-ups of your illness, your provider may give you prescription medicines. Check with your healthcare provider before taking any medicines for diarrhea. Don't take anti-inflammatory medicines like ibuprofen or naproxen. Long-term medicines can be helpful for chronic symptoms If you have lost enough weight to make you need nutritional supplements, talk to your provider. This may point to another more serious condition. Follow-up care Follow up with your healthcare provider, or as advised. When to seek medical advice Call your healthcare provider right away if any of these occur: Belly pain gets worse or does not improve after a bowel movement Constant belly pain moves to the right-lower belly You can't keep liquids down because of vomiting You have severe, persistent diarrhea You have blood (red or black color) or mucus in your stool You have lost significant weight You feel very weak or dizzy, faint, or have extreme thirst You have a fever of 100.4 F (38.0 C) or higher, or as directed by your healthcare provider [id number] [employer]. [address] [place] [address]. All rights reserved. This information is not intended as a substitute for professional medical care. Always follow your healthcare professional's instructions. 07/18/2023 19:19:11 Anxiety Reaction Anxiety Reaction Anxiety is the [...] relieved by rest and mild pain reliever [id number] [employer]. [address] [place] [address], [place] [address]. All rights reserved. This information is not intended as a substitute for professional medical care. Always follow your healthcare professional's instructions. Follow Up Care 07/18/2023 18:36:54 With:FOSTER CHILDRESS MD Address: [address] [place] [id number]:2-4 days [facility] 07-18-2023 Note Discharge Instructions Thank you for allowing [facility] to assist you with your healthcare needs. The following is important discharge information regarding your hospital visit. Diagnosis from Today's Visit Abdominal pain Abdominal pain Anxiety Anxiety What to Do Next Instructions from Your Care Team No qualifying data available. Post Acute Orders No qualifying data available. You Need to Schedule the Following Appointments Follow Up with FOSTER CHILDRESS MD When Within 2-4 days Where: [address] [place] [address]- Allergies Allerest Maximum Strength Allerest Sinus BUPivacaine Cashews Eggs Roberts articaine lidocaine mepivacaine prilocaine tetracaine Medications Please ask your primary doctor or pharmacist before taking any other medication not listed, including over the counter drugs, herbal medications, vitamins and or supplements as they may interact with your home medications. What How Much When Why Instructions Last Dose New omeprazole (PriLOSEC OTC 20 mg oral delayed release tablet) 1 tab(s) by mouth Once a day Printed Prescription Unchanged amoxicillin (amoxicillin 500 mg [...] medication providers or retail pharmacies. Education Materials Irritable Bowel Syndrome Irritable bowel syndrome (IBS) is a disorder of the intestines. It is not a disease, but a group of symptoms caused by changes in the way the intestines work including how they move, secrete, absorb, and transit pain sensations. It is fairly common, but the cause is not well understood. There are other conditions that cause IBS symptoms, so make sure to speak with your provider to make sure that further evaluation isn't needed. Symptoms of IBS include: Belly pain, discomfort, and cramping Diarrhea Constipation or dry, hard stools Mucous stool Bloating Feeling of incomplete bowel movements It usually results in one of 3 patterns of symptoms: Chronic belly pain and constipation Recurring episodes of diarrhea, with belly pain or discomfort Alternating diarrhea and constipation Home care The goal of treatment is to control and relieve your symptoms, so you can lead a full and active life. There is no cure for IBS. But it can be managed. Diet Your diet did not cause your IBS, but it can affect it. Diet and food choices may cause IBS symptoms in some people, but not everyone. No one diet works for everyone. Finding the best foods for you may take trial and error. Keep a food log to help find what foods made your symptoms worse. Below are some tips that may help you. Eat more slowly. Eat smaller amounts at a time, but more often. Remember, you can always eat more, but cannot eat less once you ve eaten too much. In general, fiber is very helpful for both constipation and diarrhea. However, insoluble fiber can worsen bloating, cramping, and gas. Insoluble fiber can be found in wheat bran, certain vegetables, and whole-grains. Soluble fiber is in such foods as oat bran, barley, nuts, seeds, rucker, lentils, peas, and some fruits and vegetables. Increase fiber slowly and choose a product that includes soluble fiber. It helps to keep a food diary and write down the symptoms you have with certain foods. Try lactose-free dairy products. many people are intolerant to lactose. Try cutting out foods that are high in fat and fatty meats. You can control bloating or passing excess gas. Be careful with gassy vegetables and fruits like beans, cabbage, broccoli, and cauliflower. Other foods called FODMAPs are a type of carbohydrate that can cause these symptoms and diarrhea. They are poorly digestible carbohydrates. Some FODMAP examples include honey, apples, pears, nectarines, wolfe beans, and cabbage. Talk with your provider about how to choose low FODMAP foods if you are sensitive to them. Be careful with carbonated beverages and fruit juices. They can make your bloating and diarrhea worse. Caffeine, alcohol, and stimulants can make symptoms worse. These include coffee, tea, sodas, energy drinks, and chocolate. IBS diet guidelines can be confusing. Ask your provider for a referral to a registered dietitian. This professional can help you make sense of IBS diet suggestions. Lifestyle Look for factors that seem to worsen your symptoms. These include stress and emotions. Although stress does not cause IBS, it may trigger flare-ups. Counseling can help you learn to handle stress. So can self-help measures like exercise, yoga, and meditation. Depression can occur along with IBS. Your healthcare provider may prescribe antidepressant medicine. This may help with diarrhea, constipation, and cramping, as well as with symptoms of depression. Smoking doesn't cause IBS, but can make the symptoms worse. Medicines Your healthcare provider may prescribe medicines. Take them as directed. For acute flare-ups of your illness, your provider may give you prescription medicines. Check with your healthcare provider before taking any medicines for diarrhea. Don't take anti-inflammatory medicines like ibuprofen or naproxen. Long-term medicines can be helpful for chronic symptoms If you have lost enough weight to make you need nutritional supplements, talk to your provider. This may point to another more serious condition. Follow-up care Follow up with your healthcare provider, or as advised. When to seek medical advice Call your healthcare provider right away if any of these occur: Belly pain gets worse or does not improve after a bowel movement Constant belly pain moves to the right-lower belly You can't keep liquids down because of vomiting You have severe, persistent diarrhea You have blood (red or black color) or mucus in your stool You have lost significant weight You feel very weak or dizzy, faint, or have extreme thirst You have a fever of 100.4 F (38.0 C) or higher, or as directed by your healthcare provider 8514-2624 [employer]. [address] [place] [address], [place] [address]. All rights reserved. This information is not intended as a substitute for professional medical care. Always follow your healthcare professional's instructions. Anxiety Reaction Anxiety is the feeling we [...] relieved by rest and mild pain reliever 5351-9536 [employer]. [address] [place] [address]. All rights reserved. This information is not intended as a substitute for professional medical care. Always follow your healthcare professional's instructions. Additional Information VACCINATE! IT SAVES LIVES! Members of the community who have not yet received the COVID-19 vaccine and would like to receive it can visit one of [facility] vaccine clinics. There are many vaccine clinic locations within the [facility]. For locations and available times, please visit [email or web address] It is important to note that some COVID mobile vaccine clinics are held outdoors and may be canceled in rainy or stormy conditions. To learn more about pediatric vaccinations (ages 5-11), we invite you to visit the [facility] webpage. [email or web address] [email or web address] To learn more about the COVID-19 vaccine, we invite you to visit the CDC website for a list of frequently asked questions. https://www.cdc.gov/coronavirus/2 019-ncov/vaccines/faq.html [facility] Patient Portal Access Instructions: Stay connected with your healthcare team and access your personal medical information anytime with the [facility] Patient Portal. If you would like a full copy of your medical records please contact the [facility] Medical Records Department Saturday through Saturday between 8a.m. and 4:30p.m. Please follow the directions below to access the portal: 1.Access the email account you provided upon registration to the [facility].2.Look for an invitation email from [facility].3.Open the email and access the invitation link: Accept Invitation to [facility]4.Fill in the required spicer to create your [...] you will allow to register on the [facility] Patient Portal for access to your information. You can also access the [facility] Patient Portal on the [employer] nancy. Simply click on Health Records under Health Data and then click on the [employer] logo. HOW TO SAFELY DISPOSE OF PRESCRIPTION [...] Call your local pharmacy or go to [email or web address] to find one close to you.3.Make use of household items: Use cat litter or old coffee grounds to dispose medications if other options are not available. Mix your drugs with these household products, seal them in an airtight container and throw it into the garbage. Call [facility]: [phone] to be sure your drugs can be [...] a CHART COPY Signatures Patient Education Materials Irritable Bowel Syndrome Anxiety Reaction Medication Leaflets My discharge plan and instructions have been reviewed and explained to me and I,MEGAN VILLA understand my current condition and have read and understand these discharge instructions. I have received a written copy of the plan/instructions. If I have questions, I am aware that I should contact my doctor. Patient/Nutrition Intern Signature: Date/Time: Relationship to Patient: ____ Witness Name/Signature: Date/Time: [facility] 06-05-2023 Miscellaneous Notes Referral and appropriate patient information faxed to [facility] @ [phone] # [phone] Left message, needing fax number for [facility]. Dr. Childress has put in a referral, will fax referral info for review to see if they Patient. Suzanne Patel LPN documented in this encounter [facility] 06-03-2023 Note HNO ID: [id number] Author: Foster Childress MD Service: ? Author Type: Physician Type: Progress Notes Filed: 06/04/2023 7:16 AM Note Text: This note was created using NoteWriter. Subjective Megan Villa is a 33 year old female here with spouse. She sees Dr. Rodriguez [facility] [...] or evaluation for this. In fact, our AUDITING SPECIALIST here referred her to [facility] but was not scheduled since only pediatric referrals were accepted. They indicated she had an appointment in [place] in September 2023, and a center for autism in [facility] could see her with a referral. She [...] Drug use: Not Currently Types: Marijuana Comment: [phone] Current Outpatient Medications Medication Sig LORazepam (ATIVAN) [...] 799.55, ICD10: R41.844 (primary diagnosis) Refer to [facility], rule out Autism Spectrum Disorder. - CONSULT TO NON-[facility] FACILITY 2. Brain fog - ICD9: 799.59, ICD10: R41.89 - CONSULT TO NON-[facility]F FACILITY 3. Social discord - ICD9: V62.89, ICD10: Z65.8 - CONSULT TO NON-[facility] FACILITY 4. Hidradenitis suppurativa - ICD9: 705.83, ICD10: L73.2 - CLINDAMYCIN 1 % TOPICAL GEL - CONSULT TO DERMATOLOGY Foster Childress MD [facility] 05-27-2023 Note HNO ID: [id number] Author: Mary Rojas APRN.BINDER OPERATOR Service: ? Author Type: Nurse Practitioner Type: Progress Notes Filed: 05/27/2023 1:43 PM Note Text: CC: Patient presents with: Thyroid Problem HPI Megan Villa is a 33 year old female who [...] Mother Asthma Mother Psoriasis Mother Psychiatry Father Borbelle.Personality Disorder Lymphoma Brother 1/2 brother COPD Maternal Grandfather Social History Tobacco Use Smoking status: Every Day Packs/day: 1 Types: Cigarettes Smokeless tobacco: Never Tobacco comments: 2014. Tried to quit several times. Vaping Use Vaping Use: Never used Substance Use Topics Alcohol use: No Drug use: Not Currently Types: Marijuana Comment: 8192-1778 BP 126/78 Pulse 108 Resp 16 Wt [...] few days a (more content not included)... [facility] 05-27-2023 History of Present illness Narrative CC: Patient presents with: Thyroid Problem HPI Megan Villa is a 33 year old female who [...] Mother Asthma Mother Psoriasis Mother Psychiatry Father Borbelle.Personality Disorder Lymphoma Brother 1/2 brother COPD Maternal Grandfather Social History Tobacco Use Smoking status: Every Day Packs/day: 1 Types: Cigarettes Smokeless tobacco: Never Tobacco comments: 2014. Tried to quit several times. Vaping Use Vaping Use: Never used Substance Use Topics Alcohol use: No Drug use: Not Currently Types: Marijuana Comment: 8237-9215 BP 126/78 Pulse 108 Resp 16 Wt [...] Center. Schedule follow-up with her PCP Dr. Childress for further evaluation 2. Somatic complaints, multiple [...] medications, test results, and coordinating care. Mary Rojas APRN.CNP documented in this encounter [facility] 05-27-2023 Note HNO ID: [id number] Author: Daniel Isaac MD Service: ? Author Type: Physician Type: Progress Notes Filed: 05/27/2023 12:54 PM Note Text: Office visit Consultation requested by Mary Rojas APRN.CNP. My final recommendations will be communicated back to the requesting physician by way of shared Medical record or letter to requesting physician via US mail. Megan Villa is a 33 year old old female [...] constipation and diarrhea on a regular basis. Inside Account Representative History LMP: 05/09/2023 (Exact Date), Having periods Age at Menarche: Age at First : Age at Menopause: Inside Account Representative History Comments: Sexual Activity: Yes; Male Contraception: None OB History T0 L0 SAB0 IAB0 Ectopic0 Multiple0 Live Births0 PAST MEDICAL HISTORY Diagnosis Date Acute kidney failure (HCC) temporary liver and kindey failure due to reaction to antibiotic (unsure name) (was hospitalized) Anxiety 07/29/2012 Chronic anxiety 02/12/2018 Cognitive complaints 07/29/2012 MRI,MRA,MRV Concussion 2012 multiple Depression 07/29/2012 Dr[place]en of both optic [...] Drug use: Not Currently Types: Marijuana Comment: [id number] Current Outpatient Medications Medication Sig LORazepam (ATIVAN) [...] seen. ASSESSMENT/PLAN: 1. Pelvic pain - ICD9: FAA2351, ICD10: R10.2 Differential Diagnosis includes ovulation pain, IBS, and anxiety. -Patient counseled extensively about her symptoms, patient offered combined oral contraceptive pills to stop ovulation as her pain increased around ovulation time. After extensive discussion patient preferred to follow-up first with her primary care for proper managem (more content not included)... [facility] 05-27-2023 Note HNO ID: [id number] Author: Angi Land MA Service: ? Author Type: Special Agent Type: Progress Notes Filed: 05/27/2023 12:54 PM Note Text: Public Address System Mechanic offered: Patient accepts, visit chaperoned by angi land. [facility] 05-27-2023 History of Present illness Narrative Office visit Consultation requested by Mary Rojas APRN.BINDER OPERATOR. My final recommendations will be communicated back to the requesting physician by way of shared Medical record or letter to requesting physician via US mail. Megan Villa is a 33 year old old female [...] constipation and diarrhea on a regular basis. Inside Account Representative History LMP: 05/09/2023 (Exact Date), Having periods Age at Menarche: Age at First : Age at Menopause: Inside Account Representative History Comments: Sexual Activity: Yes; Male Contraception: [...] Drug use: Not Currently Types: Marijuana Comment: [id number] Current Outpatient Medications Medication Sig LORazepam (ATIVAN) [...] seen. ASSESSMENT/PLAN: 1. Pelvic pain - ICD9: [id number], ICD10: R10.2 Differential Diagnosis includes ovulation pain, [...] which included preparing to see the patient, wcaf-ws-afjl patient care, completing clinical documentation, performing a medically appropriate examination, counseling and educating the patient/family/caregiver, and communicating results to the patient/family/caregiver Public Address System Mechanic offered: Patient accepts, visit chaperoned by angi land. documented in this encounter [facility] 05-20-2023 Note HNO ID: [id number] Author: Mary Stout APRN.BINDER OPERATOR Service: ? Author Type: Nurse Practitioner Type: Progress Notes Filed: 05/20/2023 9:55 AM Note Text: CC: Patient presents with: painful spot on left breast since January [facility] Megan Villa is a 33 year old female who [...] Bupivacaine, Lidocaine, Mepivacaine, Prilocaine, Chlorpheniramine-Pseudoephed, Eggs [Egg], Roberts, Seasonal Allergies, and Tetracaine MEDICATIONS LORazepam (ATIVAN) [...] Drug use: Not Currently Types: Marijuana Comment: 0647-3309 BP 122/82 Pulse 105 Resp 14 Wt 74.4 kg (164 lb) LMP 07/05/2020 (Exact Date) SpO2 98% BMI 27.93 kg/m? Physical Exam Vitals reviewed. Constitutional: Appearance: Normal appearance. Chest: ASSESSMENT/PLAN: 1. Breast pain, left - ICD9: 611.71, ICD10: N64.4 (primary diagnosis) Evaluate further with: - [facility] DI[facility] LEFT - US BREAST LTD LEFT Follow-up pending results 2. Pelvic pain - ICD9: [id number], ICD10: R10.2 Patient needs referral to gynecology for pelvic pain - CONSULT TO GYNECOLOGY Prescription instructions reviewed with patient as applicable. Potential red flag symptoms discussed with the patient. Reviewed appropriate action plan to take if red flag symptoms occur. Patient agreeable to treatment plan. Mary Stout APRN.BINDER OPERATOR [facility] 11-26-2023 Hospital Discharge instructions Patient Education 05/19/2023 02:06:41 [...] spread to other parts of the body. 2022-1283 [employer]. [address] [place] [address], [place] [address]. All rights reserved. This information is not intended as a substitute for professional medical care. Always follow your healthcare professional's instructions. Follow Up Care 05/19/2023 00:54:17 With:FOSTER CHILDRESS MD [facility] [address] [facility] [place] [address]- When:2-4 days [facility] 05-19-2023 Note Discharge Instructions Thank you for allowing [facility] to assist you with your healthcare needs. The following is important discharge information regarding your hospital visit. Diagnosis from Today's Visit Abdominal pain Cyclic pelvic pain What to Do Next Instructions from Your Care Team No qualifying data available. Post Acute Orders No qualifying data available. You Need to Schedule the Following Appointments Follow Up with FOSTER CHILDRESS MD When Within 2-4 days Where: [address] [facility] [place] [id number]- Allergies Allerest Maximum Strength Allerest Sinus BUPivacaine Cashews Eggs Roberts articaine lidocaine mepivacaine prilocaine tetracaine Medications Please [...] spread to other parts of the body. 8947-8405 [employer]. [address] [place] [address]. All rights reserved. This information is not intended as a substitute for professional medical care. Always follow your healthcare professional's instructions. Additional Information VACCINATE! IT SAVES LIVES! Members of the community who have not yet received the COVID-19 vaccine and would like to receive it can visit one of [facility] vaccine clinics. There are many vaccine clinic locations within the [facility]. For locations and available times, please visit [email or web address] It is important to note that some COVID mobile vaccine clinics are held outdoors and may be canceled in rainy or stormy conditions. To learn more about pediatric vaccinations (ages 5-11), we invite you to visit the [facility] webpage. [email or web address] [email or web address]-[email or web address] hmun-[email or web address].[email or web address] To learn more about the COVID-19 vaccine, we invite you to visit the CDC website for a list of frequently asked questions. https://www.cdc.gov/coronavirus/2 019-ncov/vaccines/faq.html [facility] Patient Portal Access Instructions: Stay connected with your healthcare team and access your personal medical information anytime with the [facility] Patient Portal. If you would like a full copy of your medical records please contact the [facility] Medical Records Department Saturday through Saturday between 8a.m. and 4:30p.m. Please follow the directions below to access the portal: 1.Access the email account you provided upon registration to the hospital.2.Look for an invitation email from [facility].3.Open the email and access the invitation link: Accept Invitation to [facility]4.Fill in the required spicer to create your account. Sign into [email or web address] with your username and password that you [...] you will allow to register on the [facility] Patient Portal for access to your information. You can also access the [facility] Patient Portal on the [employer] nancy. Simply click on Health Records under [...] Call your local pharmacy or go to [email or web address] to find one close to you.3.Make use of household items: Use cat litter or old coffee grounds to dispose medications if other options are not available. Mix your drugs with these household products, seal them in an airtight container and throw it into the garbage. Call [facility]: [phone] to be sure your drugs can be [...] been reviewed and explained to me and IXOCHITL JESSICA A understand my current condition and have read and understand these discharge instructions. I have received a written copy of the plan/instructions. If I have questions, I am aware that I should contact my doctor. Patient/Nutrition Intern Signature: Date/Time: Relationship to Patient: ____ Witness Name/Signature: Date/Time: [facility] 05-19-2023 Note ORIGINAL EXAMINATION: CT OF THE [...] 05/19/2023 1:49:08 AM Ordering Provider: NICOLE HOWARD [facility] 05-12-2023 Hospital Discharge instructions Patient Education 05/12/2023 [...] pain, your healthcare provider may recommend using vqow-iha-giygibu pain medicine. If needed, your provide may [...] Weakness, dizziness, or fainting Abnormal vaginal bleeding 5887-7507 [employer]. [address] [place] [address], [place] [address]. All rights reserved. This information is not intended as a substitute for professional medical care. Always follow your healthcare professional's instructions. Follow Up Care 05/12/2023 18:12:21 With:DIVINA GUZMAN Address: [address] [place] [phone]- [phone] Business (1) When:2-4 days Comments:Schedule appointment as soon as possibleReturn to ED if symptoms worsenClear liquid diet i.e. Pedialyte till tomorrow morning if better can increase as tolerated to get pain is getting progressively worse no matter what you do or you get fever vomiting you need to return to the emergency room With:FOSTER CHILDRESS Address: [address] [place] [address]- Business (1) When:2-4 days Comments:Schedule appointment as soon as possibleReturn to ED if symptoms worsenReturn for symptoms as described [facility] 05-12-2023 Note Discharge Instructions Thank you for allowing [facility] to assist you with your healthcare needs. [...] to return to the emergency room Where: [address] [place] [phone]- [phone] Business (1) Follow Up with FOSTER CHILDRESS When Within 2-4 days Why: Schedule appointment as soon as possible Return to ED if symptoms worsen Return for symptoms as described Where: [address] [place] [address]- Business (1) Allergies Allerest Maximum Strength Allerest Sinus BUPivacaine Cashews Eggs Roberts articaine lidocaine mepivacaine prilocaine tetracaine Medications Please [...] may report side effects to FDA at 2-673-HIG-4940. What other drugs will affect naproxen? Ask [...] drugs may affect naproxen, including prescription and igse-xmf-ibiaadv medicines, vitamins, and herbal products. Not all [...] to ensure that the information provided by [employer]') is accurate, up-to-date, and complete, but no guarantee is made to that effect. Drug information contained herein may be time sensitive. Ad[employer] information has been compiled for use by healthcare practitioners and consumers in the [place] and therefore Ad[employer] does not warrant that uses outside of the [place] are appropriate, unless specifically indicated otherwise. Admitted[employer]'s drug information does not endorse drugs, diagnose patients or recommend therapy. [employer]s drug information is an informational resource designed [...] effective or appropriate for any given patient. [facility] does not assume any responsibility for any aspect of healthcare administered with the aid of information [facility] provides. The information contained herein is not intended to cover all possible uses, directions, precautions, warnings, drug interactions, allergic reactions, or adverse effects. If you have questions about the drugs you are taking, check with your doctor, nurse or pharmacist. Copyright 4207-8254 [employer] go[employer]. Version: 22.01. Revision Date: 01/24/2023. Education Materials [...] pain, your healthcare provider may recommend using smyx-urm-dxxbnfh pain medicine. If needed, your provide may [...] Weakness, dizziness, or fainting Abnormal vaginal bleeding 9412-5179 [employer]. [address] [place] [address]. All rights reserved. This information is not intended as a substitute for professional medical care. Always follow your healthcare professional's instructions. Additional Information VACCINATE! IT SAVES LIVES! Members of the community who have not yet received the COVID-19 vaccine and would like to receive it can visit one of [facility] vaccine clinics. There are many vaccine clinic locations within the [facility]. For locations and available times, please visit [email or web address] ov/. It is important to note that some COVID mobile vaccine clinics are held outdoors and may be canceled in rainy or stormy conditions. To learn more about pediatric vaccinations (ages 5-11), we invite you to visit the [facility] webpage. https://www.TrademarkNows.[email or web address]/pa ges/9747-Thfdk-Fuvbrhztfci-Freque qoix-Mdraj-Qfjzatrvm.html To learn more about the COVID-19 vaccine, we invite you to visit the CDC website for a list of frequently asked questions. https://www.cdc.gov/coronavirus/2 019-ncov/vaccines/faq.html [facility] [employer] Patient Portal Access Instructions: Stay connected with your healthcare team and access your personal medical information anytime with the [facility] Patient Portal. If you would like a full copy of your medical records please contact the [facility] Medical Records Department Saturday through Saturday between 8a.m. and 4:30p.m. Please follow the directions below to access the portal: 1.Access the email account you provided upon registration to the [facility].2.Look for an invitation email from [facility].3.Open the email and access the invitation link: Accept Invitation to [facility]4.Fill in the required spicer to create your account. Sign into [email or web address] with your username and password that you [...] you will allow to register on the [facility] Patient Portal for access to your information. You can also access the [facility] Patient Portal on the LocalMaven.com. Simply click on Health Records under Health Data and then click on the Avinger logo. HOW TO SAFELY DISPOSE OF PRESCRIPTION [...] Call your local pharmacy or go to [email or web address] to find one close to you.3.Make use of household items: Use cat litter or old coffee grounds to dispose medications if other options are not available. Mix your drugs with these household products, seal them in an airtight container and throw it into the garbage. Call [facility]: [phone] to be sure your drugs can be [...] reviewed and explained to me and I,MEGAN VILLA understand my current condition and have read and understand these discharge instructions. I have received a written copy of the plan/instructions. If I have questions, I am aware that I should contact my doctor. Patient/Nutrition Intern Signature: Date/Time: Relationship to Patient: ____ Witness Name/Signature: Date/Time: [facility] 05-10-2023 Miscellaneous Notes Reason for Call: Completed [...] have any questions, you can call Nurse career and transition teacher back. documented in this encounter [facility] 05-09-2023 Miscellaneous Notes Reason for Call: [...] 112. Unable to hold a job since 2016 Having irrational intrusive thoughts- catastrophe- hyper paranoid [...] Denies drugs 11. 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 Currently home [...] week ago Protocols used: Anxiety and Panic Wkuslu-LEFSU-XU documented in this encounter [facility] 05-05-2023 Note HNO ID: [id number] Author: Malick White APRN.BINDER OPERATOR Service: ? Author Type: Nurse Practitioner Type: [...] Drug use: Not Currently Types: Marijuana Comment: [id number] BP 120/74 Pulse 103 Temp 36.6 ?C [...] tachypnea, accessory mus (more content not included)... [facility] 05-05-2023 History of Present illness [...] Drug use: Not Currently Types: Marijuana Comment: 3203-1468 BP 120/74 Pulse 103 Temp 36.6 C [...] of care. This note was generated using Graviton software. It may contain errors in wording, punctuation, or spelling. Malick White APRN.GABRIELA documented in this encounter [facility] 05-03-2023 Miscellaneous Notes Reason for Call: [...] Triager unable to answer question Protocols used: Uiiczbvrq-LKBDJ-GO documented in this encounter [facility] 03-25-2023 Note HNO ID: [id number] Author: Martha Alvarez [facility] Alejandra Service: ? Author Type: Therapist Type: [...] than 5 weeks since 2011. Last job [employer] in 2018. PAST MEDICAL HISTORY Diagnosis Date [...] felt bad Eggs [Egg] GI Upset nausea/vomitting Roberts Swelling Seasonal Allergies Cough Tetracaine Other: See [...] of, specifically with peer. 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 Really sensitive to being overstimulated, some textures and sounds. . Patient is a 33 year old F. Patient reports that she lives with her [...] enough. She states that she will play Clodicoox for up to 14 hours. 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 2018- admitted for statements of SI. SUICIDE RISK ASSESSMENT: Suicide At (more content not included)... [facility] 03-25-2023 Hospital Discharge instructions Patient [...] Black, tarry stool Involuntary weight loss Weakness [id number] [employer]. [address] [place] [address]. All rights reserved. This information is not intended as a substitute for professional medical care. Always follow your healthcare professional's instructions. Follow Up Care 03/24/2023 22:52:08 With:[facility] Address: [address] [place] [address] [employer] (1) When:2-4 days Comments:Drink Plenty of fluids, use suppositories daily until BM, use MiraLAX daily for the next 5 to 7 days. [facility] 03-25-2023 Note Discharge Instructions Thank you for allowing [facility] to assist you with your healthcare needs. The following is important discharge information regarding your hospital visit. Diagnosis from Today's Visit Constipation Constipation What to Do Next Instructions from Your Care Team No qualifying data available. Post Acute Orders No qualifying data available. You Need to Schedule the Following Appointments Follow Up with [facility] When Within 2-4 days Why: Drink Plenty of fluids, use suppositories daily until BM, use MiraLAX daily for the next 5 to 7 days. Where: [address] [place] [address] (1) Allergies Allerest Maximum Strength Allerest Sinus BUPivacaine Cashews Eggs Roberts articaine lidocaine mepivacaine prilocaine tetracaine Medications Please [...] Black, tarry stool Involuntary weight loss Weakness [phone] [employer]. [address] [place] [address], [place] [address]. All rights reserved. This information is not intended as a substitute for professional medical care. Always follow your healthcare professional's instructions. Additional Information VACCINATE! IT SAVES LIVES! Members of the community who have not yet received the COVID-19 vaccine and would like to receive it can visit one of [facility] vaccine clinics. There are many vaccine clinic locations within the [facility]. For locations and available times, please visit [email or web address] ov/. It is important to note that some COVID mobile vaccine clinics are held outdoors and may be canceled in rainy or stormy conditions. To learn more about pediatric vaccinations (ages 5-11), we invite you to visit the [facility] webpage. https://www.TrademarkNows.org/pa ges/5206-Ftbcu-Thcrrnlzyxh-Freque alfe-Crlap-Uyngwigrp.html To learn more about the COVID-19 vaccine, we invite you to visit the CDC website for a list of frequently asked questions. https://www.cdc.gov/coronavirus/2 019-ncov/vaccines/faq.html [facility] Patient Portal Access Instructions: Stay connected with your healthcare team and access your personal medical information anytime with the [facility] Patient Portal. If you would like a full copy of your medical records please contact the [facility] Medical Records Department Saturday through Saturday between 8a.m. and 4:30p.m. Please follow the directions below to access the portal: 1.Access the email account you provided upon registration to the hospital.2.Look for an invitation email from [facility].3.Open the email and access the invitation link: Accept Invitation to [facility]4.Fill in the required spicer to create your account. Sign into [email or web address] with your username and password that you [...] you will allow to register on the [facility] Patient Portal for access to your information. You can also access the [facility] Patient Portal on the ECKey nancy. Simply click on Health Records under [...] Call your local pharmacy or go to [email or web address] to find one close to you.3.Make use of household items: Use cat litter or old coffee grounds to dispose medications if other options are not available. Mix your drugs with these household products, seal them in an airtight container and throw it into the garbage. Call [facility]: [phone] to be sure your drugs can be [...] reviewed and explained to me and I,MEGAN VILLA understand my current condition and have read and understand these discharge instructions. I have received a written copy of the plan/instructions. If I have questions, I am aware that I should contact my doctor. Patient/Nutrition Intern Signature: Date/Time: Relationship to Patient: ____ Witness Name/Signature: Date/Time: [facility] 03-24-2023 Miscellaneous Notes Reason for Call: Rectal [...] she does it herself. Protocols used: Rectal Qenogonx-MOJQL-UG, Lzshmmemuuhg-RWNNT-TA documented in this encounter [facility] 03-15-2023 Miscellaneous Notes Reason for Call: Pt states she called 911 3 1/2 to 4 hrs ago and was txed per [facility] for feeling lightheaded with pressure in [...] 7 days that was prescribed per the [facility] ED on Saturday since she took 4 baby aspirin per the ED today. Pt states she had been prescribed seroquel on 03/06 and felt face was tingly, felt like a zombie and that she was doped up when took it so stopped taking it. . Pt also thinks she is allergic to cashews as her shake sawyer told her is she is allergic to [...] need to add to allergy list. If shake sawyer told her to avoid cashews, then should [...] states she has an appt with Dr Childress on 03/22. Pt states the ED provider [...] rapid pulse) Protocols used: Anxiety and Panic Uknzlq-UNGSE-VP, Chest Ygfu-UAFIX-FF documented in this encounter [facility] 03-12-2023 Hospital Discharge instructions Patient Education [...] relieved by rest and mild pain reliever 3650-6704 [employer]. [address] [place] [address], [place] [address]. All rights reserved. This information is not intended as a substitute for professional medical care. Always follow your healthcare professional's instructions. Follow Up Care 03/12/2023 02:02:54 With:[facility] Address: When:2-4 days [facility] 03-12-2023 Note Discharge Instructions Thank you for allowing [facility] to assist you with your healthcare needs. The following is important discharge information regarding your hospital visit. Diagnosis from Today's Visit Anxiety Anxiety What to Do Next Instructions from Your Care Team 24 hour pharmacy: [facility] [address], [place] ; [facility] [address] [facility] ; [facility] [address] [facility] [address] No qualifying data available. Post Acute Orders No qualifying data available. You Need to Schedule the Following Appointments Follow Up with [facility] When Within 2-4 days Where: Allergies Allerest Maximum Strength Allerest Sinus BUPivacaine Cashews Eggs Roberts articaine lidocaine mepivacaine prilocaine tetracaine Medications Please [...] relieved by rest and mild pain reliever 3950-6531 [employer]. [address] [place] [address]. All rights reserved. This information is not intended as a substitute for professional medical care. Always follow your healthcare professional's instructions. Additional Information VACCINATE! IT SAVES LIVES! Members of the community who have not yet received the COVID-19 vaccine and would like to receive it can visit one of [facility] vaccine clinics. There are many vaccine clinic locations within the [facility]. For locations and available times, please visit www.[email or web address].[place].g ov/. It is important to note that some COVID mobile vaccine clinics are held outdoors and may be canceled in rainy or stormy conditions. To learn more about pediatric vaccinations (ages 5-11), we invite you to visit the [facility] webpage. https://www.[facility].org/pa ges/0628-Cusea-Hufwdmcquvu-Freque vavd-Smkxa-Snqhgytxv.html To learn more about the COVID-19 vaccine, we invite you to visit the CDC website for a list of frequently asked questions. https://www.cdc.gov/coronavirus/2 019-ncov/vaccines/faq.html [facility] Patient Portal Access Instructions: Stay connected with your healthcare team and access your personal medical information anytime with the [facility] Patient Portal. If you would like a full copy of your medical records please contact the [facility] Medical Records Department Saturday through Saturday between 8a.m. and 4:30p.m. Please follow the directions below to access the portal: 1.Access the email account you provided upon registration to the hospital.2.Look for an invitation email from [facility].3.Open the email and access the invitation link: Accept Invitation to [facility]4.Fill in the required spicer to create your account. Sign into [email or web address] with your username and password that you [...] you will allow to register on the [facility] Patient Portal for access to your information. You can also access the [facility] Patient Portal on the ECKey nancy. Simply click on Health Records under [...] Call your local pharmacy or go to [email or web address] to find one close to you.3.Make use of household items: Use cat litter or old coffee grounds to dispose medications if other options are not available. Mix your drugs with these household products, seal them in an airtight container and throw it into the garbage. Call [facility]: [phone] to be sure your drugs can be [...] reviewed and explained to me and I,MEGAN VILLA understand my current condition and have read and understand these discharge instructions. I have received a written copy of the plan/instructions. If I have questions, I am aware that I should contact my doctor. Patient/Nutrition Intern Signature: Date/Time: Relationship to Patient: ____ Witness Name/Signature: Date/Time: [facility] 03-11-2023 Miscellaneous Notes Behavioral Health Social Work Progress Note Patient identified for [facility] from: PCP Reason for referral: [facility] Assessment [facility] encounter type: Telephone Encounter Attempts to Outreach: 3 attempts Referral made: Psychiatry - Internal Psychiatry-Internal referral type: Medication Management Final Disposition: Care established with Patient Discharged?: No Patient reported that caregiver was able to meet their needs today?: N/A Spoke with patient's , [facility] assessment is scheduled in person on March 25 at 1:00 pm. ANNETTE Burch March 11, 2023 documented in this encounter [facility] 03-11-2023 Note HNO ID: [id number] Author: Sheila Guadalupe APRN.CNP Service: ? Author [...] is being referred back to primary care. [facility] 03-11-2023 Miscellaneous Notes TC to [...] needs to go to the ER Mary Stout APRN.GABRIELA documented in this encounter [facility] 03-08-2023 Miscellaneous Notes Behavioral Health Social Work Progress Note Patient identified for [facility] from: PCP Reason for referral: Resources Behavioral Health Resources: Psychiatry med management [facility] encounter type: Telephone Encounter Attempts to Outreach: 1 attempt Referral made: Psychiatry - External, Psychiatry - Internal Psychiatry-Internal referral type: Medication Management Psychiatry-External referral type: Medication Management Patient Discharged?: No Patient reported that caregiver was able to meet their needs today?: N/A Phone call placed today, voicemail box is not yet set up. Initial outreach also completed via [employer] sending list of in network providers with insurance. PRAVEEN Burch-S March 08, 2023 documented in this encounter [facility] 03-08-2023 Miscellaneous Notes Patient request has been addressed by behavioral health neonatal social worker, closing encounter Mary Stout APRN.CNP She does not need a behavioral [...] doubtful this was an allergic reaction Mary Stout APRN.CNP Pt called & gave permission to [...] Edyta Anthony LPN documented in this encounter [facility] 03-06-2023 Note HNO ID: [id number] Author: Mary Stout APRN.BINDER OPERATOR Service: ? Author Type: Nurse Practitioner Type: Progress Notes Filed: 03/06/2023 2:34 PM Note Text: CC: Patient presents with: Anxiety: Sleep concerns HPI Megan Villa is a 33 year old female who [...] Mother Asthma Mother Psoriasis Mother Psychiatry Father [place]elle.Personality Disorder Lymphoma Brother 1/2 brother COPD Maternal Grandfather Social History Tobacco Use Smoking status: Every Day Packs/day: 1 Types: Cigarettes Smokeless tobacco: Never Tobacco comments: 2014. Tried to quit several times. Vaping Use Vaping Use: Never used Substance Use Topics Alcohol use: No Drug use: Not Currently Types: Marijuana Comment: BP 116/ (more content not included)... [facility] 03-06-2023 Note HNO ID: [id number] Author: Mee Vail PA-C Service: ? Author Type: Physician Fountain Attendant Type: Progress Notes Filed: 03/06/2023 11:04 AM [...] was able to get her in today. [facility] 03-06-2023 History of Present illness Narrative CC: Patient presents with: Anxiety: Sleep concerns HPI Megan Villa is a 33 year old female who [...] anxiety 02/12/2018 Cognitive complaints 07/29/2012 MRI,MRA,MRV Concussion 2012 multiple Depression 07/29/2012 Drusen of both optic [...] that she will establish care with psychiatry KRITSIN and they will take over medication management. [...] treatment options, medications, and coordinating care. Mary Stout APRN.GABRIELA documented in this encounter [facility] 03-06-2023 History of Present illness Narrative Patient presents to [facility] triage with a chief complaint of trouble sleeping and anxiety. She states she last a dog and 3 cats recently and does not process grief well. She is requesting Seroquel to help her sleep. Discussed with her I would recommend a primary care appointment and was able to get her in today. documented in this encounter [facility] 03-04-2023 Note HNO ID: [id number] Author: Mary Stout APRN.GABRIELA Service: ? Author Type: Nurse Practitioner Type: Progress Notes Filed: 03/04/2023 9:46 AM Note Text: CC: Patient presents with: Hospital F/U [facility] Megan Villa is a 33 year old female who presents today for ER follow-up. Patient presented to [facility] on 02/28 with sudden onset dizziness that [...] function is intac (more content not included)... [facility] 03-04-2023 Instructions Mary Stout APRN.CNP - 03/04/2023 9:27 AM EDT Follow-up in two weeks if no improvement in symptoms documented in this encounter [facility] 03-04-2023 History of Present illness Narrative CC: Patient presents with: Hospital F/U HPI Megan Villa is a 33 year old female who presents today for ER follow-up. Patient presented to [facility] on 02/28 with sudden onset dizziness that [...] Bupivacaine, Lidocaine, Mepivacaine, Prilocaine, Chlorpheniramine-Pseudoephed, Eggs [Egg], Roberts, Seasonal Allergies, and Tetracaine MEDICATIONS Multivitamin capsule [...] is anxious. DATA REVIEWED: Outside chart from [facility] ER reviewed. ASSESSMENT/PLAN: 1. Vertigo - ICD9: [...] occur. Patient agreeable to treatment plan. Mary Stout APRN.BINDER OPERATOR documented in this encounter [facility] 12-08-2022 Note HNO ID: [id number] Author: Sheila Guadalupe APRN.GABRIELA Service: ? Author Type: Nurse Practitioner Type: Progress Notes Filed: 12/08/2022 12:21 PM Note Text: CC: Patient presents with: Ear Pain: right ear itching and now pain x this am HPI: Megan Villa is a 32 year old female who [...] normal TONSILLECTOMY HX ALLERGIES Chlorpheniramine-Pseudoephed, Eggs [Egg], Roberts, Seasonal Allergies, and Tetracaine MEDICATIONS clindamycin (CLEOCIN-T) [...] Patient agreeable to treatment plan. Sheila Guadalupe APRN.[facility] 12-08-2022 History of Present illness Narrative CC: Patient presents with: Ear Pain: right ear itching and now pain x this am HPI: Megan Villa is a 32 year old female who [...] anxiety 02/12/2018 Cognitive complaints 07/29/2012 MRI,MRA,MRV Concussion 2012 multiple Depression 07/29/2012 Drusen of both optic [...] Drug use: Not Currently Types: Marijuana Comment: [id number] ASSESSMENT/PLAN: 1. Acute otitis media, right - ICD9: 382.9, ICD10: H66.91 - AMOXICILLIN 875 MG TABLET Prescription instructions reviewed with patient as applicable. Potential red flag symptoms discussed with the patient. Reviewed appropriate action plan to take if red flag symptoms occur. Patient agreeable to treatment plan. Sheila Guadalupe APRN.BINDER OPERATOR documented in this encounter [facility] 10-02-2022 Miscellaneous Notes Pt transferred to [facility] to schedule with Women's Health. Maryellen Zavaleta LPN Please contact patient to schedule with Gynecology. Patient calls to ask if provider would place a referral to dock loader for abnormal uterine bleeding (reports that she was off her menses for 8 days and started bleeding again on 09/29 moderate amount no clots). Nurse triage completed on 09/29/2022 with recommendation to be seen in 4 hours. Patient went to ER last night and they ruled out , UTI, and anemia. Pended referral. Estelita Acuña RN documented in this encounter [facility] 09-30-2022 Hospital Discharge instructions Patient Education [...] with you to plan treatment as needed. 4309-7562 [employer]. [address] [place] [address]. All rights reserved. This information is not intended as a substitute for professional medical care. Always follow your healthcare professional's instructions. Follow Up Care 09/30/2022 12:33:24 With:CASIMIRO STARR Address: [address] [place], [place] [phone] When:2-4 days [facility] 09-30-2022 Note Discharge Instructions Thank you for allowing [facility] to assist you with your healthcare needs. [...] CASIMIRO STARR When Within 2-4 days Where: [address] [place] [phone] Allergies Allerest Maximum Strength Allerest Sinus BUPivacaine Cashews Eggs Roberts articaine lidocaine mepivacaine prilocaine tetracaine Medications Please [...] may report side effects to FDA at [phone]-[phone]. What other drugs will affect naproxen? Ask [...] drugs may affect naproxen, including prescription and jxsm-jcw-fycedvz medicines, vitamins, and herbal products. Not all [...] to ensure that the information provided by [employer] [address]. ('[employer]') is accurate, up-to-date, and complete, but no guarantee is made to that effect. Drug information contained herein may be time sensitive. Admittedly information has been compiled for use by healthcare practitioners and consumers in the [place] and therefore Ad[employer] does not warrant that uses outside of the [place] are appropriate, unless specifically indicated otherwise. [employer] drug information does not endorse drugs, diagnose patients or recommend therapy. [employer] drug information is an informational resource designed [...] effective or appropriate for any given patient. Admittedly does not assume any responsibility for any aspect of healthcare administered with the aid of information Admittedly provides. The information contained herein is not intended to cover all possible uses, directions, precautions, warnings, drug interactions, allergic reactions, or adverse effects. If you have questions about the drugs you are taking, check with your doctor, nurse or pharmacist. Copyright [address] Version: 20.. Revision Date: 10/31/2021. Education Materials [...] with you to plan treatment as needed. 2267-9908 [employer]. [address] [place] [address]. All rights reserved. This information is not intended as a substitute for professional medical care. Always follow your healthcare professional's instructions. Additional Information VACCINATE! IT SAVES LIVES! Members of the community who have not yet received the COVID-19 vaccine and would like to receive it can visit one of [facility] vaccine clinics. There are many vaccine clinic locations within the [facility]. For locations and available times, please visit [email or web address] It is important to note that some COVID mobile vaccine clinics are held outdoors and may be canceled in rainy or stormy conditions. To learn more about pediatric vaccinations (ages 5-11), we invite you to visit the [facility] webpage. [email or web address] To learn more about the COVID-19 vaccine, we invite you to visit the CDC website for a list of frequently asked questions. https://www.cdc.gov/coronavirus/2 019-ncov/vaccines/faq.html [facility] Patient Portal Access Instructions: Stay connected with your healthcare team and access your personal medical information anytime with the [facility] [facility] Patient Portal. If you would like a full copy of your medical records please contact the [facility] Medical Records Department Saturday through Saturday between 8a.m. and 4:30p.m. Please follow the directions below to access the portal: 1.Access the email account you provided upon registration to the [facility].2.Look for an invitation email from [facility].3.Open the email and access the invitation link: Accept Invitation to [facility].Fill in the required spicer to create your account. Sign into [email or web address] with your username and password that you [...] you will allow to register on the [employer] [facility] Patient Portal for access to your information. You can also access the [facility] Patient Portal on the [employer]Maven.com. Simply click on Health Records under Health Data and then click on the [employer] logo. HOW TO SAFELY DISPOSE OF PRESCRIPTION [...] Call your local pharmacy or go to http://bit.ly/9H2Uz1z to find one close to you.3.Make use of household items: Use cat litter or old coffee grounds to dispose medications if other options are not available. Mix your drugs with these household products, seal them in an airtight container and throw it into the garbage. Call [facility]: [phone] to be sure your drugs can be [...] been reviewed and explained to me and IXOCHITL JESSICA A understand my current condition and have read and understand these discharge instructions. I have received a written copy of the plan/instructions. If I have questions, I am aware that I should contact my doctor. Patient/Nutrition Intern Signature: Date/Time: Relationship to Patient: ____ Witness Name/Signature: Date/Time: [facility] Carri Ceja 09-29-2022 Miscellaneous Notes Reason for Call: Patient [...] month. States she has never seen an [employer] anywhere at anytime in her life. States she has seen her Family Medicine provider in [facility]. 5. ABDOMINAL PAIN: Onset lower abdominal pain, [...] 120 minutes. Protocols used: Vaginal Bleeding - [id number] documented in this encounter [facility] 07-30-2022 Miscellaneous Notes e Patient has [...] patient. Jinny Neal documented in this encounter [facility] 06-26-2022 History of Present illness Narrative Behavioral Health Social Work Progress Note Patient identified for [facility] from: PCP Reason for referral: [facility] Behavioral Health Resources: Psychiatry med management [facility] encounter type: MyChart Message Attempts to Outreach: 2 attempts Referral made: Psychiatry - External Psychiatry-External referral type: Medication Management Reason for external referral: Other Final Disposition: Resources given Patient Discharged?: No Patient reported that caregiver was able to meet their needs today?: N/A SW sent follow up [employer]hart message to Pt with name and contact information of external provider for psychiatry services. Daija Larkin June 26, 2022 documented in this encounter [facility] 06-22-2022 Miscellaneous Notes Behavioral Health Social Work Progress Note Patient identified for [facility] from: PCP Reason for referral: [facility] Behavioral Health Resources: Psychiatry med management;Psychology - talk therapy [facility] encounter type: Telephone Encounter Attempts to Outreach: 1 attempt Final Disposition: Other Patient Discharged?: No Patient reported that caregiver was able to meet their needs today?: N/A SW spoke to Pt to update Pt on insurance status of appointment and explore potential financial options. Daija Larkin June 22, 2022 documented in this encounter [facility] 06-13-2022 Miscellaneous Notes Behavioral Health Social Work Progress Note Patient identified for [facility] from: PCP Reason for referral: [facility] Behavioral Health Resources: Psychiatry med management;Psychology - talk therapy [facility] encounter type: Telephone Encounter Attempts to Outreach: 3 attempts Patient Discharged?: No Patient reported that caregiver was able to meet their needs today?: N/A SW spoke to Pt after Pt called. Pt requested mental health assessment to being internal mental health services with [employer]. Assessment scheduled for July 04 at 2 PM. Daija Larkin June 13, 2022 documented in this encounter [facility] 06-13-2022 Miscellaneous Notes Behavioral Health Social Work Progress Note Patient identified for [facility] from: PCP Reason for referral: [facility] Behavioral Health Resources: Psychiatry med management;Psychology - talk therapy [facility] encounter type: Telephone Encounter Attempts to Outreach: 1 attempt Final Disposition: Unable to reach Patient Discharged?: No Patient reported that caregiver was able to meet their needs today?: N/A SW attempted to call Pt to schedule mental health assessment, but no voicemail box was set up. Outreach also to be completed through [employer] for assessment scheduling. aTnk Mann, Therapist June 13, 2022 documented in this encounter [facility] 06-13-2022 Miscellaneous Notes Behavioral Health Social Work Progress Note Patient identified for [facility] from: PCP Reason for referral: [facility] Behavioral Health Resources: Psychology - talk therapy;Psychiatry med management [facility] encounter type: Telephone Encounter Attempts to Outreach: 3 attempts Referral made: Psychiatry - Internal;Psychiatry - External;Psychology - Internal;Psychology - External Psychiatry-Internal referral type: Medication Management Psychology-Internal referral type: Therapy Psychology-External referral type: Therapy Psychiatry-External referral type: Medication Management Reason for external referral: Wait times at F too long Final Disposition: Resources given Patient Discharged?: Yes Patient reported that caregiver was able to meet their needs today?: Yes SW made a second attempt at reaching patient by phone, as she did not return the first phone call or read her [employer] message. Patient answered and discussed her current [...] me seriously . Discussed with Venita Gonzalez APRN.GABRIELA at [facility]. Will need assessment completed before an appointment is made with this provider. Patient also has community resources for counseling in her MyChart for her review. [facility] assessment will be completed by EDUARDA Larkin who will contact patient and schedule accordingly. Per Venita, after [facility] deems that the patient is appropriate, they can route their chart to her and her nurse, Bernie Phillips LPN who can assist with patient scheduling. No needs further from this SW at this time. CORETTA Meyers June 13, 2022 documented in this encounter [facility] 01-16-2022 History of Present illness Narrative This note was created using [employer]. Subjective Patient presents with: Establish Care: from Dr. Miller Thyroid Problem Multiple Concerns Megan Villa is a 31 year old female. She's [...] Her primary physicians then referred her to [facility] in 2012, where extensive evaluation by [...] internet. She applied for service in the [place] in 2016, but did not make it [...] Drug use: Not Currently Types: Marijuana Comment: [id number] ALLERGIES Allergen Reactions Chlorpheniramine-Ps* Other: See Comments [...] N94.10 Referral to GYNECOLOGY was declined. Foster Childress MD documented in this encounter [facility] 01-02-2022 Miscellaneous Notes Reason for call: [...] for Disposition Difficulty breathing Protocols used: CHEST [id number] documented in this encounter [facility] 10-03-2021 Miscellaneous Notes Behavioral Health Social Work Progress Note Patient identified for [facility] from: PCP Reason for referral: Resources Behavioral Health Resources: Psychology - talk therapy [facility] encounter type: Telephone Encounter Attempts to Outreach: [...] was left with instructions to call this automotive service writer at her convenience to further discuss her symptoms and determine an appropriate level of care. A [employer] message was sent with contact information for neuro-psych testing at . She was advised to call at her leisure to schedule. EDUARDA Field October 03, 2021 documented in this encounter [facility] 09-29-2021 Miscellaneous Notes ab documented in this encounter [facility] 09-28-2021 Miscellaneous Notes Addended by: LENI STOUT on: 09/28/2021 11:48 AM Modules accepted: Orders documented in this encounter [facility] 09-28-2021 History of Present illness Narrative CC: Patient presents with: Recheck: Would like referral for ASD assesment HPI Megan Villa is a 31 year old female who [...] to establish with new PCP, sees Dr. Childress and she would like to see him as well. Prescription instructions reviewed with patient as applicable. Potential red flag symptoms discussed with the patient. Reviewed appropriate action plan to take if red flag symptoms occur. Patient agreeable to treatment plan. Leni Stout APRN.CNP documented in this encounter [facility] 04-21-2021 Hospital Discharge instructions Patient Education [...] medicine for you. Or you may use brou-wik-exdnodp pain relievers, such as acetaminophen or ibuprofen. [...] future, keep your teeth clean and healthy. [place] twice a day and floss at least once daily. See your dentist for regular tooth cleanings. And stay away from sugary foods and drinks that can lead to tooth decay. [phone] [employer]. [address] [place] [address]. All rights reserved. This information is not intended as a substitute for professional medical care. Always follow your healthcare professional's instructions. Follow Up Care 04/21/2021 17:04:43 With:Dental Sheet Address: When: Unknown Comments:Call for follow-up. [facility] documented as of this encounter (statuses as of 06/06/2023) [facility]-14[facility]2021 History of Past illness Narrative* Problem Noted Date Diagnosed Date Resolved Date Hypothyroidism 11/04/2020 06/04/2023 Irritable bowel syndrome wit h both constipation and diarrhea 02/12/2018 01/16/2022 Syncope 09/02/2012 01/16/2022 documented as of this encounter (statuses as of 08/06/2023) [facility] History of Past illness Narrative* Problem Noted Date Diagnosed Date Resolved Date Hypothyroidism 11/04/2020 06/04/2023 Syncope 09/02/2012 01/16/2022 documented as of this encounter (statuses as of 08/13/2023) [address]22-[address] History of Past illness Narrative* Problem Noted Date Resolved Date Irritable bowel syndrome with both constipation and diarrhea 02/12/2018 01/16/2022 Syncope 09/02/2012 01/16/2022 documented as of this encounter (statuses as of 01/17/2022) [address]22-2018 History of Past illness Narrative* Problem Noted Date Resolved Date Irritable bowel syndrome with both constipation and diarrhea 02/12/2018 01/16/2022 Syncope 09/02/2012 01/16/2022 documented as of this encounter (statuses as of 06/13/2022) [address]22-2018 History of Past illness Narrative* Problem Noted Date Resolved Date Irritable bowel syndrome with both constipation and diarrhea 02/12/2018 01/16/2022 Syncope 09/02/2012 01/16/2022 documented as of this encounter (statuses as of 06/27/2022) [address]22-2018 History of Past illness Narrative* Problem Noted Date Resolved Date Irritable bowel syndrome with both constipation and diarrhea 02/12/2018 01/16/2022 Syncope 09/02/2012 01/16/2022 documented as of this encounter (statuses as of 06/28/2022) [address]-2018 History of Past illness Narrative* Problem Noted Date Resolved Date Irritable bowel syndrome with both constipation and diarrhea 02/12/2018 01/16/2022 Syncope 09/02/2012 01/16/2022 documented as of this encounter (statuses as of 07/31/2022) [address]22-2018 History of Past illness Narrative* Problem Noted Date Resolved Date Irritable bowel syndrome with both constipation and diarrhea 02/12/2018 01/16/2022 Syncope 09/02/2012 01/16/2022 documented as of this encounter (statuses as of 09/30/2022) [address]22-2018 History of Past illness Narrative* Problem Noted Date Resolved Date Irritable bowel syndrome with both constipation and diarrhea 02/12/2018 01/16/2022 Syncope 09/02/2012 01/16/2022 documented as of this encounter (statuses as of 10/03/2022) [address]22-2018 History of Past illness Narrative* Problem Noted Date Resolved Date Irritable bowel syndrome with both constipation and diarrhea 02/12/2018 01/16/2022 Syncope 09/02/2012 01/16/2022 documented as of this encounter (statuses as of 12/08/2022) [address]-2018 History of Past illness Narrative* Problem Noted Date Diagnosed Date Resolved Date Irritable bowel syndrome wit h both constipation and diarrhea 02/12/2018 01/16/2022 Syncope 09/02/2012 01/16/2022 documented as of this encounter (statuses as of 03/04/2023) [address]-2018 History of Past illness Narrative* Problem Noted Date Diagnosed Date Resolved Date Irritable bowel syndrome wit h both constipation and diarrhea 02/12/2018 01/16/2022 Syncope 09/02/2012 01/16/2022 documented as of this encounter (statuses as of 03/06/2023) [address]-2018 History of Past illness Narrative* Problem Noted Date Diagnosed Date Resolved Date Irritable bowel syndrome wit h both constipation and diarrhea 02/12/2018 01/16/2022 Syncope 09/02/2012 01/16/2022 documented as of this encounter (statuses as of 03/06/2023) [facility] History of Past illness Narrative* Problem Noted Date Diagnosed Date Resolved Date Irritable bowel syndrome wit h both constipation and diarrhea 02/12/2018 01/16/2022 Syncope 09/02/2012 01/16/2022 documented as of this encounter (statuses as of 03/08/2023) [address]-2018 History of Past illness Narrative* Problem Noted Date Diagnosed Date Resolved Date Irritable bowel syndrome wit h both constipation and diarrhea 02/12/2018 01/16/2022 Syncope 09/02/2012 01/16/2022 documented as of this encounter (statuses as of 03/08/2023) [address]-2018 History of Past illness Narrative* Problem Noted Date Diagnosed Date Resolved Date Irritable bowel syndrome wit h both constipation and diarrhea 02/12/2018 01/16/2022 Syncope 09/02/2012 01/16/2022 documented as of this encounter (statuses as of 03/08/2023) [facility] History of Past illness Narrative* Problem Noted Date Diagnosed Date Resolved Date Irritable bowel syndrome wit h both constipation and diarrhea 02/12/2018 01/16/2022 Syncope 09/02/2012 01/16/2022 documented as of this encounter (statuses as of 03/11/2023) [facility] History of Past illness Narrative* Problem Noted Date Diagnosed Date Resolved Date Irritable bowel syndrome wit h both constipation and diarrhea 02/12/2018 01/16/2022 Syncope 09/02/2012 01/16/2022 documented as of this encounter (statuses as of 03/11/2023) [address]22-2018 History of Past illness Narrative* Problem Noted Date Diagnosed Date Resolved Date Irritable bowel syndrome wit h both constipation and diarrhea 02/12/2018 01/16/2022 Syncope 09/02/2012 01/16/2022 documented as of this encounter (statuses as of 03/15/2023) [facility] History of Past illness Narrative* Problem Noted Date Diagnosed Date Resolved Date Irritable bowel syndrome wit h both constipation and diarrhea 02/12/2018 01/16/2022 Syncope 09/02/2012 01/16/2022 documented as of this encounter (statuses as of 03/25/2023) [facility] History of Past illness Narrative* Problem Noted Date Diagnosed Date Resolved Date Irritable bowel syndrome wit h both constipation and diarrhea 02/12/2018 01/16/2022 Syncope 09/02/2012 01/16/2022 documented as of this encounter (statuses as of 05/03/2023) [address]22-2018 History of Past illness Narrative* Problem Noted Date Diagnosed Date Resolved Date Irritable bowel syndrome wit h both constipation and diarrhea 02/12/2018 01/16/2022 Syncope 09/02/2012 01/16/2022 documented as of this encounter (statuses as of 05/05/2023) [address]22-2018 History of Past illness Narrative* Problem Noted Date Diagnosed Date Resolved Date Irritable bowel syndrome wit h both constipation and diarrhea 02/12/2018 01/16/2022 Syncope 09/02/2012 01/16/2022 documented as of this encounter (statuses as of 05/09/2023) [facility] History of Past illness Narrative* Problem Noted Date Diagnosed Date Resolved Date Irritable bowel syndrome wit h both constipation and diarrhea 02/12/2018 01/16/2022 Syncope 09/02/2012 01/16/2022 documented as of this encounter (statuses as of 05/10/2023) [facility] History of Past illness Narrative* Problem Noted Date Diagnosed Date Resolved Date Irritable bowel syndrome wit h both constipation and diarrhea 02/12/2018 01/16/2022 Syncope 09/02/2012 01/16/2022 documented as of this encounter (statuses as of 05/27/2023) [facility] History of Past illness Narrative* Problem Noted Date Diagnosed Date Resolved Date Irritable bowel syndrome wit h both constipation and diarrhea 02/12/2018 01/16/2022 Syncope 09/02/2012 01/16/2022 documented as of this encounter (statuses as of 05/28/2023) [facility] + Plan note No data available for this section [facility] Evaluation note* Diagnosis Autism spectrum disorder- Primary Autistic disorder, current or active state [facility] Diagnosis Hypothyroidism, unspecified type- Primary Chronic fatigue Other malaise and fatigue Lightheadedness Dizziness and giddiness Brain fog Encounter for hepatitis C screening test for low risk patient Screening for HIV without presence of risk factors Special screening examination for other specified viral diseases Multiple joint pain Pain in joint, multiple sites Dyspareunia in female [facility] Diagnosis Abnormal uterine bleeding- Primary Unspecified disorder of menstruation and other abnormal bleeding from female genital tract [facility] Diagnosis Acute otitis media, right- Primary Unspecified otitis media [facility] Diagnosis Vertigo- Primary Dizziness and giddiness [facility] Diagnosis APPOINTMENT CANCELLED- Primary [facility] Diagnosis 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 Chronic anxiety Anxiety state, unspecified Depressive disorder Depressive disorder, not elsewhere classified [facility] Diagnosis Chronic anxiety- Primary Anxiety state, unspecified Mood disturbance documented in this encounter [facility] note* Diagnosis Eustachian tube dysfunction, right- Primary documented in this encounter [facility] note* Diagnosis Pelvic pain documented in this encounter [facility] note* Diagnosis Hypothyroidism, unspecified type- Primary Somatic complaints, multiple Other general symptoms documented in this encounter [facility] note* Diagnosis Pain with urination- Primary Renal colic Generalized abdominal pain Abdominal pain, generalized documented in this encounter [facility] note* Diagnosis Irritable bowel syndrome with both constipation and diarrhea- Primary Hypokalemia Hypopotassemia Gastroesophageal reflux disease without esophagitis Esophageal reflux Chronic anxiety Anxiety state, unspecified documented in this encounter [facility] note* JOI France: PERFORM Event Display: Patient Summary Documents Authored Date: [id number] [facility] note* Morenita Nayak: PERFORM Event Display: Patient Summary Documents Authored Date: [id number] [facility] Summary Purpose Family History No Family History Records Found No data available for this section No data available for this section No data available for this section No data available for this section No data available for this section No Family History Records FoundNo Family History Records Found Advance Directives No Advanced Directives Records FoundDocuments on File Type Date Recorded 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 Advance Directive(s) 04/01/2021 4:09 PM Reason for Referral Specialty Diagnoses / Procedures Referred By Contac t Referred To Contact Diagnoses Chronic anxiety Mood disturbance Procedures CONSULT TO PSYCHIATRY OFFICE/OUTPATIENT [facility] 60-74 MINUTES Older, ALEXANDRIA HernandezN.BINDER OPERATOR [address] [place] [address] Referral ID Status Reason Start Date Expiration Date Visits Requested Visits Authorized [id number] Pending Review PCP Requested Referral 03/07/2023 03/06/2024 1 1 Specialty Diagnoses / Procedures Referred By Contac t Referred To Contact 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 Diagnoses Abnormal uterine bleeding Procedures CONSULT TO GYNECOLOGY OFFICE/OUTPATIENT [facility] 60-74 MINUTES Older, Mary, CHERRY GROWER.BINDER OPERATOR [address] [place] [address] [employer] [address] [place] [address] Referral ID Status Reason Start Date Expiration Date Visits Requested Visits Authorized [id number] Pending Review PCP Requested Referral Auto-Generate d Referral OON/Self Pay Override 10/01/2022 10/01/2023 1 1 Additional Source Comments INFORMATION SOURCE (unrecogn ized section and content) DATE CREATED AUTHOR AUTHOR'S ORGANIZ ATION 07/20/2023 [facility] ([place]) DATE CREATED AUTHOR AUTHOR'S ORGANIZ ATION 08/13/2023 [facility] Source Comments (unrecognize d section and content) In the event this informatio n is protected by the Federal Confidentiality of Alcohol and Drug Abuse Patient Records regulations: The Federal rules restrict any use of the information to criminally investigate or prosecute any alcohol or drug abuse patient.[facility] the event this information is protected by the Federal Confidentiality of Alcohol and Drug Abuse Patient Records regulations: The Federal rules restrict any use of the information to criminally investigate or prosecute any alcohol or drug abuse patient.[facility] Hospital[facility] the event this information is protected by the Federal Confidentiality of Alcohol and Drug Abuse Patient Records regulations: The Federal rules restrict any use of the information to criminally investigate or prosecute any alcohol or drug abuse patient.[facility] Hospital[facility] the event this information is protected by the Federal Confidentiality of Alcohol and Drug Abuse Patient Records regulations: The Federal rules restrict any use of the information to criminally investigate or prosecute any alcohol or drug abuse patient.[facility] Hospital[facility] the event this information is protected by the Federal Confidentiality of Alcohol and Drug Abuse Patient Records regulations: The Federal rules restrict any use of the information to criminally investigate or prosecute any alcohol or drug abuse patient.[facility] Hospital[facility] the event this information is protected by the Federal Confidentiality of Alcohol and Drug Abuse Patient Records regulations: The Federal rules restrict any use of the information to criminally investigate or prosecute any alcohol or drug abuse patient.[facility] Hospital[facility] the event this information is protected by the Federal Confidentiality of Alcohol and Drug Abuse Patient Records regulations: The Federal rules restrict any use of the information to criminally investigate or prosecute any alcohol or drug abuse patient.[facility] the event this information is protected by the Federal Confidentiality of Alcohol and Drug Abuse Patient Records regulations: The Federal rules restrict any use of the information to criminally investigate or prosecute any alcohol or drug abuse patient.[facility] Hospital[facility] the event this information is protected by the Federal Confidentiality of Alcohol and Drug Abuse Patient Records regulations: The Federal rules restrict any use of the information to criminally investigate or prosecute any alcohol or drug abuse patient.[facility] Hospital[facility] the event this information is protected by the Federal Confidentiality of Alcohol and Drug Abuse Patient Records regulations: The Federal rules restrict any use of the information to criminally investigate or prosecute any alcohol or drug abuse patient.[facility] Hospital[facility] the event this information is protected by the Federal Confidentiality of Alcohol and Drug Abuse Patient Records regulations: The Federal rules restrict any use of the information to criminally investigate or prosecute any alcohol or drug abuse patient.[facility] Hospital[facility] the event this information is protected by the Federal Confidentiality of Alcohol and Drug Abuse Patient Records regulations: The Federal rules restrict any use of the information to criminally investigate or prosecute any alcohol or drug abuse patient.[facility] Hospital[facility] the event this information is protected by the Federal Confidentiality of Alcohol and Drug Abuse Patient Records regulations: The Federal rules restrict any use of the information to criminally investigate or prosecute any alcohol or drug abuse patient.[facility] Hospital[facility] the event this information is protected by the Federal Confidentiality of Alcohol and Drug Abuse Patient Records regulations: The Federal rules restrict any use of the information to criminally investigate or prosecute any alcohol or drug abuse patient.[facility] Hospital[facility] the event this information is protected by the Federal Confidentiality of Alcohol and Drug Abuse Patient Records regulations: The Federal rules restrict any use of the information to criminally investigate or prosecute any alcohol or drug abuse patient.[facility] Hospital[facility] the event this information is protected by the Federal Confidentiality of Alcohol and Drug Abuse Patient Records regulations: The Federal rules restrict any use of the information to criminally investigate or prosecute any alcohol or drug abuse patient.[facility] HospitalIn the event this information is protected by the Federal Confidentiality of Alcohol and Drug Abuse Patient Records regulations: The Federal rules restrict any use of the information to criminally investigate or prosecute any alcohol or drug abuse patient.[facility] HospitalIn the event this information is protected by the Federal Confidentiality of Alcohol and Drug Abuse Patient Records regulations: The Federal rules restrict any use of the information to criminally investigate or prosecute any alcohol or drug abuse patient.[facility] Hospital[facility] the event this information is protected by the Federal Confidentiality of Alcohol and Drug Abuse Patient Records regulations: The Federal rules restrict any use of the information to criminally investigate or prosecute any alcohol or drug abuse patient.[facility] HospitalIn the event this information is protected by the Federal Confidentiality of Alcohol and Drug Abuse Patient Records regulations: The Federal rules restrict any use of the information to criminally investigate or prosecute any alcohol or drug abuse patient.[facility] HospitalIn the event this information is protected by the Federal Confidentiality of Alcohol and Drug Abuse Patient Records regulations: The Federal rules restrict any use of the information to criminally investigate or prosecute any alcohol or drug abuse patient.[facility] HospitalIn the event this information is protected by the Federal Confidentiality of Alcohol and Drug Abuse Patient Records regulations: The Federal rules restrict any use of the information to criminally investigate or prosecute any alcohol or drug abuse patient.[facility] HospitalIn the event this information is protected by the Federal Confidentiality of Alcohol and Drug Abuse Patient Records regulations: The Federal rules restrict any use of the information to criminally investigate or prosecute any alcohol or drug abuse patient.[facility] HospitalIn the event this information is protected by the Federal Confidentiality of Alcohol and Drug Abuse Patient Records regulations: The Federal rules restrict any use of the information to criminally investigate or prosecute any alcohol or drug abuse patient.[facility] HospitalIn the event this information is protected by the Federal Confidentiality of Alcohol and Drug Abuse Patient Records regulations: The Federal rules restrict any use of the information to criminally investigate or prosecute any alcohol or drug abuse patient.[facility] HospitalIn the event this information is protected by the Federal Confidentiality of Alcohol and Drug Abuse Patient Records regulations: The Federal rules restrict any use of the information to criminally investigate or prosecute any alcohol or drug abuse patient.[facility] HospitalIn the event this information is protected by the Federal Confidentiality of Alcohol and Drug Abuse Patient Records regulations: The Federal rules restrict any use of the information to criminally investigate or prosecute any alcohol or drug abuse patient.[facility] HospitalIn the event this information is protected by the Federal Confidentiality of Alcohol and Drug Abuse Patient Records regulations: The Federal rules restrict any use of the information to criminally investigate or prosecute any alcohol or drug abuse patient.[facility] HospitalIn the event this information is protected by the Federal Confidentiality of Alcohol and Drug Abuse Patient Records regulations: The Federal rules restrict any use of the information to criminally investigate or prosecute any alcohol or drug abuse patient.[facility] HospitalIn the event this information is protected by the Federal Confidentiality of Alcohol and Drug Abuse Patient Records regulations: The Federal rules restrict any use of the information to criminally investigate or prosecute any alcohol or drug abuse patient.[facility] HospitalIn the event this information is protected by the Federal Confidentiality of Alcohol and Drug Abuse Patient Records regulations: The Federal rules restrict any use of the information to criminally investigate or prosecute any alcohol or drug abuse patient.[facility] HospitalIn the event this information is protected by the Federal Confidentiality of Alcohol and Drug Abuse Patient Records regulations: The Federal rules restrict any use of the information to criminally investigate or prosecute any alcohol or drug abuse patient.[facility] HospitalIn the event this information is protected by the Federal Confidentiality of Alcohol and Drug Abuse Patient Records regulations: The Federal rules restrict any use of the information to criminally investigate or prosecute any alcohol or drug abuse patient.[facility] Reason for Visit (unrecogniz ed section and content) Reason Comments Abstract Reason Comments Patient Outreach ([facility]) Reason Comments Chest Pain Reason Comments Establish [...] Pelvic pain Procedures CONSULT TO GYNECOLOGY OFFICE/OUTPATIENT [facility] 60-74 MINUTES Mary Rojas, CHERRY GROWER.BINDER OPERATOR [address] [place] [address] Referral ID Status Reason Start Date Expiration Date V isits Requested Visits Authorized [id number] Closed PCP Requested Referral Auto-Generated Referral 05/20/2023 05/19/2024 1 1 Reason Comments Thyroid Problem Reason Comments Consult Reason Comments Urinary Problem pain with urination and low back pain x 4 days, abdominal pain, diarrhea, fatigue and nausea x 1 week Reason Comments ER F/U Care Teams (unrecognized sec tion and content) Strategy Manager Relationship Specialty Start Date End Date Sharifa Miller MD [address], [place] [id number] PCP - General Internal Medicine 10/19/20 Strategy Manager Relationship Specialty Start Date End Date Sharifa Miller MD [address], [place] [id number] PCP - General Internal Medicine 10/19/20 Strategy Manager Relationship Specialty Start Date End Date Foster Childress MD [address], [place] [id number] PCP - General Internal Medicine 01/16/22 Strategy Manager Relationship Specialty Start Date End Date Foster Childress MD [address], [place] [id number] PCP - General Internal Medicine 01/16/22 Strategy Manager Relationship Specialty Start Date End Date Foster Childress MD [address] [place] [address] PCP - General Internal Medicine 01/16/22 Strategy Manager Relationship Specialty Start Date End Date Foster Childress MD [address] [place] [address] PCP - General Internal Medicine 01/16/22 Strategy Manager Relationship Specialty Start Date End Date Foster Childress MD [address] [place] [address] PCP - General Internal Medicine 01/16/22 Strategy Manager Relationship Specialty Start Date End Date Foster Childress MD [address] [place] [address] PCP - General Internal Medicine 01/16/22 Strategy Manager Relationship Specialty Start Date End Date Foster Childress MD [address] [place] [address] PCP - General Internal Medicine 01/16/22 Strategy Manager Relationship Specialty Start Date End Date Foster Childress MD [address] [place] [address] PCP - General Internal Medicine 01/16/22 Strategy Manager Relationship Specialty Start Date End Date Foster Childress MD [address] [place] [address] PCP - General Internal Medicine 01/16/22 Strategy Manager Relationship Specialty Start Date End Date Foster Childress MD [address] [place] [address] PCP - General Internal Medicine 01/16/22 Strategy Manager Relationship Specialty Start Date End Date Foster Childress MD [address] [place] [address] PCP - General Internal Medicine 01/16/22 Strategy Manager Relationship Specialty Start Date End Date Foster Childress MD [address] [place] [address] PCP - General Internal Medicine 01/16/22 Strategy Manager Relationship Specialty Start Date End Date Foster Childress MD [address] [place] [address] PCP - General Internal Medicine 01/16/22 Strategy Manager Relationship Specialty Start Date End Date Foster Childress MD [address] [place] [address] PCP - General Internal Medicine 01/16/22 Strategy Manager Relationship Specialty Start Date End Date Foster Childress MD [address] [place] [address] PCP - General Internal Medicine 01/16/22 Strategy Manager Relationship Specialty Start Date End Date Foster Childress MD [address] [place] [address] PCP - General Internal Medicine 01/16/22 Strategy Manager Relationship Specialty Start Date End Date Foster Childress MD [address] [place] [address] PCP - General Internal Medicine 01/16/22 Strategy Manager Relationship Specialty Start Date End Date Foster Childress MD [address] [place] [address] PCP - General Internal Medicine 01/16/22 FOR [...] BE BASED ON THE PRIMARY CLINICAL RECORDS. [facility] [employer] [facility]. provides no warranty or guarantee of the accuracy or completeness of information in this document.
[2023-08-20 05:43] VITALS: BP 117/74; PULSE 93; RESP 17; TEMP 36.1; O2SAT 99
== END 2023-08-20 05:44 | disposition home or self-care (01) ==
PROVIDERS: Emergency Provider Emergency Medicine; PCP Internal Medicine; Visit Provider Emergency Medicine
DX: R59.9 Enlarged lymph nodes, unspecified (principal); L02.31 Cutaneous abscess of buttock; F17.210 Nicotine dependence, cigarettes, uncomplicated; F41.9 Anxiety disorder, unspecified; L73.2 Hidradenitis suppurativa
CPT/HCPCS: 99282

== ENCOUNTER 2023-09-16 19:25 | Emergency (ER) | payer BC, SELFPAY ==
[2023-09-16 19:25] VITALS: BP 151/93; PULSE 110; RESP 18; TEMP 36.6; O2SAT 100; BMI 24.1
--- NOTE | 2023-09-16 19:48 | EDS_ITS ---
HPI HPI - GI History of Present Illness Chief Complaint: Abd Pain Informant: patient and family Narrative Narrative: Patient had an elective cholecystectomy at outpatient surgery at [facility] this morning, presenting around 1930 because of pain and nausea and anxiety. The majority of the pain is in the upper abdomen. She has not vomited. She is passing flatus but has not had a bowel movement yet. They called the surgeon Dr. Hernandez, who advised them at that point that prescriptions were sent that the patient was unaware of until this, Tylenol, ibuprofen, and Zofran. They then got the prescriptions but have not tried them yet because the patient refuses due to anxiety and nausea thinking that she may vomit them up. As a result of feeling very anxious and having a panic attack according to her, she started feeling a little lightheaded but she has not had any syncopal episodes or chest symptoms, although she states it does hurt in her upper abdomen to take a deep breath. Urinating normally. [facility] Medical History (Updated 09/16/23 @ 21:[address] Herb Faria MD) Anxiety Autism Depression Home Medications lorazepam 0.5 mg tablet 0.5 mg PO Q12H PRN anxiety 03/15/23 [History Last Taken Unknown] omeprazole 20 mg capsule,delayed release 20 mg PO DAILY #30 CAPSULES 07/06/23 [R x Last Taken Unknown] dicyclomine 20 mg tablet 20 mg PO TID #20 tabs 08/06/23 [Rx Last Taken Unknown] Allergy/AdvReac Type Severity Reaction Status Date / Time lidocaine Allergy Intermediate Hives Verified 09/16/23 19:29 chlorpheniramine Allergy PT UNSURE Verified 09/16/23 19:29 OF REACTION egg Allergy Nausea/Vom/ Verified 09/16/23 19:29 Diarrhea mayte Allergy Anaphylaxis Verified 09/16/23 19:29 morphine AdvReac Other Verified 09/16/23 19:29 Surgical History Hx of tonsillectomy Social History Smoking Status: Current every day smoker tobacco type: cigarettes ROS ROS ED Constitutional Constitutional ED: Denies chills or fever(s) Eyes Eyes: Denies change in vision or diplopia ENT ENT ED: Denies rhinorrhea or sore throat Cardiovascular Cardiovascular: Denies chest pain or palpitations Respiratory/Chest Respiratory/Chest: Denies cough or dyspnea Gastrointestinal Gastrointestinal: Reports abdominal pain and nausea; Denies diarrhea or vomiting Genitourinary Genitourinary ED: Denies dysuria or hematuria Musculoskeletal Musculoskeletal: Denies back pain or neck pain Integumentary Denies abscess or rash Neurologic Neurologic: Denies headache(s), paresthesias or weakness Psychiatric Psychiatric: Reports anxiety; Denies suicidal thoughts EXAM Physical Exam Const Vital Signs: 09/16/23 19:25 Temperature 97.8 F Temperature Source Temporal Pulse Rate 110 H Respiratory Rate 18 Blood Pressure 151/93 H Blood Pressure Mean 112 Pulse Ox 100 Oxygen Delivery Method Room Air Positive well nourished and well developed General Appearance ED: well developed and NAD HEENT Reports moist mucous membranes normocephalic and atraumatic Eyes PERRL and EOMs intact bilaterally Neck full ROM and supple Resp normal respiratory effort and clear to auscultation bilaterally Cardio regular rate, regular rhythm and no murmurs GI non-distended GI Narrative: Tender in the mid abdomen and right upper quadrant and epigastrium. Patient is doing some voluntary guarding. There is no rebound tenderness. Auscultation: normoactive bowel sounds Palpation: soft Back/Spine no CVA tenderness General Back: other FROM Extremity normal to inspection General Extremety ED: Negative for edema, pulses abnormal or tenderness General Extremity: Negative for edema or pulses abnormal Neuro oriented x3, CN's II-XII intact bilaterally and no sensory deficits noted Sensorium / Orientation: awake and alert Motor Exam: strength 5/5 throughout Psych Psych Narrative: Extremely anxious. Skin no rashes or lesions noted and no wounds MDM MDM MDM Narrative Medical decision making narrative: Family member steps outside the exam room with me after taking a history and examining the patient, stating that this patient has autism and currently is having an autistic anxiety attack, which she has a longstanding history of, and when she gets to this point he has a hard time helping her, the patient is asking for Ativan 1 mg in the IV, I was hesitant to give her that dose along with narcotics, but she states she does not do well with narcotics and is not wanting that. He states that she had 2 mg in the IV in the past has tolerated that. Therefore I am okay giving 1 mg of Ativan along with Toradol 30 mg and Zofran 4 mg along with some IV fluid they are comfortable with that overall plan and discharge home if she is feeling better. Will reevaluate her. This did help some but then she started getting a little worse. Discussed with the outside the room again, he was asking for a dose of fentanyl which I was perfectly happy to order for her, but then he changed his mind and prefer to just take her home and try to get her to calm down they are which is also okay with me. Discharge Plan Triage Chief Complaint: Abd Pain Other Complaint: Anxiety ED Provider: Herb Faria Dx/Rx/DC Orders Clinical Impression: Anxiety, Postoperative abdominal pain Instructions: Managing Post-Op Pain at Home Prescriptions: No Action lorazepam 0.5 mg tablet 0.5 mg PO Q12H PRN (Reason: anxiety) Patient Comments: take 1 tablet by mouth twice a day for 7 days if needed for anxiety omeprazole [omeprazole] 20 mg capsule,delayed release(DR/EC) 20 mg PO DAILY Qty: 30 0RF dicyclomine 20 mg tablet 20 mg PO TID Qty: 20 0RF Primary Care Provider: Foster Childress Referrals: surgeon, your [Other] (follow up as directed; call) Disposition Disposition: Home, Self Care
[2023-09-16] MEDS: Ketorolac 30 MG/ML Syringe IV (19:57)
[2023-09-16] MEDS: Ondansetron 4 MG/2 ML Vial IV (19:57)
[2023-09-16] MEDS: 0.9% Normal Saline (500mL Bag) 500 ML 999 ML IV (20:02)
[2023-09-16] MEDS: LORazepam 2 MG/ML Syringe 1 MG IV (20:08)
--- NOTE | 2023-09-16 21:24 | ED.RN ---
ASKING TO TAKE PT'S IV OUT AND DISCHARGE HER. HE STATED HE WOULD WORK ON GETTING HER CALM AT HOME.
[2023-09-16 21:25] VITALS: RESP 16
== END 2023-09-16 21:30 | disposition home or self-care (01) ==
PROVIDERS: Emergency Provider Emergency Medicine; PCP Internal Medicine; Visit Provider Emergency Medicine
DX: F41.9 Anxiety disorder, unspecified (principal); R11.0 Nausea; F84.0 Autistic disorder; R10.11 Right upper quadrant pain; R10.13 Epigastric pain; Y83.6 Removal of other organ (partial) (total) as the cause of abnormal reaction of the patient, or of later complication, without mention of misadventure at the time of the procedure; G89.18 Other acute postprocedural pain; F32.A Depression, unspecified; F17.210 Nicotine dependence, cigarettes, uncomplicated; Z79.899 Other long term (current) drug therapy
CPT/HCPCS: 96361; 96374; 96375; 99283; J7030; A4216; J2405

== ENCOUNTER 2023-12-13 19:23 | Emergency (ER) | payer BC, SELFPAY ==
[2023-12-13 19:24] VITALS: BP 126/85; PULSE 95; RESP 18; TEMP 36; O2SAT 100; BMI 24.7
--- NOTE | 2023-12-13 20:02 | CT_ITS ---
STUDY: CT BRAIN WITH AND WITHOUT CONTRAST REASON FOR EXAM: Female, 33 years old. left eye visual disturbance RADIATION DOSAGE (If Supplied By Facility): CTDIvol = ( 44.99 ) mGy, DLP = ( 1530.35 ) mGycm TECHNIQUE: Transaxial CT imaging of the brain was performed pre and post contrast administration. The examination was performed with intravenous administration of IV 50mL Isovue-370. Individualized dose optimization techniques were used for this CT. COMPARISON: None. FINDINGS: Normal soft tissue structures. Normal calvarium. Normal size ventricles and extra-axial spaces for the patient''s age. Normal white matter tracts of the cerebral hemispheres. Normal basal ganglia and thalami. Normal brainstem. Normal cerebellum. There is no intracranial hemorrhage. There are no findings of an acute ischemic infarction. Normal visualized paranasal sinuses. 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 No enhancing lesion following contrast administration CT/Brain/Head W/WO Contrast IMPRESSION: Normal unenhanced and enhanced CT scan of the brain. 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
--- NOTE | 2023-12-13 20:04 | EDS_ITS ---
HPI <TERRELL Chavis - Last Filed: 12/13/23 21:32> History of Present Illness Chief Complaint: Vision Prob Narrative Narrative: 33-year-old female presents with visual disturbance in the left eye that started 2 days ago. After waking up the upper periphery of her vision looked dark and shadowed. She was seen by Dr. James Muller at [facility] yesterday and a dilated exam showed optic disc edema with unclear etiology. She had recently bathed her cats and had minor scratches on her legs and the airborne sensor specialist said it could be bartonella henselae bacteria from cat scratches and empirically treated with a Z-Vinny. She was given an order for blood work done this morning at [facility]. She was told if symptoms worsen to call and today the entire periphery of her vision looks dark and shadowed. The center is clear. When she called airborne sensor specialist and reported worsening symptoms they sent her here for a scan to rule out a space-occupying lesion. She also notes a few days prior to the symptoms starting she had intermittent headaches. She wears glasses at baseline. [facility] <TERRELL Chavis - Last Filed: 12/13/23 21:32> [facility] Medical History (Updated 12/13/23 @ 21:24 by TERRELL Chavis) Autism Anxiety Depression Home Medications ?Medication ?Instructions ?Recorded ?Last Taken ?Type lorazepam 0.5 mg tablet 0.5 mg PO Q12H PRN anxiety 03/15/23 Unknown History dicyclomine 20 mg tablet 20 mg PO TID #20 tabs 08/06/23 Unknown Rx ondansetron 4 mg disintegrating 4 mg PO Q8H PRN PRN nausea/vomiting 12/13/23 Unknown History tablet Allergy/AdvReac Type Severity Reaction Status Date / Time lidocaine Allergy Intermediate Hives Verified 12/13/23 19:24 chlorpheniramine Allergy PT UNSURE Verified 12/13/23 19:24 OF REACTION egg Allergy Nausea/Vom/ Verified 12/13/23 19:24 Diarrhea mayte Allergy Anaphylaxis Verified 12/13/23 19:24 morphine AdvReac Other Verified 12/13/23 19:24 Surgical History Hx of tonsillectomy Social History Smoking Status: Heavy Smoker (>10/day) ROS <TERRELL Chavis - Last Filed: 12/13/23 21:32> ROS ED ROS Narrative Constitutional: Negative for fever, chills, malaise. Eyes: Positive for visual change. GI: Negative for nausea, vomiting. Neuro: Negative for motor/sensory dysfunction. EXAM <TERRELL Chavis - Last Filed: 12/13/23 21:32> Physical Exam Narrative Exam Narrative: CONST: Patient sitting in no acute distress. EYES: Normal inspection. PERRL, EOMI, exam is limited without dilation but the left optic disc edges do look blurry. NECK: Normal inspection. RESP: No respiratory distress, CTAB. CVS: Regular rate and rhythm, no murmur, no gallop. SKIN: Color normal, no rash, warm, dry, intact. EXTREMITIES: Normal appearance, no pedal edema. NEURO: Alert and answering questions appropriately. Face symmetric. PSYCH: Normal affect. Const Vital Signs: 12/13/23 19:24 Temperature 96.8 F L Temperature Source Temporal Pulse Rate 95 Respiratory Rate 18 Blood Pressure 126/85 H Blood Pressure Mean 98 Pulse Ox 100 Oxygen Delivery Method Room Air <Dr. Dwight Mayers, - Last Filed: 12/17/23 14:23> Physical Exam Const Vital Signs: 12/13/23 19:24 Temperature 96.8 F L Temperature Source Temporal Pulse Rate 95 Respiratory Rate 18 Blood Pressure 126/85 H Blood Pressure Mean 98 Pulse Ox 100 Oxygen Delivery Method Room Air MDM <TERRELL Chavis - Last Filed: 12/13/23 21:32> MDM MDM Narrative Medical decision making narrative: Differential: Intra-abdominal process versus space-occupying lesion Consults: Ophthalmology Patient has left-sided peripheral vision loss and shadowing. Sent in by ophthalmology for a scan to rule out a space-occupying lesion. CT brain with and without contrast showed no acute lesion or acute findings. Incidental drusen of bilateral optic nerves noted. Patient is aware she has a history of drusen. I spoke with Dr. Draper the airborne sensor specialist who states since an emergent condition has been ruled out she can be discharged and has an appointment in the office on Saturday. She will continue the antibiotics they are empirically treating her with for cat scratch bacteria. She was discharged in stable condition. Radiography Diagnostic Testing: Clinical Impression(s) from Imaging Studies Brain CT 12/13/23 20:02 IMPRESSION: Normal unenhanced and enhanced CT scan of the brain. 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 Dwight aMyers, DO - Last Filed: 12/17/23 14:23> [facility] MDM Narrative Medical decision making narrative: Differential: Intra-abdominal process versus space-occupying lesion Consults: Ophthalmology Patient has left-sided peripheral vision loss and shadowing. Sent in by ophthalmology for a scan to rule out a space-occupying lesion. CT brain with and without contrast showed no acute lesion or acute findings. Incidental drusen of bilateral optic nerves noted. Patient is aware she has a history of drusen. I spoke with Dr. Draper the airborne sensor specialist who states since an emergent condition has been ruled out she can be discharged and has an appointment in the office on Saturday. She will continue the antibiotics they are empirically treating her with for cat scratch bacteria. She was discharged in stable condition. This patient was seen with a PA/MONOGRAM OPERATOR Individually assessed they patient including history and physical. I have reviewed everything on the chart that is available and agree with the documentation provided by the PA/MONOGRAM OPERATOR including discussion about the assessment, treatment plan, discussion, and return precautions. Patient sent in by ophthalmology for evaluation. Found to have incidental drusen of bilateral optic nerves noted. She states she has a history of it. Discussed with ophthalmology who will follow-up with her on Saturday. She is to continue her antibiotics and return precautions were discussed. Radiography Diagnostic Testing: Clinical Impression(s) from Imaging Studies Brain CT 12/13/23 20:02 IMPRESSION: Normal unenhanced and enhanced CT scan of the brain. 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 Electronically Signed: Malick Campbell MD at 21:15 EDT , Discharge Plan Triage Chief Complaint: Vision Prob ED Midlevel Provider: Kaylee Gregory ED Provider: Dwight Mayers Dx/Rx/DC Orders Clinical Impression: Visual disturbance, Drusen of optic disc, bilateral Instructions: Understanding Vision Problems Prescriptions: No Action lorazepam 0.5 mg tablet 0.5 mg PO Q12H PRN (Reason: anxiety) Patient Comments: take 1 tablet by mouth twice a day for 7 days if needed for anxiety dicyclomine 20 mg tablet 20 mg PO TID Qty: 20 0RF ondansetron 4 mg tablet,disintegrating 4 mg PO Q8H PRN PRN (Reason: nausea/vomiting) Primary Care Provider: Foster Childress Referrals: Foster Childress MD [Primary Care Provider] - Activity Restrictions/Additional Instructions: The CT scan shows no evidence of a brain tumor. I spoke with the airborne sensor specialist who recommended to keep your appointment on Saturday, continue the medication they prescribed, and it sounds like they are scheduling you for an outpatient MRI. Print Language: Maltese Disposition Disposition: Home, Self Care Discharge Date/Time: 12/13/23 21:38
[2023-12-13] MEDS: LORazepam 2 MG/ML Syringe 0.5 MG IV (20:23)
[2023-12-13 21:23] VITALS: BP 120/81; PULSE 73; RESP 18; TEMP 36.7; O2SAT 100
== END 2023-12-13 21:38 | disposition home or self-care (01) ==
PROVIDERS: Emergency Provider Student in an Organized Health Care Education/Training Program; PCP Internal Medicine; Visit Provider Student in an Organized Health Care Education/Training Program
DX: H47.323 Drusen of optic disc, bilateral (principal); H53.9 Unspecified visual disturbance; F17.200 Nicotine dependence, unspecified, uncomplicated
CPT/HCPCS: 70470; 96374; 99284; Q9967; A4216

== ENCOUNTER → 2023-12-25 | Outpatient (CLI) | payer BC, SELFPAY ==
--- NOTE | 2023-12-25 06:42 | MRI_ITS ---
STUDY: MRI ORBITS WITH AND WITHOUT CONTRAST REASON FOR EXAM: Female, 33 years old. L OPTIC DISC EDEMA TECHNIQUE: Standardized fat and water weighted pulse sequences were obtained in all 3 orthogonal planes, pre-and post contrast administration. IV 13cc clariscan was administered for the contrast portion of the examination. COMPARISON: None. FINDINGS: Normal bilateral globes. Normal bilateral optic nerve sheath complexes and optic nerves. Normal bilateral intraconal and extraconal spaces. Normal bilateral extraocular muscles. Normal optic chiasm and post-chiasmatic tracts. Normal sella turcica, pituitary gland, infundibular stalk, and hypothalamus. Normal bilateral cavernous sinuses. Normal tectal plate and pineal gland. No visualized intraorbital mass or fluid collection or cyst. No demonstrated abnormal enhancement or fluid distention of the optic nerve sheaths. No visualized enlargement of the extraocular muscles. No retinal detachment or signal abnormality is visualized. No proptosis is seen. IMPRESSION: 1. Normal enhanced and unenhanced MRI of the orbits. STUDY: MRI BRAIN WITH AND WITHOUT CONTRAST REASON FOR EXAM: Female, 33 years old. L OPTIC DISC EDEMA COMPARISON: Head CT dated December 13, 2023 FINDINGS: Normal size of the ventricles and extra-axial spaces for the patient''s age. Normal white matter tracts of the supratentorial brain. There is no evidence for recent intracranial ischemia or other cause of cytotoxic edema on diffusion weighted imaging (DWI). There are no demyelinating plagues of the supratentorial brain, brainstem or cerebellum. There are no findings suspicious for multiple sclerosis (MS). Normal bilateral frontal poles, and orbital frontal and gyrus recti of the frontal lobes. Normal bilateral temporal tips of the temporal lobes. There are no white matter shear injuries (diffuse axonal injuries). There are no parenchymal hemorrhages or hematomas. There are no findings to suggest prior closed head parenchymal injury of the brain. No hydrocephalus or midline shift is present. There are no enhancing brain parenchymal lesions or abnormal enhancement or thickening of the meninges or dura. No skull lesions are present. Normal bilateral basal ganglia. Normal thalami. There is no extra-axial fluid accumulation. Normal flow voids within the major intracranial circulation suggesting patency by spin echo criteria. Normal venous enhancement. There is no enhancing intra-axial or extra-axial abnormality. Normal sella turcica, pituitary gland, infundibular stalk, optic chiasm and hypothalamus. Normal tectal plate and pineal gland. Normal midbrain, sam and medulla. Normal cerebellum. Normal basal cisterns. Normal bilateral temporal bones. Normal bilateral internal auditory canals. No demonstrated orbital abnormality, within the constraints of a routine brain study. Normal visualized paranasal sinuses. Normal calvarium and skull base. Normal visualized soft tissue structures. Normal visualized upper cervical spine. MRI/Brain W/WO Contrast IMPRESSION: 1. Normal unenhanced and enhanced MRI of the brain. Electronically Signed: Andrew Mccoy MD at 8:51 EDT ,
[2023-12-25 07:08] LABS: CREATININE FINGERSTICK < 1.0 mg/dL (0.55-1.02); EGFR FINGERSTICK > 60.0000 mL/min (>60)
== END | disposition home or self-care (01) ==
PROVIDERS: PCP Internal Medicine; Referring Provider Ophthalmology; Visit Provider Ophthalmology
DX: H47.10 Unspecified papilledema (principal); H46.9 Unspecified optic neuritis
CPT/HCPCS: 70553; A9575

== ENCOUNTER 2024-02-28 06:20 | Emergency (ER) | payer SELFPAY ==
[2024-02-28 06:20] VITALS: BP 144/88; PULSE 92; RESP 18; TEMP 36.3; O2SAT 98; BMI 24.1
--- NOTE | 2024-02-28 06:53 | EKG12_ITS ---
Test Reason : CP Blood Pressure : / mmHG Vent. Rate : 085 BPM Atrial Rate : 085 BPM P-R Int : 148 ms QRS Dur : 078 ms QT Int : 366 ms P-R-T Axes : 069 019 038 degrees QTc Int : 435 ms Normal sinus rhythm Septal infarct , age undetermined Abnormal ECG Confirmed by RENU WARREN, DONNIE ([id number]), avid editor JUNIOR MADDEN ([id number]) on 03/02/2024 8:19:11 AM Referred By: Confirmed By:DONNIE SEARS MD
--- NOTE | 2024-02-28 07:01 | EDS_ITS ---
HPI History of Present Illness Chief Complaint: Chest Pain Informant: patient and spouse/S.O. Narrative Narrative: Patient is a 34-year-old female with past medical history of anxiety depression and autism. She states that 6 months ago she had to have emergent gallbladder surgery and she had been seen multiple times in the ER for anxiety exacerbation as well as chest pain which ultimately she relates to stemming from her gallbladder dysfunction. She states during this time she had a normal echo as well as EKGs and blood work. She states she has been taking 1/2 mg of Ativan twice a day for approximately 1 year. She states that she believes she is developing a tolerance and that last night around midnight she felt discomfort in the midsternal of her chest. With this there was no nausea vomiting diaphoresis or shortness of breath. No radiation of the pain. She became concerned because this felt similar to when she had her emergent cholecystectomy and even though she knows she no longer has her gallbladder she was concerned there was something else going on besides anxiety and therefore comes in for evaluation. [facility] Medical History (Updated 02/28/24 @ 07:[address] Hakan Tong, ) Demyelinating disease Optic neuritis Autism Anxiety Depression Home Medications ?Medication ?Instructions ?Recorded ?Last Taken ?Type lorazepam 0.5 mg tablet 0.5 mg PO Q8H PRN anxiety 03/15/23 Unknown History Allergy/AdvReac Type Severity Reaction Status Date / Time lidocaine Allergy Intermediate Hives Verified 02/28/24 06:21 chlorpheniramine Allergy PT UNSURE Verified 02/28/24 06:21 OF REACTION egg Allergy Nausea/Vom/ Verified 02/28/24 06:21 Diarrhea mayte Allergy Anaphylaxis Verified 02/28/24 06:21 morphine AdvReac Other Verified 02/28/24 06:21 Surgical History Hx of tonsillectomy Social History Smoking Status: Heavy Smoker (>10/day) ROS ROS ED Constitutional Constitutional ED: Denies chills or fever(s) Eyes Eyes: Denies blurry vision or change in vision ENT ENT ED: Denies sore throat Cardiovascular Cardiovascular: Reports chest pain; Denies palpitations or racing heartbeat Respiratory/Chest Respiratory/Chest: Denies cough or dyspnea Gastrointestinal Gastrointestinal: Reports abdominal pain; Denies diarrhea, nausea or vomiting Genitourinary Genitourinary ED: Denies dysuria Musculoskeletal Musculoskeletal: Denies back pain or myalgias Integumentary Denies rash Neurologic Neurologic: Denies headache(s) Psychiatric Psychiatric: Reports anxiety and depression Hematologic/Lymphatic Hematologic/Lymphatic: Denies easy bleeding or easy bruising EXAM Physical Exam Const Vital Signs: 02/28/24 06:20 02/28/24 06:20 Temperature 97.3 F L Temperature Source Temporal Pulse Rate 92 Respiratory Rate 18 Respiratory Effort Normal Non-Labored Blood Pressure 144/88 H Blood Pressure Mean 106 Pulse Ox 98 Oxygen Delivery Method Room Air Positive well nourished and well developed General Appearance ED: well developed; Negative for pallor HEENT HEENT Narrative: Normocephalic atraumatic Eyes PERRL and EOMs intact bilaterally General Eye ED: Negative for scleral icterus Neck supple and no JVD Neck Narrative: No nuchal rigidity or meningeal signs Chest Wall palpation of chest normal Chest Narrative: No bony deformity or crepitance Resp normal respiratory effort Resp Narrative: Breath sounds are slight diminished throughout with faint expiratory wheeze diffusely consistent with history of smoking Cardio regular rate and regular rhythm Rate: other Other Details: Heart is regular rate and rhythm without murmurs rubs or gallop No carotid bruit noted Radial and carotid pulses are equal and symmetric GI normal to inspection, nondistended, normoactive bowel sounds, non-tender, non- distended and no masses Auscultation: normoactive bowel sounds Palpation: soft Extremity normal to inspection Extremity Narrative: No asymmetric edema no pitting edema negative Homans' sign bilaterally Neuro oriented x3, CN's II-XII intact bilaterally and no sensory deficits noted Sensorium / Orientation: alert Motor Exam: strength 5/5 throughout Psych Psych Narrative: Nervous/anxious affect Mood & Affect: anxious Skin no rashes or lesions noted General Skin Exam: Negative for jaundice or pallor MDM MDM MDM Narrative Medical decision making narrative: Patient arrived to the ER with stable vitals. She is low risk for cardiac event or disease and moreover states she has had extensive workup on this which include blood work as well as an echo. An EKG was obtained in order to check for potential cardiac dysrhythmia versus ischemic changes and was normal. There was also no ectopy or signs of cardiac dysrhythmia. I discussed with patient that we could perform basic laboratory testing in order to rule out any type of non-STEMI electrolyte abnormality acute pancreatitis or lung pathology as a cause of her discomfort. However she was informed that she is low risk for cardiovascular disease and that based on her history and physical exam I feel this is breakthrough anxiety. The patient's significant other agrees with this assessment and the patient states that she does feel comfortable returning home and following with her family doctor as my exam and history does not indicate a potential abdominal issue or cardiac event. The patient was medicated with 1 mg of oral Ativan prior to discharge as I do feel the half milligram is now too low of a dose based on tolerance. But as she is low risk for acute coronary syndrome does not have cardiac dysrhythmia and history and exam is most consistent with breakthrough anxiety versus acute coronary syndrome or cardiac dysrhythmia or abdominal pathology such as pancreatitis she is otherwise safe for discharge History & Record Review Discussion w/independent historian: Patient and Significant other Discharge Plan Triage Chief Complaint: Chest Pain ED Provider: Hakan Tong Dx/Rx/DC Orders Clinical Impression: Anxiety, Depression, Autism Instructions: Anxiety Disorders Tx, ED Anxiety Reaction Prescriptions: No Action lorazepam 0.5 mg tablet 0.5 mg PO Q8H PRN (Reason: anxiety) Primary Care Provider: Foster Childress Referrals: Foster Childress MD [Primary Care Provider] - Activity Restrictions/Additional Instructions: Please follow-up with your family doctor for repeat evaluation and return to the ER should you have any further concerns Print Language: Yoruba Disposition Disposition: Home, Self Care
[2024-02-28] MEDS: LORazepam 1 MG Tablet PO (07:16)
[2024-02-28 07:20] VITALS: BP 126/80; PULSE 83; RESP 14; TEMP 36.6; O2SAT 99
== END 2024-02-28 07:22 | disposition home or self-care (01) ==
LOC: ED 07:09
PROVIDERS: Emergency Provider Emergency Medicine; PCP Internal Medicine; Visit Provider Emergency Medicine
DX: F41.9 Anxiety disorder, unspecified (principal); F32.A Depression, unspecified; F84.0 Autistic disorder; F17.200 Nicotine dependence, unspecified, uncomplicated; Z90.49 Acquired absence of other specified parts of digestive tract; R07.9 Chest pain, unspecified; R10.9 Unspecified abdominal pain
CPT/HCPCS: 93005; 99282

== ENCOUNTER 2024-03-10 11:57 | Emergency (ER) | payer SELFPAY ==
[2024-03-10 11:59] VITALS: BP 130/87; PULSE 84; RESP 16; TEMP 36.2; O2SAT 97; BMI 24.1
--- NOTE | 2024-03-10 12:52 | EX.ED.DYSGE1 ---
HPI History of Present Illness Chief Complaint: Anxiety Narrative Narrative: Chief complaint and HPI: Panic attack/anxiety. 34-year-old female with history of anxiety, ADHD presents for evaluation of panic attack. Patient states she is currently under workup for MS. She states she thought about it this morning which then triggered a panic attack. Patient states that they were trying to decrease her p.o. Ativan outpatient from 1 mg to 0.5 mg, but patient noticed increase in panic attacks so plan was to increase her back to 1 mg. Patient states she has not been able to fill this prescription yet. She states she did take a 0.5 mg of Ativan p.o. prior to arriving but has continued to have panic attack. She states this feels like her typical panic attacks. She describes it as the room closing in on her. She is anxious and tearful in the room. Review of systems: See HPI Medications: As listed on the chart Allergies: As listed on the chart PFSH: Per chart Vital signs: As listed on the chart. Reviewed. Physical exam: Gen: A&O x3, very anxious and tearful Head: Normocephalic, atraumatic Eyes: No sclera icterus, conjunctiva clear ENT: Moist mucous membranes Neck: Trachea midline, No JVD CV: RRR, no murmurs, no peripheral edema Resp: Lungs CTA BL, no w/r/c, intermittently hyperventilating GI: Abd soft, non-distended, non-tender, no r/r/g Musc: Full ROM, no deformity Skin: Warm, dry Neuro: Alert, oriented, grossly intact, sensation intact Psych: Tearful and anxious [facility] Medical History (Updated 03/10/24 @ 14:[address] Prince Goncalves, ) Demyelinating disease Optic neuritis Autism Anxiety Depression Home Medications ?Medication ?Instructions ?Recorded ?Last Taken ?Type lorazepam 0.5 mg tablet 0.5 mg PO Q8H PRN anxiety 03/15/23 Unknown History Allergy/AdvReac Type Severity Reaction Status Date / Time lidocaine Allergy Intermediate Hives Verified 02/28/24 06:21 chlorpheniramine Allergy PT UNSURE Verified 02/28/24 06:21 OF REACTION egg Allergy Nausea/Vom/ Verified 02/28/24 06:21 Diarrhea mayte Allergy Anaphylaxis Verified 02/28/24 06:21 morphine AdvReac Other Verified 02/28/24 06:21 Surgical History Hx of tonsillectomy Social History Smoking Status: Heavy Smoker (>10/day) EXAM Physical Exam Const Vital Signs: 03/10/24 11:59 03/10/24 14:57 Temperature 97.2 F L 97.2 F L Temperature Source Temporal Pulse Rate 84 94 Respiratory Rate 16 16 Blood Pressure 130/87 H 104/78 Blood Pressure Mean 101 86 Pulse Ox 97 97 Oxygen Delivery Method Room Air MDM MDM MDM Narrative Medical decision making narrative: 34-year-old female with history of anxiety and panic attacks presents for evaluation of panic attack. She denies any other symptoms. She states her symptoms feel like her typical panic attack. She did take 0.5 mg Ativan prior to arrival. I do not think any labs or chest x-ray is needed at this time. Differential includes panic attack and anxiety. Patient was offered p.o. Ativan and decline, she would like an IV form. Will give 1 mg IM Ativan. Will turn off the lights and decrease her stimulation to see if this helps with her symptoms. On reexamination, patient is calm in the room. She states her anxiety is improved. Panic attack has resulted. Given that she has had Ativan, her is picking her up from the emergency department. Patient is stable to discharge home. She was educated to follow-up with her PCP. She confirmed understanding. Impression: 1. Panic attack 2. Anxiety Discharge Plan Triage Chief Complaint: Anxiety ED Provider: Prince Goncalves Dx/Rx/DC Orders Clinical Impression: Panic attack Instructions: ED Anxiety Reaction, ED Panic Attack Prescriptions: No Action lorazepam 0.5 mg tablet 0.5 mg PO Q8H PRN (Reason: anxiety) Primary Care Provider: Foster Childress Referrals: Foster Childress MD [Primary Care Provider] - 3-5 Days Print Language: Saudi Arabian Disposition Disposition: Home, Self Care Discharge Date/Time: 03/10/24 14:58
[2024-03-10] MEDS: LORazepam 2 MG/ML Syringe 1 MG IM (12:57)
[2024-03-10 14:57] VITALS: BP 104/78; PULSE 94; RESP 16; TEMP 36.2; O2SAT 97
== END 2024-03-10 14:58 | disposition home or self-care (01) ==
PROVIDERS: Emergency Provider Surgery; PCP Internal Medicine; Visit Provider Surgery
DX: F41.0 Panic disorder [episodic paroxysmal anxiety] (principal); F17.200 Nicotine dependence, unspecified, uncomplicated; F90.9 Attention-deficit hyperactivity disorder, unspecified type
CPT/HCPCS: 96372; 99282

== ENCOUNTER 2024-06-22 13:51 | Emergency (ER) | payer SELFPAY ==
[2024-06-22 13:54] VITALS: BP 136/90; PULSE 112; RESP 18; TEMP 36.3; O2SAT 99
[2024-06-22 15:53] VITALS: BP 123/69; PULSE 83; RESP 12; O2SAT 98
--- NOTE | 2024-06-22 16:05 | EKG12_ITS ---
Test Reason : DIZZINESS Blood Pressure : */* mmHG Vent. Rate : 76 BPM Atrial Rate : 76 BPM P-R Int : 144 ms QRS Dur : 78 ms QT Int : 374 ms P-R-T Axes : 68 23 46 degrees QTcB Int : 420 ms Normal sinus rhythm Normal ECG Confirmed by RENU WARREN, DONNIE ([id number]), tape editor MEG CHIU ([id number]) on 06/23/2024 8:00:43 AM Referred By: Confirmed By: DONNIE SEARS MD
--- NOTE | 2024-06-22 16:05 | CT_ITS ---
STUDY: CT BRAIN WITHOUT CONTRAST REASON FOR EXAM: Female, 34 years old. being worked up for MS RADIATION DOSAGE (If Supplied By Facility): CTDIvol = ( 44.99 ) mGy, DLP = ( 796.11 ) mGycm TECHNIQUE: Transaxial CT imaging of the brain was performed without administration of intravenous contrast material. Individualized dose optimization techniques were used for this CT. COMPARISON: No relevant priors. FINDINGS: Normal soft tissue structures. Normal calvarium. Normal size ventricles and extra-axial spaces for the patient''s age. Normal white matter tracts of the cerebral hemispheres. Normal basal ganglia and thalami. Normal brainstem. Normal cerebellum. There is no intracranial hemorrhage. There are no findings of an acute ischemic infarction. Normal visualized paranasal sinuses. CT/Brain/Head without Contrast IMPRESSION: Normal unenhanced CT scan of the brain. Electronically Signed: Armando Sanabria DO at 17:01 EST ,
--- NOTE | 2024-06-22 16:10 | EX.ED.DYSGE1 ---
HPI History of Present Illness Chief Complaint: Dizziness Narrative Narrative: Patient is a 34-year-old female past medical history of autism, anxiety, depression, vertigo, being worked up for MS who presented to the emerged part with chief complaint of generalized fatigue, lightheadedness feeling that she may pass out and having POTS symptoms the last several days. Patient states that for the past 2 days she has had extreme fatigue sleeping several hours and not feeling well. States that about 4 weeks she has an MRI scheduled to continue her workup for MS. Patient denies any sick contacts. Patient states that she has had several bouts of diarrhea. States that today when she took her blood pressure she had a systolic of 103 and when she stood up her systolic blood pressure went to 150 for which she showed pictures of this to me here in the emergency department. Patient states that she is not feeling her normal self therefore she came here for further evaluation management. [facility] Medical History Demyelinating disease Optic neuritis Autism Anxiety Depression Home Medications ?Medication ?Instructions ?Recorded ?Last Taken ?Type lorazepam 0.5 mg tablet 0.5 mg PO Q8H PRN anxiety 03/15/23 Unknown History Allergy/AdvReac Type Severity Reaction Status Date / Time lidocaine Allergy Intermediate Hives Verified 02/28/24 06:21 chlorpheniramine Allergy PT UNSURE Verified 02/28/24 06:21 OF REACTION egg Allergy Nausea/Vom/ Verified 02/28/24 06:21 Diarrhea mayte Allergy Anaphylaxis Verified 02/28/24 06:21 morphine AdvReac Other Verified 02/28/24 06:21 Surgical History Hx of tonsillectomy Social History Smoking Status: Heavy Smoker (>10/day) ROS ROS ED ROS Narrative Constitutional: Complains of fuzzy feeling denies any lightheadedness, dizziness, fevers or chills Eyes: Denies change in vision double vision blurry vision Cardiovascular: Denies chest pain or palpitations Respiratory: Denies coughing wheezing shortness of breath Abdomen: Denies abdominal pain nausea vomit diarrhea : Denies any urinary symptoms Neurological: Denies numbness, weakness, Musculoskeletal: Plain denies back pain Skin: Denies rashes or lesions EXAM Physical Exam Narrative Exam Narrative: General: Patient lying in bed rest comfortably did not appear to be acute distress Head: Atraumatic, normocephalic Eyes: PERRL body, EOMI bilateral, no conjunctival injection noted Neck: Soft, supple, trachea midline Cardiovascular: Regular rate and rhythm no murmurs gallops rubs or Respiratory: Noted clear to auscultation bilateral Abdomen: Soft, nondistended, nontender to palpation Extremities: +5/5 strength noted in the bilateral upper and lower extremities, radial pulses +2/4 in the bilateral extremities Neurological: Patient following commands and that she was at [facility] years 2023 Skin: Warm, dry, intact Const Vital Signs: 06/22/24 13:54 06/22/24 15:53 06/22/24 16:15 Temperature 97.3 F L Temperature Source Temporal Pulse Rate 112 H 83 Respiratory Rate 18 12 Blood Pressure 136/90 H 123/69 H Blood Pressure Mean 105 87 Pulse Ox 99 98 Oxygen Delivery Method Room Air Room Air Room Air 06/22/24 17:00 06/22/24 19:00 Temperature Temperature Source Pulse Rate 77 70 Respiratory Rate 14 16 Blood Pressure 103/56 L 117/75 Blood Pressure Mean 71 89 Pulse Ox 99 95 Oxygen Delivery Method Room Air Room Air MDM MDM MDM Narrative Medical decision making narrative: Patient is a 34-year-old female who presents to the emergency department with a chief complaint of generalized not feeling well, generalized weakness and fatigue. Patient will have a workup performed here on the differential diagnose includes Melamin to hypothyroidism, , UTI, generalized fatigue, electrolyte disturbance, MS flare. Patient will be given IV fluids, Tylenol and Reglan. Patient refused Tylenol and Reglan Patient's CBC was reviewed showed a white blood count of 13,000, hemoglobin stable at 14.2, plate count normal at 242. Patient sodium normal 130, potassium normal 3.7, creatinine normal at 0.55. Patient's troponin was less than 3. Patient's EKG reviewed and independently interpreted by myself showed sinus rhythm with a rate of 76 bpm. Patient TSH normal at 1.98. Patient's urinalysis reviewed and showed negative nitrates negative leukocyte esterase, 5-10 white blood cells and 5-10 squamous epithelial cells with 2+ bacteria she does not have any urinary symptoms this will be sent for culture she was advised to follow-up on this. Patient test was negative. Patient's chest x-ray was reviewed and independently interpreted myself and radiology showed no acute cardiopulmonary processes. Patient CT head and brain without contrast showed no acute findings. Patient ambulated well here in the emergency department and she is feeling much improved she would like to go home at this point time. Patient was vies follow-up with her primary care physician and the scheduled appointments for tilt table test as well as MRI. She is agreeable this plan all question concerns answered she is discharged home in stable condition. Lab Data Labs: Laboratory Results - last 24 hr 06/22/24 06/22/24 16:19 17:51 WBC 13.4 H RBC 4.68 Hgb 14.2 Hct 42.9 MCV 91.7 MCH 30.3 MCHC 33.1 RDW Std Deviation 41.4 RDW Coeff of Sunitha 12.3 Plt Count 242 MPV 11.6 Immature Gran % (Auto) 0.400 Neut % (Auto) 58.7 Lymph % (Auto) 30.9 [place] % (Auto) 6.8 Eos % (Auto) 2.6 Baso % (Auto) 0.6 Absolute Neuts (auto) 7.9 H Absolute Lymphs (auto) 4.15 Nucleated RBC % 0 Sodium 138 Potassium 3.7 Chloride 109 H Carbon Dioxide 24.0 Anion Gap 5 BUN 8 Creatinine 0.55 Est GFR (MDRD) Af Amer 165 Est GFR (MDRD) Non-Af 136 BUN/Creatinine Ratio 14.7 Glucose 94 Calcium 9.1 Troponin I High Sens < 3 L TSH 1.980 Urine Color Yellow Urine Clarity Clear Urine pH 6.0 Ur Specific [place] 1.020 Urine Protein 15 H Urine Glucose (UA) Normal Urine Ketones 15 H Urine Occult Blood 250 H Urine Nitrite Negative Urine Bilirubin Negative Urine Urobilinogen Normal Ur Leukocyte Esterase Negative Urine RBC > 100 SEEN Urine WBC 5-10 SEEN Ur Squamous Epith Cells 5-10 SEEN Urine Bacteria 2+ Urine Mucus 1+ Urine Test Negative Radiography Diagnostic Testing: Clinical Impression(s) from Imaging Studies Brain CT 06/22/24 16:05 IMPRESSION: Normal unenhanced CT scan of the brain. Electronically Signed: Armando Sanabria DO at 17:01 EST Reading Location ID and State: [facility] / [place] Tel [phone], Service support , Chest X-Ray 06/22/24 18:11 IMPRESSION: No radiographic evidence of acute cardiopulmonary disease. Electronically Signed: Armando Sanabria DO at 18:21 EST Reading Location ID and State: [facility] / [place] Tel [phone], Service support , Discharge Plan Triage Chief Complaint: Dizziness Other Complaint: Anxiety ED Provider: Ayden Baker Dx/Rx/DC Orders Clinical Impression: Light-headedness Prescriptions: No Action lorazepam 0.5 mg tablet 0.5 mg PO Q8H PRN (Reason: anxiety) Primary Care Provider: Foster Childress Referrals: Foster Childress MD [Primary Care Provider] - Activity Restrictions/Additional Instructions: Follow-up with your physician in the outpatient setting. Follow-up on the urine culture to ensure that you do not have a urinary tract infection with your family doctor. Return with worsening symptoms or other concerns. Print Language: Tongan Disposition Disposition: Home, Self Care
[2024-06-22] MEDS: 0.9% Normal Saline (1000mL) 1,000 ML 999 ML IV ×2 (16:17)
[2024-06-22 16:33] LABS: Absolute Lymphocyte Count 4.15 X10^3/uL (0.83-4.51); Absolute Neutrophil Count 7.9 X10^3/uL (2.0-7.7); Basophil# 0.08 X10^3/uL; Basophil% 0.6 % (0-1); Eosinophil# 0.35 X10^3/uL; Eosinophils% 2.6 % (0-5); Hematocrit 42.9 % (37-47); Hemoglobin 14.2 g/dL (12.0-15.0); Lymphocyte # 4.15 X10^3/ul (0.83-4.51); Lymphocyte % 30.9 % (19-41); Mean Corp Hgb Conc 33.1 g/dL (32-36); Mean Corpuscular Hgb 30.3 pg (27.0-32.0); Mean Corpuscular Volume 91.7 fL (81-99); Mean Platelet Vol. 11.6 fl (6.2-12.0); Monocyte# 0.91 X10^3/uL; Monocyte% 6.8 % (0-10); NRBC Flagged by Analyzer 0 % (0-5); Neutrophil # 7.88 X10^3/uL (2.7-7.7); Neutrophil % 58.7 % (47-70); Platelet Count 242 K/mm3 (150-450); RBC Distribution Width CV 12.3 % (11.6-14.6); RBC Distribution Width SD 41.4 fl (35.1-43.9); Red Blood Count 4.68 M/mm3 (4.2-5.4); White Blood Count 13.4 K/mm3 (4.4-11.0)
[2024-06-22 16:52] LABS: Anion Gap 5 (5-15); BUN 8 mg/dL (7-18); BUN/Creat Ratio 14.7 RATIO (10-20); Calcium,Total 9.1 mg/dL (8.5-10.1); Chloride 109 mmol/L (98-107); Creatinine, Serum 0.55 mg/dL (0.55-1.02); EST Glomerular Filtration Rate 136 mL/min (>60); Est Glom Filt Rate - Afr Amer 165 mL/min (>60); Glucose 94 mg/dL (74-106); Potassium 3.7 mmol/L (3.5-5.1); Sodium Level 138 mmol/L (136-145); Troponin-I HS < 3 pg/mL (3.0-54.0)
[2024-06-22 17:00] VITALS: BP 103/56; PULSE 77; RESP 14; O2SAT 99
--- NOTE | 2024-06-22 18:11 | RAD_ITS ---
INDICATION: near syncope EXAMINATION/TECHNIQUE: X-RAY - XR Chest 2 Views COMPARISON: June 17, 2023 FINDINGS: LINES/DEVICES: None. LUNGS: No consolidation, edema or effusion. No pneumothorax. MEDIASTINUM AND CARDIOVASCULAR STRUCTURES: Cardiac silhouette not enlarged. Central airways and mediastinal contour are unremarkable. BONES AND SOFT TISSUES: Unremarkable. RAD/Chest PA and Lateral IMPRESSION: No radiographic evidence of acute cardiopulmonary disease. Electronically Signed: Armando Sanabria DO at 18:21 EST ,
[2024-06-22 18:13] LABS: Color, Urine Yellow (Yellow); Glucose, Dipstick Normal (Normal); Ketone-Dipstick 15 mg/dl (Negative); Leukocyte Esterase-Dipstick Negative /ul (Negative); Nitrite-Dipstick Negative (Negative); Occult Blood-Urine 250 /ul (Negative); Protein-Dipstick 15 mg/dl (Negative); Urine Bilirubin Dipstick Negative (Negative); Urine Clarity Clear (Clear); Urine Urobilinogen Normal (Normal)
[2024-06-22 18:16] LABS: Internal QC Validated? YES +Cl - CLEAR BKGD; Pregnancy, Urine Negative Negative
[2024-06-22 18:50] LABS: Red Blood Cells-Urine > 100 SEEN /hpf (0-5); White Blood Cells 5-10 SEEN /hpf (0-5)
[2024-06-22 18:51] LABS: Bacteria 2+ /hpf (None Seen); Mucous, Urine 1+ /hpf (<or=2+); Squamous Epithelial Cells - UA 5-10 SEEN /hpf (5-10)
--- NOTE | 2024-06-22 18:56 | ED.RN ---
pt wanting her iv out. taken out per request
[2024-06-22 19:00] VITALS: BP 117/75; PULSE 70; RESP 16; O2SAT 95
== END 2024-06-22 19:51 | disposition home or self-care (01) ==
PROVIDERS: Emergency Provider Emergency Medicine; PCP Internal Medicine; Visit Provider Emergency Medicine
DX: R42 Dizziness and giddiness (principal); F41.9 Anxiety disorder, unspecified; Z79.899 Other long term (current) drug therapy; F17.200 Nicotine dependence, unspecified, uncomplicated
CPT/HCPCS: 70450; 71046; 80048; 81001; 81025; 84443; 84484; 85025; 87086; 87088; 93005; 96360; 96361; 99285

== ENCOUNTER 2024-07-23 14:09 | Emergency (ER) | payer SELFPAY ==
[2024-07-23 14:11] VITALS: BP 130/71; PULSE 116; RESP 15; TEMP 36.3; O2SAT 99
--- NOTE | 2024-07-23 15:19 | EKG12_ITS ---
Test Reason : Blood Pressure : */* mmHG Vent. Rate : 102 BPM Atrial Rate : 102 BPM P-R Int : 144 ms QRS Dur : 74 ms QT Int : 342 ms P-R-T Axes : 75 65 62 degrees QTcB Int : 445 ms Sinus tachycardia Septal infarct , age undetermined Abnormal ECG Confirmed by RENU WARREN, DONNIE ([id number]), editor trade journal JUNIOR MADDEN ([id number]) on 07/27/2024 6:06:01 AM Referred By: BARRY Confirmed By: DONNIE SEARS MD
--- NOTE | 2024-07-23 15:20 | EX.ED.DYSGE1 ---
HPI History of Present Illness Chief Complaint: Anxiety Informant: patient Narrative Narrative: 34-year-old female states she has been having anxiety attacks and she had another 1 this morning, but I did not take enough Ativan at the beginning. She took a 0.5 mg tablet, and it helped a little but not enough and then later she took another milligram and now she is feeling calm. The issue is that after feeling [place] and no longer panicking, she is having chest heaviness substernal nonradiating nonpleuritic as well as some mild dyspnea and she is concerned that her heart rate is still persistently elevated with the symptoms despite her anxiety being better. She denies any history of DVT or PE. No calf pain or leg edema. No syncope. No recent hospitalization, surgery, or travel out of the region in the last couple months. She states she is following with a neurologist at [facility] because of the constellation of issues recently and she is undergoing workup for MS-like symptoms, according to the patient. She has numbness and tingling at times, she was diagnosed with optic neuritis last year in her left eye and she states her vision is never gone back to normal, headaches at times, as well as other symptoms that she states are not related to her issue today. No history of asthma. [facility] Medical History Demyelinating disease Optic neuritis Autism Anxiety Depression Home Medications ?Medication ?Instructions ?Recorded ?Last Taken ?Type lorazepam 0.5 mg tablet 0.5 mg PO Q8H PRN anxiety 03/15/23 Unknown History Allergy/AdvReac Type Severity Reaction Status Date / Time lidocaine Allergy Intermediate Hives Verified 07/23/24 14:11 chlorpheniramine Allergy PT UNSURE Verified 07/23/24 14:11 OF REACTION egg Allergy Nausea/Vom/ Verified 07/23/24 14:11 Diarrhea mayte Allergy Anaphylaxis Verified 07/23/24 14:11 morphine AdvReac Other Verified 07/23/24 14:11 Surgical History Hx of tonsillectomy Social History Smoking Status: Heavy Smoker (>10/day) ROS ROS ED Constitutional Constitutional ED: Denies chills or fever(s) Eyes Eyes: Denies change in vision or diplopia ENT ENT ED: Denies rhinorrhea or sore throat Cardiovascular Cardiovascular: Reports as per HPI and chest pain; Denies palpitations, pedal edema, radiating jaw, neck or arm pain or syncope Respiratory/Chest Respiratory/Chest: Denies cough or dyspnea Gastrointestinal Gastrointestinal: Denies abdominal pain, diarrhea, nausea or vomiting Genitourinary Genitourinary ED: Denies dysuria or hematuria Musculoskeletal Musculoskeletal: Denies back pain or neck pain Integumentary Denies abscess or rash Neurologic Neurologic: Denies headache(s), paresthesias or weakness Psychiatric Psychiatric: Reports anxiety; Denies suicidal thoughts EXAM Physical Exam Const Vital Signs: 07/23/24 14:11 07/23/24 15:40 07/23/24 16:15 Temperature 97.4 F L Temperature Source Temporal Pulse Rate 116 H 105 H Respiratory Rate 15 16 Blood Pressure 130/71 H 120/76 Blood Pressure Mean 90 90 Pulse Ox 99 97 98 Oxygen Delivery Method Room Air Room Air Room Air 07/23/24 18:00 07/23/24 19:30 07/23/24 20:00 Temperature Temperature Source Pulse Rate 89 82 90 Respiratory Rate 19 H 13 19 H Blood Pressure 108/74 90/58 L 100/72 Blood Pressure Mean 85 67 82 Pulse Ox 98 97 96 Oxygen Delivery Method Room Air Positive well nourished and well developed General Appearance ED: well developed and NAD HEENT Reports moist mucous membranes normocephalic and atraumatic Eyes PERRL and EOMs intact bilaterally Neck full ROM and supple Resp normal respiratory effort and clear to auscultation bilaterally Cardio regular rate, regular rhythm and no murmurs Rate: other Other Details: Mild resting tachycardia GI non-tender and non-distended Auscultation: normoactive bowel sounds Palpation: soft Back/Spine no CVA tenderness General Back: other FROM Extremity normal to inspection General Extremety ED: Negative for edema, pulses abnormal or tenderness General Extremity: Negative for edema or pulses abnormal Neuro oriented x3, CN's II-XII intact bilaterally and no sensory deficits noted Sensorium / Orientation: awake and alert Motor Exam: strength 5/5 throughout Psych mental status grossly normal Skin no rashes or lesions noted and no wounds MDM MDM MDM Narrative Medical decision making narrative: Initially started with a chest pain workup, however the patient refused a chest x-ray because I know how many millisievert's it is and I have had a lot of CT scans and radiation exposure, and I was at [place] yesterday and they did a chest x-ray that they said was normal. The rest of her workup was unremarkable with the exception of a significant leukocytosis with a white blood count of 26. This is larger than she has had in the past. I discussed this with her and she is in agreement. Therefore she was amenable to adding other lab such as lactic acid which was normal, blood cultures which were done, and urinalysis screening for infection which was normal. She was given another bag of IV fluids, on reevaluation her vital signs are normal, her pulse is in the 80s and regular, her blood pressure is 100/72, she states she feels malaise but otherwise feels okay. Her EKG shows no ST segment deviation and her troponin is normal, arguing against myocarditis. She was complaining of some arthralgias but she can move her joints in all 4 extremities without any limitation. She states she has a history of tooth ache that is not bothering her that bad and hidradenitis suppurativa with an actively draining small abscess in her right axilla, it does not appear to be anything that needs to be emergently incised and drained. I offered admission she prefers to go home, I think the best course of action would be to cover her bases against worst-case scenarios, which basically would be MRSA bacteremia with IV vancomycin, and if she wants to go home at least we have blood cultures pending. She is amenable to that. I offered her doxycycline prescription at discharge but she declined saying that she has had that in the past, her vegetable farmworker wanted her to go on it for 3 months and then off of it for a month, and she states her stomach cannot tolerated and she does not want to take an oral antibiotic. I am told by nursing that the patient changed her mind and wanted to go home without any antibiotics, which is what she and her did. Lab Data Attestation: I reviewed the patient's lab results. Labs: Laboratory Results - last 24 hr 07/23/24 07/23/24 07/23/24 15:39 17:18 17:21 WBC 26.0 H RBC 4.80 Hgb 15.0 Hct 43.5 MCV 90.6 MCH 31.3 MCHC 34.5 RDW Std Deviation 40.2 RDW Coeff of Sunitha 12.2 Plt Count 236 MPV 11.7 Immature Gran % (Auto) 0.700 Neut % (Auto) 82.4 H Lymph % (Auto) 9.3 L [place] % (Auto) 5.8 Eos % (Auto) 1.1 Baso % (Auto) 0.7 Absolute Neuts (auto) 21.5 H Absolute Lymphs (auto) 2.43 Nucleated RBC % 0 Atypical Lymphocytes 1+ Plt Morphology Comment LARGE Sodium 140 Potassium 3.4 L Chloride 111 H Carbon Dioxide 24.0 Anion Gap 6 BUN 9 Creatinine 0.56 Est GFR (MDRD) Af Amer 161 Est GFR (MDRD) Non-Af 133 BUN/Creatinine Ratio 16.2 Glucose 110 H Lactic Acid 1.0 Calcium 9.4 Total Bilirubin 0.60 Direct Bilirubin 0.18 AST 16 ALT 20 Alkaline Phosphatase 68 Troponin I High Sens < 3 L Total Protein 8.0 Albumin 4.4 Globulin 3.6 TSH 1.610 Urine Color Yellow Urine Clarity Sl. Cloudy Urine pH 6.0 Ur Specific [place] 1.015 Urine Protein Negative Urine Glucose (UA) Normal Urine Ketones Negative Urine Occult Blood 10 H Urine Nitrite Negative Urine Bilirubin Negative Urine Urobilinogen Normal Ur Leukocyte Esterase Negative Urine RBC 0-5 SEEN Urine WBC 0-5 SEEN Ur Squamous Epith Cells 0-5 SEEN Urine Bacteria RARE Urine Mucus 0 SEEN Rhythm Strip Rhythm Strip: Sinus Tach Rate: 110 Ectopy: None EKG Initial EKG: Attestation: I personally reviewed and interpreted this EKG as follows: Interpretation: No Acute Injury Pattern and Sinus Tachycardia Comments: Nml axis & intervals; nml EKG Discharge Plan Triage Chief Complaint: Anxiety ED Provider: Herb Faria Dx/Rx/DC Orders Clinical Impression: Panic attack, Leukocytosis, Hidradenitis suppurativa of right axilla, Malaise and fatigue Instructions: Vancomycin Injection, Panic Disorder Tx Prescriptions: No Action lorazepam 0.5 mg tablet 0.5 mg PO Q8H PRN (Reason: anxiety) Primary Care Provider: DALJIT FARRIS MD Referrals: DALJIT FARRIS MD [Other] - 1-2 Days if not improving Print Language: [place] Disposition Disposition: Home, Self Care Discharge Date/Time: 07/23/24 21:09
[2024-07-23 15:40] VITALS: O2SAT 97
[2024-07-23 15:48] LABS: Absolute Lymphocyte Count 2.43 X10^3/uL (0.83-4.51); Absolute Neutrophil Count 21.5 X10^3/uL (2.0-7.7); Basophil# 0.17 X10^3/uL; Basophil% 0.7 % (0-1); Eosinophil# 0.29 X10^3/uL; Eosinophils% 1.1 % (0-5); Hematocrit 43.5 % (37-47); Lymphocyte # 2.43 X10^3/ul (0.83-4.51); Lymphocyte % 9.3 % (19-41); Mean Corp Hgb Conc 34.5 g/dL (32-36); Mean Corpuscular Hgb 31.3 pg (27.0-32.0); Mean Corpuscular Volume 90.6 fL (81-99); Mean Platelet Vol. 11.7 fl (6.2-12.0); Monocyte% 5.8 % (0-10); NRBC Flagged by Analyzer 0 % (0-5); Neutrophil # 21.45 X10^3/uL (2.7-7.7); Neutrophil % 82.4 % (47-70); POSITIVE DIFFERENTIAL YES; Platelet Count 236 K/mm3 (150-450); RBC Distribution Width CV 12.2 % (11.6-14.6); RBC Distribution Width SD 40.2 fl (35.1-43.9)
[2024-07-23] MEDS: 0.9% Normal Saline (500mL Bag) 500 ML 999 ML IV (15:50)
[2024-07-23 15:57] LABS: Differential Indicated SCAN CRITERIA MET
[2024-07-23 16:10] LABS: Anion Gap 6 (5-15); BUN 9 mg/dL (7-18); BUN/Creat Ratio 16.2 RATIO (10-20); Calcium,Total 9.4 mg/dL (8.5-10.1); Chloride 111 mmol/L (98-107); Creatinine, Serum 0.56 mg/dL (0.55-1.02); EST Glomerular Filtration Rate 133 mL/min (>60); Est Glom Filt Rate - Afr Amer 161 mL/min (>60); Glucose 110 mg/dL (74-106); Potassium 3.4 mmol/L (3.5-5.1); Sodium Level 140 mmol/L (136-145); Troponin-I HS < 3 pg/mL (3.0-54.0)
[2024-07-23 16:15] VITALS: BP 120/76; PULSE 105; RESP 16; O2SAT 98
[2024-07-23 16:43] LABS: Atypical Lymphocyte 1+ %; Platelet Morphology LARGE
[2024-07-23] MEDS: 0.9% Normal Saline (1000mL) 1,000 ML 999 ML IV (17:21)
[2024-07-23 17:27] LABS: Mucous, Urine 0 SEEN /hpf (<or=2+)
[2024-07-23 17:36] LABS: AST(SGOT) 16 U/L (15-37); Alanine Aminotransfer ALT/SGPT 20 U/L (13-56); Albumin, Serum 4.4 g/dL (3.2-5.0); Alkaline Phosphatase 68 U/L (45-117); Bilirubin, Direct 0.18 mg/dL (0.00-0.30); Globulin 3.6 g/dL (2.2-4.2)
[2024-07-23 17:40] LABS: Color, Urine Yellow (Yellow); Glucose, Dipstick Normal (Normal); Ketone-Dipstick Negative (Negative); Leukocyte Esterase-Dipstick Negative /ul (Negative); Nitrite-Dipstick Negative (Negative); Occult Blood-Urine 10 /ul (Negative); Protein-Dipstick Negative (Negative); Specific Gravity, Urine 1.015 (1.002-1.030); Urine Bilirubin Dipstick Negative (Negative); Urine Clarity Sl. Cloudy (Clear); Urine Urobilinogen Normal (Normal)
[2024-07-23 18:00] VITALS: BP 108/74; PULSE 89; RESP 19; O2SAT 98
[2024-07-23 18:34] LABS: Bacteria RARE /hpf (None Seen); Red Blood Cells-Urine 0-5 SEEN /hpf (0-5); Squamous Epithelial Cells - UA 0-5 SEEN /hpf (5-10); White Blood Cells 0-5 SEEN /hpf (0-5)
--- NOTE | 2024-07-23 19:13 | CM.ED ---
Social Work SW met with patient who stated she came in the the ER due to having a panic attack today and being unable to get symptoms under control. Patient stated that she had taken ativan, but not soon enough. Patient discussed with SW that she was autistic and she had been working hard to find the appropriate supports that can help her. Patient stated that she went to [facility] in [place] for her counseling services, she stated they specialize in patients with autism and she feels supported. She stated she also sees a neurologist at the [facility] and they were connecting her to a psychiatric neurologist as well. Patient also is working with OT for her sensory issues and PT for her muscle weekness. Patient stated the only concern she stilll had was an inability to pull herself out of a panic attack before it got worse and asked for ideas. Patient was provided resources including Keep your Mind Grounded, 4-7-8 Relaxation, 99 Coping skills, and Coping Skills for Anxiety. No further needs identified at this time. 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
[2024-07-23 19:30] VITALS: BP 90/58; PULSE 82; RESP 13; O2SAT 97
[2024-07-23 20:00] VITALS: BP 100/72; PULSE 90; RESP 19; O2SAT 96
[2024-07-23 20:18] VITALS: BMI 27.2
== END 2024-07-23 21:09 | disposition home or self-care (01) ==
PROVIDERS: Emergency Provider Emergency Medicine; Visit Provider Emergency Medicine
DX: F41.0 Panic disorder [episodic paroxysmal anxiety] (principal); R53.81 Other malaise; D72.829 Elevated white blood cell count, unspecified; L73.2 Hidradenitis suppurativa; F17.200 Nicotine dependence, unspecified, uncomplicated
CPT/HCPCS: 36415; 80048; 80076; 81001; 83605; 84443; 84484; 85025; 87040; 93005; 96360; 96361; 99285; A4216

== ENCOUNTER 2024-08-20 08:48 | Emergency (ER) | payer SELFPAY ==
[2024-08-20 08:49] VITALS: BP 131/92; PULSE 87; RESP 16; TEMP 36.6; O2SAT 98; BMI 27.4
--- NOTE | 2024-08-20 08:58 | EKG12_ITS ---
Test Reason : Blood Pressure : */* mmHG Vent. Rate : 75 BPM Atrial Rate : 75 BPM P-R Int : 152 ms QRS Dur : 74 ms QT Int : 360 ms P-R-T Axes : 69 21 34 degrees QTcB Int : 402 ms Normal sinus rhythm Poor R wave progression Otherwise normal ECG Confirmed by Micheal Griffin ([id number]), fan mail editor JUNIOR MADDEN ([id number]) on 08/24/2024 7:40:49 AM Referred By: Confirmed By: Micheal Griffin
--- NOTE | 2024-08-20 08:59 | EX.ED.DYSGE1 ---
HPI History of Present Illness Chief Complaint: Chest Pain Narrative Narrative: 34-year-old female past medical history of demyelinating disease sees a neurologist presents with POTS like symptoms that she has had since this morning. The last time she had this was 6 to 8 months ago for which she was seen in the emergency department. She has not had a formal diagnosis and is trying to get scheduled for a tilt table test. She relates history that this morning, she noticed that her blood pressure was elevated in the 150s and she had a high heart rate. She checked it again when she started feeling lightheaded and felt a head olivas and it had dropped significantly. She was still tachycardic at around 121 bpm. She states when this happens usually 1 to 2 L of IV fluids helped in the past. She presents via EMS with lightheadedness and POTS like symptoms. [facility] Medical History Demyelinating disease Optic neuritis Autism Anxiety Depression Home Medications ?Medication ?Instructions ?Recorded ?Last Taken ?Type lorazepam 0.5 mg tablet 0.5 mg PO Q8H PRN anxiety 03/15/23 Unknown History cholecalciferol (vitamin D3) 125 125 mcg PO DAILY 08/20/24 Unknown History mcg (5,000 unit) tablet Allergy/AdvReac Type Severity Reaction Status Date / Time lidocaine Allergy Intermediate Hives Verified 08/20/24 08:54 chlorpheniramine Allergy PT UNSURE Verified 08/20/24 08:54 OF REACTION egg Allergy Nausea/Vom/ Verified 08/20/24 08:54 Diarrhea mayte Allergy Anaphylaxis Verified 08/20/24 08:54 morphine AdvReac Other Verified 08/20/24 08:54 Surgical History Hx of tonsillectomy Social History Smoking Status: Heavy Smoker (>10/day) ROS ROS ED ROS Narrative Review of systems positive for lightheadedness, fluctuating blood pressure and high heart rate. No shortness of breath. No current chest pain, no other symptoms. EXAM Physical Exam Narrative Exam Narrative: Afebrile. Vital signs noted. Nontoxic-appearing. Cardiovascular examination reveals a regular rate and rhythm. Lungs are clear to auscultation bilaterally. Abdomen is soft nontender with positive bowel sounds. Neurological examination is nonfocal and nonlateralizing. Const Vital Signs: 08/20/24 08:49 08/20/24 09:03 08/20/24 09:20 Temperature 97.9 F Temperature Source Oral Pulse Rate 87 Pulse Rate [Lying] 86 Pulse Rate [Sitting (for 1 minute prior to obtaining)] 90 Pulse Rate [Standing (for 1 minute prior to obtaining)] 100 Respiratory Rate 16 Respiratory Effort Normal Non-Labored Respiratory Pattern Normal Blood Pressure 131/92 H Blood Pressure [Lying] 122/76 H Blood Pressure [Sitting (for 1 minute prior to obtaining)] 121/86 H Blood Pressure [Standing (for 1 minute prior to obtaining)] 131/86 H Blood Pressure Mean 105 Blood Pressure Mean [Lying] 91 Blood Pressure Mean [Sitting (for 1 minute prior to obtaining)] 97 Blood Pressure Mean [Standing (for 1 minute prior to obtaining)] 101 Pulse Ox 98 Oxygen Delivery Method Room Air 08/20/24 10:00 08/20/24 10:31 Temperature 97.9 F Temperature Source Pulse Rate 82 82 Pulse Rate [Lying] Pulse Rate [Sitting (for 1 minute prior to obtaining)] Pulse Rate [Standing (for 1 minute prior to obtaining)] Respiratory Rate 22 H 22 H Respiratory Effort Respiratory Pattern Blood Pressure 107/75 107/75 Blood Pressure [Lying] Blood Pressure [Sitting (for 1 minute prior to obtaining)] Blood Pressure [Standing (for 1 minute prior to obtaining)] Blood Pressure Mean 85 85 Blood Pressure Mean [Lying] Blood Pressure Mean [Sitting (for 1 minute prior to obtaining)] Blood Pressure Mean [Standing (for 1 minute prior to obtaining)] Pulse Ox 100 100 Oxygen Delivery Method MDM MDM MDM Narrative Medical decision making narrative: Differential diagnosis includes but not limited to POTS versus dehydration versus other electrolyte imbalance versus orthostatic hypotension. Orthostatics will be obtained and she will be bolused 1 L normal saline. Given that while she was sitting and talking, her heart rate did fluctuate. In review of her EMR, she has had history of panic attacks and anxiety as well. EKG will be obtained. Orthostatics are negative. EKG interpreted by myself independently demonstrates normal sinus rhythm at 75 bpm without ectopy or acute ST changes. No STEMI. I reviewed her laboratory work and she has normal white count of 9.8 with hemoglobin normal at 14.2, hematocrit 42.1, electrolyte panel is grossly unremarkable except for carbon dioxide slightly low at 21 which may be secondary to slight hyperventilation, glucose normal at 95. Sodium normal at 137 with potassium 3.6. I do not feel that she requires serial troponin enzymes. Repeat examination shows her improved after approximately 500 mL of normal saline bolus. She will receive the rest of her IV fluids and be discharged to follow-up as an outpatient, and attempt to get her tilt table study/test scheduled. I feel she can be discharged to follow-up. Return instructions reviewed. Disposition is discharged home in stable condition. History & Record Review Discussion w/independent historian: Patient Lab Data Attestation: I reviewed the patient's lab results. Labs: Laboratory Results - last 24 hr 08/20/24 09:19 WBC 9.8 RBC 4.58 Hgb 14.2 Hct 42.1 MCV 91.9 MCH 31.0 MCHC 33.7 RDW Std Deviation 40.5 RDW Coeff of Sunitha 12.0 Plt Count 221 MPV 12.2 H Immature Gran % (Auto) 0.300 Neut % (Auto) 45.4 L Lymph % (Auto) 41.6 H Toole % (Auto) 7.7 Eos % (Auto) 4.1 Baso % (Auto) 0.9 Absolute Neuts (auto) 4.5 Absolute Lymphs (auto) 4.08 Nucleated RBC % 0 Sodium 137 Potassium 3.6 Chloride Direct 106 Carbon Dioxide 21.3 L Anion Gap 11 BUN 13 Creatinine 0.5 L Estim Creat Clear Calc 162.09 Est GFR (MDRD) Non-Af 126 BUN/Creatinine Ratio 24.3 H Glucose 95 Calcium 9.6 Total Bilirubin 0.60 AST 16 ALT 13 Alkaline Phosphatase 66 Total Protein 7.8 Albumin 4.7 Globulin 3.1 Albumin/Globulin Ratio 1.5 Discharge Plan Triage Chief Complaint: Chest Pain ED Provider: Musa Islas Dx/Rx/DC Orders Clinical Impression: Palpitations, Elevated heart rate with elevated blood pressure without diagnosis of hypertension, Lightheadedness Instructions: ED Palpitations, ED Near-Fainting, Uncertain Cause Prescriptions: No Action lorazepam 0.5 mg tablet 0.5 mg PO Q8H PRN (Reason: anxiety) cholecalciferol (vitamin D3) 125 mcg (5,000 unit) tablet 125 mcg PO DAILY Primary Care Provider: DALJIT FARRIS MD Referrals: DALJIT FARRIS MD [Other] - 3-5 Days Activity Restrictions/Additional Instructions: Drink plenty of oral fluids. Continue to attempt to have your tilt table test performed. Return with new or worsening symptoms. Print Language: Czech Disposition Disposition: Home, Self Care
[2024-08-20 09:03] VITALS: BP 121/86; BP 122/76; BP 131/86; PULSE 100; PULSE 86; PULSE 90
[2024-08-20] MEDS: 0.9% Normal Saline (1000mL) 1,000 ML 1000 ML IV (09:19)
[2024-08-20 09:42] LABS: Absolute Lymphocyte Count 4.08 X10^3/uL (0.83-4.51); Absolute Neutrophil Count 4.5 X10^3/uL (2.0-7.7); Basophil# 0.09 X10^3/uL; Basophil% 0.9 % (0-1); Eosinophils% 4.1 % (0-5); Hematocrit 42.1 % (37-47); Hemoglobin 14.2 g/dL (12.0-15.0); Lymphocyte # 4.08 X10^3/ul (0.83-4.51); Lymphocyte % 41.6 % (19-41); Mean Corp Hgb Conc 33.7 g/dL (32-36); Mean Corpuscular Volume 91.9 fL (81-99); Mean Platelet Vol. 12.2 fl (6.2-12.0); Monocyte# 0.75 X10^3/uL; Monocyte% 7.7 % (0-10); NRBC Flagged by Analyzer 0 % (0-5); Neutrophil # 4.45 X10^3/uL (2.7-7.7); Neutrophil % 45.4 % (47-70); Platelet Count 221 K/mm3 (150-450); RBC Distribution Width SD 40.5 fl (35.1-43.9); Red Blood Count 4.58 M/mm3 (4.2-5.4); White Blood Count 9.8 K/mm3 (4.4-11.0)
[2024-08-20 10:00] VITALS: BP 107/75; PULSE 82; RESP 22; O2SAT 100
[2024-08-20 10:20] LABS: ALB/GLOB Ratio 1.5 RATIO (0.9-2.4); AST(SGOT) 16 U/L (<=31); Alanine Aminotransfer ALT/SGPT 13 U/L (<=34); Albumin, Serum 4.7 g/dL (3.5-5.0); Alkaline Phosphatase 66 U/L (35-104); Anion Gap 11 (5-15); BUN 13 mg/dL (4-19); BUN/Creat Ratio 24.3 RATIO (10-20); Calcium 9.6 mg/dL (7.6-11.0); Carbon Dioxide 21.3 mmol/L (22.0-29.0); Chloride 106 mmol/L (96-108); Creatinine, Serum 0.5 mg/dL (0.6-1.0); EST Glomerular Filtration Rate 126 (>60); Estimated Creatinine Clearance 162.09 ml/min; Globulin 3.1 g/dL (2.2-4.2); Glucose 95 mg/dL (70-99); Potassium 3.6 mmol/L (3.3-5.1); Protein, Total 7.8 g/dL (5.9-8.4); Sodium Level 137 mmol/L (133-145)
[2024-08-20 10:31] VITALS: BP 107/75; PULSE 82; RESP 22; TEMP 36.6; O2SAT 100
== END 2024-08-20 11:24 | disposition home or self-care (01) ==
PROVIDERS: Emergency Provider Emergency Medicine; Visit Provider Emergency Medicine
DX: R00.2 Palpitations (principal); R42 Dizziness and giddiness; R03.0 Elevated blood-pressure reading, without diagnosis of hypertension; F17.200 Nicotine dependence, unspecified, uncomplicated
CPT/HCPCS: 80053; 85025; 93005; 96360; 99285

== ENCOUNTER 2024-09-09 03:31 | Emergency (ER) | payer SELFPAY ==
[2024-09-09 03:32] VITALS: BP 128/90; PULSE 108; RESP 16; TEMP 36.8; O2SAT 99; BMI 26.3
[2024-09-09 03:43] VITALS: BP 127/83; BP 128/87; BP 141/94; PULSE 100; PULSE 91; PULSE 97
--- NOTE | 2024-09-09 03:43 | EKG12_ITS ---
Test Reason : DYSRHYTHMIA Blood Pressure : */* mmHG Vent. Rate : 87 BPM Atrial Rate : 87 BPM P-R Int : 150 ms QRS Dur : 78 ms QT Int : 356 ms P-R-T Axes : 66 10 33 degrees QTcB Int : 428 ms Normal sinus rhythm Septal infarct , age undetermined Abnormal ECG Confirmed by RENU WARREN, DONNIE ([id number]), manuscript editor JUNIOR MADDEN ([id number]) on 09/09/2024 8:49:40 AM Referred By: NESS Confirmed By: DONNIE SEARS MD
--- NOTE | 2024-09-09 03:44 | EX.ED.DYSGE1 ---
HPI History of Present Illness Chief Complaint: Palpitations Narrative Narrative: 34-year-old female presents with her because of palpitations that she has had for at least a week. She relates history that she was seen in the emergency department a few weeks ago, she supposed to have a tilt table test that keeps getting rescheduled. She may have POTS. She states that her heart rate has been up and down and when she lays on her left or right side she feels heart palpitations. No chest pain. Last week she did have nausea, vomiting, and diarrhea that has resolved. She and her state that her heart rate and her blood pressure have been abnormal all day. [facility] Medical History Demyelinating disease Optic neuritis Autism Anxiety Depression Home Medications ?Medication ?Instructions ?Recorded ?Last Taken ?Type lorazepam 0.5 mg tablet 0.5 mg PO Q8H PRN anxiety 03/15/23 Unknown History cholecalciferol (vitamin D3) 125 125 mcg PO DAILY 08/20/24 Unknown History mcg (5,000 unit) tablet Allergy/AdvReac Type Severity Reaction Status Date / Time lidocaine Allergy Intermediate Hives Verified 09/09/24 03:34 chlorpheniramine Allergy PT UNSURE Verified 09/09/24 03:34 OF REACTION egg Allergy Nausea/Vom/ Verified 09/09/24 03:34 Diarrhea mayte Allergy Anaphylaxis Verified 09/09/24 03:34 Anesthetics - Amide Type - AdvReac Rash Verified 09/09/24 03:34 Select A (anesthesia) morphine AdvReac Other Verified 09/09/24 03:34 Surgical History Hx of tonsillectomy Social History Smoking Status: Heavy Smoker (>10/day) ROS ROS ED ROS Narrative Review of systems positive for heart palpitations for the last week. Recent nausea, vomiting, and diarrhea that has resolved. Questionable history of POTS. No chest pain. Blood pressure has been variable all day. EXAM Physical Exam Narrative Exam Narrative: Afebrile. Vital signs noted. Nontoxic-appearing. Cardiovascular examination reveals intermittent tachycardia as high as 108 bpm. Lungs are clear to auscultation bilaterally. Abdomen is soft and nontender without guarding or rebound. Neurological examination is nonfocal and nonlateralizing, moves all extremities. Const Vital Signs: 09/09/24 03:32 09/09/24 03:32 09/09/24 03:43 Temperature 98.2 F Temperature Source Oral Pulse Rate 108 H Pulse Rate [Lying] 91 Pulse Rate [Sitting (for 1 minute prior to obtaining)] 100 Pulse Rate [Standing (for 1 minute prior to obtaining)] 97 Respiratory Rate 16 Respiratory Effort Normal Non-Labored Blood Pressure 128/90 H Blood Pressure [Lying] 127/83 H Blood Pressure [Sitting (for 1 minute prior to obtaining)] 141/94 H Blood Pressure [Standing (for 1 minute prior to obtaining)] 128/87 H Blood Pressure Mean 102 Blood Pressure Mean [Lying] 97 Blood Pressure Mean [Sitting (for 1 minute prior to obtaining)] 109 Blood Pressure Mean [Standing (for 1 minute prior to obtaining)] 100 Pulse Ox 99 Oxygen Delivery Method Room Air 09/09/24 04:27 Temperature Temperature Source Pulse Rate 86 Pulse Rate [Lying] Pulse Rate [Sitting (for 1 minute prior to obtaining)] Pulse Rate [Standing (for 1 minute prior to obtaining)] Respiratory Rate 19 H Respiratory Effort Blood Pressure 117/84 H Blood Pressure [Lying] Blood Pressure [Sitting (for 1 minute prior to obtaining)] Blood Pressure [Standing (for 1 minute prior to obtaining)] Blood Pressure Mean 95 Blood Pressure Mean [Lying] Blood Pressure Mean [Sitting (for 1 minute prior to obtaining)] Blood Pressure Mean [Standing (for 1 minute prior to obtaining)] Pulse Ox 100 Oxygen Delivery Method Room Air MDM MDM MDM Narrative Medical decision making narrative: Differential diagnosis includes but not limited to dehydration versus electrolyte imbalance versus intravascular volume depletion versus POTS. I reviewed her prior ED record and I had seen her on her last visit. Orthostatics will be obtained as well as IV fluids. I will check her CBC, BMP, and magnesium. I do not feel she needs a troponin or chest x-ray. There is a same symptoms that she has had in the past. I do feel that there may be some anxiety component to this as well. She states that the blood pressure and the palpitations actually triggered her anxiety. EKG obtained and interpreted by myself independently demonstrates normal sinus rhythm at 87 bpm without ectopy or acute ST changes. No STEMI. I reviewed her laboratory work and she has slight leukocytosis of 14.4 which when compared to prior laboratories, she has had leukocytosis that is nonspecific in the past as well. Hemoglobin 14.3, hematocrit 42.5. Platelet count normal at 218. Sodium is normal at 136 with potassium 3.7 and chloride 105. BUN is 11 and creatinine 0.60, no evidence of dehydration. Glucose appropriately elevated 98. Magnesium normal at 2.0. LFTs are grossly unremarkable. Orthostatics obtained by RN and reviewed and are negative for any significant drop in her blood pressure, or increase in her heart rate. At this point in time, I feel she can be discharged to follow-up with her primary care provider and get her tilt test done, and perhaps follow-up with cardiology. Once again I feel that there may be some anxiety component to her reported fluctuations in blood pressure as well as heart rate. Her current blood pressure is 117/84 with a heart rate of 86. Disposition is discharged home in stable condition. History & Record Review Discussion w/independent historian: Patient and Family () Lab Data Attestation: I reviewed the patient's lab results. Labs: Laboratory Results - last 24 hr 09/09/24 03:42 WBC 14.4 H RBC 4.61 Hgb 14.3 Hct 42.5 MCV 92.2 MCH 31.0 MCHC 33.6 RDW Std Deviation 42.3 RDW Coeff of Sunitha 12.5 Plt Count 218 MPV 11.4 Immature Gran % (Auto) 0.500 Neut % (Auto) 57.2 Lymph % (Auto) 31.9 Mcpherson % (Auto) 6.8 Eos % (Auto) 2.9 Baso % (Auto) 0.7 Absolute Neuts (auto) 8.2 H Absolute Lymphs (auto) 4.58 H Nucleated RBC % 0 Sodium 136 Potassium 3.7 Chloride 105 Carbon Dioxide 21.6 Anion Gap 10 BUN 11 Creatinine 0.60 L Estim Creat Clear Calc 132.47 Est GFR (MDRD) Non-Af 121 BUN/Creatinine Ratio 18.9 Glucose 98 Calcium 9.5 Magnesium 2.0 Total Bilirubin 0.41 AST 21 ALT 33 Alkaline Phosphatase 66 Total Protein 7.5 Albumin 4.6 Globulin 2.9 Albumin/Globulin Ratio 1.6 Discharge Plan Triage Chief Complaint: Palpitations ED Provider: Musa Islas Dx/Rx/DC Orders Prescriptions: No Action lorazepam 0.5 mg tablet 0.5 mg PO Q8H PRN (Reason: anxiety) cholecalciferol (vitamin D3) 125 mcg (5,000 unit) tablet 125 mcg PO DAILY Primary Care Provider: Foster Childress Referrals: Foster Childress MD [Primary Care Provider] - Print Language: [place] Citizen
[2024-09-09 03:51] LABS: Absolute Lymphocyte Count 4.58 X10^3/uL (0.83-4.51); Absolute Neutrophil Count 8.2 X10^3/uL (2.0-7.7); Basophil% 0.7 % (0-1); Eosinophil# 0.42 X10^3/uL; Eosinophils% 2.9 % (0-5); Hematocrit 42.5 % (37-47); Hemoglobin 14.3 g/dL (12.0-15.0); Lymphocyte # 4.58 X10^3/ul (0.83-4.51); Lymphocyte % 31.9 % (19-41); Mean Corp Hgb Conc 33.6 g/dL (32-36); Mean Corpuscular Volume 92.2 fL (81-99); Mean Platelet Vol. 11.4 fl (6.2-12.0); Monocyte# 0.97 X10^3/uL; Monocyte% 6.8 % (0-10); NRBC Flagged by Analyzer 0 % (0-5); Neutrophil # 8.23 X10^3/uL (2.7-7.7); Neutrophil % 57.2 % (47-70); POSITIVE MORPHOLOGY YES; Platelet Count 218 K/mm3 (150-450); RBC Distribution Width CV 12.5 % (11.6-14.6); RBC Distribution Width SD 42.3 fl (35.1-43.9); Red Blood Count 4.61 M/mm3 (4.2-5.4); White Blood Count 14.4 K/mm3 (4.4-11.0)
[2024-09-09] MEDS: 0.9% Normal Saline (1000mL) 1,000 ML 999 ML IV (03:54)
[2024-09-09 04:08] LABS: ALB/GLOB Ratio 1.6 RATIO (0.9-2.4); AST(SGOT) 21 U/L (<=31); Alanine Aminotransfer ALT/SGPT 33 U/L (<=34); Albumin, Serum 4.6 g/dL (3.5-5.0); Alkaline Phosphatase 66 U/L (35-104); Anion Gap 10 (5-15); BUN 11 mg/dL (4-19); BUN/Creat Ratio 18.9 RATIO (10-20); Calcium,Total 9.5 mg/dL (7.6-11.0); Carbon Dioxide 21.6 mmol/L (21.0-32.0); Chloride 105 mmol/L (98-108); EST Glomerular Filtration Rate 121 (>60); Estimated Creatinine Clearance 132.47 ml/min (50-250); Globulin 2.9 g/dL (2.2-4.2); Glucose 98 mg/dL (70-99); Potassium 3.7 mmol/L (3.3-5.1); Protein, Total 7.5 g/dL (5.9-8.4); Sodium Level 136 mmol/L (133-145); Total Bilirubin 0.41 mg/dL (0.00-1.30)
[2024-09-09 04:14] LABS: Differential Indicated SCAN CRITERIA MET
[2024-09-09 04:27] VITALS: BP 117/84; PULSE 86; RESP 19; O2SAT 100
[2024-09-09 04:52] LABS: Atypical Lymphocyte 1+ %; Differential Comment SCANNED
[2024-09-09 05:00] VITALS: BP 123/87
== END 2024-09-09 05:09 | disposition home or self-care (01) ==
PROVIDERS: Emergency Provider Emergency Medicine; PCP Internal Medicine; Visit Provider Emergency Medicine
DX: R00.2 Palpitations (principal); F17.200 Nicotine dependence, unspecified, uncomplicated
CPT/HCPCS: 80053; 83735; 85025; 93005; 96360; 99285